=== PATIENT | female | born 1990 ===

== ENCOUNTER 2022-09-25 10:57 | Emergency (ER) | payer OTHER, SELFPAY ==
--- NOTE | ~2022-09-25 | XR_ITS ---
EXAMINATION: Lumbar spine, right knee and right ankle. CLINICAL INDICATIONS: Pain. COMPARISON: None. TECHNIQUE: Right ankle 3 views. Right knee 4 views. Lumbar spine 3 views. FINDINGS: RIGHT ANKLE: The ankle mortise and the subtalar joints are normal. No visible acute fracture or dislocation seen. Small bone fragment inferior to the cuboid bone is likely old injury. There is a small calcaneal and retrocalcaneal enthesophytes. The soft tissues are normal. SI JOINTS: There is normal lumbar lordosis. The vertebral heights and alignment is normal. There is loss of L5-S1 disc height. Rest of the disc heights are preserved. The SI joints are symmetrical. No visible acute fracture, dislocation or lytic process seen. RIGHT KNEE: There is loss of medial and lateral compartment joint space with periarticular spurring. No bony erosive changes seen. There is mild suprapatellar joint effusion. XR/XR lumbar spine 2-3V IMPRESSION: Unremarkable right ankle exam. Degenerative disc changes with spondylosis L5-S1 disc level. Degenerative changes medial and lateral compartment right knee with periarticular spurring. No acute fracture or dislocation.
--- NOTE | ~2022-09-25 | XR_ITS ---
EXAMINATION: Lumbar spine, right knee and right ankle. CLINICAL INDICATIONS: Pain. COMPARISON: None. TECHNIQUE: Right ankle 3 views. Right knee 4 views. Lumbar spine 3 views. FINDINGS: RIGHT ANKLE: The ankle mortise and the subtalar joints are normal. No visible acute fracture or dislocation seen. Small bone fragment inferior to the cuboid bone is likely old injury. There is a small calcaneal and retrocalcaneal enthesophytes. The soft tissues are normal. SI JOINTS: There is normal lumbar lordosis. The vertebral heights and alignment is normal. There is loss of L5-S1 disc height. Rest of the disc heights are preserved. The SI joints are symmetrical. No visible acute fracture, dislocation or lytic process seen. RIGHT KNEE: There is loss of medial and lateral compartment joint space with periarticular spurring. No bony erosive changes seen. There is mild suprapatellar joint effusion. XR/XR ankle RT min 3V IMPRESSION: Unremarkable right ankle exam. Degenerative disc changes with spondylosis L5-S1 disc level. Degenerative changes medial and lateral compartment right knee with periarticular spurring. No acute fracture or dislocation.
--- NOTE | ~2022-09-25 | XR_ITS ---
EXAMINATION: Lumbar spine, right knee and right ankle. CLINICAL INDICATIONS: Pain. COMPARISON: None. TECHNIQUE: Right ankle 3 views. Right knee 4 views. Lumbar spine 3 views. FINDINGS: RIGHT ANKLE: The ankle mortise and the subtalar joints are normal. No visible acute fracture or dislocation seen. Small bone fragment inferior to the cuboid bone is likely old injury. There is a small calcaneal and retrocalcaneal enthesophytes. The soft tissues are normal. SI JOINTS: There is normal lumbar lordosis. The vertebral heights and alignment is normal. There is loss of L5-S1 disc height. Rest of the disc heights are preserved. The SI joints are symmetrical. No visible acute fracture, dislocation or lytic process seen. RIGHT KNEE: There is loss of medial and lateral compartment joint space with periarticular spurring. No bony erosive changes seen. There is mild suprapatellar joint effusion. XR/XR knee RT 3V IMPRESSION: Unremarkable right ankle exam. Degenerative disc changes with spondylosis L5-S1 disc level. Degenerative changes medial and lateral compartment right knee with periarticular spurring. No acute fracture or dislocation.
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
[2022-09-25 11:22] VITALS: BP 154/83; PULSE 68; RESP 16; TEMP 36.4; O2SAT 99; BMI 42.0
[2022-09-25] MEDS: Acetaminophen 325 MG TABLET 975 MG PO (13:29)
[2022-09-25] MEDS: Ibuprofen 600 MG TABLET PO (13:29)
== END 2022-09-25 13:33 | disposition home or self-care (01) ==
PROVIDERS: Emergency Provider Emergency Medicine
DX: M54.2 Cervicalgia (principal); M79.604 Pain in right leg; M54.50 Low back pain, unspecified; M25.561 Pain in right knee
CPT/HCPCS: 72100; 73562; 73610; 99283

== ENCOUNTER 2024-03-08 13:03 | Emergency (ER) | payer OTHER, SELFPAY ==
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
[2024-03-08 13:44] VITALS: BP 162/86; PULSE 75; RESP 18; TEMP 36.7; O2SAT 98; BMI 46.3
[2024-03-08 17:35] VITALS: BP 162/86; PULSE 75; RESP 18; TEMP 36.7; O2SAT 98
== END 2024-03-08 17:36 | disposition home or self-care (01) ==
PROVIDERS: Emergency Provider Emergency Medicine
DX: S39.92XA Unspecified injury of lower back, initial encounter (principal); S09.90XA Unspecified injury of head, initial encounter; M54.2 Cervicalgia; M25.512 Pain in left shoulder; R51.9 Headache, unspecified; V43.52XA Car driver injured in collision with other type car in traffic accident, initial encounter; Y93.89 Activity, other specified; Y92.488 Other paved roadways as the place of occurrence of the external cause; Y99.8 Other external cause status; Z79.899 Other long term (current) drug therapy
CPT/HCPCS: 70450; 72100; 72125; 73030; 99282; 99284

== ENCOUNTER 2024-07-13 16:06 | Emergency (ER) | payer OTHER, SELFPAY ==
--- NOTE | ~2024-07-13 | CT_ITS ---
CLINICAL HISTORY: abd pain CT abdomen and pelvis with contrast Comparison: None Findings: Minimal bilateral lower lobe interstitial opacities, slightly more prominent on the left. The gallbladder is surgically absent. The solid organs are within normal limits. No hydronephrosis or hydroureter. Horseshoe kidney present. No bowel obstruction, pneumoperitoneum, or pneumatosis. There are postsurgical changes of the stomach. Scattered subcentimeter short axis lymph nodes are identified within the central mesentery. Pelvic contents unremarkable. No bladder wall thickening. Surgically absent appendix. No acute fracture visualized. IMPRESSION: 1. Scattered subcentimeter short axis lymph nodes identified within the central mesentery. This finding is nonspecific, but may be seen with reactive change in the setting of a mild enteritis. Clinical correlation is advised. No other CT evidence for an acute inflammatory process identified within the abdomen or pelvis. This document has been electronically signed by: Edgardo Ca MD on 07/13/2024 23:12:54
[2024-07-13 16:19] VITALS: BP 151/81; PULSE 93; RESP 16; TEMP 36.4; O2SAT 98; BMI 46.3
[2024-07-13 16:38] LABS: MANUAL DIFF FLAG NO
[2024-07-13 16:41] LABS: Basophils Percent Auto 0.1 % (0-2); Eosinophils Percent Auto 0.1 % (0-4); Hematocrit 38.5 % (37.0-47.0); Hemoglobin 12.8 g/dl (12.0-16.0); Imm Gran Abs Auto 0.03 X10*3/uL (0.00-0.03); Imm Gran Pct Auto 0.4 % (0.0-0.4); Lymphocytes Absolute Auto 1.1 X10*3/uL (1.2-4.9); Lymphocytes Percent Auto 15.7 % (20-40); Mean Corpuscular HGB Conc 33.2 g/dl (31.0-35.0); Mean Corpuscular Hemoglobin 30.4 pg (27.0-33.0); Mean Corpuscular Volume 91.4 fL (80.0-98.0); Mean Platelet Volume 9.3 fL (9.4-12.3); Monocytes Absolute Auto 0.3 X10*3/uL (0.1-1.2); Monocytes Percent Auto 4.4 % (2-11); Neutrophils Absolute Auto 5.6 x10*3/uL (2.0-8.3); Neutrophils Percent Auto 79.3 % (45-73); Platelet Count 255 X10*3/uL (160-400); Red Blood Count 4.21 X10*6/uL (4.20-5.50); Red Cell Distribution Width 13.2 % (11.0-16.0); White Blood Count 7.1 X10*3/uL (4.8-10.8)
[2024-07-13 16:56] LABS: Alanine Aminotransferase 18 U/L (0-31); Alkaline Phosphatase 58 U/L (39-117); Anion Gap 8 (12-20); Aspartate Amino Transferase 19 U/L (5-31); Bilirubin Total 0.6 mg/dL (0.0-1.0); Blood Urea Nitrogen 9 mg/dL (9-16); Calcium 9.4 mg/dL (8.4-10.2); Carbon Dioxide 28 mmol/L (22-29); Chloride 109 mmol/L (96-108); Creatinine Clr Calc Pharmacy 155.6; Estimated Glomerular Filt Rate > 60; Glucose Random 102 mg/dL (60-115); Potassium 3.6 mmol/L (3.3-5.1); Sodium 141 mmol/L (135-145); Total Protein 7.3 g/dL (6.5-8.0)
[2024-07-13 17:18] LABS: Influenza A PCR NEGATIVE (Negative); Influenza B PCR NEGATIVE (Negative); Resp Syncy Virus RNA Qual PCR NEGATIVE (Negative); SARS COV2 PCR INHOUSE NEGATIVE (Negative)
[2024-07-13 21:10] VITALS: BP 127/77; PULSE 89; RESP 16; TEMP 37.2; O2SAT 98
--- NOTE | 2024-07-13 21:23 | ED_ITS ---
HPI - Abdominal Pain General Chief Complaint: Abdominal Pain Stated Complaint: abd pain,vomiting, H/A Time Seen by Provider: 07/13/24 20:36 History of Present Illness HPI narrative: Patient is 33 years old presents today with nausea vomiting by status post appendectomy status post cholecystectomy about 6 months ago patient does not think she is . Menstrual cycle has been normal in timing and duration positive Related Data Previous Rx's ?Medication ?Instructions ?Recorded cyclobenzaprine 10 mg tablet 10 mg PO TID PRN muscle spasm #10 09/25/22 tabs meloxicam 15 mg tablet 15 mg PO DAILY PRN pain #14 tabs 09/25/22 acetaminophen 500 mg tablet 500 mg PO Q6H PRN fever or pain 03/08/24 (Tylenol Extra Strength) #14 tabs cyclobenzaprine 5 mg tablet 5 mg PO Q8H PRN pain (scale score 03/08/24 7-10) 5 days #14 tabs lidocaine 5 % topical patch 1 patch topical DAILY PRN pain #30 03/08/24 (Lidoderm) ea naproxen 500 mg tablet 500 mg PO BID PRN pain 10 days #20 03/08/24 tabs ondansetron 4 mg disintegrating 4 mg PO TID PRN nausea and 07/14/24 tablet vomiting 5 days #10 tabs Allergies Allergy/AdvReac Type Severity Reaction Status Date / Time acetaminophen [From Percocet] Allergy unkn Verified 07/13/24 16:21 oxycodone [From Percocet] Allergy unkn Verified 07/13/24 16:21 Penicillins Allergy Gastrointestinal Verified 07/13/24 16:21 Upset Review of Systems Review of Systems Positive nausea vomiting Yes all other systems are reviewed and are negative [facility] Past Medical History Attestation statement: The following information was validated with the patient. Social History Social History Smoked in Last 30 Days: No Use of substances other than those prescribed or required for medical reasons: No Advance Directives: No Advance Directives Information Provided: Yes Do you have a plan to hurt others: No Plan Physical Exam ED Vital Signs: Vital Signs - 24 hr 07/13/24 16:19 07/13/24 21:10 07/13/24 23:25 Temperature 97.6 F 98.9 F 98.3 F Pulse Rate 93 89 86 Respiratory Rate 16 16 17 Blood Pressure 151/81 H 127/77 133/61 Pulse Oximetry 98 98 98 Oxygen Delivery Method Room Air Room Air Room Air 07/14/24 00:10 Temperature 97.9 F Pulse Rate 104 H Respiratory Rate 20 Blood Pressure 107/68 Pulse Oximetry 93 Oxygen Delivery Method Room Air BMI result Body Mass Index 46.3 Appearance: Alert. Oriented X3. No acute distress. Eyes: Pupils equal, round and reactive to light. ENT: Pharynx normal. Neck: Normal inspection. Neck supple. No lymph nodes noted. No crepitus CVS: Normal heart rate and rhythm. Pulses normal. Normal S1 and S2 Respiratory: No respiratory distress. Breath sounds normal. No Wheezing. No rales Abdomen: Soft and nontender. No rigidity. No distention. good BS x4 Skin: Skin warm and dry. Normal skin color. Normal skin turgor. Extremities: No lower extremity edema. Neurovascular intact to all extremities. No Lacerations. No Rash Neuro: Oriented X 3. No motor deficit. No sensory deficit. Moving all extermities. No slurred speech Medical Decision Making Medical Decision Making [facility] Narrative: Patient presents today with having nausea vomiting yesterday. Generalized malaise abdominal pain. CT scan of the abdomen pelvis was negative for acute evidence of obstruction abscess perforation. Patient's white count is normal. Electrolytes unremarkable LFTs are normal. Urine showed no signs of infection. More likely contamination. Patient's COVID flu RSV were negative. Will discharge patient home close follow-up on an outpatient basis Zofran for nausea. Differential Diagnosis Differential Diagnoses: The differential diagnosis associated with the presentation includes Gastroenteritis, influenza, dehydration Admission/Observation Consideration of admission/observation: Escalation of care including admission/observation considered Lab Data [facility] Lab Attestation statement: I reviewed the patient's lab results. 07/13/24 16:32 07/13/24 16:32 Labs: Lab Results 07/13/24 07/13/24 Range/Units 16:32 22:00 WBC 7.1 (4.8-10.8) X10*3/uL RBC 4.21 (4.20-5.50) X10*6/uL Hgb 12.8 (12.0-16.0) g/dl Hct 38.5 (37.0-47.0) % MCV 91.4 (80.0-98.0) fL MCH 30.4 (27.0-33.0) pg MCHC 33.2 (31.0-35.0) g/dl RDW 13.2 (11.0-16.0) % Plt Count 255 (160-400) X10*3/uL MPV 9.3 L (9.4-12.3) fL Immature Gran % (Auto) 0.4 (0.0-0.4) % Neut % (Auto) 79.3 H (45-73) % Lymph % (Auto) 15.7 L (20-40) % Stark % (Auto) 4.4 (2-11) % Eos % (Auto) 0.1 (0-4) % Baso % (Auto) 0.1 (0-2) % Lymph # (Auto) 1.1 L (1.2-4.9) X10*3/uL Stark # (Auto) 0.3 (0.1-1.2) X10*3/uL Eos # (Auto) 0.0 (0.0-0.4) X10*3/uL Baso # (Auto) 0.0 (0.0-0.2) X10*3/uL Abs Immat Gran (auto) 0.03 (0.00-0.03) X10*3/uL Absolute Neuts (auto) 5.6 (2.0-8.3) x10*3/uL Absolute Nucleated RBC 0.000 (0.0-0.012) X10*3/uL Nucleated RBC % (auto) 0.0 (0.0-0.2) /100WBC Sodium 141 (135-145) mmol/L Potassium 3.6 (3.3-5.1) mmol/L Chloride 109 H (96-108) mmol/L Carbon Dioxide 28 (22-29) mmol/L Anion Gap 8 L (12-20) BUN 9 (9-16) mg/dL Creatinine 0.67 (0.5-1.4) mg/dL Estim Creat Clear Calc 155.6 Estimated GFR > 60 Random Glucose 102 (60-115) mg/dL Calcium 9.4 (8.4-10.2) mg/dL Total Bilirubin 0.6 (0.0-1.0) mg/dL AST 19 (5-31) U/L ALT 18 (0-31) U/L Alkaline Phosphatase 58 (39-117) U/L Total Protein 7.3 (6.5-8.0) g/dL Albumin 4.0 (3.5-5.0) g/dL Urine Color Yellow Urine Appearance Cloudy Urine pH 6.0 (5.0-9.0) Ur Specific [place] 1.020 (1.005-1.025) Urine Protein Negative (Neg-Trace) mg/dL Urine Glucose (UA) Negative (Negative) mg/dL Urine Ketones Negative (Negative) mg/dL Urine Blood Negative (Negative) Urine Nitrite Negative (Negative) Ur Leukocyte Esterase Small (1+) H (Negative) Urine RBC 0-2 (0-2) /HPF Urine WBC 6-10 (0-5) /HPF Ur Squamous Epith Cells >20 (0-2) /HPF Urine Bacteria 3+ (None Seen) Hyaline Casts 0-2 (0-2) /LPF Urine Test NEGATIVE (NEGATIVE) Influenza Type A (PCR) NEGATIVE (Negative) Influenza Type B (PCR) NEGATIVE (Negative) RSV RNA Qual (PCR) NEGATIVE (Negative) SARS-CoV-2 RNA (RT-PCR) NEGATIVE (Negative) Independent Interpretation I performed an independent interpretation of an: CT Scan (CT scan negative for obstruction) Radiology Impression Discussion of test interpretation with radiology: I have reviewed the radiologist's reading. Independent Historian Clinical information obtained from an independent historian. History obtained from or confirmed by: Spouse Medications Administered Discontinued Medications Generic Name Dose Route Start Last Admin Trade Name Freq PRN Reason Stop Dose Admin Sodium Chloride 1,000 mls @ 999 mls/hr 07/13/24 21:30 07/13/24 22:05 Ns IV 07/13/24 22:30 999 mls/hr .Q1H1M PAMELA Administration Sodium Chloride 1,000 mls @ 999 mls/hr 07/13/24 21:30 07/13/24 22:06 Ns IV 07/13/24 22:30 999 mls/hr .Q1H1M PAMELA Administration Iohexol 85 ml 07/13/24 22:43 07/13/24 22:43 Iohexol 350 Mg/Ml 100 Ml Infus..Btl IV 07/13/24 22:44 85 ml ONCE ONE Administration Ketorolac Tromethamine 15 mg 01/23/25 21:22 07/13/24 22:08 Ketorolac Tromethamine 15 Mg/Ml Vial IVPUSH 07/13/24 21:23 15 mg ONCE ONE Administration Ondansetron HCl 4 mg 07/13/24 21:20 07/13/24 22:08 Ondansetron Hcl 4 Mg/2 Ml Vial IVPUSH 07/13/24 21:21 4 mg ONCE ONE Administration Discharge Plan Discharge Clinical Impression: Gastroenteritis Patient Disposition: Home, Self-Care Instructions: Gastroenteritis (DC) Prescriptions: New ondansetron 4 mg tablet,disintegrating 4 mg PO TID PRN (Reason: nausea and vomiting) 5 Days Qty: 10 0RF No Action meloxicam 15 mg tablet 15 mg PO DAILY PRN (Reason: pain) Qty: 14 0RF cyclobenzaprine 10 mg tablet 10 mg PO TID PRN (Reason: muscle spasm) Qty: 10 0RF acetaminophen [Tylenol Extra Strength] 500 mg tablet 500 mg PO Q6H PRN (Reason: fever or pain) Qty: 14 0RF lidocaine [Lidoderm] 5 % adhesive patch,medicated 1 patch topical DAILY MDD remove after 12 hours PRN (Reason: pain) Qty: 30 0RF Rx Instructions: leave on most painful area for up to 12 hrs naproxen 500 mg tablet 500 mg PO BID PRN (Reason: pain) 10 Days Qty: 20 0RF cyclobenzaprine 5 mg tablet 5 mg PO Q8H PRN (Reason: pain (scale score 7-10)) 5 Days Qty: 14 0RF Referrals: Physician,None [Primary Care Provider] - 07/17/24 Print Language: Italian
[2024-07-13] MEDS: 0.9 % Sodium Chloride 1,000 ML 999 ML IV ×2 (22:05→22:06)
[2024-07-13] MEDS: ondansetron HCL 4 MG/2 ML VIAL IVPUSH (22:08)
[2024-07-13] MEDS: Ketorolac Tromethamine 15 MG/ML VIAL IVPUSH (22:08)
[2024-07-13 22:16] LABS: Appearance Urine Cloudy; Color Urine Yellow; Glucose Urine UA Negative (Negative); Leukocyte Esterase Urine Small (1+) (Negative); Nitrite Urine Negative (Negative); UMIC TRIGGER UACC YES; Urine Blood Negative (Negative); Urine Ketones Negative (Negative); Urine Protein Negative (Neg-Trace)
[2024-07-13 22:17] LABS: UPreg QC Valid YES; Urine Pregnancy NEGATIVE (NEGATIVE)
[2024-07-13 22:29] LABS: Bacteria Urine 3+ (None Seen); Hyaline Casts Urine 0-2 /LPF (0-2); RBC Urine 0-2 /HPF (0-2); Squamous Epithelial Cell Urine >20 /HPF (0-2); UACC Culture Trigger YES
[2024-07-13] MEDS: iohexoL 350 MG/ML 100 ML INFUS..BTL 85 ML IV (22:43)
[2024-07-13 23:25] VITALS: BP 133/61; PULSE 86; RESP 17; TEMP 36.8; O2SAT 98
[2024-07-14 00:10] VITALS: BP 107/68; PULSE 104; RESP 20; TEMP 36.6; O2SAT 93
[2024-07-14] MEDS: ondansetron HCL 4 MG/2 ML VIAL IVPUSH (00:42)
[2024-07-14 00:45] VITALS: BP 107/68; PULSE 104; RESP 20; TEMP 36.6; O2SAT 93
== END 2024-07-14 00:46 | disposition home or self-care (01) ==
PROVIDERS: Emergency Provider Emergency Medicine Emergency Medical Services
DX: K52.9 Noninfective gastroenteritis and colitis, unspecified (principal); R11.2 Nausea with vomiting, unspecified; Z03.818 Encounter for observation for suspected exposure to other biological agents ruled out
CPT/HCPCS: 0241U; 74177; 80053; 81001; 81025; 85025; 87086; 96361; 96374; 96375; 96376; 99284; J1885; J2405; Q9967

== ENCOUNTER 2024-07-24 15:41 | Emergency (ER) | payer OTHER, SELFPAY ==
--- NOTE | ~2024-07-24 | XR_ITS ---
CLINICAL HISTORY: pain s p fall 3 view left elbow Comparison: None Findings: No acute fractures. Normal alignment. No significant loss of joint space, osteophytes, or erosions. Anterior and posterior fat pad sign. No radiopaque foreign body. IMPRESSION: 1. No evidence of acute displaced fracture. 2. Anterior and posterior fat pad sign concerning for joint effusion. If clinical symptoms persist, follow-up evaluation in 7-10 days is recommended. This document has been electronically signed by: Raj De Jesus MD on 07/24/2024 19:12:25
--- NOTE | 2024-07-24 16:25 | ED_ITS ---
HPI - Fall General Chief Complaint: Extremity Injury, Upper Stated Complaint: fell today/hurt left elbow Time Seen by Provider: 07/24/24 19:56 Source: patient Mode of arrival: ambulatory Limitations: no limitations History of Present Illness ED Provider: Mckenna Berman PA-C HPI Narrative: Patient is a 33 year old assigned female at with no reported medical history presenting to the emergency department today with left elbow pain. Patient states that she slipped and fell - landing directly on her left elbow. Patient denies any head strike or loss of consciousness with the incident. Patient denies any dizziness, lightheadedness, abdominal pain, nausea, vomiting, fever, chills, blurry vision, double vision, loss of vision, chest pain, difficulty breathing, shortness of breath, back pain, night sweats, pain with urination, increased urinary frequency, increased urinary urgency, blood in her urine or stool, syncope or a near syncopal episode, bowel incontinence, bladder incontinence, or any other complaints at this time. Related Data Previous Rx's ?Medication ?Instructions ?Recorded cyclobenzaprine 10 mg tablet 10 mg PO TID PRN muscle spasm #10 09/25/22 tabs meloxicam 15 mg tablet 15 mg PO DAILY PRN pain #14 tabs 09/25/22 acetaminophen 500 mg tablet 500 mg PO Q6H PRN fever or pain 03/08/24 (Tylenol Extra Strength) #14 tabs cyclobenzaprine 5 mg tablet 5 mg PO Q8H PRN pain (scale score 03/08/24 7-10) 5 days #14 tabs lidocaine 5 % topical patch 1 patch topical DAILY PRN pain #30 03/08/24 (Lidoderm) ea naproxen 500 mg tablet 500 mg PO BID PRN pain 10 days #20 03/08/24 tabs ondansetron 4 mg disintegrating 4 mg PO TID PRN nausea and 07/14/24 tablet vomiting 5 days #10 tabs Allergies Allergy/AdvReac Type Severity Reaction Status Date / Time oxycodone [From Percocet] Allergy unkn Verified 07/24/24 16:28 Penicillins Allergy Gastrointestinal Verified 07/24/24 16:28 Upset Review of Systems Constitutional: Constitutional: Reports no additional constitutional complaints, Denies chills, Denies fever(s) and Denies night sweats Eyes: Eyes: Reports no additional eye complaints, Denies blurry vision, Denies change in vision, Denies diplopia, Denies eye discharge, Denies loss of vision and Denies eye pain ENT: Denies dizziness Cardiovascular: Cardiovascular: Reports no additional cardiovascular complaints, Denies chest pain, Denies lightheadedness, Denies Loss of Consciousness and Denies dyspnea Respiratory: Respiratory: Reports no additional respiratory complaints and Denies dyspnea Gastrointestinal: Gastrointestinal: Reports no additional gastrointestinal complaints, Denies abdominal pain, Denies melena, Denies hematochezia, Denies change in bowel habits and Denies change in stool character Genitourinary: Genitourinary: Denies hematuria, Denies urinary frequency, Denies dysuria, Denies urinary incontinence, Denies urinary hesitancy and Denies urinary urgency Musculoskeletal: Musculoskeletal: Reports no additional musculoskeletal complaints, Denies numbness and Denies tingling Comments: left elbow pain Neurologic: Denies dizziness, Denies loss of vision, Denies numbness and Oscar es tingling Psychiatric: Psychiatric: Reports no additional psychiatric complaints Endocrine: Endocrine: Reports no additional endocrine complaints Hematologic/Lymphatic: Hematologic/Lymphatic: Reports no additional hematologic/lymphatic complaints Allergic/Immunologic: Allergic/Immunologic: Reports no additional allergic/immunologic complaints PMFSH Past Medical History Attestation statement: The following information was validated with the patient. Source: old records reviewed and nursing notes reviewed Social History Social History Advance Directives: No Advance Directives Information Provided: No Do you have a plan to hurt others: No Plan Physical Exam Vital Signs: Vital Signs: Last Vital Signs Temp 976 F H 07/24/24 16:26 Pulse 66 07/24/24 16:26 Resp 18 07/24/24 16:26 BP 143/93 H 07/24/24 16:26 Pulse Ox 100 07/24/24 16:26 O2 Del Method Room Air 07/24/24 16:26 BMI result Body Mass Index 46.6 Const: General: cooperative, no acute distress, alert and awake Nutritional Appearance: well nourished Orientation/consciousness: patient oriented x3 Limitations: no limitations HEENT: Head: Yes normal to inspection and Yes atraumatic Ears: hearing grossly normal bilaterally and external ears normal General nose exam: Normal external nose present, no nasal discharge noted and no epistaxis Face and sinus: Yes normal facial exam, No abrasion and No laceration Mouth: Normal oral and palatal mucosa present, no drooling and no muffled voice Eyes: General: appearance normal, both eyes and all related structures Periorbital: periorbital findings normal Eyelids: Yes eyelids normal Conjunctivae: conjunctivae normal Pupils: Equal, round and reactive pupils present EOM: EOMs intact bilaterally Neck: Neck: Yes normal visual inspection, Yes full ROM and Yes no lymphadenopathy Chest: Chest palpation & inspection: normal inspection of the chest Resp: Effort & Inspection: normal respiratory effort and able to speak in complete sentences GI: Inspection: Yes normal to inspection Neuro: General: patient oriented x3 and moves all extremities Cranial nerves: Yes Equal, round and reactive pupils present Cognition (Neuro): normal cognition Extrem: Other: patinet unable to extend left elbow secondary to pain General: Yes normal to inspection and Yes capillary refill normal Psych: Appearance: grossly normal Mental Status: mental status grossly normal Affect: normal affect Attitude: cooperative Thought process: Normal thought process present Thought content: Normal thought content present Insight: Good insight present (Psych) Course Course Course Narrative: This is a Rapid Medical Exam performed in triage by Catherine Hills PA-C. Full HPI, ROS and PE to be performed by primary ED provider. 33-year-old female presenting to the ED c/o left elbow pain s/p mechanical trip and fall on way to work today on ice. denies head trauma or LOC PE: L elbow w/o deformity, +ttp. NV inatct distally. Decreased ROM Plan: XR Procedures Orthopedic Splinting/Casting Injury #1: Side: left Upper Extremity Injury Location: elbow Upper Extremity Immobilizer: sling/shoulder immobilizer and posterior splint Medical Decision Making Medical Decision Making MDM Narrative: Patient is a 33 year old assigned female at with no reported medical history presenting to the emergency department today with left elbow pain. Patient's physical exam was as noted in the physical exam portion of this note. Patient's left elbow x-ray showed anterior and posterior fat pad signs con cerning for an occult fracture. I spoke with the orthopedic team who recommended either a sling or posterior long arm splint with out patient follow up. I explained my physical exam findings as well as all test results to the patient. I answered all questions asked by the patient. I discussed with the patient the option of a sling or splint and sling and the patient opted for a splint and sling. Patient was placed in a modified posterior long arm splint given her anatomical variances, without incident. Patient's PMS in her left fingers and shoulder were intact and present prior to and after splint. Patient's left upper extremity had good + present pulses. Patient's left upper extremity was placed in a sling after the splint, without incident. I stressed the importance of the patient taking her medication as directed (either prescribed or as the over the counter packaging recommends). I stressed the importance of the patient following up with her primary care provider and an orthopedic provider. I stressed the importance of the patient returning to the emergency department immediately if her symptoms were to worsen or if she were to develop any dizziness, shortness of breath, difficulty breathing, chest pain, blurry vision, loss of vision, nausea, vomiting, abdominal pain, fever, chills, back pain, or any other complaints. Patient verbalized agreement and understanding with this treatment plan and discharge. Differential Diagnosis Differential Diagnoses: The differential diagnosis associated with the presentation includes Elbow fracture Supracondylar fracture Radial head fracture Admission/Observation Consideration of admission/observation: Escalation of care including admission/observation considered Patient would have been admitted to the hospital had her work up had any findings where hospital admission was appropriate and her clinical presentation warranted hospital admission. Consult Healthcare Provider Management of the patient was discussed with: Client Services Director (spoke to ortho team as noted in the MDM Rationale portion of this note.) Independent Interpretation I performed an independent interpretation of an: Plain X-Ray Interpretation: My interpretation is in agreement with the radiologist's impression of this imaging study. CLINICAL HISTORY: pain s p fall 3 view left elbow Comparison: None Findings: No acute fractures. Normal alignment. No significant loss of joint space, osteophytes, or erosions. Anterior and posterior fat pad sign. No radiopaque foreign body. IMPRESSION: 1. No evidence of acute displaced fracture. 2. Anterior and posterior fat pad sign concerning for joint effusion. If clinical symptoms persist, follow-up evaluation in 7-10 days is recommended. This document has been electronically signed by: Raj De Jseus MD on 07/24/2024 19:12:25 Dictated By: Raj De Jesus MD Signed By: Electronically signed by Raj De Jesus MD 07/24/241911 Radiology Impression Discussion of test interpretation with radiology: I have reviewed the radiologist's reading. Discharge Plan Discharge Clinical Impression: Elbow fracture Patient Disposition: Home, Self-Care Instructions: How to Use a Sling (ED), Elbow Fracture (ED) Additional Instructions: Do NOT get the splint wet. Do NOT remove the splint. IF you find that your left fingers feel differently, have any change in ability or color, you may loosen the exterior VIOLETTA wraps. If you find yourself loosening the exterior VIOLETTA wraps to the point where you see the white layer underneath - STOP and return to the ER immediately. Follow up with your primary care provider and an orthopedic provider. Return to the emergency department immediately if your symptoms worsen or if you develop any dizziness, shortness of breath, difficulty breathing, chest pain, blurry vision, loss of vision, nausea, vomiting, abdominal pain, fever, chills, back pain, or any other complaints. Prescriptions: No Action meloxicam 15 mg tablet 15 mg PO DAILY PRN (Reason: pain) Qty: 14 0RF cyclobenzaprine 10 mg tablet 10 mg PO TID PRN (Reason: muscle spasm) Qty: 10 0RF ondansetron 4 mg tablet,disintegrating 4 mg PO TID PRN (Reason: nausea and vomiting) 5 Days Qty: 10 0RF acetaminophen [Tylenol Extra Strength] 500 mg tablet 500 mg PO Q6H PRN (Reason: fever or pain) Qty: 14 0RF lidocaine [Lidoderm] 5 % adhesive patch,medicated 1 patch topical DAILY MDD remove after 12 hours PRN (Reason: pain) Qty: 30 0RF Rx Instructions: leave on most painful area for up to 12 hrs naproxen 500 mg tablet 500 mg PO BID PRN (Reason: pain) 10 Days Qty: 20 0RF cyclobenzaprine 5 mg tablet 5 mg PO Q8H PRN (Reason: pain (scale score 7-10)) 5 Days Qty: 14 0RF Referrals: [facility] Family Medicine [Provider Group] (Call to establish and follow up with a primary care provider. If you already have a primary care provider, please follow up with them.) [facility] Primary Care, [facility] [Provider Group] (Call to establish and follow up with a primary care provider. If you already have a primary care provider, ramos se follow up with them.) [facility] [Provider Group] (Call to establish and follow up with a primary care provider. If you already have a primary care provider, please follow up with them.) [facility] Orthopedic Surgeons [Provider Group] (Call to establish and follow up with an orthopedic provider.) Stand Alone Forms: Work/School Release Print Language: Sammarinese
[2024-07-24 16:26] VITALS: BP 143/93; PULSE 66; RESP 18; TEMP 524.4; TEMP 976; O2SAT 100; BMI 46.6
[2024-07-24 20:57] VITALS: BP 129/81; PULSE 68; RESP 18; TEMP 36.9; O2SAT 99
[2024-07-24 20:58] VITALS: BP 129/81; PULSE 68; RESP 18; TEMP 36.9; O2SAT 99
== END 2024-07-24 21:00 | disposition home or self-care (01) ==
PROVIDERS: Emergency Provider Emergency Medicine Emergency Medical Services
DX: S42.402A Unspecified fracture of lower end of left humerus, initial encounter for closed fracture (principal); M25.522 Pain in left elbow; W01.10XA Fall on same level from slipping, tripping and stumbling with subsequent striking against unspecified object, initial encounter; Y93.89 Activity, other specified; Y92.89 Other specified places as the place of occurrence of the external cause; Y99.8 Other external cause status
CPT/HCPCS: 29105; 73080; 99283; 99284

== ENCOUNTER → 2024-07-24 16:26 | Outpatient (BNV) | payer OTHER, SELFPAY | PROVIDERS: Emergency Provider Emergency Medicine Emergency Medical Services; Visit Provider Student in an Organized Health Care Education/Training Program | DX: M25.522 Pain in left elbow (principal) | CPT/HCPCS: 73080 ==

== ENCOUNTER → 2024-07-27 13:23 | Outpatient (AMB) | payer OTHER, SELFPAY ==
--- OUTSIDE RECORDS SUMMARY | 2024-07-27 13:24 | XMS_ITS | Encounter Summary ---
Author Organization Formerly [facility] Address [address] [place] [address] Care Team Providers Care Alumni Secretary Name Role Phone Ivan Altamirano MD Primary Care Provider Unavail able Ivan Altamirano MD Primary Care Provider Unavail able Prachi Nair DO Primary Care Pro vider Unavailable Ganesh Everett MD Primary Care Provider [phone] Radha Picknes PA-C Primary Care Provider U Ganesh Ramsey MD Primary Care Provider [phone] Alexis Kingsley Primary Care Provider [phone] Encounter Details Date Type Department Care Team Description 03/04/2015 Pt. 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 Sex Assigned at Date Recorded Not on file Job Start Date Occupation Industry Not on file Not on file Not on file documented as of this encounter Progress Notes * Noemy Rg R.N. - 03/04/2015 8:13 AM EDTFrom: Dakota Spear To: Anika Kennedy MD Sent: 03/04/2015 8:06 AM EDT Subject: My appointment I have an appointment tomorrow but im just wondering if i should reschedule because im just now getting my period documented in this encounter Plan of Treatment Not on file documented as of this encounter Visit Diagnoses Not on filedocumented in this encounter Care Teams Alumni Secretary Relationship Specialty Start Date End Date Ivan Altamirano MD PCP - General Internal Medicine 04/17/13 03/04/15 Ivan Altamirano MD PCP - General Internal Medicine 03/05/15 04/03/15 Prachi Nair DO PCP - General Internal Medicine 04/04/15 11/12/20 Ganesh Everett MD [address] [place] [address] PCP - General Internal Medicine 11/13/20 06/22/21 Radha Pickens PA-C [address] [place] [address] PCP - General Internal Medicine 06/23/21 03/22/22 Ganesh Everett MD [address] [place] [address] PCP - General Internal Medicine 03/23/22 06/29/23 Alexis Kingsley [address] [place] [address] PCP - General Internal Medicine 06/30/23 documented as of this encounter
--- OUTSIDE RECORDS SUMMARY | 2024-07-27 13:24 | XMS_ITS | Encounter Summary ---
Author Organization [facility] Address [address] [place] [address] Care Team Providers Care Compliance Administrator Name Role Phone Alexis Kingsley Primary Care Provider [phone] Reason for Visit * Reason Onset Date Comments Post Op Visit 08/23/2023 Encounter Details Date Type Department Care Team Description 08/23/2023 Telephone Adult Medicine [address] [address] Alexis Kingsley [address] [place] [address] Post Op Visit Social History Tobacco Use Types Packs/Day Years Used Date Smoking Tobacco: Never Smokeless Tobacco: Never Alcohol Use Standard Drinks/Week Comments Yes 0 (1 standard drink = 0.6 oz pur e alcohol) Special occasions Sex Assigned at Date Recorded Not on file Job Start Date Occupation Industry Not on file Not on file Not on file documented as of this encounter Miscellaneous Notes * Telephone Encounter - Kimberly Mehta - 08/23/2023 10:55 AM EST Please transfer to nurses, this pool doesn't handle post operative appointments * Telephone Encounter - Andrei Mac - 08/23/2023 10:45 AM EST What type of surgery did the patient have? Gall Bladder and Appendix What date was the surgery on? 08/21/23 What surgeon performed the surgery? Sammy Ospina What problem/concern is the patient calling about? none Is the patient in pain? YES If yes, how is the pain? intermitant and constant Can the patient wait for a call back? Yes If no, transfer to nurse PCP: Alexis Kingsley Insurance: Payor: [facility] FFS / Plan: [facility] [employer] / Product Type: MEDICAID RISK documented in this encounter Plan of Treatment Not on file documented as of this encounter Visit Diagnoses Not on filedocumented in this encounter Care Teams Compliance Administrator Relationship Specialty Start Date End Date Alexis Kingsley [address] [place] [address] PCP - General Internal Medicine 06/30/23 documented as of this encounter
--- OUTSIDE RECORDS SUMMARY | 2024-07-27 13:24 | XMS_ITS | Clinical Summary ---
Author Organization [facility] [address] [place] [address] [place] [phone] Phone Care Team Providers Care Agriculture Engineer Name Role Phone Alexis Kingsley MD Primary Care Provider Allergies Active Allergy Reactions Criticality Noted Date Comments Oxycodone-Acetaminophen 03/17/2021 Itching Penicillins 03/17/2021 GI upset Medications Medication Sig Dispensed Refills Start Date End Date Status cholestyramine (QUESTRAN) 4 gram packet Take 1 Packet by mouth 3 times daily (with meals). 09/01/2023 09/25/2024 Active metroNIDAZOLE (METROGEL) 0.75 % (37.5mg/5 gram) vaginal gel 1 application for 5 nights at bedtime 07/01/2023 Active terconazole (TERAZOL 3) 0.8 % vaginal cream One applicatorful PV QHS x 3 nights 12/21/2022 Active Active Problems Problem Noted Date Diagnosed Date Morbid obesity with BMI of 45.0-49.9, adult 03/21 DDD (degenerative disc disease), lumbar 06/21/19 Seasonal allergic conjunctivitis 10/06/2017 Recurrent sinusitis 08/26/2017 Mixed hyperlipidemia 10/23/2015 Cyst of left kidney 08/30/2015 Overview (04/02/2024): MRI scan 2015. 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 Fatty liver 08/12/2015 Overview (04/02/2024): Incidental finding on CT scan at [facility] dated 08/11/2015. LFTs normal. IBS (irritable bowel syndrome) 07/08/2015 PCOS (polycystic ovarian syndrome) 09/24/2014 Immunizations Name Administration Dates Next Due Influenza Quadravalent, MDCK , 0.5ml, preservative free (Flucelvax) 6mo and older 03/18/2018 Influenza, Unspecified 04/21/2019 PPD Test 02/18/2018, 6,06/05/2015,2014 Tdap Tetanus diptheria acell ular pertussis (Boostrix; Adacel) 7yo and older 11/27/2016,07/24/2013 Surgical History Surgery Date Site/Laterality Comments LIPOMA RESECTION 06/21/2006 Right PROCEDURE: SKIN TISSUE EXCISION(LIPOMA); COMMENT: low back FLEXIBLE SIGMOIDOSCOPY 05/21/2014 PROCEDURE: OH SIGMOIDOSCOPY FLX DX W/COLLJ SPEC BR/WA IF PFRMD; COMMENT: hemorrhoids; normal colonic biopsies APPENDECTOMY PROCEDURE: HISTORICAL APPENDECTOMY CHOLECYSTECTOMY PROCEDURE: LAPAROSCOPY, CHOLECYSTECTOMY Medical History Medical History Date Comments Breast mass 01/24/14 DX:Breast mass; COMMENT: eval by surgeon, mammo, & u/s Family history of breast can cer in female 01/24/2014 DX:Family history of breast cancer in female BRCA negative 08/2014 DX:BRCA negative ; COMMENT: also Castro Syndrome, 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 Horseshoe kidney 08/30/2015 DX:Horseshoe ki dney; COMMENT: MRI scan 2015. 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 01/21/2017 DX:Benign essential hyperten darío in obstetric context Morbid obesity with BMI of 5 0.0-59.9, adult (CMS/HCC) 02/18/2018 DX:Morbid obesity with BMI o f 50.0-59.9, adult (HCC) Migraine DX:Migraine Family History Medical History Relation Name Comments Breast cancer Aunt paternal Colon cancer Aunt Hyperlipidemia Father Heart failure Maternal Grandmother and co pd ( 02/13/14) at age 59 Other: Ulcerative Colitis Maternal Grandmother Ovarian cancer Mother's side mother's aun t Breast cancer Paternal Grandmother Cancer of Small Bowel Neg Hx Kidney cancer Neg Hx Pancreatic cancer Neg Hx Uterine cancer Neg Hx Relation Name Status Comments Aunt Brother Alive 1,healthy Father Alive Maternal Grandmother (Age 59) co pd, chf Mother Alive Mother's side Paternal Grandmother Sister Alive 1,healthy Social History Tobacco Use Types Packs/Day Years Used Date Smoking Tobacco: Never Smokeless Tobacco: Never Alcohol Use Standard Drinks/Week Comments Yes 0 (1 standard drink = 0.6 oz pur e alcohol) Sex and Gender Information Value Date Recorded Sex Assigned at Not on file Gender Identity Not on file Sexual Orientation Not on file Job Start Date Occupation Industry Not on file Not on file Not on file Obstetrics History Last Filed Vital Signs Vital Sign Reading Time Taken Comments Blood Pressure 106/78 09/02/2023 9:41 AM EDT Pulse 76 09/02/2023 9:41 AM EDT Temperature - - Respiratory Rate - - Oxygen Saturation - - Inhaled Oxygen Concentration - - Weight 122 kg (268 lb) 09/02/2023 9:41 AM EDT Height 162.6 cm (5' 4 ) 09/02/2023 9:41 AM EDT Body Mass Index 46 09/02/2023 9:41 AM EDT Plan of Treatment Health Maintenance Due Date Last Done Comments Pneumococcal Vaccine: Pediatrics (0 to 5 Years) and At-Risk Patients (6 to 64 Years) (1 of 2 - PCV) 09/15/1997 Hepatitis A Vaccines (1 of 2 - Risk 2-dose series) 09/15/2010 Hepatitis B Vaccines (1 of 3 - 19+ 3-dose series) 09/15/2010 Depression Screening 05/23/2022 HIV Screening 05/23/2022 Social Influencers of Health Screening 05/23/2022 COVID-19 Vaccine (1 - 2023-2 5 season) 2024 Influenza Vaccine (#1) 2024 9, 03/18/2018 Cholesterol Screening (Lipid Panel) 02/11/2026 02/11/2021 Cervical Cancer Screening: P ap Smear 04/20/2026 04/20/2023, 03/03/2019 DTaP,Tdap,and Td Vaccines (3 - Td or Tdap) 11/27/2026 11/27/2016, 07/24/2013 Hepatitis C Screening Completed 06/30/2023 HIB Vaccines Aged Out No longer eligi ble based on patient's age to complete this topic HPV Vaccines Aged Out No longer eligi ble based on patient's age to complete this topic IPV Vaccines Aged Out No longer eligi ble based on patient's age to complete this topic MMR Vaccines Aged Out No longer eligi ble based on patient's age to complete this topic Meningococcal ACWY Vaccine Aged Out N o longer eligible based on patient's age to complete this topic RSV Immunization Patients Under 20 months Aged Out No longer eligible b ased on patient's age to complete this topic Varicella Vaccines Aged Out No longer eligible based on patient's age to complete this topic Procedures Procedure Name Priority Date/Time Associated Diagnosis Comments HEPATITIS C SCREENING Routine 06/30/2023 PAP SMEAR Routine 04/20/2023 LIPID PANEL Routine 02/11/2021 from Last 3 Months or Most Recently Relevant to Health Maintenance Results * Hepatitis C Screening (06/30/2023) Pathologist [facility] Hepatitis C Screening ABSTRACTED Historical Provider MD CHAO HAMMONDS E * Pap Smear (04/20/2023) Pathologist [facility] Pap smear NEGATIVE, ABSTRACTED Historical Provider MD CHAO HAMMONDS E * (ABNORMAL) Lipid panel (02/11/2021) [facility] LDL/HDL Ratio 5(A) 0 - 4 Triglycerides 125 0 - 150 mg/dL Cholesterol 192 0 - 200 mg/dL HDL 38(A) 40 mg/dL LDL Cholesterol 129(A) 0 - 100 mg/dL Blood Venous blood specimen / Unknown Historical Provider LAB BLOOD ORDERAB LES from Last 3 Months or Most Recently Relevant to Health Maintenance Advance Directives Documents on File Type Date Recorded Patient Merchant Mill Utility Worker Expl anation Health Care Decision (hx) 06/23/2021 AD WHEELER DIRECTIVE Health Care Decision (hx) 06/23/2021 AD WHEELER DIRECTIVE Health Care Decision (hx) 06/23/2021 AD WHEELER DIRECTIVE Health Care Decision (hx) 06/23/2021 AD WHEELER DIRECTIVE Health Care Decision (hx) 06/23/2021 AD WHEELER DIRECTIVE Health Care Decision (hx) 06/23/2021 AD WHEELER DIRECTIVE Health Care Decision (hx) 06/23/2021 AD WHEELER DIRECTIVE Health Care Decision (hx) 06/23/2021 AD WHEELER DIRECTIVE Health Care Decision (hx) 06/23/2021 AD WHEELER DIRECTIVE Health Care Decision (hx) 06/18/2021 AD WHEELER DIRECTIVE Health Care Decision (hx) 06/18/2021 AD WHEELER DIRECTIVE Health Care Decision (hx) 06/18/2021 AD WHEELER DIRECTIVE Health Care Decision (hx) 06/18/2021 AD WHEELER DIRECTIVE Health Care Decision (hx) 06/18/2021 AD WEHELER DIRECTIVE Health Care Decision (hx) 06/18/2021 AD WHEELER DIRECTIVE Health Care Decision (hx) 06/18/2021 AD WHEELER DIRECTIVE Health Care Decision (hx) 06/18/2021 AD WHEELER DIRECTIVE Health Care Decision (hx) 06/18/2021 AD WHEELER DIRECTIVE Care Teams Agriculture Engineer Relationship Specialty Start Date End Date Alexis Kingsley MD [address] [place] [id number] PCP - General 06/30/23
--- OUTSIDE RECORDS SUMMARY | 2024-07-27 13:24 | XMS_ITS | Encounter Summary ---
Author Organization [facility] Address [address] [place] [address] Care Team Providers Care Health Occupations Instructor Name Role Phone Prachi Nair DO Primary Care Pro vider Ganesh Zhong MD Primary Care Provider [phone] Radha Pickens PA-C Primary Care Provider U Ganesh Ramsey MD Primary Care Provider [phone] Alexis Kingsley Primary Care Provider [phone] Encounter Details Date Type Department Care Team Description 07/29/2016 Zika Virus Medical Records [address] [place] [id number] Abstract, Provider Social History Tobacco Use Types Packs/Day Years Used Date Smoking Tobacco: Never Smokeless Tobacco: Never Alcohol Use Standard Drinks/Week Comments No 0 (1 standard drink = 0.6 oz pur e alcohol) Sex Assigned at Date Recorded Not on file Job Start Date Occupation Industry Not on file Not on file Not on file documented as of this encounter Plan of Treatment Not on file documented as of this encounter Visit Diagnoses Not on filedocumented in this encounter Care Teams Health Occupations Instructor Relationship Specialty Start Date End Date Prachi Nair DO PCP - General Internal Medicine 04/04/15 11/12/20 Ganesh Everett MD [address] [place], [place] [phone] PCP - General Internal Medicine 11/13/20 06/22/21 Radha Pickens PA-C [address] [place] [address] PCP - General Internal Medicine 06/23/21 03/22/22 Ganesh Everett MD [address] [place] [address] PCP - General Internal Medicine 03/23/22 06/29/23 Alexis Kingsley [address] [place] [address] PCP - General Internal Medicine 06/30/23 documented as of this encounter
--- OUTSIDE RECORDS SUMMARY | 2024-07-27 13:24 | XMS_ITS | Encounter Summary ---
Author Organization [facility] Address [address] [place] [address] Care Team Providers Care Professional Volleyball Player Name Role Phone Prachi Nair DO Primary Care Pro vider Ganesh Zhong MD Primary Care Provider [phone] Radha Pickens PA-C Primary Care Provider U Ganesh Ramsey MD Primary Care Provider [phone] Alexis Kingsley Primary Care Provider [phone] Encounter Details Date Type Department Care Team Description 07/29/2016 Release of Information Medical Records [address] [place] [id number] Abstract, Provider Social History Tobacco Use Types [...] on filedocumented in this encounter Care Teams Professional Volleyball Player Relationship Specialty Start Date End Date Prachi Nair DO PCP - General Internal Medicine 04/04/15 11/12/20 Ganesh Everett MD [address] [place], [place] [phone] PCP - General Internal Medicine 11/13/20 06/22/21 Radha Pickens PA-C [address] [place] [address] PCP - General Internal Medicine 06/23/21 03/22/22 Ganesh Everett MD [address] [place] [address] PCP - General Internal Medicine 03/23/22 06/29/23 Alexis Kingsley [address] [place] [address] PCP - General Internal Medicine 06/30/23 documented as of this encounter
--- OUTSIDE RECORDS SUMMARY | 2024-07-27 13:24 | XMS_ITS | Encounter Summary ---
Author Organization [facility] Address [address] [place] [address] Care Team Providers Care Audit Officer Name Role Phone Ivan Altamirano MD Primary Care Provider Unavail able Ivan Altamirano MD Primary Care Provider Unavail able Prachi Nair DO Primary Care Pro vider Unavailable Ganesh Everett MD Primary Care Provider [phone] Radha Pickens PA-C Primary Care Provider U Ganesh Ramsey MD Primary Care Provider [phone] Alexis Kingsley Primary Care Provider [phone] Encounter Details Date Type Department Care Team Description 02/20/2015 Pt. Non Urgent Medical Question PHOTOENGRAVING SKETCH MAKER - [address] [address] Anika Kennedy MD Social History Tobacco Use [...] Progress Notes * Noemy Rg R.N. - 02/21/2015 8:26 AM EDTFrom: Dakota Spear To: Anika Kennedy MD Sent: 02/20/2015 6:23 PM EDT Subject: period We saw each other a few months ago and spoke about concieving and getting on A diet to try to regulate my period and help with ovulation ,and trying to loose weight well I havetried that and I've been going up and down on my weight and I will like to know if their is any other options... because I really will like to try to conceive and have my first child.. and I've heardof a pill name clomid that will help ovulate and the provera pill to get a period and woman with Pcos has taken it to try to conceive and it has been successful.. documented in this encounter Plan of Treatment Not on file documented as of this encounter Visit Diagnoses Not on filedocumented in this encounter Care Teams Audit Officer Relationship Specialty Start Date End Date Ivan Altamirano MD PCP - General Internal Medicine 04/17/13 03/04/15 Ivan Altamirano MD PCP - General Internal Medicine 03/05/15 04/03/15 Prachi Nair DO PCP - General Internal Medicine 04/04/15 11/12/20 Ganesh Everett MD [address] [place] [address] PCP - General Internal Medicine 11/13/20 06/22/21 Radha Pickens PA-C [address] [place] [address] PCP - General Internal Medicine 06/23/21 03/22/22 Ganesh Everett MD [address] [place] [address] PCP - General Internal Medicine 03/23/22 06/29/23 Alexis Kingsley [address] [place] [address] PCP - General Internal Medicine 06/30/23 documented as of this encounter
--- OUTSIDE RECORDS SUMMARY | 2024-07-27 13:25 | XMS_ITS | Encounter Summary ---
Author Organization [facility] Address [address] [place] [address] Care Team Providers Care Aircraft Engine Specialist Name Role Phone Prachi Nair DO Primary Care Pro vider Ganesh Zhong MD Primary Care Provider [phone] Radha Pickens PA-C Primary Care Provider U Ganesh Ramsey MD Primary Care Provider [phone] Alexis Kingsley Primary Care Provider [phone] Encounter Details Date Type Department Care Team Description 07/07/2016 Pt. Non Urgent Medic al Question OBGYN - [place] [address] [place] [address] Tushar Mcgrath CNM Social History Tobacco Use Types Packs/Day Years Used Date Smoking Tobacco: Never Smokeless Tobacco: Never Alcohol Use Standard Drinks/Week Comments No 0 (1 standard drink = 0.6 oz pur e alcohol) Sex Assigned at Date Recorded Not on file Job Start Date Occupation Industry Not on file Not on file Not on file documented as of this encounter Progress Notes * Kenna Zamorano - 07/07/2016 12:54 PM ESTFrom: Dakota Spear To: Tushar Mcgrath CNM Sent: 07/07/2016 8:11 AM EST Subject: Question regarding ULTRASOUND I have a question about ULTRASOUND resulted on 07/02/16 at 11:29 AM. So everything in my ultrasound looks good? documented in this encounter Plan of Treatment Not on file documented as of this encounter Visit Diagnoses Not on filedocumented in this encounter Care Teams Aircraft Engine Specialist Relationship Specialty Start Date End Date Prachi Nair DO PCP - General Internal Medicine 04/04/15 11/12/20 Ganesh Everett MD [address] [place] [address] PCP - General Internal Medicine 11/13/20 06/22/21 Radha Pickens PA-C [address] [place], [place] [phone] PCP - General Internal Medicine 06/23/21 03/22/22 Ganesh Everett MD [address] [place] [address] PCP - General Internal Medicine 03/23/22 06/29/23 Alexis Kingsley [address] [place] [address] PCP - General Internal Medicine 06/30/23 documented as of this encounter
--- OUTSIDE RECORDS SUMMARY | 2024-07-27 13:25 | XMS_ITS | Encounter Summary ---
Author Organization [facility] Address [address] [place] [address] Care Team Providers Care Swat Team Member Name Role Phone Radha Pickens PA-C Primary Care Provider U Ganesh Ramsey MD Primary Care Provider [phone] Alexis Kingsley Primary Care Provider [phone] Encounter Details Date Type Department Care Team Description 06/23/2021 Orders Only Medical Records [address] [place] [address] Mayo Azul MD [address] [place] [address] [address] [place] [address] Social History Tobacco Use Types Packs/Day Years Used Date Smoking Tobacco: Never Smokeless Tobacco: Never Alcohol Use Standard Drinks/Week Comments Yes 0 (1 standard drink = 0.6 oz pur e alcohol) Special occasions Sex Assigned at Date Recorded Not on file Job Start Date Occupation Industry Not on file Not on file Not on file COVID-19 Exposure Response Date Recorded In the last month, have you been in contact with someone who was confirmed or suspected to have Coronavirus / COVID-19? No / Unsure 06/24/2021 12:00 PM EST documented as of this encounter Plan of Treatment Not on file documented as of this encounter Procedures Procedure Name Priority Date/Time Associated Diagnosis Comments OUTSIDE PATHOLOGY Routine 06/18/2021 documented in this encounter Results * OUTSIDE PATHOLOGY (06/18/2021) Mayo Azul MD OUTSIDE LAB documented in this encounter Visit Diagnoses Not on filedocumented in this encounter Care Teams Swat Team Member Relationship Specialty Start Date End Date Radha Pickens PA-C PCP - General Internal Medicine 06/23/2103/22 Ganesh Everett MD [address] [place] [address] PCP - General Internal Medicine 03/23/22 06/29/23 Alexis Kingsley [address] [place] [address] PCP - General Internal Medicine 06/30/23 documented as of this encounter
--- OUTSIDE RECORDS SUMMARY | 2024-07-27 13:25 | XMS_ITS | Encounter Summary ---
Author Organization [facility] Address [address] [place] [address] Care Team Providers Care Coffee Weigher Name Role Phone Prachi Nair DO Primary Care Pro vider Ganesh Zhong MD Primary Care Provider [phone] Radha Pickens PA-C Primary Care Provider U Ganesh Ramsey MD Primary Care Provider [phone] Alexis Kingsley Primary Care Provider [phone] Encounter Details Date Type Department Care Team Description 2015 Pt. Non Urgent Medic al Question Adult Medicine [address] [address] Prachi Nair DO Social History Tobacco Use Types Packs/Day Years Used Date Smoking Tobacco: Never Smokeless Tobacco: Never Alcohol Use Standard Drinks/Week Comments No 0 (1 standard drink = 0.6 oz pur e alcohol) Sex Assigned at Date Recorded Not on file Job Start Date Occupation Industry Not on file Not on file Not on file documented as of this encounter Progress Notes * Sallie Oates M.A. - 09/17/2015 8:31 AM EDTFrom: Dakota Spear To: Prachi Faulkner DO Sent: 2015 10:59 PM EDT Subject: I have a question Is it normal for a woman to get pimples with yellow puss on her boob documented in this encounter Plan of Treatment Not on file documented as of this encounter Visit Diagnoses Not on filedocumented in this encounter Care Teams Coffee Weigher Relationship Specialty Start Date End Date Prachi Nair DO PCP - General Internal Medicine 04/04/15 11/12/20 Ganesh Everett MD [address] [place] [address] PCP - General Internal Medicine 11/13/20 06/22/21 Radha Pickens PA-C [address] [place] [address] PCP - General Internal Medicine 06/23/21 03/22/22 Ganesh Everett MD [address] [place] [address] PCP - General Internal Medicine 03/23/22 06/29/23 Alexis Kingsley [address] [place] [address] PCP - General Internal Medicine 06/30/23 documented as of this encounter
--- OUTSIDE RECORDS SUMMARY | 2024-07-27 13:25 | XMS_ITS | Encounter Summary ---
Author Organization [facility] Address [address] [place] [address] Care Team Providers Care Transit Mixer Driver Name Role Phone Alexis Kingsley Primary Care Provider [phone] Encounter Details Date Type Department Care Team Description 08/23/2023 Orders Only Medical Records [address] [place] [address] Naima Blancas PA-C [address] [address] Social History Tobacco Use Types Packs/Day Years [...] Name Priority Date/Time Associated Diagnosis Comments OUTSIDE LAB Routine 08/21/2023 documented in this encounter Results * OUTSIDE LAB (08/21/2023) Naima Blancas PA-C LAB documented in this encounter Visit Diagnoses Not on filedocumented in this encounter Care Teams Transit Mixer Driver Relationship Specialty Start Date End Date Alexis Kingsley [address] [place] [address] PCP - General Internal Medicine 06/30/23 documented as of this encounter
--- OUTSIDE RECORDS SUMMARY | 2024-07-27 13:25 | XMS_ITS | Encounter Summary ---
Author Organization [facility] Address [address] [place] [address] Care Team Providers Care Anesthesiologist/Physician Name Role Phone Ganesh Everett MD Primary Care Provider [phone] Radha Pickens PA-C Primary Care Provider U Ganesh Ramsey MD Primary Care Provider [phone] Alexis Kingsley Primary Care Provider [phone] Reason for Visit * Reason Onset Date Comments Pre-op Needed 11/13/2020 Encounter Details Date Type Department Care Team Description 11/13/2020 Telephone Adult Medicine [address] [id number] Ganesh Everett MD [address] [place] [address] [phone] Pre-op Needed Social History Tobacco Use Types Packs/Day Years [...] or suspected to have Coronavirus / COVID-19? Unable to assess 10/25/2020 8:43 AM EDT documented as of this encounter Miscellaneous Notes * Telephone Encounter - Sallie Oates M.A. - 11/14/2020 9:28 AM EDT Message left advising pt to call back to confirm her appt 12/02/20 * Telephone Encounter - Chantel Monterroso M.A. - 11/13/2020 10:56 AM EDT Pt needs physical not preop. Booked a physical with Estrella Espinoza on Wednesday12/02/20 ay 11:15am Left message for pt to call back * Telephone Encounter - Pricila Josue - 11/13/2020 10:30 AM EDT Patient needs a physical or pre op for a gastric bypass surgery. documented in this encounter Plan of Treatment Not on file documented as of this encounter Visit Diagnoses Not on filedocumented in this encounter Care Teams Anesthesiologist/Physician Relationship Specialty Start Date End Date Ganesh Everett MD [address] [place] [address] PCP - General Internal Medicine 11/13/20 06/22/21 Radha Pickens PA-C [address] [place] [address] PCP - General Internal Medicine 06/23/21 03/22/22 Ganesh Everett MD [address] [place] [address] PCP - General Internal Medicine 03/23/22 06/29/23 Alexis Kingsley [address] [place] [address] PCP - General Internal Medicine 06/30/23 documented as of this encounter
--- OUTSIDE RECORDS SUMMARY | 2024-07-27 13:25 | XMS_ITS | Encounter Summary ---
Author Organization [facility] Address [address] [place] [address] Care Team Providers Care Clinical Nursing Manager Name Role Phone Ivan Altamirano MD Primary Care Provider Unavail able Ivan Altamirano MD Primary Care Provider Unavail able Prachi Nair DO Primary Care Pro vider Unavailable Ganesh Everett MD Primary Care Provider [phone] Radha Pickens PA-C Primary Care Provider U Ganesh Ramsey MD Primary Care Provider [phone] Alexis Kingsley Primary Care Provider [phone] Encounter Details Date Type Department Care Team Description 01/25/2015 Pt. Non Urgent Medical Question HAND COLLATOR - [address] [address] Anika Kennedy MD Social History Tobacco Use [...] Progress Notes * Noemy Rg R.N. - 01/25/2015 8:26 AM EDTFrom: Dakota Spear To: Anika Kennedy MD Sent: 01/25/2015 8:14 AM EDT Subject: Cramps Lately I've been having a lot of bad lower abdomen cramps and i have had no sign of period in threemonths and the pain it's getting worst documented in this encounter Plan of Treatment Not on file documented as of this encounter Visit Diagnoses Not on filedocumented in this encounter Care Teams Clinical Nursing Manager Relationship Specialty Start Date End Date Ivan Altamirano MD PCP - General Internal Medicine 04/17/13 03/04/15 Ivan Altamirano MD PCP - General Internal Medicine 03/05/15 04/03/15 Prachi Nair DO PCP - General Internal Medicine 04/04/15 11/12/20 Ganesh Everett MD [address] [place] [address] PCP - General Internal Medicine 11/13/20 06/22/21 Radha Pickens PA-C [address] [place] [address] PCP - General Internal Medicine 06/23/21 03/22/22 Ganesh Everett MD [address] [place] [address] PCP - General Internal Medicine 03/23/22 06/29/23 Alexis Kingsley [address] [place] [address] PCP - General Internal Medicine 06/30/23 documented as of this encounter
--- OUTSIDE RECORDS SUMMARY | 2024-07-27 13:25 | XMS_ITS | Encounter Summary ---
Author Organization [facility] Address [address] [place] [address] Care Team Providers Care Segmental Paver Installer Name Role Phone Prachi Nair DO Primary Care Pro mariumr Ganesh Zhong MD Primary Care Provider [phone] Radha Pickens PA-C Primary Care Provider U Ganesh Ramsey MD Primary Care Provider [phone] Alexis Kingsley Primary Care Provider [phone] Reason for Visit * Reason Onset Date Comments Appointment Cancelled 12/17/2015 Encounter Details Date Type Department Care Team Description 12/17/2015 Telephone Gastroenterology - [address] [address] Rai Fiore MD Appointment Cancelled Social History Tobacco Use Types Packs/Day Years [...] encounter Miscellaneous Notes * Telephone Encounter - Stephany Antoine - 01/07/2016 12:25 PM EDT Pt has been r/s at [facility] 02/04/2016 at 3:00 * Telephone Encounter - Stephany Antoine - 12/17/2015 12:32 PM EDT [facility] * Telephone Encounter - Rai Fiore MD - 12/17/2015 9:43 AM EDT Would cancel and re-schedule with [facility]. Kindly sent me the prescription. * Telephone Encounter - Sylvie Joya - 12/17/2015 9:33 AM EDT Patient states that she vomits everytime she drinks a glass of the Golytely. Her bowels are still dark in color, should [facility] procedure for today a 2:00pm and re-schedule with a different prep? documented in this encounter Plan of Treatment Not on file documented as of this encounter Visit Diagnoses Not on filedocumented in this encounter Care Teams Segmental Paver Installer Relationship Specialty Start Date End Date Prachi Nair DO PCP - General Internal Medicine 04/04/15 11/12/20 Ganesh Everett MD [address] [place] [address] PCP - General Internal Medicine 11/13/20 06/22/21 Radha Pickens PA-C [address] [place] [address] PCP - General Internal Medicine 06/23/21 03/22/22 Ganesh Everett MD [address] [place] [address] PCP - General Internal Medicine 03/23/22 06/29/23 Alexis Kingsley [address] [place] [address] PCP - General Internal Medicine 06/30/23 documented as of this encounter
--- OUTSIDE RECORDS SUMMARY | 2024-07-27 13:25 | XMS_ITS | Encounter Summary ---
Author Organization [facility] Address [address] [place] [address] Care Team Providers Care Electric Arc Welder Name Role Phone Alexis Kingsley Primary Care Provider [phone] Encounter Details Date Type Department Care Team Description 08/26/2023 Orders Only Medical Records [address] [place] [address] Arpan Tena PA-C Social History Tobacco Use Types Packs/Day Years [...] Name Priority Date/Time Associated Diagnosis Comments OUTSIDE ULTRASOUND Routine 08/21/2023 documented in this encounter Results * OUTSIDE ULTRASOUND (08/21/2023) Arpan Tena PA-C RADIOLOGY documented in this encounter Visit Diagnoses Not on filedocumented in this encounter Care Teams Electric Arc Welder Relationship Specialty Start Date End Date Alexis Kingsley [address] [place], [place] [phone] PCP - General Internal Medicine 06/30/23 documented as of this encounter
--- OUTSIDE RECORDS SUMMARY | 2024-07-27 13:25 | XMS_ITS | Encounter Summary ---
Author Organization [facility] Address [address] [place] [address] Care Team Providers Care Employee Placement Specialist Name Role Phone Ivan Altamirano MD Primary Care Provider Unavail able Ivan Altamirano MD Primary Care Provider Unavail able Prachi Nair DO Primary Care Pro vider Unavailable Ganesh Everett MD Primary Care Provider [phone] Radha Pickens PA-C Primary Care Provider U Ganesh Ramsey MD Primary Care Provider [phone] Alexis Kingsley Primary Care Provider [phone] Encounter Details Date Type Department Care Team Description 01/15/2015 Pt. Non Urgent Medical Question Adult Medicine [facility] [address] [place] [address] Ivan Altamirano MD Social History Tobacco Use Types Packs/Day [...] as of this encounter Progress Notes * Ronna Larose L.P.N. - 01/16/2015 8:18 AM EDTFrom: Dakota Spear To: Ivan Altamirano MD Sent: 01/15/2015 11:54 PM EDT Subject: About my breast Im writting to you because a while ago i had went in for a lump on my right boob and i was worried and i was referred to dr banda and in the beggining it didnt hurt or bother and its been a month that it been bothering me so i tried to see if i can contact him through my chart but i couldnt findhis name on here documented in this encounter Plan of Treatment Not on file documented as of this encounter Visit Diagnoses Not on filedocumented in this encounter Care Teams Employee Placement Specialist Relationship Specialty Start Date End Date Ivan Altamirano MD PCP - General Internal Medicine 04/17/13 03/04/15 Ivan Altamirano MD PCP - General Internal Medicine 03/05/15 04/03/15 Prachi Nair DO PCP - General Internal Medicine 04/04/15 11/12/20 Ganesh Everett MD [address] [place] [address] PCP - General Internal Medicine 11/13/20 06/22/21 Radha Pickens PA-C [address] [place] [address] PCP - General Internal Medicine 06/23/21 03/22/22 Ganesh Everett MD [address] [place] [address] PCP - General Internal Medicine 03/23/22 06/29/23 Alexis Kingsley [address] [place] [address] PCP - General Internal Medicine 06/30/23 documented as of this encounter
--- OUTSIDE RECORDS SUMMARY | 2024-07-27 13:25 | XMS_ITS | Encounter Summary ---
Author Organization [facility] Address [address] [place] [address] Care Team Providers Care Applied Psychology Chair Name Role Phone Prachi Nair DO Primary Care Pro mariumr Ganesh Zhong MD Primary Care Provider [phone] Radha Pickens PA-C Primary Care Provider U Ganesh Ramsey MD Primary Care Provider [phone] Alexis Kingsley Primary Care Provider [phone] Encounter Details Date Type Department Care Team Description 09/29/2020 Pt. Non Urgent Medical Question General Surgery - [address] [place] [address] Mayo Azul MD [address] [place] [address] [address] [place], [place] [id number] Social History Tobacco Use Types Packs/Day Years [...] encounter Miscellaneous Notes * Telephone Encounter - Astrid Rodríguez M.A. - 10/11/2020 9:36 AM EDT Could you please schedule and appointment for this patient with either Magali or Lizeth? She had an audio consultation on 04/16/2020. She has not had any other appts with our office. Next step would be with a crop or livestock tenant farmer. documented in this encounter Plan of Treatment Not on file documented as of this encounter Visit Diagnoses Not on filedocumented in this encounter Care Teams Applied Psychology Chair Relationship Specialty Start Date End Date Prachi Nair DO PCP - General Internal Medicine 04/04/15 11/12/20 Ganesh Everett MD [address] [place] [address] PCP - General Internal Medicine 11/13/20 06/22/21 Radha Pickens PA-C [address] [place] [address] PCP - General Internal Medicine 06/23/21 03/22/22 Ganesh Everett MD [address] [place] [address] PCP - General Internal Medicine 03/23/22 06/29/23 Alexis Kingsley [address] [place] [address] PCP - General Internal Medicine 06/30/23 documented as of this encounter
--- OUTSIDE RECORDS SUMMARY | 2024-07-27 13:25 | XMS_ITS | Encounter Summary ---
Author Organization [facility] Address [address] [place] [address] Care Team Providers Care Workers Compensation Claims Analyst Name Role Phone Alexis Kingsley Primary Care Provider [phone] Encounter Details Date Type Department Care Team Description 08/25/2023 Orders Only Medical Records [address] [place] [address] Sammy Bunn MD [address] [place] [address] Social History Tobacco Use Types Packs/Day Years [...] Date/Time Associated Diagnosis Comments OUTSIDE PATHOLOGY Routine 08/21/2023 documented in this encounter Results * OUTSIDE PATHOLOGY (08/21/2023) Sammy Bunn MD OUTSIDE LAB documented in this encounter Visit Diagnoses Not on filedocumented in this encounter Care Teams Workers Compensation Claims Analyst Relationship Specialty Start Date End Date Alexis Kingsley [address] [place] [address] PCP - General Internal Medicine 06/30/23 documented as of this encounter
--- OUTSIDE RECORDS SUMMARY | 2024-07-27 13:25 | XMS_ITS | Encounter Summary ---
Author Organization [facility] Address [address] [place] [address] Care Team Providers Care Claim Professional Name Role Phone Ivan Altamirano MD Primary Care Provider Unavail able Ivan Altamirano MD Primary Care Provider Unavail able Prachi Nair DO Primary Care Pro vider Unavailable Ganesh Everett MD Primary Care Provider Radha Pickens PA-C Primary Care Provider U Ganesh Ramsey MD Primary Care Provider [phone] Alexis Kingsley Primary Care Provider [phone] Encounter Details Date Type Department Care Team Description 07/27/2013 Release of Information Medical Records [address] [place] [address] Abstract, Provider Social History Tobacco Use Types [...] on filedocumented in this encounter Care Teams Claim Professional Relationship Specialty Start Date End Date Ivan Altamirano MD PCP - General Internal Medicine 04/17/13 03/04/15 Ivan Altamirano MD PCP - General Internal Medicine 03/05/15 04/03/15 Prachi Nair DO PCP - General Internal Medicine 04/04/15 11/12/20 Ganesh Everett MD [address] [place] [address] PCP - General Internal Medicine 11/13/20 06/22/21 Radha Pickens PA-C [address] [place] [address] PCP - General Internal Medicine 06/23/21 03/22/22 Ganesh Everett MD [address] [place] [address] PCP - General Internal Medicine 03/23/22 06/29/23 Alexis Kingsley [address] [place] [address] PCP - General Internal Medicine 06/30/23 documented as of this encounter
--- OUTSIDE RECORDS SUMMARY | 2024-07-27 13:25 | XMS_ITS | Encounter Summary ---
Author Organization [facility] Address [address] [place] [address] Care Team Providers Care Flake Cutter Operator Name Role Phone Ivan Altamirano MD Primary Care Provider Unavail able Ivan Altamirano MD Primary Care Provider Unavail able Prachi Nair DO Primary Care Pro vider Unavailable Ganesh Everett MD Primary Care Provider [phone] Radha Pickens PA-C Primary Care Provider U Ganesh Ramesy MD Primary Care Provider [phone] Alexis Kingsley Primary Care Provider [phone] Reason for Visit * Reason Onset Date Comments Breast Lump 01/01/2014 Encounter Details Date Type Department Care Team Description 01/01/2014 Pt. Non Urgent Medical Question Adult Medicine [address] [address] Ivan Altamirano MD Social History Tobacco Use [...] as of this encounter Progress Notes * Ning Sandhu L.P.N. - 01/02/2014 7:51 AM EDTFrom: Dakota Spear To: Ivan Altamirano MD Sent: 01/01/2014 8:27 PM EDT Subject: left breast lump Hello doctor chaula jairo I'm just writing to u concerning the lump on my left breast that I went for an ultrasound on 07/27/13 now I know in the letter I have it said it was negative but I'm still worried and concern about it if its just normal tissue? Can it be removed or should I not worry about it? documented in this encounter Plan of Treatment Not on file documented as of this encounter Visit Diagnoses Not on filedocumented in this encounter Care Teams Flake Cutter Operator Relationship Specialty Start Date End Date Ivan Altamirano MD PCP - General Internal Medicine 04/17/13 03/04/15 Ivan Altamirano MD PCP - General Internal Medicine 03/05/15 04/03/15 Prachi Nair DO PCP - General Internal Medicine 04/04/15 11/12/20 Ganesh Everett MD [address] [place] [address] PCP - General Internal Medicine 11/13/20 06/22/21 Radha Pickens PA-C [address] [place] [address] PCP - General Internal Medicine 06/23/21 03/22/22 Ganesh Everett MD [address] [place] [address] PCP - General Internal Medicine 03/23/22 06/29/23 Alexis Kingsley [address] [place] [address] PCP - General Internal Medicine 06/30/23 documented as of this encounter
--- OUTSIDE RECORDS SUMMARY | 2024-07-27 13:25 | XMS_ITS | Encounter Summary ---
Author Organization [facility] Address [address] [place] [address] Care Team Providers Care Machine Tank Operator Name Role Phone Alexis Kingsley Primary Care Provider [phone] Encounter Details Date Type Department Care Team Description 08/20/2023 Hospital Medical Records [address] [place] [address] Sammy Bunn MD [address] [place] [address] Social History Tobacco Use Types Packs/Day Years [...] on filedocumented in this encounter Care Teams Machine Tank Operator Relationship Specialty Start Date End Date Alexis Kingsley [address] [place] [address] PCP - General Internal Medicine 06/30/23 documented as of this encounter
--- OUTSIDE RECORDS SUMMARY | 2024-07-27 13:25 | XMS_ITS | Encounter Summary ---
Author Organization [facility] Address [address] [place] [address] Care Team Providers Care Fireman Helper Name Role Phone Prachi Nair DO Primary Care Pro vider Ganesh Zhong MD Primary Care Provider [phone] Radha Pickens PA-C Primary Care Provider U Ganesh Ramsey MD Primary Care Provider [phone] Alexis Kingsley Primary Care Provider [phone] Encounter Details Date Type Department Care Team Description 09/11/2015 Release of Information Medical Records [address] [place] [address] Abstract, Provider Social History Tobacco Use Types [...] on filedocumented in this encounter Care Teams Fireman Helper Relationship Specialty Start Date End Date Prachi Nair DO PCP - General Internal Medicine 04/04/15 11/12/20 Ganesh Everett MD [address] [place], [place] [phone] PCP - General Internal Medicine 11/13/20 06/22/21 Radha Pickens PA-C [address] [place] [address] PCP - General Internal Medicine 06/23/21 03/22/22 Ganesh Everett MD [address] [place] [address] PCP - General Internal Medicine 03/23/22 06/29/23 Alexis Kingsley [address] [place] [address] PCP - General Internal Medicine 06/30/23 documented as of this encounter
--- OUTSIDE RECORDS SUMMARY | 2024-07-27 13:25 | XMS_ITS | Encounter Summary ---
Author Organization [facility] Address [address] [place] [address] Care Team Providers Care Patient Registration Clerk Name Role Phone Prachi Nair DO Primary Care Pro mariumr Ganesh Zhong MD Primary Care Provider [phone] Radha Pickens PA-C Primary Care Provider U Ganesh Ramsey MD Primary Care Provider [phone] Alexis Kingsley Primary Care Provider [phone] Encounter Details Date Type Department Care Team Description 02/25/2016 Pt. Non Urgent Medic al Question Adult Medicine [address] [address] Prachi Nair DO Social History Tobacco Use [...] as of this encounter Progress Notes * Chloe Abad M.A. - 02/26/2016 8:21 AM EDTFrom: Dakota Spear To: Prachi Faulkner DO Sent: 02/25/2016 7:32 PM EDT Subject: Throat pain/ discomfort and lower abdominal pain I've been having throat pain for about two weeks going on three I went to the urgent care but they couldn't tell me anything helpful other than to take ibuprofen so I'm wondering if I can get an appointment schedule to get seen and also lashell been having lower abdominal pain documented in this encounter Plan of Treatment Not on file documented as of this encounter Visit Diagnoses Not on filedocumented in this encounter Care Teams Patient Registration Clerk Relationship Specialty Start Date End Date Prachi Nair DO PCP - General Internal Medicine 04/04/15 11/12/20 Ganesh Everett MD [address] [place] [address] PCP - General Internal Medicine 11/13/20 06/22/21 Radha Pickens PA-C [address] [place] [address] PCP - General Internal Medicine 06/23/21 03/22/22 Ganesh Everett MD [address] [place] [address] PCP - General Internal Medicine 03/23/22 06/29/23 Alexis Kingsley [address] [place] [address] PCP - General Internal Medicine 06/30/23 documented as of this encounter
--- OUTSIDE RECORDS SUMMARY | 2024-07-27 13:25 | XMS_ITS | Encounter Summary ---
Author Organization [facility] Address [address] [place] [address] Care Team Providers Care Armature Balancer Name Role Phone Prachi Nair DO Primary Care Pro vider Ganesh Zhong MD Primary Care Provider [phone] Radha Pickens PA-C Primary Care Provider U Ganesh Ramsey MD Primary Care Provider [phone] Alexis Kingsley Primary Care Provider [phone] Encounter Details Date Type Department Care Team Description 11/06/2016 Pt. Non Urgent Medic al Question OBGYN - [facility] [address] [place] [address] Tushar Mcgrath CNM Social History Tobacco Use [...] encounter Progress Notes * Kenna Zamorano - 11/06/2016 1:07 PM EDTFrom: Dakota Spear To: Tushar Mcgrath CNM Sent: 11/06/2016 9:36 AM EDT Subject: I have a cold I have a cold and I'm wondering if tussin dm is good to take for it documented in this encounter Plan of Treatment Not on file documented as of this encounter Visit Diagnoses Not on filedocumented in this encounter Care Teams Armature Balancer Relationship Specialty Start Date End Date Prachi Nair DO PCP - General Internal Medicine 04/04/15 11/12/20 Ganesh Everett MD [address] [place] [address] PCP - General Internal Medicine 11/13/20 06/22/21 Radha Pickens PA-C [address] [place] [address] PCP - General Internal Medicine 06/23/21 03/22/22 Ganesh Everett MD [address] [place] [address] PCP - General Internal Medicine 03/23/22 06/29/23 Alexis Kingsley [address] [place] [address] PCP - General Internal Medicine 06/30/23 documented as of this encounter
--- OUTSIDE RECORDS SUMMARY | 2024-07-27 13:25 | XMS_ITS | Encounter Summary ---
Author Organization [facility] Address [address] [place] [address] Care Team Providers Care Director Of Quality Improvement Name Role Phone Prachi Nair DO Primary Care Pro vider Ganesh Zhong MD Primary Care Provider [phone] Radha Pickens PA-C Primary Care Provider U Ganesh Ramsey MD Primary Care Provider [phone] Alexis Kingsley Primary Care Provider [phone] Encounter Details Date Type Department Care Team Description 10/16/2015 Pt. Non Urgent Medic al Question Adult Medicine [address] [address] Prachi Nair DO Social History Tobacco Use [...] as of this encounter Progress Notes * Prachi Faulkner DO - 10/17/2015 4:13 PM EDT I've never actually seen this patient. I do know there is a family history of breast cancer. I think if she has any concerns regarding breast pain she should probably be seen by whomever is availableat her convenience for evaluation and plan. * Sallie Oates M.A. - 10/17/2015 7:07 AM EDTFrom: Dakota Spear To: Prachi Faulkner DO Sent: 10/16/2015 10:50 PM EDT Subject: Concern with my left breast My left breast has been hurting it's been feeling like a discomfort documented in this encounter Plan of Treatment Not on file documented as of this encounter Visit Diagnoses Not on filedocumented in this encounter Care Teams Director Of Quality Improvement Relationship Specialty Start Date End Date Prachi Nair DO PCP - General Internal Medicine 04/04/15 11/12/20 Ganesh Everett MD [address] [place] [address] PCP - General Internal Medicine 11/13/20 06/22/21 Radha Pickens PA-C [address] [place] [address] PCP - General Internal Medicine 06/23/21 03/22/22 Ganesh Everett MD [address] [place] [address] PCP - General Internal Medicine 03/23/22 06/29/23 Alexis Kingsley [address] [place] [address] PCP - General Internal Medicine 06/30/23 documented as of this encounter
--- NOTE | 2024-07-27 13:39 | A.OFFVIS_ITS ---
Vital Signs 07/27/24 13:46 Height 5 ft 4 in Weight 271 lb BMI 46.5 Handedness Right Intake Visit Reasons: FC- LT elbow fx Intake Note: Dakota is a 33 year old right hand dominant female who presents today for a fracture care visit. On 07/24/24 she slipped and fell on ice landing directly on the left elbow. No fracture was found on XR but was suggestive of occult fracture, She was placed in a posterior long arm splint. She mentions she is still having pain in her forearm and elbow. Patient is staking Tylenol and Ibuprofen with mild relief. Allergies oxycodone [From Percocet] Allergy (Verified 07/27/24 13:42) unkn Penicillins Allergy (Verified 07/27/24 13:42) Gastrointestinal Upset HPI HPI FC- LT elbow fx: Details: Ms. Spear is a 33-year-old right hand dominant female who presents to the office today for evaluation of a left elbow injury. She reports that on 07/24/24 she slipped and fell on ice. She fell backwards an tried to brace herself on an outstretched hand. Initially she did not feel pain but over the next hour her pain gradually increased while she was at work. 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 She presented to the ED where x-rays were obtained and initially read as negative but sail sign was noted questioning occult fracture. She was placed in a long arm posterior splint and sling with the instruction of following up with orthopedics out patient for further evaluation and treatment. 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 Able to flex and extend with assistance but limited due to pain. Able to pronate and supinate but again limited due to pain. Sensation intact. Office Procedures AMB Fracture Care Fracture Billing Code: Fracture Billing Code Assessment & Plan Assessment & Plan (1) Fracture of proximal end of left ulna: Code(s): S52.002A - Unspecified fracture of upper end of left ulna, initial encounter for closed fracture Category: Medical Plan Ms. Spear is a 33-year-old right hand dominant female who presents to the office today for evaluation of a left elbow injury. She reports that on 07/24/24 she slipped and fell on ice. She fell backwards an tried to brace herself on an outstretched hand. Initially she did not feel pain but over the next hour her pain gradually increased while she was at work. 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 She presented to the ED where x-rays were obtained and initially read as negative but sail sign was noted questioning occult fracture. She was placed in a long arm posterior splint and sling with the instruction of following up with orthopedics out patient for further evaluation and treatment. While in the office today, Dr. De Los Santos was available but did not meet the patient. However, a collaborative treatment plan was created. The patient will remain in the sling and over the next three weeks she should work on gentle ROM. I demonstrated elbow flexion, extension, pronation and supination to the p atient. She demonstrates good understanding. She should not perform these exercises to the extremes and use pain as her guide. I will see her back in four weeks with repeat x-rays, if she develops stiffness, we did discuss that physical therapy would be recommended at that time. X-rays of the left elbow, forearm, and wrist were obtained in the office today and demonstrate a type 1 coranoid fracture of the left proximal ulna. Wrist x- rays are negative for any acute fracture or dislocation. Orders: Orders XR wrist LT min 3V Today M25.539 - Pain in unspecified wrist XR elbow LT min 3V Today M25.529 - Pain in unspecified elbow XR forearm LT 2V Today M79.639 - Pain in unspecified forearm Coding Level of Care Code New Pt Level 4 (05478) Diagnoses Fracture of proximal end of left ulna S52.002A CPT Codes Fracture Care - Fracture Billing Code: Fracture Billing Code ([id number])
== END | disposition home or self-care (01) ==
PROVIDERS: Visit Provider Physician Assistant
CPT/HCPCS: 99204

== ENCOUNTER → 2024-07-27 13:25 | Outpatient (BNV) | payer OTHER, SELFPAY | PROVIDERS: Visit Provider Radiology Diagnostic Radiology | DX: M25.532 Pain in left wrist (principal); M25.522 Pain in left elbow; M79.632 Pain in left forearm | CPT/HCPCS: 73080; 73090; 73110 ==

== ENCOUNTER 2024-07-27 13:51 | Outpatient (REF) | payer OTHER, SELFPAY ==
--- NOTE | ~2024-07-27 | XR_ITS ---
EXAMINATION: XR ELBOW, LEFT CLINICAL INFORMATION: M25.529 - Pain in unspecified elbow COMPARISON: July 24 2024 TECHNIQUE: AP, lateral, and oblique views of the left elbow. FINDINGS: No acute cortical disruption or gross malalignment. No lytic or blastic lesions. Questionable anterior and posterior fat pad. XR/XR elbow LT min 3V IMPRESSION: No acute fracture or dislocation. Occult fracture cannot be excluded. Electronically signed by: Jhonathan Porter MD 07/27/2024 01:52 PM EST RP
--- NOTE | ~2024-07-27 | XR_ITS ---
EXAMINATION: XR FOREARM, LEFT CLINICAL INFORMATION: M79.639 - Pain in unspecified forearm COMPARISON: None available. TECHNIQUE: AP and lateral views of the left forearm were obtained. FINDINGS: There is a nondisplaced fracture ulnar coronoid process best visualized on lateral view. No additional fractures seen. The anterior fat pad sign appears normal. The soft tissues are normal. XR/XR forearm LT 2V IMPRESSION: Undisplaced ulnar coronoid process fracture. Electronically signed by: Ricardo Beltran MD 07/27/2024 02:36 PM EST
--- NOTE | ~2024-07-27 | XR_ITS ---
EXAMINATION: XR WRIST, LEFT CLINICAL INFORMATION: M25.539 - Pain in unspecified wrist COMPARISON: None available. TECHNIQUE: PA, lateral, and oblique views of the left wrist. FINDINGS: The bones and soft tissues are normal. No fracture. Alignment is anatomic with normal joint spaces. No erosions or abnormal soft tissue calcifications. XR/XR wrist LT min 3V IMPRESSION: Normal left wrist. Electronically signed by: Ricardo Beltran MD 07/27/2024 02:23 PM WILL
--- OUTSIDE RECORDS SUMMARY | 2024-07-27 13:54 | XMS_ITS | Encounter Summary ---
Author Organization [facility] Address [address] [place] [address] Care Team Providers Care Renewable Energy Consultant Name Role Phone Prachi Nair DO Primary Care Pro mariumr Ganesh Zhong MD Primary Care Provider [phone] Radha Pickens PA-C Primary Care Provider U Ganesh Ramsey MD Primary Care Provider [phone] Alexis Kingsley Primary Care Provider [phone] Encounter Details Date Type Department Care Team Description 09/29/2020 Pt. Non Urgent Medical Question General Surgery - [address] [place] [address] Mayo Azul MD [address] [place] [address] [address] [place], [place] [id number] Social History Tobacco Use Types Packs/Day Years [...] office. Next step would be with a wall insulation sprayer. documented in this encounter Plan of Treatment Not on file documented as of this encounter Visit Diagnoses Not on filedocumented in this encounter Care Teams Renewable Energy Consultant Relationship Specialty Start Date End Date Prachi Nair DO PCP - General Internal Medicine 04/04/15 11/12/20 Ganesh Everett MD [address] [place] [address] PCP - General Internal Medicine 11/13/20 06/22/21 Radha Pickens PA-C [address] [place] [address] PCP - General Internal Medicine 06/23/21 03/22/22 Ganesh Everett MD [address] [place] [address] PCP - General Internal Medicine 03/23/22 06/29/23 Alexis Kingsley [address] [place] [address] PCP - General Internal Medicine 06/30/23 documented as of this encounter
--- OUTSIDE RECORDS SUMMARY | 2024-07-27 13:54 | XMS_ITS | Encounter Summary ---
Author Organization [facility] Address [address] [place] [address] Care Team Providers Care Ice Guard Inspector Name Role Phone Prachi Nair DO Primary Care Pro mariumr Ganesh Zhong MD Primary Care Provider [phone] Radha Pickens PA-C Primary Care Provider U Ganesh Ramsey MD Primary Care Provider [phone] Alexis Kingsley Primary Care Provider [phone] Encounter Details Date Type Department Care Team Description 05/19/2016 Pt. Non Urgent Medic al Question Adult Medicine [address] [address] Prachi Nair DO Social History Tobacco Use [...] Progress Notes * Chloe Abad M.A. - 05/19/2016 7:44 AM ESTFrom: Dakota Spear To: Prachi Faulkner DO Sent: 05/19/2016 5:35 AM EST Subject: Bumps on my jennifer I've been having a discomfort on my jennifer for two days now and it's bumpy and at time can hurt but when I use listerine it's helps a little with the discomfort im just super worried documented in this encounter Plan of Treatment Not on file documented as of this encounter Visit Diagnoses Not on filedocumented in this encounter Care Teams Ice Guard Inspector Relationship Specialty Start Date End Date Prachi Nair DO PCP - General Internal Medicine 04/04/15 11/12/20 Ganesh Everett MD [address] [place] [address] PCP - General Internal Medicine 11/13/20 06/22/21 Radha Pickens PA-C [address] [place] [address] PCP - General Internal Medicine 06/23/21 03/22/22 Ganesh Everett MD [address] [place] [address] PCP - General Internal Medicine 03/23/22 06/29/23 Alexis Kingsley [address] [place] [address] PCP - General Internal Medicine 06/30/23 documented as of this encounter
--- OUTSIDE RECORDS SUMMARY | 2024-07-27 13:54 | XMS_ITS | Encounter Summary ---
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 - 01/16/2015 9:35 AM EDTFrom: Dakota Spear To: Anika Kennedy MD Sent: 01/15/2015 11:57 PM EDT Subject: Pain Im writting to you because lashell been having like a pressure when i urinate and a discomfort and im not sure if its the cause of using panty liner that it could have gave me a uti documented in this encounter Plan of Treatment Not on file documented as of this encounter Visit Diagnoses Not on filedocumented in this encounter Care Teams Deli Worker Relationship Specialty Start Date End Date Ivan Altamirano MD PCP - General Internal Medicine 04/17/13 03/04/15 Ivan Altamirano MD PCP - General Internal Medicine 03/05/15 04/03/15 Prachi Nair DO PCP - General Internal Medicine 04/04/15 11/12/20 Ganesh Everett MD [address] [place] [address] PCP - General Internal Medicine 11/13/20 06/22/21 Radha Pickens PA-C [address] [place] [address] PCP - General Internal Medicine 06/23/21 03/22/22 Ganesh Everett MD [address] [place] [address] PCP - General Internal Medicine 03/23/22 06/29/23 Alexis Kingsley [address] [place] [address] PCP - General Internal Medicine 06/30/23 documented as of this encounter
--- OUTSIDE RECORDS SUMMARY | 2024-07-27 13:54 | XMS_ITS | Encounter Summary ---
Author Organization [facility] Address [address] [place] [address] Care Team Providers Care Franchise Sales Manager Name Role Phone Ivan Altamirano MD Primary Care Provider Unavail able Ivan Altamirano MD Primary Care Provider Unavail able Prachi Nair DO Primary Care Pro vider Unavailable Ganesh Everett MD Primary Care Provider [phone] Radha Pickens PA-C Primary Care Provider U Ganesh Ramsey MD Primary Care Provider [phone] Alexis Kingsley Primary Care Provider [phone] Reason for Visit * Reason Onset Date Comments stool 12/10/2013 Encounter Details Date Type Department Care Team Description 12/10/2013 Telephone Adult Urgent Care - [address] [address] Ivan Altamirano MD stool Social History Tobacco Use Types Packs/Day Years [...] encounter Miscellaneous Notes * Telephone Encounter - uEgenio Rubio L.P.N. - 12/10/2013 10:05 AM EDT Patient C/O of loose black stools last night and this AM No abd pain or bloating No new med's No Vit or iron tabs Did eat a large amt of black beans yesterday No other foods that could cause the stools to be black Denies temp (didn't take it) No chest pain No SOB No nausea VQS Appetite and hydration good VQS Appt today in urgent care at 11:[address] Alarcon Reinforced phone consultation and advice Reviewed with the patient S/S to watch for that would require immediate attention If symptoms worsen patient can call the triage nurseor go to the ER if needed can call 911 Patient states he/she is satisfied with information and homecare instructions he is able to verbalize the instructions given * Telephone Encounter - Shellie Fermin - 12/10/2013 10:03 AM EDT Symptoms patient is presenting: black stools How long has patient had these symptoms?: 2 days PCP: Ivan Altamirano Payor: [employer] FFS / Plan: [employer] PL[employer] / Product Type: MEDICAID RISK documented in this encounter Plan of Treatment Not on file documented as of this encounter Visit Diagnoses Not on filedocumented in this encounter Care Teams Franchise Sales Manager Relationship Specialty Start Date End Date Ivan Altamirano MD PCP - General Internal Medicine 04/17/13 03/04/15 Ivan Altamirano MD PCP - General Internal Medicine 03/05/15 04/03/15 Prachi Nair DO PCP - General Internal Medicine 04/04/15 11/12/20 Ganesh Everett MD [address] [place] [address] PCP - General Internal Medicine 11/13/20 06/22/21 Radha Pickens PA-C [address] [place] [address] PCP - General Internal Medicine 06/23/21 03/22/22 Ganesh Everett MD [address] [place] [address] PCP - General Internal Medicine 03/23/22 06/29/23 Alexis Kingsley [address] [place] [address] PCP - General Internal Medicine 06/30/23 documented as of this encounter
--- OUTSIDE RECORDS SUMMARY | 2024-07-27 13:54 | XMS_ITS | Clinical Summary ---
Author Organization [facility] [address] [place] [address] [place] [phone] Phone Care Team Providers Care Rolling Machine Operator Name Role Phone Alexis Kingsley MD Primary [...] (04/02/2024): Incidental finding on CT scan at [facility] dated 08/11/2015. LFTs normal. IBS [...] COMMENT: low back FLEXIBLE SIGMOIDOSCOPY 05/21/2014 PROCEDURE: LA SIGMOIDOSCOPY FLX DX W/COLLJ SPEC BR/WA IF [...] Results * Hepatitis C Screening (06/30/2023) Pathologist [facility] Hepatitis C Screening ABSTRACTED Historical Provider MD CHAO HAMMONDS E * Pap Smear (04/20/2023) Pathologist [facility] Pap smear NEGATIVE, ABSTRACTED Historical Provider MD CHAO HAMMONDS E * (ABNORMAL) Lipid panel (02/11/2021) [facility] [address] LDL/HDL Ratio 5(A) 0 - 4 Triglycerides 125 0 - 150 mg/dL Cholesterol 192 0 - 200 mg/dL HDL 38(A) 40 mg/dL LDL Cholesterol 129(A) 0 - 100 mg/dL Blood Venous blood specimen / Unknown Historical Provider LAB BLOOD ORDERAB LES from Last 3 Months or Most Recently Relevant to Health Maintenance Advance Directives Documents on File Type Date Recorded Patient Board Of Directors Expl anation Health Care Decision (hx) 06/23/2021 [...] (hx) 06/18/2021 AD WHEELER DIRECTIVE Care Teams Rolling Machine Operator Relationship Specialty Start Date End Date Alexis Kingsley MD [address] [place] [address] PCP - General 06/30/23
--- OUTSIDE RECORDS SUMMARY | 2024-07-27 13:54 | XMS_ITS | Encounter Summary ---
Author Organization [facility] Address [address] [place] [address] Care Team Providers Care Curator Zoological Museum Name Role Phone Alexis Kingsley Primary Care Provider [phone] Reason for Visit * Reason Onset Date Comments Post Op Visit 08/23/2023 Encounter Details Date Type Department Care Team Description 08/23/2023 Telephone Adult Medicine [address] [address] Alexis Kingsley [address] [place] [id number] Post Op Visit Social History Tobacco Use [...] to nurse PCP: Alexis Kingsley Insurance: Payor: [facility] FFS / Plan: [facility] [employer] / Product Type: MEDICAID RISK documented in this encounter Plan of Treatment Not on file documented as of this encounter Visit Diagnoses Not on filedocumented in this encounter Care Teams Curator Zoological Museum Relationship Specialty Start Date End Date Alexis Kingsley [address] [place] [address] PCP - General Internal Medicine 06/30/23 documented as of this encounter
--- OUTSIDE RECORDS SUMMARY | 2024-07-27 13:54 | XMS_ITS | Encounter Summary ---
Author Organization [facility] Address [address] [place] [address] Care Team Providers Care Verification Clerk Name Role Phone Ivan Altamirano MD Primary Care Provider Unavail able Ivan Altamirano MD Primary Care Provider Unavail able Prachi Nair DO Primary Care Pro vider Unavailable Ganesh Everett MD Primary Care Provider [phone] Radha Pickens PA-C Primary Care Provider U Ganesh Ramsey MD Primary Care Provider [phone] Alexis Kingsley Primary Care Provider [phone] Encounter Details Date Type Department Care Team Description 01/15/2015 Pt. Non Urgent Medical Question Adult Medicine [facility] [address] [place] [address] Ivan Altamirano MD Social History Tobacco Use [...] on filedocumented in this encounter Care Teams Verification Clerk Relationship Specialty Start Date End Date Ivan Altamirano MD PCP - General Internal Medicine 04/17/13 03/04/15 Ivan Altamirano MD PCP - General Internal Medicine 03/05/15 04/03/15 Prachi Nair DO PCP - General Internal Medicine 04/04/15 11/12/20 Ganesh Everett MD [address] [place] [address] PCP - General Internal Medicine 11/13/20 06/22/21 Radha Pickens PA-C [address] [place] [address] PCP - General Internal Medicine 06/23/21 03/22/22 Ganesh Everett MD [address] [place] [address] PCP - General Internal Medicine 03/23/22 06/29/23 Alexis Kingsley [address] [place] [address] PCP - General Internal Medicine 06/30/23 documented as of this encounter
--- OUTSIDE RECORDS SUMMARY | 2024-07-27 13:54 | XMS_ITS | Encounter Summary ---
Author Organization [facility] Address [address] [place] [address] Care Team Providers Care Remote Sensing Advisor Name Role Phone Alexis Kingsley Primary Care Provider [phone] Encounter Details Date Type Department Care Team Description 08/21/2023 Hospital Medical Records [address] [place] [address] Sammy Bunn MD [address] [place] [address] Social History Tobacco Use Types Packs/Day Years [...] on filedocumented in this encounter Care Teams Remote Sensing Advisor Relationship Specialty Start Date End Date Alexis Kingsley [address] [place] [address] PCP - General Internal Medicine 06/30/23 documented as of this encounter
--- OUTSIDE RECORDS SUMMARY | 2024-07-27 13:54 | XMS_ITS | Encounter Summary ---
Author Organization [facility] Address [address] [place] [address] Care Team Providers Care Storehouse Clerk Name Role Phone Ivan Altamirano MD Primary Care Provider Unavail able Ivan Altamirano MD Primary Care Provider Unavail able Prachi Nair DO Primary Care Pro vider Unavailable Ganesh Everett MD Primary Care Provider Radha Pickens PA-C Primary Care Provider U Ganesh Ramsey MD Primary Care Provider [phone] Alexis Kingsley Primary Care Provider [phone] Encounter Details Date Type Department Care Team Description 12/31/2014 Pt. 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 - 12/31/2014 10:45 AM EDTFrom: Dakota Spear To: Anika Kennedy MD Sent: 12/31/2014 2:18 AM EDT Subject: About provera Im wondering if i still have refills on provera? documented in this encounter Plan of Treatment Not on file documented as of this encounter Visit Diagnoses Not on filedocumented in this encounter Care Teams Storehouse Clerk Relationship Specialty Start Date End Date Ivan Altamirano MD PCP - General Internal Medicine 04/17/13 03/04/15 Ivan Altamirano MD PCP - General Internal Medicine 03/05/15 04/03/15 Prachi Nair DO PCP - General Internal Medicine 04/04/15 11/12/20 Ganesh Everett MD [address] [place] [address] PCP - General Internal Medicine 11/13/20 06/22/21 Radha Pickens PA-C [address] [place] [address] PCP - General Internal Medicine 06/23/21 03/22/22 Ganesh Everett MD [address] [place] [address] PCP - General Internal Medicine 03/23/22 06/29/23 Alexis Kingsley [address] [place] [address] PCP - General Internal Medicine 06/30/23 documented as of this encounter
--- OUTSIDE RECORDS SUMMARY | 2024-07-27 13:54 | XMS_ITS | Encounter Summary ---
Author Organization [facility] Address [address] [place] [address] Care Team Providers Care Tools Developer Name Role Phone Ganesh Everett MD Primary Care Provider [phone] Radha Pickens PA-C Primary Care Provider U Ganesh Ramsey MD Primary Care Provider Alexis Kingsley Primary Care Provider [phone] Encounter Details Date Type Department Care Team Description 06/18/2021 [facility] Medical Records [address] [place] [address] Mayo Azul MD [address] [place] [address] [place] [id number] Social History Tobacco Use Types Packs/Day Years [...] have Coronavirus / COVID-19? No / Unsure 06/09/2021 1:04 PM EST documented as of this encounter Plan of Treatment Not on file documented as of this encounter Visit Diagnoses Not on filedocumented in this encounter Care Teams Tools Developer Relationship Specialty Start Date End Date Ganesh Everett MD [address] [place] [id number] PCP - General Internal Medicine 11/13/20 06/22/21 Radha Pickens PA-C [address] [place] [address] PCP - General Internal Medicine 06/23/21 03/22/22 Ganesh Everett MD [address] [place] [address] PCP - General Internal Medicine 03/23/22 06/29/23 Alexis Kingsley [address] [place] [address] PCP - General Internal Medicine 06/30/23 documented as of this encounter
--- OUTSIDE RECORDS SUMMARY | 2024-07-27 13:54 | XMS_ITS | Encounter Summary ---
Author Organization [facility] Address [address] [place] [address] Care Team Providers Care Manager Apple Name Role Phone Ivan Altamirano MD Primary Care Provider Unavail able Ivan Altamirano MD Primary Care Provider Unavail able Prachi Nair DO Primary Care Pro vider Unavailable Ganesh Everett MD Primary Care Provider [phone] Radha Pickens PA-C Primary Care Provider U Ganesh Ramsey MD Primary Care Provider Alexis Kingsley Primary Care Provider Encounter Details Date Type Department Care Team Description 07/27/2013 Release of Information Medical Records [address] [place] [address] Abstract, Provider Social History Tobacco Use Types [...] on filedocumented in this encounter Care Teams Manager Apple Relationship Specialty Start Date End Date Ivan Altamirano MD PCP - General Internal Medicine 04/17/13 03/04/15 Ivan Altamirano MD PCP - General Internal Medicine 03/05/15 04/03/15 Prachi Nair DO PCP - General Internal Medicine 04/04/15 11/12/20 Ganesh Everett MD [address] [place] [address] PCP - General Internal Medicine 11/13/20 06/22/21 Radha Pickens PA-C [address] [place] [address] PCP - General Internal Medicine 06/23/21 03/22/22 Ganesh Everett MD [address] [place] [address] 17848 PCP - General Internal Medicine 03/23/22 06/29/23 Alexis Kingsley [address] [place] [address] PCP - General Internal Medicine 06/30/23 documented as of this encounter
--- OUTSIDE RECORDS SUMMARY | 2024-07-27 13:54 | XMS_ITS | Encounter Summary ---
Author Organization [facility] Address [address] [place] [address] Care Team Providers Care Cartridge Assembler Name Role Phone Ivan Altamirano MD Primary Care Provider Unavail able Ivan Altamirano MD Primary Care Provider Unavail able Prachi Nair DO Primary Care Pro vider Unavailable Ganesh Everett MD Primary Care Provider [phone] Radha Pickens PA-C Primary Care Provider U Ganesh Ramsey MD Primary Care Provider [phone] Alexis Kingsley Primary Care Provider [phone] Encounter Details Date Type Department Care Team Description 01/25/2015 Pt. 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 - [address] [address] Anika Kennedy MD Social History Tobacco Use [...] on filedocumented in this encounter Care Teams Cartridge Assembler Relationship Specialty Start Date End Date Ivan Altamirano MD PCP - General Internal Medicine 04/17/13 03/04/15 Ivan Altamirano MD PCP - General Internal Medicine 03/05/15 04/03/15 Prachi Nair DO PCP - General Internal Medicine 04/04/15 11/12/20 Ganesh Everett MD [address] [place] [address] PCP - General Internal Medicine 11/13/20 06/22/21 Radha Pickens PA-C [address] [place] [address] PCP - General Internal Medicine 06/23/21 03/22/22 Ganesh Everett MD [address] [place] [address] PCP - General Internal Medicine 03/23/22 06/29/23 Alexis Kingsley [address] [place] [address] PCP - General Internal Medicine 06/30/23 documented as of this encounter
--- OUTSIDE RECORDS SUMMARY | 2024-07-27 13:54 | XMS_ITS | Encounter Summary ---
Author Organization [facility] Address [address] [place] [address] Care Team Providers Care Supervisor Remelt Name Role Phone Alexis Kingsley Primary Care Provider [phone] Encounter Details Date Type Department Care Team Description 08/25/2023 Orders Only Medical Records [address] [place] [address] Sammy Bunn MD [address] [place] [address] Social History Tobacco Use Types Packs/Day Years [...] on filedocumented in this encounter Care Teams Supervisor Remelt Relationship Specialty Start Date End Date Alexis Kingsley [address] [place] [address] PCP - General Internal Medicine 06/30/23 documented as of this encounter
--- OUTSIDE RECORDS SUMMARY | 2024-07-27 13:54 | XMS_ITS | Encounter Summary ---
Author Organization [facility] Address [address] [place] [address] Care Team Providers Care Program Manager Rn Name Role Phone Prachi Nair DO Primary Care Pro vider Ganesh Zhong MD Primary Care Provider [phone] Radha Pickens PA-C Primary Care Provider U Ganesh Ramsey MD Primary Care Provider [phone] Alexis Kingsley Primary Care Provider [phone] Encounter Details Date Type Department Care Team Description 08/13/2015 Telephone Adult [address] [id number] Prachi Nair DO Social History Tobacco Use [...] on filedocumented in this encounter Care Teams Program Manager Rn Relationship Specialty Start Date End Date Prachi Nair DO PCP - General Internal Medicine 04/04/15 11/12/20 Ganesh Everett MD [address] [place] [address] [phone] PCP - General Internal Medicine 11/13/20 06/22/21 Radha Pickens PA-C [address] [place] [address] PCP - General Internal Medicine 06/23/21 03/22/22 Ganesh Everett MD [address] [place] [address] PCP - General Internal Medicine 03/23/22 06/29/23 Alexis Kingsley [address] [place] [address] PCP - General Internal Medicine 06/30/23 documented as of this encounter
--- OUTSIDE RECORDS SUMMARY | 2024-07-27 13:54 | XMS_ITS | Clinical Summary ---
Author Organization [facility] Address [address] [place] [address] Care Team Providers Care Billboard Poster Name Role Phone Alexis Kingsley Primary Care Provider [phone] Allergies Active Allergy Reactions Severity Noted Date Comments Penicillins 03/17/2021 GI upset Oxycodone-Acetaminophen 03/17/2021 Itching Medications Medication Sig Dispensed Refills Start Date End Date Status terconazole (TERAZOL 3) 0.8 % vaginal cream One applicatorful PV QHS x 3 nights 20 g 0 12/21/2022 Active metronidazole (METROGEL) 0.75 % vaginal gel 1 application for 5 nights at bedtime 70 g 0 07/01/2023 Active cholestyramine (QUESTRAN) 4 g packetIndications: Postcholecystectom y diarrhea Take 1 Packet by mouth 3 times daily (with meals). 60 Each 2 09/01/2023 09/25/2024 Active Active Problems Problem Noted Date S/P appendectomy 09/02/2023 Screening examination for STD (sexually transmitted disease) 11/24/2022 Bariatric surgery status 07/01/2021 DDD (degenerative disc disease), lumbar 06/21/2019 Morbid obesity with BMI of 45.0-49.9, ad ult 02/18/2018 Seasonal allergic conjunctivitis 018 Recurrent sinusitis 08/26/2017 Mixed hyperlipidemia 10/23/2015 Cyst of left kidney 08/30/2015 Overview: MRI scan 2015. 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 Fatty liver 08/12/2015 Overview: Incidental finding on CT scan at [facility] dated 08/11/2015. LFTs normal. IBS (irritable bowel syndrome) 6 PCOS (polycystic ovarian syndrome) 09/24 Family history of breast cancer in femal e 01/24/2014 Overview: Pt BRCA negative Resolved Problems Problem Noted Date Resolved Date Benign essential hypertension in obstetric zaid xt 01/21/2017 02/18/2018 Supervision of normal first 07/27/2016 04/14/2017 Overview: 1. [facility] site: [place] 2. Delivery site: [facility] 3. Dating criteria: 1st trimester ultrasound only, pt has irregular periods - lmp unknown 3. Blood type: 4. Genetic screening: Date: Result: 5. GBS: Date: 6. FOB name: Bean 7. Plans A. Epidural or other pain management - B. Labor support identified - C. Tdap - Date: D. Breast or Bottle feed: E. Baby's name - F. Circumcision - Breast mass 01/24/2014 02/18/2018 Obesity 07/24/2013 02/18/2018 Immunizations Name Administration Dates Next Due Influenza Flu (PT Reported) 04/21/2019 Influenza Vaccine-preservati ve Free-quadrivalent 4 Years 03/18/2018 PPD-RBMG 02/18/2018, 6,06/05/2015, 015 Tdap 11/27/2016,07/24/2013 Family History Medical History Relation Name Comments CA Breast Aunt paternal Cancer of the Colon Aunt Cholesterol Level Father CHF Maternal Grandmother and steelscope operator d ( 02/13/14) at age 59 Ulcerative Colitis Maternal Grandmother CA Ovarian Mother's side mother's aunt CA Breast Paternal Grandmother Cancer of Small Bowel Negative Hx Cancer of the Pancreas Negative Hx Cancer of the Renal Cell Negative Hx Uterine Cancer Negative Hx Relation Name Status Comments Aunt Brother Alive 1,healthy Father Alive Maternal Grandmother (Age 59) co pd, chf Mother Alive Mother's side Paternal Grandmother Sister Alive 1,healthy Social History Tobacco Use Types Packs/Day Years Used Date Smoking Tobacco: Never Smokeless Tobacco: Never Tobacco Cessation:Counseling Given: Not Answered Alcohol Use Standard Drinks/Week Comments Yes 0 (1 standard drink = 0.6 oz pur e alcohol) Special occasions Sex Assigned at Date Recorded Not on file Job Start Date Occupation Industry Not on file Not on file Not on file Last Filed Vital Signs Vital Sign Reading Time Taken Comments Blood Pressure 141/83 09/01/2023 9:29 AM EDT Pulse 64 09/01/2023 9:29 AM EDT Temperature 37 ??C (98.6 ??F) 09/01/2023 9:29 AM EDT Respiratory Rate 16 06/30/2023 1:07 PM EST Oxygen Saturation 99% 10/06/2017 1:12 PM EDT Inhaled Oxygen Concentration - - Weight 121.8 kg (268 lb 9.6 oz) 06/30/2023 1:07 PM EST Height 162.6 cm (5' 4 ) 09/02/2023 9:41 AM EDT Body Mass Index 46.11 04/20/2023 9:57 AM EDT Plan of Treatment Health Maintenance Due Date Last Done Comments Covid-19 Vaccine (#1) 03/18/1992 INFLUENZA (#1) 2024 04/21/2019 (Exte rnal Completion of Vaccination per patient), 04/21/2019, 03/18/2018 BMI CHECK/ADVISE 06/21/2024 09/02/2023, , 11/11/2021, Additional history exists DEPRESSION SCREENING/FOLLOWUP 06/21/2024 09/25/2020 SOCIAL NEEDS SCREENING 06/21/2024 07/01/2021, 2020 BASELINE HEALTH EXAM 18-39 08/18/202408/18, 08/18/2019, 02/18/2018, Additional history exists CHOLESTEROL SCREENING 02/11/2026 02/11/2021 , 08/18/2019, 11/04/2017, Additional history exists CERVICAL CANCER SCREENING 04/20/20262022, 03/03/2019, 08/23/2015, Additional history exists DTAP/TDAP/TD (9 - Td or Tdap) 11/27/2026, 07/24/2013, 06/19/2010, Additional history exists PNEUMOCOCCAL VACCINE FOR HIG H RISK PATIENTS (#1) 09/15/2056 Care Teams Billboard Poster Relationship Specialty Start Date End Date Alexis Kingsley [address] [place] [address] PCP - General Internal Medicine 06/30/23
--- OUTSIDE RECORDS SUMMARY | 2024-07-27 13:54 | XMS_ITS | Encounter Summary ---
Author Organization [facility] Address [address] [place] [address] Care Team Providers Care Casting And Locker Room Servicer Name Role Phone Ganesh Everett MD Primary Care Provider [phone] Radha Pickens PA-C Primary Care Provider U Ganesh Ramsey MD Primary Care Provider [phone] Alexis Kingsley Primary Care Provider [phone] Encounter Details Date Type Department Care Team Description 05/02/2021 Transfer Records Medical Records [address] [place] [address] Abstract, Provider Social History Tobacco Use Types [...] on filedocumented in this encounter Care Teams Casting And Locker Room Servicer Relationship Specialty Start Date End Date Ganesh Everett MD [address] [place] [address] [phone] PCP - General Internal Medicine 11/13/20 06/22/21 Radha Pickens PA-C [address] [place] [address] PCP - General Internal Medicine 06/23/21 03/22/22 Ganesh Everett MD [address] [place] [address] PCP - General Internal Medicine 03/23/22 06/29/23 Alexis Kingsley [address] [place] [address] PCP - General Internal Medicine 06/30/23 documented as of this encounter
--- OUTSIDE RECORDS SUMMARY | 2024-07-27 13:54 | XMS_ITS | Encounter Summary ---
Author Organization [facility] Address [address] [place] [address] Care Team Providers Care Tearoom Host Name Role Phone Ganesh Everett MD Primary Care Provider [phone] Radha Pickens PA-C Primary Care Provider U Ganesh Ramsey MD Primary Care Provider [phone] Alexis Kingsley Primary Care Provider [phone] Encounter Details Date Type Department Care Team Description 05/27/2021 Telephone OBGYN - [facility] [address] [place] [address] Juli Chung CNM Social History Tobacco Use Types Packs/Day [...] have Coronavirus / COVID-19? No / Unsure 05/26/2021 9:08 AM EST documented as of this encounter Miscellaneous Notes * Telephone Encounter - Isa Colindres - 05/27/2021 1:37 PM EST Lm for pt to call office. * Telephone Encounter - Isa Colindres - 05/27/2021 1:35 PM EST ----- Message from Juli Chung CNM sent at 05/27/2021 11:39 AM EST ----- Please let pt know I sent her antibiotic documented in this encounter Plan of Treatment Not on file documented as of this encounter Visit Diagnoses Not on filedocumented in this encounter Care Teams Tearoom Host Relationship Specialty Start Date End Date Ganesh Everett MD [address] [place] [address] PCP - General Internal Medicine 11/13/20 06/22/21 Radha Pickens PA-C [address] [place] [address] PCP - General Internal Medicine 06/23/21 03/22/22 Ganesh Everett MD [address] [place] [address] PCP - General Internal Medicine 03/23/22 06/29/23 Alexis Kingsley [address] [place] [address] PCP - General Internal Medicine 06/30/23 documented as of this encounter
--- OUTSIDE RECORDS SUMMARY | 2024-07-27 13:54 | XMS_ITS | Encounter Summary ---
Author Organization [facility] Address [address] [place] [address] Care Team Providers Care Director Oracle Name Role Phone Ivan Altamirano MD Primary Care Provider Unavail able Ivan Altamirano MD Primary Care Provider Unavail able Prachi Nair DO Primary Care Pro vider Unavailable Ganesh Everett MD Primary Care Provider [phone] Radha Pickens PA-C Primary Care Provider U Ganesh Ramsey MD Primary Care Provider Alexis Kingsley Primary Care Provider [phone] Encounter Details Date Type Department Care Team Description 03/20/2014 Pt. 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 - 03/20/2014 2:16 PM EDTFrom: Dakota Spear To: Anika Kennedy MD Sent: 03/20/2014 2:15 PM EDT Subject: about my period I'm just writing to because I was concerned when I had my period I had it from step 7 til the 14 then I ended up having around the 21 and the 22 of this joni I had lower abdomen tenderness and I spotted on the 22 and hada really light bleeding for 4 days and it stopped on the its that normal ? documented in this encounter Plan of Treatment Not on file documented as of this encounter Visit Diagnoses Not on filedocumented in this encounter Care Teams Director Oracle Relationship Specialty Start Date End Date Ivan Altamirano MD PCP - General Internal Medicine 04/17/13 03/04/15 Ivan Altamirano MD PCP - General Internal Medicine 03/05/15 04/03/15 Prachi Nair DO PCP - General Internal Medicine 04/04/15 11/12/20 Ganesh Everett MD [address] [place] [address] PCP - General Internal Medicine 11/13/20 06/22/21 Radha Pickens PA-C [address] [place] [address] PCP - General Internal Medicine 06/23/21 03/22/22 Ganesh Everett MD [address] [place] [address] PCP - General Internal Medicine 03/23/22 06/29/23 Alexis Kingsley [address] [place] [address] PCP - General Internal Medicine 06/30/23 documented as of this encounter
--- OUTSIDE RECORDS SUMMARY | 2024-07-27 13:54 | XMS_ITS | Encounter Summary ---
Author Organization [facility] Address [address] [place] [address] Care Team Providers Care Industrial Psychology Professor Name Role Phone Prachi Nair DO Primary Care Pro vider Ganesh Zhong MD Primary Care Provider [phone] Radha Pickens PA-C Primary Care Provider U Ganesh Ramsey MD Primary Care Provider [phone] Alexis Kingsley Primary Care Provider [phone] Encounter Details Date Type Department Care Team Description 07/29/2016 Zika Virus Medical Records [address] [place] [address] Abstract, Provider Social History Tobacco Use Types [...] on filedocumented in this encounter Care Teams Industrial Psychology Professor Relationship Specialty Start Date End Date Prachi Nair DO PCP - General Internal Medicine 04/04/15 11/12/20 Ganesh Everett MD [address] [place], [place] [phone] PCP - General Internal Medicine 11/13/20 06/22/21 Radha Pickens PA-C [address] [place] [address] PCP - General Internal Medicine 06/23/21 03/22/22 Ganesh Everett MD [address] [place] [address] PCP - General Internal Medicine 03/23/22 06/29/23 Alexis Kingsley [address] [place] [address] PCP - General Internal Medicine 06/30/23 documented as of this encounter
--- OUTSIDE RECORDS SUMMARY | 2024-07-27 13:54 | XMS_ITS | Encounter Summary ---
Author Organization [facility] Address [address] [place] [address] Care Team Providers Care Food Inspector Name Role Phone Radha Pickens PA-C Primary Care Provider U Ganesh Ramsey MD Primary Care Provider [phone] Alexis Kingsley Primary Care Provider Encounter Details Date Type Department Care Team Description 06/23/2021 Orders Only Medical Records [address] [place] [address] Mayo Azul MD [address] [place] [address] [address] [place] [address] Social History Tobacco Use Types Packs/Day Years [...] on filedocumented in this encounter Care Teams Food Inspector Relationship Specialty Start Date End Date Radha Pickens PA-C PCP - General Internal Medicine 06/23/2103/22 Ganesh Everett MD [address] [place] [address] PCP - General Internal Medicine 03/23/22 06/29/23 Alexis Kingsley [address] [place] [address] PCP - General Internal Medicine 06/30/23 documented as of this encounter
--- OUTSIDE RECORDS SUMMARY | 2024-07-27 13:54 | XMS_ITS | Encounter Summary ---
Author Organization [facility] Address [address] [place] [address] Care Team Providers Care Pest Control Service Technician Name Role Phone Prachi Nair DO Primary Care Pro vider Ganesh Zhong MD Primary Care Provider [phone] Radha Pickens PA-C Primary Care Provider U Ganesh Ramsey MD Primary Care Provider [phone] Alexis Kingsley Primary Care Provider [phone] Encounter Details Date Type Department Care Team Description 10/16/2015 Pt. Non Urgent Medic al Question Adult Medicine [address] [address] Prachi Nair DO Social History Tobacco Use [...] on filedocumented in this encounter Care Teams Pest Control Service Technician Relationship Specialty Start Date End Date Prachi Nair DO PCP - General Internal Medicine 04/04/15 11/12/20 Ganesh Everett MD [address] [place] [address] PCP - General Internal Medicine 11/13/20 06/22/21 Radha Pickens PA-C [address] [place] [address] PCP - General Internal Medicine 06/23/21 03/22/22 Ganesh Everett MD [address] [place] [address] PCP - General Internal Medicine 03/23/22 06/29/23 Alexis Kingsley [address] [place] [address] PCP - General Internal Medicine 06/30/23 documented as of this encounter
--- OUTSIDE RECORDS SUMMARY | 2024-07-27 13:54 | XMS_ITS | Encounter Summary ---
Author Organization [facility] Address [address] [place] [address] Care Team Providers Care Typecasting Machine Operator Name Role Phone Prachi Nair DO Primary Care Pro mariumr Ganesh Zhong MD Primary Care Provider [phone] Radha Pickens PA-C Primary Care Provider U Ganesh Ramsey MD Primary Care Provider [phone] Alexis Kingsley Primary Care Provider [phone] Encounter Details Date Type Department Care Team Description 08/30/2015 Pt. Non Urgent Medic al Question Adult Medicine [address] [address] Prachi Nair DO Social History Tobacco Use [...] Progress Notes * Prachi Faulkner DO - 08/30/2015 3:44 PM EST Horseshoe kidney, anatomical abnl. Will monitor kidney function on future labs. Any other questionsplease send to ordering provider * Chloe Abad M.A. - 08/30/2015 2:34 PM ESTFrom: Dakota Spear To: Prachi Faulkner DO Sent: 08/30/2015 2:21 PM EST Subject: About mri I got the results from the MRI this morning I'm wondering if everything came out good I didn't understand it documented in this encounter Plan of Treatment Not on file documented as of this encounter Visit Diagnoses Not on filedocumented in this encounter Care Teams Typecasting Machine Operator Relationship Specialty Start Date End Date Prachi Nair DO PCP - General Internal Medicine 04/04/15 11/12/20 Ganesh Everett MD [address] [place] [address] PCP - General Internal Medicine 11/13/20 06/22/21 Radha Pickens PA-C [address] [place] [address] PCP - General Internal Medicine 06/23/21 03/22/22 Ganesh Everett MD [address] [place] [address] PCP - General Internal Medicine 03/23/22 06/29/23 Alexis Kingsley [address] [place] [address] PCP - General Internal Medicine 06/30/23 documented as of this encounter
--- OUTSIDE RECORDS SUMMARY | 2024-07-27 13:54 | XMS_ITS | Encounter Summary ---
Author Organization [facility] Address [address] [place] [address] Care Team Providers Care Geological Science Teacher Name Role Phone Prachi Nair DO Primary Care Pro mariumr Ganesh Zhong MD Primary Care Provider [phone] Radha Pickens PA-C Primary Care Provider U Ganesh Ramsey MD Primary Care Provider [phone] Alexis Kingsley Primary Care Provider Reason for Visit * Reason Onset Date Comments Appointment Cancelled 12/17/2015 Encounter Details Date Type Department Care Team Description 12/17/2015 Telephone Gastroenterology - [address] [address] Rai Fiore MD Appointment Cancelled Social History [...] PM EDT Pt has been r/s at [facility] 02/04/2016 at 3:00 * Telephone Encounter - Stephany Antoine - 12/17/2015 12:32 PM EDT [facility] * Telephone Encounter - Rai [...] on filedocumented in this encounter Care Teams Geological Science Teacher Relationship Specialty Start Date End Date Prachi Nair DO PCP - General Internal Medicine 04/04/15 11/12/20 Ganesh Everett MD [address] [place] [address] PCP - General Internal Medicine 11/13/20 06/22/21 Radha Pickens PA-C [address] [place] [address] PCP - General Internal Medicine 06/23/21 03/22/22 Ganesh Everett MD [address] [place] [address] PCP - General Internal Medicine 03/23/22 06/29/23 Alexis Kingsley [address] [place] [address] PCP - General Internal Medicine 06/30/23 documented as of this encounter
--- OUTSIDE RECORDS SUMMARY | 2024-07-27 13:54 | XMS_ITS | Encounter Summary ---
Author Organization [facility] Address [address] [place] [address] Care Team Providers Care Body Shop Technician Name Role Phone Ivan Altamirano MD Primary Care Provider Unavail able Ivan Altamirano MD Primary Care Provider Unavail able Prachi Nair DO Primary Care Pro vider Unavailable Ganesh Everett MD Primary Care Provider [phone] Radha Pickens PA-C Primary Care Provider U Ganesh Ramsey MD Primary Care Provider [phone] Alexis Kingsley Primary Care Provider [phone] Encounter Details Date Type Department Care Team Description 03/04/2015 Pt. 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 HEAT TECHNICIAN - [address] [address] Anika Kennedy MD Social History Tobacco Use [...] on filedocumented in this encounter Care Teams Body Shop Technician Relationship Specialty Start Date End Date Ivan Altamirano MD PCP - General Internal Medicine 04/17/13 03/04/15 Ivan Altamirano MD PCP - General Internal Medicine 03/05/15 04/03/15 Prachi Nair DO PCP - General Internal Medicine 04/04/15 11/12/20 Ganesh Everett MD [address] [place] [address] PCP - General Internal Medicine 11/13/20 06/22/21 Radha Pickens PA-C [address] [place] [address] PCP - General Internal Medicine 06/23/21 03/22/22 Ganesh Everett MD [address] [place] [address] PCP - General Internal Medicine 03/23/22 06/29/23 Alexis Kingsley [address] [place] [address] PCP - General Internal Medicine 06/30/23 documented as of this encounter
--- OUTSIDE RECORDS SUMMARY | 2024-07-27 13:54 | XMS_ITS | Encounter Summary ---
Author Organization [facility] Address [address] [place] [address] Care Team Providers Care Hedis Specialist Name Role Phone Prachi Nair DO Primary Care Pro mariumr Ganesh Zhong MD Primary Care Provider [phone] Radha Pickens PA-C Primary Care Provider U Ganesh Ramsey MD Primary Care Provider [phone] Alexis Kingsley Primary Care Provider [phone] Reason for Visit * Reason Onset Date Comments 01/30/2017 Encounter Details Date Type Department Care Team Description 01/30/2017 Telephone Adult Urgent Care - [address] [address] Prachi Nair DO Social History Tobacco Use [...] encounter Miscellaneous Notes * Telephone Encounter - Shellie Duboistowicz - 01/30/2017 1:37 PM EDT Chief Complaint/problem: Headache / stomach pain / back pain How long has the patient had this problem? 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: Tushar Mcgrath CNM Last menstrual period (LMP) or EDC (due date): 9/1/17 37 weeks Ist baby Called Chung documented in this encounter Plan of Treatment Not on file documented as of this encounter Visit Diagnoses Not on filedocumented in this encounter Care Teams Hedis Specialist Relationship Specialty Start Date End Date Prachi Nair DO PCP - General Internal Medicine 04/04/15 11/12/20 Ganesh Everett MD [address] [place] [address] PCP - General Internal Medicine 11/13/20 06/22/21 Radha Pickens PA-C [address] [place] [address] PCP - General Internal Medicine 06/23/21 03/22/22 Ganesh Everett MD [address] [place] [address] PCP - General Internal Medicine 03/23/22 06/29/23 Alexis Kingsley [address] [place] [address] PCP - General Internal Medicine 06/30/23 documented as of this encounter
--- OUTSIDE RECORDS SUMMARY | 2024-07-27 13:54 | XMS_ITS | Encounter Summary ---
Author Organization [facility] Address [address] [place] [address] Care Team Providers Care Technical Engineer Name Role Phone Prachi Nair DO Primary Care Pro mariumr Ganesh Zhong MD Primary Care Provider [phone] Radha Pickens PA-C Primary Care Provider U Ganesh Ramsey MD Primary Care Provider [phone] Alexis Kingsley Primary Care Provider [phone] Reason for Referral * Non DOROTEO (Routine) - Authorized/Booked Specialty Diagnoses / Procedures Referred By Rahel barba Referred To Contact Gastroenterology Procedures REFERRAL TO GASTROENTEROLOGY Prachi Nair DO [address] [place], [place] [id number] [place] [address]/[address] [address] Referral ID Status Reason Start Date Expiration Date V isits Requested Visits Authorized CONS [id number] Authorized/ Booked 06/01/2017 06/01/2018 12 12 Encounter Details Date Type Department Care Team Description 06/01/2017 Orders Only Adult Medicine [address] [address] Prachi Nair DO Social History Tobacco Use [...] on filedocumented in this encounter Care Teams Technical Engineer Relationship Specialty Start Date End Date Prachi Nair DO PCP - General Internal Medicine 04/04/15 11/12/20 Ganesh Everett MD [address] [place] [address] PCP - General Internal Medicine 11/13/20 06/22/21 Radha Pickens PA-C [address] [place] [address] PCP - General Internal Medicine 06/23/21 03/22/22 Ganesh Everett MD [address] [place] [address] PCP - General Internal Medicine 03/23/22 06/29/23 Alexis Kingsley [address] [place] [address] PCP - General Internal Medicine 06/30/23 documented as of this encounter
--- OUTSIDE RECORDS SUMMARY | 2024-07-27 13:54 | XMS_ITS | Encounter Summary ---
Author Organization [facility] Address [address] [place] [address] Care Team Providers Care Director External Communications Name Role Phone Alexis Kingsley Primary Care Provider Encounter Details Date Type Department Care Team Description 08/26/2023 Orders Only Medical Records [address] [place] [address] Arpan Tena PA-C Social History Tobacco Use [...] filedocumented in this encounter Care Teams Director External Communications Relationship Specialty Start Date End Date Alexis Kingsley [address] [place], [place] [phone] PCP - General Internal Medicine 06/30/23 documented as of this encounter
--- OUTSIDE RECORDS SUMMARY | 2024-07-27 13:55 | XMS_ITS | Encounter Summary ---
Author Organization [facility] Address [address] [place] [address] Care Team Providers Care Diesel Crane Operator Name Role Phone Ganesh Everett MD Primary Care Provider [phone] Radha Pickens PA-C Primary Care Provider U Ganesh Ramsey MD Primary Care Provider [phone] Alexis Kingsley Primary Care Provider [phone] Reason for Visit * Reason Onset Date Comments Pre-op Needed 11/13/2020 Encounter Details Date Type Department Care Team Description 11/13/2020 Telephone Adult Medicine [address] [phone] Ganesh Everett MD [address] [place] [address] [phone] Pre-op Needed Social History Tobacco Use Types [...] on filedocumented in this encounter Care Teams Diesel Crane Operator Relationship Specialty Start Date End Date Ganesh Everett MD [address] [place] [address] PCP - General Internal Medicine 11/13/20 06/22/21 Radha Pickens PA-C [address] [place] [address] PCP - General Internal Medicine 06/23/21 03/22/22 Ganesh Everett MD [address] [place] [address] PCP - General Internal Medicine 03/23/22 06/29/23 Alexis Kingsley [address] [place] [address] PCP - General Internal Medicine 06/30/23 documented as of this encounter
== END 2024-07-27 13:52 | disposition home or self-care (01) ==
LOC: HO.HOSX 13:51
PROVIDERS: Visit Provider Physician Assistant
DX: S52.612A Displaced fracture of left ulna styloid process, initial encounter for closed fracture (principal)
CPT/HCPCS: 73080; 73090; 73110

== ENCOUNTER 2024-08-24 10:20 | Outpatient (AMB) | payer OTHER, SELFPAY ==
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
--- OUTSIDE RECORDS SUMMARY | 2024-08-24 12:15 | XMS_ITS | Clinical Summary ---
Author Organization [facility] Address [address] [place] [address] Care Team Providers Care Registration Officer Name Role Phone Alexis Kingsley Primary Care Provider [phone] Allergies Active Allergy Reactions Severity Noted Date [...] Overview: Incidental finding on CT scan at [facility] dated 08/11/2015. LFTs normal. IBS (irritable bowel syndrome) 6 PCOS (polycystic ovarian syndrome) 09/24 Family history of breast cancer in femal e 01/24/2014 Overview: Pt BRCA negative Resolved Problems Problem Noted Date Resolved Date Benign essential hypertension in obstetric zaid xt 01/21/2017 02/18/2018 Supervision of normal first 07/27/2016 04/14/2017 Overview: 1. [facility] site: [place] 2. Delivery site: [facility] 3. Dating criteria: 1st trimester ultrasound [...] Cholesterol Level Father CHF Maternal Grandmother and classified copy control clerk d ( 02/13/14) at age 59 Ulcerative [...] H RISK PATIENTS (#1) 09/15/2056 Care Teams Registration Officer Relationship Specialty Start Date End Date Alexis Kingsley [address] [place] [address] PCP - General Internal Medicine 06/30/23
--- OUTSIDE RECORDS SUMMARY | 2024-08-24 12:15 | XMS_ITS | Encounter Summary ---
Author Organization [facility] Address [address] [place] [address] Care Team Providers Care Knitter Helper Name Role Phone Prachi Nair DO Primary Care Pro Ganesh Weathers MD Primary Care Provider [phone] Radha Pickens PA-C Primary Care Provider U Ganesh Ramsey MD Primary Care Provider [phone] Alexis Kingsley Primary Care Provider [phone] Reason for Visit * Reason Onset Date Comments TEST RESULTS 08/30/2015 Encounter Details Date Type Department Care Team Description 08/30/2015 Telephone Gastroenterology - [address] [address] Blaise Marino PA-C TEST RESULTS Social History Tobacco Use Types Packs/Day Years [...] encounter Miscellaneous Notes * Telephone Encounter - Damaso Sena MD - 08/30/2015 6:47 PM EST I spoke with her about this just now. I reviewed her chart. 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 The MRI scan showed this. I explained this to her. She has been feeling better. It appears that she had an acute gastroenteritis onset about 3 weeks ago and is now getting better. This is not related to her chronic IBS. This was an illness that was totally different. Iexplained this to her. * Telephone Encounter - Sylvie Joya - 08/30/2015 2:44 PM EST Blaise Marino order MRI, patient would like to speak with someone today explain the results, sheis having diffuculty understanding them. Patient aware Blaise Marino is out of the office. documented in this encounter Plan of Treatment Not on file documented as of this encounter Visit Diagnoses Diagnosis Cyst of left kidney- Primary Unspecified congenital cystic kidney disease Horseshoe kidney Other specified congenital anomaly of kidney documented in this encounter Care Teams Knitter Helper Relationship Specialty Start Date End Date Prachi Nair DO PCP - General Internal Medicine 04/04/15 11/12/20 Ganesh Everett MD [address] [place] [address] PCP - General Internal Medicine 11/13/20 06/22/21 Radha Pickens PA-C [address] [place] [address] PCP - General Internal Medicine 06/23/21 03/22/22 Ganesh Everett MD [address] [place] [address] PCP - General Internal Medicine 03/23/22 06/29/23 Alexis Kingsley [address] [place] [address] PCP - General Internal Medicine 06/30/23 documented as of this encounter
--- OUTSIDE RECORDS SUMMARY | 2024-08-24 12:15 | XMS_ITS | Encounter Summary ---
Author Organization [facility] Address [address] [place] [address] Care Team Providers Care Therapy Assistant Name Role Phone Prachi Nair DO Primary Care Pro mariumr Ganesh Zhong MD Primary Care Provider [phone] Radha Pickens PA-C Primary Care Provider U Ganesh Ramsey MD Primary Care Provider [phone] Alexis Kingsley Primary Care Provider [phone] Reason for Referral * Non DOROTEO (Routine) - Authorized/Booked Specialty Diagnoses / Procedures Referred By Rahel barba Referred To Contact Gastroenterology Procedures REFERRAL TO GASTROENTEROLOGY Prachi Nair DO [address] [place], [place] [address] [place] [address] [address] Referral ID Status Reason Start Date Expiration Date V isits Requested Visits Authorized CONS [id number] Authorized/ Booked 06/01/2017 06/01/2018 12 12 Encounter Details Date Type Department Care Team Description 06/01/2017 Orders Only Adult Medicine [address] [address] Prachi Nair DO Social History Tobacco Use [...] on filedocumented in this encounter Care Teams Therapy Assistant Relationship Specialty Start Date End Date Prachi Nair DO PCP - General Internal Medicine 04/04/15 11/12/20 Ganesh Everett MD [address] [place] [address] PCP - General Internal Medicine 11/13/20 06/22/21 Radha Pickens PA-C [address] [place] [address] PCP - General Internal Medicine 06/23/21 03/22/22 Ganesh Everett MD [address] [place] [address] PCP - General Internal Medicine 03/23/22 06/29/23 Alexis Kingsley [address] [place] [address] PCP - General Internal Medicine 06/30/23 documented as of this encounter
--- OUTSIDE RECORDS SUMMARY | 2024-08-24 12:15 | XMS_ITS | Encounter Summary ---
Author Organization [facility] Address [address] [place] [address] Care Team Providers Care Set Decorator Name Role Phone Ivan Altamirano MD Primary Care Provider Unavail able Ivan Altamirano MD Primary Care Provider Unavail able Prachi Nair DO Primary Care Pro vider Unavailable Ganesh Everett MD Primary Care Provider [phone] Radha Pickens PA-C Primary Care Provider U Ganesh Ramsey MD Primary Care Provider [phone] Alexis Kingsley Primary Care Provider [phone] Reason for Visit * Reason Onset Date Comments Advice 05/24/2014 Encounter Details Date Type Department Care Team Description 05/24/2014 Pt. Non Urgent Medical Question Adult Medicine [address] [address] Ivan Altamirano MD Social History Tobacco Use [...] Progress Notes * Ning Sandhu L.P.N. - 05/24/2014 10:40 AM ESTFrom: Dakota Spear To: Ivna Altamirano MD Sent: 05/24/2014 10:39 AM EST Subject: daniel elaine I'm just writing you this msg because I'm wondering if it will be safe for me to take hydroxycut to help me loose weight?? Because I know a couple of ppl who took the pill and gave them a great outcome documented in this encounter Plan of Treatment Not on file documented as of this encounter Visit Diagnoses Not on filedocumented in this encounter Care Teams Set Decorator Relationship Specialty Start Date End Date Ivan Altamirano MD PCP - General Internal Medicine 04/17/13 03/04/15 Ivan Altamirano MD PCP - General Internal Medicine 03/05/15 04/03/15 Prachi Nair DO PCP - General Internal Medicine 04/04/15 11/12/20 Ganesh Everett MD [address] [place] [address] PCP - General Internal Medicine 11/13/20 06/22/21 Radha Pickens PA-C [address] [place] [address] PCP - General Internal Medicine 06/23/21 03/22/22 Ganesh Everett MD [address] [place] [address] PCP - General Internal Medicine 03/23/22 06/29/23 Alexis Kingsley [address] [place] [address] PCP - General Internal Medicine 06/30/23 documented as of this encounter
--- OUTSIDE RECORDS SUMMARY | 2024-08-24 12:15 | XMS_ITS | Encounter Summary ---
Author Organization [facility] Address [address] [place] [address] Care Team Providers Care Poll Watcher Name Role Phone Prachi Nair DO Primary Care Pro vider Ganesh Zhong MD Primary Care Provider Radha Pickens PA-C Primary Care Provider U Ganesh Ramsey MD Primary Care Provider [phone] Alexis Kingsley Primary Care Provider [phone] Encounter Details Date Type Department Care Team Description 08/13/2015 Telephone Adult [address] [phone] Prachi Nair DO Social History Tobacco Use [...] on filedocumented in this encounter Care Teams Poll Watcher Relationship Specialty Start Date End Date Prachi Nair DO PCP - General Internal Medicine 04/04/15 11/12/20 Ganesh Everett MD [address] [place] [address] [phone] PCP - General Internal Medicine 11/13/20 06/22/21 Radha Pickens PA-C [address] [place] [address] PCP - General Internal Medicine 06/23/21 03/22/22 Ganesh Everett MD [address] [place] [address] PCP - General Internal Medicine 03/23/22 06/29/23 Alexis Kingsley [address] [place] [address] PCP - General Internal Medicine 06/30/23 documented as of this encounter
--- OUTSIDE RECORDS SUMMARY | 2024-08-24 12:15 | XMS_ITS | Encounter Summary ---
Author Organization [facility] Address [address] [place] [address] Care Team Providers Care Nozzle And Sleeve Worker Name Role Phone Ganesh Everett MD Primary Care Provider [phone] Radha Pickens PA-C Primary Care Provider U Ganesh Ramsey MD Primary Care Provider [phone] Alexis Kingsley Primary Care Provider [phone] Reason for Visit * Reason Onset Date Comments Pre-op Needed 11/13/2020 Encounter Details Date Type Department Care Team Description 11/13/2020 Telephone Adult Medicine [address] [phone] Ganesh Everett MD [address] [place] [address] [phone] Pre-op Needed Social History Tobacco Use Types [...] on filedocumented in this encounter Care Teams Nozzle And Sleeve Worker Relationship Specialty Start Date End Date Ganesh Everett MD [address] [place] [address] PCP - General Internal Medicine 11/13/20 06/22/21 Radha Pickens PA-C [address] [place] [address] PCP - General Internal Medicine 06/23/21 03/22/22 Ganesh Everett MD [address] [place] [address] PCP - General Internal Medicine 03/23/22 06/29/23 Alexis Kingsley [address] [place] [address] PCP - General Internal Medicine 06/30/23 documented as of this encounter
--- OUTSIDE RECORDS SUMMARY | 2024-08-24 12:15 | XMS_ITS | Encounter Summary ---
Author Organization [facility] Address [address] [place] [address] Care Team Providers Care Sales Representative Church Furniture Name Role Phone Prachi Nair DO Primary Care Pro vider Ganesh Zhong MD Primary Care Provider Radha Pickens PA-C Primary Care Provider U Ganesh Ramsey MD Primary Care Provider [phone] Alexis Kingsley Primary Care Provider [phone] Encounter Details Date Type Department Care Team Description 07/29/2016 Zika Virus Medical Records [address] [place] [address] Abstract, Provider Social History Tobacco Use Types [...] on filedocumented in this encounter Care Teams Sales Representative Church Furniture Relationship Specialty Start Date End Date Prachi Nair DO PCP - General Internal Medicine 04/04/15 11/12/20 Ganesh Everett MD [address] [place], [place] [phone] PCP - General Internal Medicine 11/13/20 06/22/21 Radha Pickens PA-C [address] [place] [address] PCP - General Internal Medicine 06/23/21 03/22/22 Ganesh Everett MD [address] [place] [address] PCP - General Internal Medicine 03/23/22 06/29/23 Alexis Kingsley [address] [place] [address] PCP - General Internal Medicine 06/30/23 documented as of this encounter
--- OUTSIDE RECORDS SUMMARY | 2024-08-24 12:15 | XMS_ITS | Encounter Summary ---
Author Organization [facility] Address [address] [place] [address] Care Team Providers Care Kennel Attendant Name Role Phone Prachi Nair DO Primary Care Pro mariumr Ganesh Zhong MD Primary Care Provider [phone] Radha Pickens PA-C Primary Care Provider U Ganesh Ramsey MD Primary Care Provider [phone] Alxeis Kingsley Primary Care Provider [phone] Reason for Visit * Reason Onset Date Comments Appointment Cancelled 12/17/2015 Encounter Details Date Type Department Care Team Description 12/17/2015 Telephone Gastroenterology - [address] [address] Rai Fiore MD Appointment Cancelled Social History [...] PM EDT Pt has been r/s at [facility] 02/04/2016 at 3:00 * Telephone Encounter - Stephany Antoine - 12/17/2015 12:32 PM EDT [facility] Telephone Encounter - [...] on filedocumented in this encounter Care Teams Kennel Attendant Relationship Specialty Start Date End Date Prcahi Nair DO PCP - General Internal Medicine 04/04/15 11/12/20 Ganesh Everett MD [address] [place] [address] PCP - General Internal Medicine 11/13/20 06/22/21 Radha Pickens PA-C [address] [place] [address] PCP - General Internal Medicine 06/23/21 03/22/22 Ganesh Everett MD [address] [place] [address] PCP - General Internal Medicine 03/23/22 06/29/23 Alexis Kingsley [address] [place] [address] PCP - General Internal Medicine 06/30/23 documented as of this encounter
--- OUTSIDE RECORDS SUMMARY | 2024-08-24 12:15 | XMS_ITS | Clinical Summary ---
Author Organization [facility] Address [address] [place] [phone] Phone Care Team Providers Care Diesel Engine Erector Name Role Phone Alexis Kingsley MD Primary Care Provider [phone] Allergies Active Allergy Reactions Criticality Noted Date Comments Oxycodone-Acetaminophen 03/17/2021 Itching Penicillins 03/17/2021 GI upset Medications cholestyramine (QUESTRAN) 4 gram packet Take 1 Packet by mouth 3 times daily (with meals). 4 025 Active metroNIDAZOLE (METROGEL) 0.75 % (37.5mg/5 gram) vaginal gel 1 application for 5 nights at bedtime 4 Active terconazole (TERAZOL 3) 0.8 % vaginal cream One applicatorful PV QHS x 3 nights 3 Active ibuprofen (ADVIL,MOTRIN) 600 mg tablet Take 1 tablet (600 mg total) by mouth every 6 (six) hours if needed for mild pain (for pain) for up to 10 days. 30 tablet 5 025 Active Problems Problem Noted Date Diagnosed Date Morbid obesity with BMI of 45.0-49.9, adult 03/21 DDD (degenerative disc disease), lumbar 06/21/19 Seasonal allergic conjunctivitis 10/06/2017 Recurrent sinusitis 08/26/2017 Mixed hyperlipidemia 10/23/2015 Cyst of left kidney 08/30/2015 Overview (04/02/2024): MRI scan 2015. 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 Fatty liver 08/12/2015 Overview (04/02/2024): Incidental finding on CT scan at [facility] dated 08/11/2015. LFTs normal. IBS (irritable bowel syndrome) 07/08/2015 PCOS (polycystic ovarian syndrome) 09/24/2014 Encounters Date Type Department Care Team Description 08/11/2024 9:30 AM EST - 08/11/2024 12:28 PM EST Emergency [facility] Emergency [address] [place] [address] Clive Rodriguez MD Cervical strain, acute, initial encounter (Primary Dx) Discharge Disposition: Home or Self Care from Last 3 Months Immunizations Name Administration Dates Next Due Influenza Quadravalent, MDCK , 0.5ml, preservative free (Flucelvax) 6mo and older 03/18/2018 Influenza, Unspecified 04/21/2019 PPD Test 02/18/2018, 6,06/05/2015,2014 Tdap Tetanus diptheria acell ular pertussis (Boostrix; Adacel) 7yo and older 11/27/2016,07/24/2013 Surgical History Surgery Date Site/Laterality Comments LIPOMA RESECTION 06/21/2006 Right PROCEDURE: SKIN TISSUE EXCISION(LIPOMA); COMMENT: low back FLEXIBLE SIGMOIDOSCOPY 05/21/2014 PROCEDURE: NM SIGMOIDOSCOPY FLX DX W/COLLJ SPEC BR/WA IF [...] drink = 0.6 oz pur e alcohol) Comments Unknown Sex and Gender Information Value Date Recorded Sex Assigned at Not on file Legal Sex Female 5:42 PM EST Gender Identity Not on file Sexual Orientation Not on file Obstetrics History Last Filed Vital Signs Vital Sign Reading Time Taken Comments Blood Pressure 136/92 08/11/2024 12:21 PM EST Pulse 64 08/11/2024 12:21 PM EST Temperature 37.3 ??C (99.2 ??F) 08/11/2024 12:[address] Respiratory Rate 16 08/11/2024 12:21 PM EST Oxygen Saturation 100% 08/11/2024 12:21 PM EST Inhaled Oxygen Concentration - - Weight 122 kg (268 lb) 08/11/2024 7:57 AM EST Height 162.6 cm (5' 4 ) 08/11/2024 7:57 AM EST Body Mass Index 46 08/11/2024 7:57 AM EST Plan of Treatment Upcoming Encounters Date Type Department Care Team (Late st Contact Info) Description 08/24/2024 2:20 PM EST Office Visit Obstetrics and Gynecology - [address] [phone] Eli Ford PA [address] [place] [phone] 01/11/2025 2:30 PM EDT Office Visit Obstetrics and Gynecology - [address] [phone] Sandra Gomez, CN [address] [place], [place] Health Maintenance Due Date Last Done Comments Hepatitis A Vaccines (1 of 2 - Risk 2-dose series) 09/15/2010 Pneumococcal Vaccine: Pediatrics (0 to 5 Years) and At-Risk Patients (6 to 64 Years) (1 of 2 - PCV) 09/15/2010 Hepatitis B Vaccines (2 of 3 - 19+ 3-dose series) 04/19/2018 03/22/2018 Depression Screening 05/23/2022 HIV Screening 05/23/2022 Social Influencers of Health Screening 05/23/2022 COVID-19 Vaccine ( season) 2024 05/22/2022, 07/25/2020, 06/27/2020 Influenza Vaccine (#1) 2024 , 04/21/2019, 03/18/2018 Cholesterol Screening (Lipid Panel) 02/11/2026 02/11/2021 Cervical Cancer Screening: Pap Smear 04/20/2026 04/20/2023, 03/03/2019 DTaP,Tdap,and Td Vaccines (10 - Td or Tdap) 11/27/2026 11/27/2016, 07/24/2013, 06/19/2010, Additional history exists HIB Vaccines Completed 01/29/1993, 01/1992, 01/16/1992, Additional history exists IPV Vaccines Completed 08/30/1996, 07/22, 01/17/1992, Additional history exists MMR Vaccines Completed 08/30/1996, 01/29/1993 HPV Vaccines Completed 08/08/2007, 01/2007, 01/25/2007 Varicella Vaccines Completed 04/22/2009, 10/11/1997 Hepatitis C Screening Completed 06/30/2023 Meningococcal ACWY Vaccine Aged Out N o longer eligible based on patient's age to complete this topic Meningococcal B Vacine Aged Out No lo nger eligible based on patient's age to complete this topic RSV Immunization Patients Under 20 months Aged Out No longer eligible based on patient's age to complete this topic Procedures Procedure Name Priority Date/Time Associated Diagnosis Comments XR ELBOW 3+ VIEWS LEFT STAT 08/11/2024 11:21 AM EST HEPATITIS C SCREENING Routine 06/30/2023 PAP SMEAR Routine 04/20/2023 LIPID PANEL Routine 02/11/2021 from Last 3 Months or Most Recently Relevant to Health Maintenance Results * XR Elbow 3+ Views Left (08/11/2024 11:21 AM EST) Anatomical Region Laterality Modality Upper Extremities, Elbow Left Radiogr aphic Imaging 08/11/2024 11:2 4 AM EST Impressions 08/11/2024 11:29 AM EST No fracture or dislocation is visualized. An elbow joint effusion is, however, present and therefore an occult fracture must be assumed to be present until proven otherwise. Therefore, obtaining follow-up elbow radiographs in 4-5 days are recommended at which time a fracture, if present, should become evident. Code 88223 -------- FINAL REPORT -------- Dictated By: Duran Tomlinson Dictated Date: 08/11/2024 11:24 ET Assigned Physician: Duran Tomlinson Reviewed and Electronically Signed By: Duran Tomlinson Signed Date: 08/11/2024 11:29 ET Workstation ID: [id number] Transcribed By: Self Edit Transcribed Date: 08/11/2024 11:24 ET Narrative 08/11/2024 11:29 AM EST HISTORY: The patient is a 33-year-old female with left elbow pain following trauma. FINDINGS: AP, lateral, and oblique views of the left elbow are obtained. No fracture or dislocation is demonstrated. However, there is displacement of the anterior fat pad indicating the presence of a joint effusion and raising the possibility of an occult fracture. No arthritic change is demonstrated. Procedure Note Duran Tomlinson MD - 08/11/2024 HISTORY: The patient is a 33-year-old female with left elbow painfollowing trauma. FINDINGS: AP, lateral, and oblique views of the left elbow are obtained.No fracture or dislocation is demonstrated. However, there is displacementof the anterior fat pad indicating the presence of a joint effusion andraising the possibility of an occult fracture. No arthritic change isdemonstrated. IMPRESSION: No fracture or dislocation is visualized. An elbow joint effusion is,however, present and therefore an occult fracture must be assumed to bepresent until proven otherwise. Therefore, obtaining follow-up elbowradiographs in 4-5 days are recommended at which time a fracture, ifpresent, should become evident. Code 96205 -------- FINAL REPORT -------- Dictated By: Duran Tomlinson Dictated Date: 08/11/2024 11:24 ET Assigned Physician: Duran Tomlinson Reviewed and Electronically Signed By: Duran Tomlinson Signed Date: 08/11/2024 11:29 ET Workstation ID: [id number] Transcribed By: Self Edit Transcribed Date: 08/11/2024 11:24 ET Clive Rodriguez MD IMG XR PROCEDURES Final Result * Hepatitis C Screening (06/30/2023) Pathologist [facility] Hepatitis C Screening ABSTRACTED Historical Provider HEALTH MAINTENANCE Final Result * Pap Smear (04/20/2023) Pathologist [facility] Pap smear NEGATIVE, ABSTRACTED Historical Provider HEALTH MAINTENANCE Final Result * (ABNORMAL) Lipid panel (02/11/2021) LDL/HDL Ratio 5(A) 0 - 4 Triglycerides 125 0 - 150 mg/dL Cholesterol 192 0 - 200 mg/dL HDL 38(A) >=40 mg/dL LDL Cholesterol 129(A) 0 - 100 mg/dL Blood Venous blood specimen / Unknown Historical Provider LAB BLOOD ORDERABLES Mayda l Result from Last 3 Months or Most Recently Relevant to Health Maintenance Insurance [facility] PLAN [facility] [employer] [facility] Advance Directives Documents on File Type Date Recorded 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
--- OUTSIDE RECORDS SUMMARY | 2024-08-24 12:15 | XMS_ITS | Encounter Summary ---
Author Organization [facility] Address [address] [place] [address] Care Team Providers Care Food And Beverage Checker Name Role Phone Ivan Altamirano MD Primary Care Provider Unavail able Ivan Altamirano MD Primary Care Provider Unavail able Prachi Nair DO Primary Care Pro vider Unavailable Ganesh Everett MD Primary Care Provider [phone] Radha Pickens PA-C Primary Care Provider U Ganesh Ramsey MD Primary Care Provider [phone] Alexis Kingsley Primary Care Provider [phone] Reason for Visit * Reason Onset Date Comments stool 12/10/2013 Encounter Details Date Type Department Care Team Description 12/10/2013 Telephone Adult Urgent Care - [address] [phone] Ivan Altamirano MD stool Social History Tobacco [...] encounter Miscellaneous Notes * Telephone Encounter - Eugenio Rubio L.P.N. - 12/10/2013 10:05 AM EDT [...] symptoms?: 2 days PCP: Ivan Altamirano Payor: [employer] FFS / Plan: [employer] PLAN / Product Type: MEDICAID RISK documented in this encounter Plan of Treatment Not on file documented as of this encounter Visit Diagnoses Not on filedocumented in this encounter Care Teams Food And Beverage Checker Relationship Specialty Start Date End Date Ivan Altamirano MD PCP - General Internal Medicine 04/17/13 03/04/15 Ivan Altamirano MD PCP - General Internal Medicine 03/05/15 04/03/15 Prachi Nair DO PCP - General Internal Medicine 04/04/15 11/12/20 Ganesh Everett MD [address] [place] [id number] PCP - General Internal Medicine 11/13/20 06/22/21 Radha Pickens PA-C [address] [place] [id number] PCP - General Internal Medicine 06/23/21 03/22/22 Ganesh Everett MD [address] [place] [id number] PCP - General Internal Medicine 03/23/22 06/29/23 Alexis Kingsley [address] [place] [address] PCP - General Internal Medicine 06/30/23 documented as of this encounter
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
--- OUTSIDE RECORDS SUMMARY | 2024-08-24 12:15 | XMS_ITS | Encounter Summary ---
Author Organization [employer] [facility] Address [address] [place] [address] Care Team Providers Care [employer] Science Teacher Name Role Phone Alexis Kingsley Primary Care Provider [phone] Encounter Details Date Type Department Care Team Description 08/23/2023 Orders Only Medical Records [address] [place] [address] Naima Blancas PA-C [address] [address] Social History Tobacco Use Types [...] on filedocumented in this encounter Care Teams [employer] Science Teacher Relationship Specialty Start Date End Date Alexis Kingsley [address] [place] [address] PCP - General Internal Medicine 06/30/23 documented as of this encounter
--- OUTSIDE RECORDS SUMMARY | 2024-08-24 12:15 | XMS_ITS | Encounter Summary ---
Author Organization [facility] Address [address] [place] [address] Care Team Providers Care Telephone Clerks Supervisor Name Role Phone Prachi Nair DO Primary Care Pro mariumr Ganesh Zhong MD Primary Care Provider [phone] Radha Pickens PA-C Primary Care Provider U Ganesh Ramsey MD Primary Care Provider [phone] Alexis Kingsley Primary Care Provider [phone] Reason for Visit * Reason Onset Date Comments LAB WORK 10/25/2020 Encounter Details Date Type Department Care Team Description 10/25/2020 Telephone Internal Medicine - [address], [address] [place] [address] Lizeth Medeiros MS,RODRÍGUEZ,CHARLESN LAB WORK Social History Tobacco Use Types Packs/Day Years [...] encounter Miscellaneous Notes * Telephone Encounter - Lizeth Medeiros MS,RODRÍGUEZ,TRACIE - 10/25/2020 10:51 AM EDT Please order bariatric labs documented in this encounter Plan of Treatment Not on file documented as of this encounter Visit Diagnoses Not on filedocumented in this encounter Care Teams Telephone Clerks Supervisor Relationship Specialty Start Date End Date Prachi Nair DO PCP - General Internal Medicine 04/04/15 11/12/20 Ganesh Everett MD [address] [place] [address] [phone] PCP - General Internal Medicine 11/13/20 06/22/21 Radha Pickens PA-C [address] [place] [address] PCP - General Internal Medicine 06/23/21 03/22/22 Ganesh Everett MD [address] [place] [address] PCP - General Internal Medicine 03/23/22 06/29/23 Alexis Kingsley [address] [place] [address] PCP - General Internal Medicine 06/30/23 documented as of this encounter
--- OUTSIDE RECORDS SUMMARY | 2024-08-24 12:15 | XMS_ITS | Encounter Summary ---
Author Organization [facility] Address [address] [place] [address] Care Team Providers Care Transistor Tester Name Role Phone Ivan Altamirano MD Primary Care Provider Unavail able Ivan Altamirano MD Primary Care Provider Unavail able Prachi Nair DO Primary Care Pro vider Unavailable Ganesh Everett MD Primary Care Provider [phone] Radha Pickens PA-C Primary Care Provider U Ganesh Ramsey MD Primary Care Provider [phone] Alexis Kingsley Primary Care Provider [phone] Encounter Details Date Type Department Care Team Description 03/20/2014 Pt. Non Urgent Medical Question MANAGER LAN - [address] [address] Ankia Kennedy MD Social History Tobacco Use Types [...] on filedocumented in this encounter Care Teams Transistor Tester Relationship Specialty Start Date End Date Ivan Altamirano MD PCP - General Internal Medicine 04/17/13 03/04/15 Ivan Altamirano MD PCP - General Internal Medicine 03/05/15 04/03/15 Prachi Nair DO PCP - General Internal Medicine 04/04/15 11/12/20 Ganesh Everett MD [address] [place] [address] PCP - General Internal Medicine 11/13/20 06/22/21 Radha Pickens PA-C [address] [place] [address] PCP - General Internal Medicine 06/23/21 03/22/22 Ganesh Everett MD [address] [place] [address] PCP - General Internal Medicine 03/23/22 06/29/23 Alexis Kingsley [address] [place] [address] PCP - General Internal Medicine 06/30/23 documented as of this encounter
--- OUTSIDE RECORDS SUMMARY | 2024-08-24 12:15 | XMS_ITS | Encounter Summary ---
Author Organization [facility] Address [address] [place] [address] Care Team Providers Care Student Records Coordinator Name Role Phone Prachi Nair DO Primary Care Pro mariumr Ganesh Zhong MD Primary Care Provider [phone] Radha Pickens PA-C Primary Care Provider U Ganesh Ramsey MD Primary Care Provider [phone] Alexis Kingsley Primary Care Provider [phone] Encounter Details Date Type Department Care Team Description 02/25/2016 Pt. Non Urgent Medic al Question Adult Medicine [address] [address] Prachi Nair DO Social History Tobacco Use [...] on filedocumented in this encounter Care Teams Student Records Coordinator Relationship Specialty Start Date End Date Prachi Nair DO PCP - General Internal Medicine 04/04/15 11/12/20 Ganesh Everett MD [address] [place] [address] PCP - General Internal Medicine 11/13/20 06/22/21 Radha Pickens PA-C [address] [place] [address] PCP - General Internal Medicine 06/23/21 03/22/22 Ganesh Everett MD [address] [place] [address] PCP - General Internal Medicine 03/23/22 06/29/23 Alexis Kingsley [address] [place] [address] PCP - General Internal Medicine 06/30/23 documented as of this encounter
--- OUTSIDE RECORDS SUMMARY | 2024-08-24 12:15 | XMS_ITS | Encounter Summary ---
Author Organization [facility] Address [address] [place] [address] Care Team Providers Care Microsoft Exchange Architect Name Role Phone Ivan Altamirano MD Primary Care Provider Unavail able Ivan Altamirano MD Primary Care Provider Unavail able Prachi Nair DO Primary Care Pro vider Unavailable Ganesh Everett MD Primary Care Provider [phone] Radha Pickens PA-C Primary Care Provider U Ganesh Ramsey MD Primary Care Provider [phone] Alexis Kingsley Primary Care Provider [phone] Reason for Visit * Reason Onset Date Comments Breast Lump 01/01/2014 Encounter Details Date Type Department Care Team Description 01/01/2014 Pt. Non Urgent Medical Question Adult Medicine [address] [address] Ivan Altamirano MD Social History Tobacco Use [...] on filedocumented in this encounter Care Teams Microsoft Exchange Architect Relationship Specialty Start Date End Date Ivan Altamirano MD PCP - General Internal Medicine 04/17/13 03/04/15 Ivan Altamirano MD PCP - General Internal Medicine 03/05/15 04/03/15 Prachi Nair DO PCP - General Internal Medicine 04/04/15 11/12/20 Ganesh Everett MD [address] [place] [address] PCP - General Internal Medicine 11/13/20 06/22/21 Radha Pickens PA-C [address] [place] [address] PCP - General Internal Medicine 06/23/21 03/22/22 Ganesh Everett MD [address] [place] [address] PCP - General Internal Medicine 03/23/22 06/29/23 Alexis Kingsley [address] [place] [address] PCP - General Internal Medicine 06/30/23 documented as of this encounter
--- OUTSIDE RECORDS SUMMARY | 2024-08-24 12:15 | XMS_ITS | Encounter Summary ---
Author Organization [facility] Address [address] [place] [address] Care Team Providers Care Political Science Research Assistant Name Role Phone Ivan Altamirano MD Primary Care Provider Unavail able Ivan Altamirano MD Primary Care Provider Unavail able Prachi Nair DO Primary Care Pro vider Unavailable Ganesh Everett MD Primary Care Provider [phone] Radha Pickens PA-C Primary Care Provider U Ganesh Ramsey MD Primary Care Provider [phone] Alexis Kingsley Primary Care Provider [phone] Encounter Details Date Type Department Care Team Description 08/27/2014 Pt. Non Urgent Medical Question OBGYN - [facility] [address] [place] [address] Ragini Baird MD Social History Tobacco Use Types Packs/Day [...] as of this encounter Progress Notes * Jillian Clarke R.N. - 08/28/2014 8:54 AM EDT Patient is MyCharting requesting to re-schedule her follow up appt with genetics. msg forwarded to Quinn. From: Dakota Spear To: Ragini Baird MD Sent: 08/27/2014 10:48 PM EDT Subject: follow up I was just wondering of u can schedule me a follow up because I missed the last one documented in this encounter Plan of Treatment Not on file documented as of this encounter Visit Diagnoses Not on filedocumented in this encounter Care Teams Political Science Research Assistant Relationship Specialty Start Date End Date Ivan Altamirano MD PCP - General Internal Medicine 04/17/13 03/04/15 Ivan Altamirano MD PCP - General Internal Medicine 03/05/15 04/03/15 Prachi Nair DO PCP - General Internal Medicine 04/04/15 11/12/20 Ganesh Everett MD [address] [place] [address] PCP - General Internal Medicine 11/13/20 06/22/21 Radha Pickens PA-C [address] [place] [address] PCP - General Internal Medicine 06/23/21 03/22/22 Ganesh Everett MD [address] [place] [address] PCP - General Internal Medicine 03/23/22 06/29/23 Alexis Kingsley [address] [place] [address] PCP - General Internal Medicine 06/30/23 documented as of this encounter
--- OUTSIDE RECORDS SUMMARY | 2024-08-24 12:15 | XMS_ITS | Encounter Summary ---
Author Organization [facility] Address [address] [place] [address] Care Team Providers Care Mounter Hand Name Role Phone Prachi Nair DO Primary Care Pro mariumr Ganesh Zhong MD Primary Care Provider [phone] Radha Pickens PA-C Primary Care Provider U Ganesh Ramsey MD Primary Care Provider [phone] Alexis Kingsley Primary Care Provider [phone] Encounter Details Date Type Department Care Team Description 08/30/2015 Pt. Non Urgent Medic al Question Adult Medicine [address] [address] Prachi Nair DO Social History Tobacco Use [...] on filedocumented in this encounter Care Teams Mounter Hand Relationship Specialty Start Date End Date Prachi Nair DO PCP - General Internal Medicine 04/04/15 11/12/20 Ganesh Everett MD [address] [place] [address] PCP - General Internal Medicine 11/13/20 06/22/21 Radha Pickens PA-C [address] [place] [address] PCP - General Internal Medicine 06/23/21 03/22/22 Ganesh Everett MD [address] [place] [address] PCP - General Internal Medicine 03/23/22 06/29/23 Alexis Kingsley [address] [place] [address] PCP - General Internal Medicine 06/30/23 documented as of this encounter
--- OUTSIDE RECORDS SUMMARY | 2024-08-24 12:15 | XMS_ITS | Encounter Summary ---
Author Organization [facility] Address [address] [place] [address] Care Team Providers Care Copper Plater Name Role Phone Radha Pickens PA-C Primary Care Provider U Ganesh Ramsey MD Primary Care Provider [phone] Alexis Kingsley Primary Care Provider [phone] Encounter Details Date Type Department Care Team Description 06/23/2021 Orders Only Medical Records [address] [place] [address] Mayo Azul MD [address] [place] [address] [address] [place] [address] Social History Tobacco Use Types Packs/Day Years [...] on filedocumented in this encounter Care Teams Copper Plater Relationship Specialty Start Date End Date Radha Pickens PA-C PCP - General Internal Medicine 06/23/2103/22 Ganesh Everett MD [address] [place] [address] PCP - General Internal Medicine 03/23/22 06/29/23 Alexis [place]ley [address] [place] [address] PCP - General Internal Medicine 06/30/23 documented as of this encounter
--- OUTSIDE RECORDS SUMMARY | 2024-08-24 12:15 | XMS_ITS | Encounter Summary ---
Author Organization [facility] Address [address] [place] [address] Care Team Providers Care Programmer Analyst Consultant Name Role Phone Prachi Nair DO Primary Care Pro vider Ganesh Zhong MD Primary Care Provider [phone] Radha Pickens PA-C Primary Care Provider U Ganesh Ramsey MD Primary Care Provider [phone] Alexis [place]ley Primary Care Provider [phone] Encounter Details Date Type Department Care Team Description 08/25/2016 Pt. Non Urgent Medic al Question OBGYN - [place] [address] [place] [address] Tushar Mcgrath CNM Social History Tobacco Use [...] encounter Progress Notes * Kenna Zamorano - 08/25/2016 10:03 AM ESTFrom: Dakota Spear To: Tushar Mcgrath CNM Sent: 08/25/2016 9:49 AM EST Subject: due to my ultrasound Good morning I'm just wondering if you got the results due to the ultrasound and blood work that was done on Wednesday and if everything came out okay? documented in this encounter Plan of Treatment Not on file documented as of this encounter Visit Diagnoses Not on filedocumented in this encounter Care Teams Programmer Analyst Consultant Relationship Specialty Start Date End Date Prachi Nair DO PCP - General Internal Medicine 04/04/15 11/12/20 Ganesh Everett MD [address] [place] [address] PCP - General Internal Medicine 11/13/20 06/22/21 Radha Pickens PA-C [address] [place] [address] PCP - General Internal Medicine 06/23/21 03/22/22 Ganesh Everett MD [address] [place] [address] PCP - General Internal Medicine 03/23/22 06/29/23 Alexis [place]ley [address] [place] [address] PCP - General Internal Medicine 06/30/23 documented as of this encounter
--- OUTSIDE RECORDS SUMMARY | 2024-08-24 12:15 | XMS_ITS | Encounter Summary ---
Author Organization [facility] Address [address] [place] [address] Care Team Providers Care Edi Specialist Name Role Phone Prachi Nari DO Primary Care Pro mariumr Ganesh Zhong MD Primary Care Provider [phone] Radha Pickens PA-C Primary Care Provider U Ganesh Ramsey MD Primary Care Provider [phone] Alexis [place]ley Primary Care Provider [phone] Encounter Details Date Type Department Care Team Description 09/29/2020 Pt. Non Urgent Medical Question General Surgery - [address] [place] [address] Mayo Azul MD [address] [place] [address] [address] [place], [place] [id number] Social History Tobacco Use Types Packs/Day Years [...] office. Next step would be with a exhauster. documented in this encounter Plan of Treatment Not on file documented as of this encounter Visit Diagnoses Not on filedocumented in this encounter Care Teams Edi Specialist Relationship Specialty Start Date End Date Prachi Nair DO PCP - General Internal Medicine 04/04/15 11/12/20 Ganesh Everett MD [address] [place] [address] PCP - General Internal Medicine 11/13/20 06/22/21 Radha Pickens PA-C [address] [place] [address] PCP - General Internal Medicine 06/23/21 03/22/22 Ganesh Everett MD [address] [place] [address] PCP - General Internal Medicine 03/23/22 06/29/23 Alexis [place]ley [address] [place] [address] PCP - General Internal Medicine 06/30/23 documented as of this encounter
--- OUTSIDE RECORDS SUMMARY | 2024-08-24 12:15 | XMS_ITS | Encounter Summary ---
Author Organization [facility] Address [address] [place] [address] Care Team Providers Care College Or University Registrar Name Role Phone Alexis [place] Primary Care Provider [phone] Reason for Visit * Reason Onset Date Comments Post Op Visit 08/23/2023 Encounter Details Date Type Department Care Team Description 08/23/2023 Telephone Adult Medicine [address] [address] Alexis [place]ley [address] [place] [address] Post Op Visit Social History Tobacco Use [...] to nurse PCP: Alexis Kingsley Insurance: Payor: [facility] FFS / Plan: [facility] [employer] / Product Type: MEDICAID RISK documented in this encounter Plan of Treatment Not on file documented as of this encounter Visit Diagnoses Not on filedocumented in this encounter Care Teams College Or University Registrar Relationship Specialty Start Date End Date Alexis [place]ley [address] [place] [address] PCP - General Internal Medicine 06/30/23 documented as of this encounter
--- OUTSIDE RECORDS SUMMARY | 2024-08-24 12:15 | XMS_ITS | Encounter Summary ---
Author Organization [facility] Address [address] [place] [address] Care Team Providers Care Fiberglass Boat Parts Finisher Name Role Phone Ivan Altamirano MD Primary Care Provider Unavail able Ivan Altamirano MD Primary Care Provider Unavail able Prachi Nair DO Primary Care Pro vider Unavailable Ganesh Everett MD Primary Care Provider Radha Pickens PA-C Primary Care Provider U Ganesh Ramsey MD Primary Care Provider [phone] Alexis [place]ley Primary Care Provider [phone] Encounter Details Date Type Department Care Team Description 01/15/2015 Pt. Non Urgent Medical Question OFFICE ASSISTANCE - [address] [address] Anika Kennedy MD Social History Tobacco Use [...] on filedocumented in this encounter Care Teams Fiberglass Boat Parts Finisher Relationship Specialty Start Date End Date Ivan Altamirano MD PCP - General Internal Medicine 04/17/13 03/04/15 Ivan Altamirano MD PCP - General Internal Medicine 03/05/15 04/03/15 Prachi Nair DO PCP - General Internal Medicine 04/04/15 11/12/20 Ganesh Everett MD [address] [place] [address] PCP - General Internal Medicine 11/13/20 06/22/21 Radha Pickens PA-C [address] [place] [address] PCP - General Internal Medicine 06/23/21 03/22/22 Ganesh Everett MD [address] [place] [address] PCP - General Internal Medicine 03/23/22 06/29/23 Alexis [place]ley [address] [place] [address] PCP - General Internal Medicine 06/30/23 documented as of this encounter
--- OUTSIDE RECORDS SUMMARY | 2024-08-24 12:15 | XMS_ITS | Encounter Summary ---
Author Organization [facility] Address [address] [place] [address] Care Team Providers Care Tieing Machine Operator Name Role Phone Ivan Altamirano MD Primary Care Provider Unavail able Ivan Altamirano MD Primary Care Provider Unavail able Prachi Nair DO Primary Care Pro vider Unavailable Ganesh Everett MD Primary Care Provider [phone] Radha Pickens PA-C Primary Care Provider U Ganesh Ramsey MD Primary Care Provider [phone] Alexis [place]ley Primary Care Provider [phone] Encounter Details Date Type Department Care Team Description 02/20/2015 Pt. Non Urgent Medical Question BALL TRUING MACHINE OPERATOR - [address] [address] Anika Kennedy MD Social History Tobacco Use [...] on filedocumented in this encounter Care Teams Tieing Machine Operator Relationship Specialty Start Date End Date Ivan Altamirano MD PCP - General Internal Medicine 04/17/13 03/04/15 Ivan Altamirano MD PCP - General Internal Medicine 03/05/15 04/03/15 Prachi Nair DO PCP - General Internal Medicine 04/04/15 11/12/20 Ganesh Everett MD [address] [place] [address] PCP - General Internal Medicine 11/13/20 06/22/21 Radha Pickens PA-C [address] [place] [address] PCP - General Internal Medicine 06/23/21 03/22/22 Ganesh Everett MD [address] [place] [address] PCP - General Internal Medicine 03/23/22 06/29/23 Alexis [place]ley [address] [place] [address] PCP - General Internal Medicine 06/30/23 documented as of this encounter
--- OUTSIDE RECORDS SUMMARY | 2024-08-24 12:15 | XMS_ITS | Encounter Summary ---
Author Organization [facility] Address [address] [place] [address] Care Team Providers Care Sugar Trucker Name Role Phone Alexis [place] Primary Care Provider [phone] Encounter Details Date Type Department Care Team Description 08/21/2023 Hospital Medical Records [address] [place] [address] Sammy Bunn MD [address] [place] [address] Social History Tobacco Use Types Packs/Day Years [...] on filedocumented in this encounter Care Teams Sugar Trucker Relationship Specialty Start Date End Date Alexis [place]ley [address] [place] [address] PCP - General Internal Medicine 06/30/23 documented as of this encounter
--- OUTSIDE RECORDS SUMMARY | 2024-08-24 12:15 | XMS_ITS | Encounter Summary ---
Author Organization [facility] Address [address] [place] [address] Care Team Providers Care Spout Worker Name Role Phone Prachi Nair DO Primary Care Pro vider Ganesh Zhong MD Primary Care Provider [phone] Radha Pickens PA-C Primary Care Provider U Ganesh Ramsey MD Primary Care Provider [phone] Alexis [place]ley Primary Care Provider [phone] Encounter Details Date Type Department Care Team Description 2015 Pt. Non Urgent Medic al Question Adult Medicine [address] [address] Prachi Nair DO Social History Tobacco Use [...] on filedocumented in this encounter Care Teams Spout Worker Relationship Specialty Start Date End Date Prachi Nair DO PCP - General Internal Medicine 04/04/15 11/12/20 Ganesh Everett MD [address] [place] [address] PCP - General Internal Medicine 11/13/20 06/22/21 Radha Pickens PA-C [address] [place] [address] PCP - General Internal Medicine 06/23/21 03/22/22 Ganesh Everett MD [address] [place] [address] PCP - General Internal Medicine 03/23/22 06/29/23 Alexis [place]ley [address] [place] [address] PCP - General Internal Medicine 06/30/23 documented as of this encounter
== END 2024-08-24 10:50 | disposition home or self-care (01) ==
PROVIDERS: Visit Provider Physician Assistant
DX: S52.002A Unspecified fracture of upper end of left ulna, initial encounter for closed fracture (principal); Z04.3 Encounter for examination and observation following other accident; W00.0XXA Fall on same level due to ice and snow, initial encounter
CPT/HCPCS: 99213

== ENCOUNTER → 2024-08-24 10:26 | Outpatient (BNV) | payer OTHER, SELFPAY | PROVIDERS: Visit Provider Radiology Diagnostic Radiology | DX: S52.041D Displaced fracture of coronoid process of right ulna, subsequent encounter for closed fracture with routine healing (principal) | CPT/HCPCS: 73080 ==

== ENCOUNTER 2024-08-24 10:42 | Outpatient (REF) | payer OTHER, SELFPAY ==
--- NOTE | ~2024-08-24 | XR_ITS ---
EXAMINATION: XR ELBOW 3 VIEWS LEFT HISTORY: M25.529 - Pain in unspecified elbow COMPARISON: Comparison is made with the prior examination dated 07/27/2024. FINDINGS: Three views of the left elbow are submitted. Osseous mineralization is normal. The previously described fracture of the coronoid process of the ulna is less well visualized, consistent with healing. The joint spaces are preserved. There is a persistent joint effusion. XR/XR elbow LT min 3V IMPRESSION: Healing fracture of the coronoid process of the ulna. Persistent joint effusion. Electronically signed by: Arpan Paredes MD 08/28/2024 07:33 AM EDT
--- OUTSIDE RECORDS SUMMARY | 2024-08-25 12:13 | XMS_ITS | Encounter Summary ---
Author Organization [facility] Address [address] [place] [address] Care Team Providers Care Grocery Carrier Name Role Phone Prachi Nair DO Primary Care Pro mariumr Ganesh Zhong MD Primary Care Provider [phone] Radha Pickens PA-C Primary Care Provider U Ganesh Ramsey MD Primary Care Provider Alexis [place]ley Primary Care Provider [phone] Reason for Visit * Reason Onset Date Comments 01/30/2017 Encounter Details Date Type Department Care Team Description 01/30/2017 Telephone Adult Urgent Care - [address] [address] Prachi Nair DO Social History Tobacco Use [...] 2 nights, back all the time Pt???s HARDWOOD FINISHER provider: Tushar Mcgrath CNM Last menstrual period (LMP) or EDC (due date): 9/1/17 37 weeks Ist baby Called Chung documented in this encounter Plan of Treatment Not on file documented as of this encounter Visit Diagnoses Not on filedocumented in this encounter Care Teams Grocery Carrier Relationship Specialty Start Date End Date Prachi Nair DO PCP - General Internal Medicine 04/04/15 11/12/20 Ganesh Everett MD [address] [place] [address] PCP - General Internal Medicine 11/13/20 06/22/21 Radha Pickens PA-C [address] [place] [address] PCP - General Internal Medicine 06/23/21 03/22/22 Ganesh Everett MD [address] [place] [address] PCP - General Internal Medicine 03/23/22 06/29/23 Alexis [place]ley [address] [place] [address] PCP - General Internal Medicine 06/30/23 documented as of this encounter
--- OUTSIDE RECORDS SUMMARY | 2024-08-25 12:13 | XMS_ITS | Encounter Summary ---
Author Organization [facility] Address [address] [place] [address] Care Team Providers Care Safety Specialist Name Role Phone Prachi Nair DO Primary Care Pro mariumr Ganesh Zhong MD Primary Care Provider [phone] Radha Pickens PA-C Primary Care Provider U Ganesh Ramsey MD Primary Care Provider [phone] Alexis Kingsley Primary Care Provider [phone] Reason for Visit * Reason Onset Date Comments Appointment Cancelled 12/17/2015 Encounter Details Date Type Department Care Team Description 12/17/2015 Telephone Gastroenterology - [address] [address] Rai Fiore MD Appointment Cancelled Social History [...] PM EDT Pt has been r/s at [facility] 02/04/2016 at 3:00 * Telephone Encounter - Stephany Antoine - 12/17/2015 12:32 PM EDT [facility] Telephone Encounter [...] on filedocumented in this encounter Care Teams Safety Specialist Relationship Specialty Start Date End Date Prachi Nair DO PCP - General Internal Medicine 04/04/15 11/12/20 Ganesh Everett MD [address] [place] [address] PCP - General Internal Medicine 11/13/20 06/22/21 Radha Pickens PA-C [address] [place] [address] PCP - General Internal Medicine 06/23/21 03/22/22 Ganesh Everett MD [address] [place] [address] PCP - General Internal Medicine 03/23/22 06/29/23 Alexis Kingsley [address] [place] [address] PCP - General Internal Medicine 06/30/23 documented as of this encounter
--- OUTSIDE RECORDS SUMMARY | 2024-08-25 12:13 | XMS_ITS | Encounter Summary ---
Author Organization [facility] Address [address] [place] [address] Care Team Providers Care Security Test Engineer Name Role Phone Ivan Altamirano MD Primary Care Provider Unavail able Ivan Altamirano MD Primary Care Provider Unavail able Prachi Nair DO Primary Care Pro vider Unavailable Ganesh Everett MD Primary Care Provider [phone] Radha Pickens PA-C Primary Care Provider U Gnaesh Ramsey MD Primary Care Provider [phone] Alexis Kingsley Primary Care Provider [phone] Encounter Details Date Type Department Care Team Description 03/20/2014 Pt. Non Urgent Medical Question CLOTH EXAMINER - [address] [address] Anika Kennedy MD Social History Tobacco Use [...] on filedocumented in this encounter Care Teams Security Test Engineer Relationship Specialty Start Date End Date Ivan Altamirano MD PCP - General Internal Medicine 04/17/13 03/04/15 Ivan Altamirano MD PCP - General Internal Medicine 03/05/15 04/03/15 Prachi Nair DO PCP - General Internal Medicine 04/04/15 11/12/20 Ganesh Everett MD [address] [place] [address] PCP - General Internal Medicine 11/13/20 06/22/21 Radha Pickens PA-C [address] [place] [address] PCP - General Internal Medicine 06/23/21 03/22/22 Ganesh Everett MD [address] [place] [address] PCP - General Internal Medicine 03/23/22 06/29/23 Alexis Kingsley [address] [place] [address] PCP - General Internal Medicine 06/30/23 documented as of this encounter
--- OUTSIDE RECORDS SUMMARY | 2024-08-25 12:13 | XMS_ITS | Encounter Summary ---
Author Organization [facility] Address [address] [place] [address] Care Team Providers Care Densitometer Reader Name Role Phone Alexis [place]ley Primary Care Provider [phone] Encounter Details Date Type Department Care Team Description 08/26/2023 Orders Only Medical Records [address] [place] [address] Arpan Tena PA-C Social History Tobacco Use [...] on filedocumented in this encounter Care Teams Densitometer Reader Relationship Specialty Start Date End Date Alexis [place] [address] [place], [place] [phone] PCP - General Internal Medicine 06/30/23 documented as of this encounter
--- OUTSIDE RECORDS SUMMARY | 2024-08-25 12:13 | XMS_ITS | Encounter Summary ---
Author Organization [facility] Address [address] [place] [address] Care Team Providers Care Counter Person Name Role Phone Alexis [place]ley Primary Care Provider [phone] Encounter Details Date Type Department Care Team Description 08/21/2023 Hospital Medical Records [address] [place] [address] Dar Castro PA [address] [place] [address] Social History Tobacco Use Types Packs/Day Years [...] on filedocumented in this encounter Care Teams Counter Person Relationship Specialty Start Date End Date Alexis [place] [address] [place] [address] PCP - General Internal Medicine 06/30/23 documented as of this encounter
--- OUTSIDE RECORDS SUMMARY | 2024-08-25 12:13 | XMS_ITS | Encounter Summary ---
Author Organization [facility] Address [address] [place] [address] Care Team Providers Care Electronic Technologist Name Role Phone Prachi Nair DO Primary Care Pro vider Ganesh Zhong MD Primary Care Provider [phone] Radha Pickens PA-C Primary Care Provider U Ganesh Ramsey MD Primary Care Provider Alexis [place] Primary Care Provider [phone] Encounter Details Date Type Department Care Team Description 11/06/2016 Pt. Non Urgent Medic al Question OBGYN - [place] [address] [place] [address] Tushar Mcgrath CNM Social History Tobacco Use [...] on filedocumented in this encounter Care Teams Electronic Technologist Relationship Specialty Start Date End Date Prachi Nair DO PCP - General Internal Medicine 04/04/15 11/12/20 Ganesh Everett MD [address] [place] [address] PCP - General Internal Medicine 11/13/20 06/22/21 Radha Pickens PA-C [address] [place] [address] PCP - General Internal Medicine 06/23/21 03/22/22 Ganesh Everett MD [address] [place] [address] PCP - General Internal Medicine 03/23/22 06/29/23 Alexis [place]ley [address] [place] [address] PCP - General Internal Medicine 06/30/23 documented as of this encounter
--- OUTSIDE RECORDS SUMMARY | 2024-08-25 12:13 | XMS_ITS | Encounter Summary ---
Author Organization [facility] Address [address] [place] [address] Care Team Providers Care Restaurant Hospitality Manager Name Role Phone Alexis [place]ley Primary Care Provider [phone] Encounter Details Date Type Department Care Team Description 08/23/2023 Orders Only Medical Records [address] [place] [address] Naima Blancas PA-C [address] [address] Social History Tobacco Use Types [...] on filedocumented in this encounter Care Teams Restaurant Hospitality Manager Relationship Specialty Start Date End Date Alexis [place]ley [address] [place] [address] PCP - General Internal Medicine 06/30/23 documented as of this encounter
--- OUTSIDE RECORDS SUMMARY | 2024-08-25 12:13 | XMS_ITS | Encounter Summary ---
Author Organization [facility] Address [address] [place] [address] Care Team Providers Care Athletic Monitor Name Role Phone Prachi Nair DO Primary Care Pro vider Ganesh Zhong MD Primary Care Provider [phone] Radha Pickens PA-C Primary Care Provider U Ganesh Ramsey MD Primary Care Provider Alexis [place] Primary Care Provider [phone] Encounter Details Date Type Department Care Team Description 08/13/2015 Telephone Adult [address] [id number] Prachi Nair DO Social History Tobacco Use [...] on filedocumented in this encounter Care Teams Athletic Monitor Relationship Specialty Start Date End Date Prachi Nair DO PCP - General Internal Medicine 04/04/15 11/12/20 Ganesh Everett MD [address] [place] [id number] PCP - General Internal Medicine 11/13/20 06/22/21 Radha Pickens PA-C [address] [place] [address] PCP - General Internal Medicine 06/23/21 03/22/22 Ganesh Everett MD [address] [place] [address] PCP - General Internal Medicine 03/23/22 06/29/23 Alexis Kingsley [address] [place] [address] PCP - General Internal Medicine 06/30/23 documented as of this encounter
--- OUTSIDE RECORDS SUMMARY | 2024-08-25 12:13 | XMS_ITS | Encounter Summary ---
Author Organization [facility] Address [address] [place] [address] Care Team Providers Care Parking Meter Collector Name Role Phone Ivan Altamirano MD Primary Care Provider Unavail able Ivan Altamirano MD Primary Care Provider Unavail able Prachi Nair DO Primary Care Pro vider Unavailable Ganesh Everett MD Primary Care Provider [phone] Radha Pickens PA-C Primary Care Provider U Ganesh Ramsey MD Primary Care Provider [phone] Alexis Kingsley Primary Care Provider [phone] Encounter Details Date Type Department Care Team Description 07/27/2013 Release of Information Medical Records [address] [place] [id number] Abstract, Provider Social History Tobacco Use Types [...] on filedocumented in this encounter Care Teams Parking Meter Collector Relationship Specialty Start Date End Date Ivan Altamirano MD PCP - General Internal Medicine 04/17/13 03/04/15 Ivan Altamirano MD PCP - General Internal Medicine 03/05/15 04/03/15 Prachi Nair DO PCP - General Internal Medicine 04/04/15 11/12/20 Ganesh Everett MD [address] [place] [address] PCP - General Internal Medicine 11/13/20 06/22/21 Radha Pickens PA-C [address] [place] [address] PCP - General Internal Medicine 06/23/21 03/22/22 Ganesh Everett MD [address] [place] [address] PCP - General Internal Medicine 03/23/22 06/29/23 Alexis [place] [address] [place] [address] PCP - General Internal Medicine 06/30/23 documented as of this encounter
--- OUTSIDE RECORDS SUMMARY | 2024-08-25 12:13 | XMS_ITS | Encounter Summary ---
Author Organization [email or web address] [place] [address] Care Team Providers Care Radial Drill Operator Name Role Phone Alexis Kingsley MD Primary Care Provider [phone] Reason for Visit * Reason Comments std testing Encounter Details Date Type Department Care Team (Late st Contact Info) Description 08/24/2024 2:20 PM EST Office Visit Obstetrics and Gynecology - [address] [address] Eli Ford, PA [address] [place] [address] Screen for STD (sexually transmitted disease) (Primary Dx) Social History Tobacco Use Types Packs/Day Years Used Date Smoking Tobacco: Never Smokeless Tobacco: Never Alcohol Use Standard Drinks/Week Comments Yes 0 (1 standard drink = 0.6 oz pur e alcohol) Comments No Sex and Gender Information Value Date Recorded Sex Assigned at Not on file Legal Sex Female 5:42 PM EST Gender Identity Not on file Sexual Orientation Not on file documented as of this encounter Last Filed Vital Signs Vital Sign Reading Time Taken Comments Blood Pressure 131/74 08/24/2024 2:22 PM EST Pulse 77 08/24/2024 2:22 PM EST Temperature - - Respiratory Rate 15 08/24/2024 2:22 PM EST Oxygen Saturation - - Inhaled Oxygen Concentration - - Weight 126 kg (277 lb 3.2 oz) 08/24/2024 2:22 PM EST Height - - Body Mass Index 47.58 08/11/2024 7:57 AM EST documented in this [...] AM Balderas RN documented in this encounter Progress Notes * GIUSEPPE Reid - 08/24/2024 2:20 PM EST CHIEF COMPLAINT: std testing IDENTIFIER:Dakota Spear is a 33 y.o. female. HPI: Dakota presents today requesting STD testing. Exposure: Denies Symptoms: Denies ROS: Negative except as mentioned in HPI PAST MEDICAL HISTORY: Patient Active Problem List Diagnosis Cyst of left kidney DDD (degenerative disc disease), lumbar Fatty liver Horseshoe kidney IBS (irritable bowel syndrome) Mixed hyperlipidemia PCOS (polycystic ovarian syndrome) Recurrent sinusitis Seasonal allergic conjunctivitis Morbid obesity with BMI of 45.0-49.9, adult ([facility]) MEDICATIONS: Outpatient Encounter Medications as of 08/24/2024 Medication Sig Dispense Refill cholestyramine (QUESTRAN) 4 gram packet Take 1 Packet by mouth 3 times daily (with meals). (Patientnot taking: Reported on 08/24/2024) [] ibuprofen (ADVIL,MOTRIN) 600 mg tablet Take 1 tablet (600 mg total) by mouth every 6 (six) hours if needed for mild pain (for pain) for up to 10 days. 30 tablet 0 metroNIDAZOLE (METROGEL) 0.75 % (37.5mg/5 gram) vaginal gel 1 application for 5 nights at bedtime (Patient not taking: Reported on 08/24/2024) terconazole (TERAZOL 3) 0.8 % vaginal cream One applicatorful PV QHS x 3 nights (Patient not taking: Reported on 08/24/2024) No facility-administered encounter medications on file as of 08/24/2024. PHYSICAL EXAM: Visit Vitals BP 131/74 Pulse 77 Resp 15 Wt 126 kg (277 lb 3.2 oz) LMP 07/27/2024 (Exact Date) BMI 47.58 kg/m?? OB Status Having periods Smoking Status Never BSA 2.25 m?? GENERAL: Well-appearing, well-nourished patient SKIN: Warm, normal for ethnicity and dry. EYE: Visual fuller intact grossly, No conjunctiva injection. No scleral icterus. EENT: Normocephalic/atraumatic. No conjunctival injection noted. Good dentition, NECK: Trachea midline. No visible evidence of thyroid enlargement. PULM: Non-labored breathing. No audible wheezing EXTREMITIES: ROM grossly intact. Normal Tone. No cyanosis, clubbing, or edema NEURO: Alert & oriented x3, no aphasia or dysarthria PSYCH: Normal affect, fluid speech, good eye contact, appropriate demeanor Pelvic: Exam chaperoned by medical administrative assistant. Speculum used for exam. External Genitalia: Normal architecture, without lesions. No inguinal lymphadenopathy. Vagina: Mucosa is pink with normal rugae. No abnormal discharge Cervix/Uterus: No lesions or cervical motion tenderness Adnexa: No adnexal masses or tenderness bilaterally Perianal area: without lesions ASSESSMENT & PLAN: 1. Screen for STD (sexually transmitted disease) (Primary) - Chlamydia trachomatis and Neisseria gonorrhoeae molecular study - Trichomonas vaginalis antigen - HIV 1,2 antibody, p24 antigen with reflex to differentiation; Future - Hepatitis C antibody; Future - Treponema pallidum antibody with reflex to RPR and particle agglutination; Future documented in this encounter Plan of Treatment Upcoming Encounters Date Type Department Care Team (Late st Contact Info) Description 01/11/2025 2:30 PM EDT Office Visit Obstetrics and Gynecology - [place] [address] [place] [address] Sandra Gomez, CN [address] [place] [address] documented as of this encounter Procedures Procedure Name Priority Date/Time Associated Diagnosis Comments TRICHOMONAS VAGINALIS ANTIGEN Routine 08/24/2024 2:51 PM EST Screen for STD (sexually transmitted disease) CHLAMYDIA TRACHOMATIS AND NEISSERIA GONORRHOEAE PCR Routine 08/24/2024 2:51 PM EST Screen for STD (sexually transmitted disease) documented in this encounter Results * Treponema pallidum antibody with reflex to RPR and particle agglutination (08/24/2024 3:00 PM EST) [facility] T. Pallidum Antibodies Negative Negative LAB CHEMISTRY METHOD 08/24/2024 6:47 PM EST [facility] Blood Venous blood specimen / Unknown Venipuncture / Unknown 08/24/2024 3:00 PM EST 08/24/2024 3:00 PM EST us Eli CHIN LAB BLOOD ORDERABLES Final R esult [facility] [address] [place] [address], * Hepatitis C antibody (08/24/2024 3:00 PM EST) [facility] Hepatitis C Antibody Negative Negative LAB CHEMISTRY METHOD 08/24/2024 7:15 PM EST [facility] Blood Venous blood specimen / Unknown Venipuncture / Unknown 08/24/2024 3:00 PM EST 08/24/2024 3:00 PM EST us Eli CHIN LAB BLOOD ORDERABLES Final R esult Performing Organization Address [facility] Co de Phone Number [facility] [address] [place] [address], [place] [phone] * HIV 1,2 antibody, p24 antigen with reflex to differentiation (08/24/2024 3:00 PM EST) HIV Combo AB/AG Negative Negative LAB CHEMISTRY METHOD 08/24/2024 7:16 PM EST [facility] Blood Venous blood specimen / Unknown Venipuncture / Unknown 08/24/2024 3:00 PM EST 08/24/2024 3:00 PM EST Narrative [facility] - 08/24/2024 7:16 PM EST This assay is a 4th generation assay allowing for earlier detection of HIV infection by detecting the presence of the HIV-1 p24 antigen as well as the traditional antibodies to HIV type 1 (including group O) and type 2. ??Use of a 4th generation assay is the current CDC recommendation for HIV screening. us Eli CHIN LAB BLOOD ORDERABLES Final R esult Performing Organization Address [facility] de Phone Number [facility] [address] [place] [address], [place] [phone] * Trichomonas vaginalis antigen (08/24/2024 2:51 PM EST) Trichomonas vaginalis Negative Negative 08/24/2024 7:31 PM EST [facility] Swab Vaginal structure / Unknown Non-blood Collection / Unknown 08/24/2024 2:51 PM EST 08/24/2024 2:51 PM EST us Eli CHIN LAB MICROBIOLOGY - GENERAL O RDERABLES Final Result Performing Organization Address City/[facility]/ZIP Co de Phone Number [facility] [address] [place] [address], [place] [phone] * Chlamydia trachomatis and Neisseria gonorrhoeae molecular study (08/24/2024 2:51 PM EST) Neisseria gonorrhoeae PCR Negative Negative LAB MOLECULAR DIAGNOSTICS METHOD 08/24/2024 9:18 PM EST [facility] Chlamydia trachomatis PCR Negative Negative LAB MOLECULAR DIAGNOSTICS METHOD 08/24/2024 9:18 PM EST [facility] Swab Vaginal structure / Unknown Non-blood Collection / Unknown 08/24/2024 2:51 PM EST 08/24/2024 2:51 PM EST us Eli CHIN LAB MICROBIOLOGY - GENERAL O RDERABLES Final Result [facility] [address] [place] [address], documented in this encounter Visit Diagnoses Diagnosis Screen for STD (sexually transmitted disease)- Primary Screening examination for venereal disease documented in this encounter Care Teams Radial Drill Operator Relationship Specialty Start Date End Date Alexis Kingsley MD [address] [place] [address] PCP - General 06/30/23 documented as of this encounter
--- OUTSIDE RECORDS SUMMARY | 2024-08-25 12:13 | XMS_ITS | Encounter Summary ---
Author Organization [facility] Address [address] [place] [address] Care Team Providers Care Industrial Chemist Name Role Phone Ganesh Everett MD Primary Care Provider [phone] Radha Pickens PA-C Primary Care Provider U Ganesh Ramsey MD Primary Care Provider [phone] Alexis Kingsley Primary Care Provider [phone] Encounter Details Date Type Department Care Team Description 06/18/2021 [facility] Medical Records [address] [place] [address] Mayo Azul MD [address] [place] [address] [place] [address] [id number] Social History Tobacco Use Types Packs/Day Years [...] filedocumented in this encounter Care Teams Industrial Chemist Relationship Specialty Start Date End Date Ganesh Everett MD [address] [place] [address] [phone] PCP - General Internal Medicine 11/13/20 06/22/21 Radha Pickens PA-C [address] [place] [address] PCP - General Internal Medicine 06/23/21 03/22/22 Ganesh Everett MD [address] [place] [address] PCP - General Internal Medicine 03/23/22 06/29/23 Alexis Kingsley [address] [place] [address] PCP - General Internal Medicine 06/30/23 documented as of this encounter
--- OUTSIDE RECORDS SUMMARY | 2024-08-25 12:13 | XMS_ITS | Encounter Summary ---
Author Organization [facility] Address [address] [place] [address] Care Team Providers Care Retention Manager Name Role Phone Prachi Nair DO Primary Care Pro vider Ganesh Zhong MD Primary Care Provider [phone] Radha Pickens PA-C Primary Care Provider U Ganesh Ramsey MD Primary Care Provider [phone] Alexis Kingsley Primary Care Provider [phone] Encounter Details Date Type Department Care Team Description 10/16/2015 Pt. Non Urgent Medic al Question Adult Medicine [address] [address] Prachi Nair DO Social History Tobacco Use [...] on filedocumented in this encounter Care Teams Retention Manager Relationship Specialty Start Date End Date Prachi Nair DO PCP - General Internal Medicine 04/04/15 11/12/20 Ganesh Everett MD [address] [place] [address] PCP - General Internal Medicine 11/13/20 06/22/21 Radha Pickens PA-C [address] [place] [address] PCP - General Internal Medicine 06/23/21 03/22/22 Ganesh Everett MD [address] [place] [address] PCP - General Internal Medicine 03/23/22 06/29/23 Alxeis Kingsley [address] [place] [address] PCP - General Internal Medicine 06/30/23 documented as of this encounter
--- OUTSIDE RECORDS SUMMARY | 2024-08-25 12:13 | XMS_ITS | Encounter Summary ---
Author Organization [facility] Address [address] [place] [address] Care Team Providers Care Power Reactor Supervisor Name Role Phone Radha Pickens PA-C Primary Care Provider U Ganesh Ramsey MD Primary Care Provider [phone] Alexis Kingsley Primary Care Provider [phone] Encounter Details Date Type Department Care Team Description 06/23/2021 Orders Only Medical Records [address] [place] [address] Mayo Azul MD [address] [place] [address] [address] [place] [address] Social History Tobacco Use Types Packs/Day Years [...] on filedocumented in this encounter Care Teams Power Reactor Supervisor Relationship Specialty Start Date End Date Radha Pickens PA-C PCP - General Internal Medicine 06/23/2103/22 Ganesh Everett MD [address] [place] [address] PCP - General Internal Medicine 03/23/22 06/29/23 Alexis Kingsley [address] [place] [address] PCP - General Internal Medicine 06/30/23 documented as of this encounter
--- OUTSIDE RECORDS SUMMARY | 2024-08-25 12:13 | XMS_ITS | Encounter Summary ---
Author Organization [facility] Address [address] [place] [address] Care Team Providers Care Marker Hand Name Role Phone Ivan Altamirano MD Primary Care Provider Unavail able Ivan Altamirano MD Primary Care Provider Unavail able Prachi Nair DO Primary Care Pro vider Unavailable Ganesh Everett MD Primary Care Provider [phone] Radha Pickens PA-C Primary Care Provider U Ganesh Ramsey MD Primary Care Provider [phone] Alexis Kingsley Primary Care Provider [phone] Encounter Details Date Type Department Care Team Description 01/15/2015 Pt. Non Urgent Medical Question Adult Medicine [facility] [address] [place] [address] Ivan Altamirano MD Social History Tobacco Use [...] on filedocumented in this encounter Care Teams Marker Hand Relationship Specialty Start Date End Date Ivan Altamirano MD PCP - General Internal Medicine 04/17/13 03/04/15 Ivan Altamirano MD PCP - General Internal Medicine 03/05/15 04/03/15 Prachi Nair DO PCP - General Internal Medicine 04/04/15 11/12/20 Ganesh Everett MD [address] [place] [address] PCP - General Internal Medicine 11/13/20 06/22/21 Radha Pickens PA-C [address] [place] [address] PCP - General Internal Medicine 06/23/21 03/22/22 Ganesh Everett MD [address] [place] [address] PCP - General Internal Medicine 03/23/22 06/29/23 Alexis Kingsley [address] [place] [address] PCP - General Internal Medicine 06/30/23 documented as of this encounter
--- OUTSIDE RECORDS SUMMARY | 2024-08-25 12:13 | XMS_ITS | Encounter Summary ---
Author Organization [facility] Address [address] [place] [address] Care Team Providers Care Child Psychologist Name Role Phone Prachi Nair DO Primary Care Pro mariumr Ganesh Zhong MD Primary Care Provider [phone] Radha Pickens PA-C Primary Care Provider U Ganesh Ramsey MD Primary Care Provider [phone] Alexis Kingsley Primary Care Provider [phone] Encounter Details Date Type Department Care Team Description 02/25/2016 Pt. Non Urgent Medic al Question Adult Medicine [address] [address] Prachi Nair DO Social History Tobacco Use [...] on filedocumented in this encounter Care Teams Child Psychologist Relationship Specialty Start Date End Date Prachi Nair DO PCP - General Internal Medicine 04/04/15 11/12/20 Ganesh Everett MD [address] [place] [address] PCP - General Internal Medicine 11/13/20 06/22/21 Rahda Pickens PA-C [address] [place] [address] PCP - General Internal Medicine 06/23/21 03/22/22 Ganesh Everett MD [address] [place] [address] PCP - General Internal Medicine 03/23/22 06/29/23 Alexis Kingsley [address] [place] [address] PCP - General Internal Medicine 06/30/23 documented as of this encounter
--- OUTSIDE RECORDS SUMMARY | 2024-08-25 12:13 | XMS_ITS | Encounter Summary ---
Author Organization [facility] Address [address] [place] [address] Care Team Providers Care Director Of Sustainability Programs Name Role Phone Ganesh Everett MD Primary Care Provider [phone] Radha Pickens PA-C Primary Care Provider U Ganesh Ramsey MD Primary Care Provider [phone] Alexis Kingsley Primary Care Provider [phone] Encounter Details Date Type Department Care Team Description 05/27/2021 Telephone OBGYN - [facility] [address] [place] [address] Juli Chung CNM Social History Tobacco Use [...] in this encounter Care Teams Director Of Sustainability Programs Relationship Specialty Start Date End Date Ganesh Everett MD [address] [place] [address] PCP - General Internal Medicine 11/13/20 06/22/21 Radha Pickens PA-C [address] [place] [address] PCP - General Internal Medicine 06/23/21 03/22/22 Ganesh Everett MD [address] [place] [address] PCP - General Internal Medicine 03/23/22 06/29/23 Alexis Kingsley [address] [place] [address] PCP - General Internal Medicine 06/30/23 documented as of this encounter
--- OUTSIDE RECORDS SUMMARY | 2024-08-25 12:13 | XMS_ITS | Encounter Summary ---
Author Organization [facility] Address [address] [place] [address] Care Team Providers Care Digital Associate Media Director Name Role Phone Ivan Altamirano MD Primary Care Provider Unavail able Ivan Altamirano MD Primary Care Provider Unavail able Prachi Nair DO Primary Care Pro vider Unavailable Ganesh Everett MD Primary Care Provider [phone] Radha Pickens PA-C Primary Care Provider U Ganesh Ramsey MD Primary Care Provider [phone] Alexis Kingsley Primary Care Provider Reason for Visit * Reason Onset Date Comments Advice 05/24/2014 Encounter Details Date Type Department Care Team Description 05/24/2014 Pt. Non Urgent Medical Question Adult Medicine [address] [address] Ivan Altamiarno MD Social History Tobacco Use Types Packs/Day [...] 05/24/2014 10:40 AM ESTFrom: Dakota Spear To: Ivan Altamirano MD Sent: 05/24/2014 10:39 AM EST [...] on filedocumented in this encounter Care Teams Digital Associate Media Director Relationship Specialty Start Date End Date Ivan Altamirano MD PCP - General Internal Medicine 04/17/13 03/04/15 Ivan Altamirano MD PCP - General Internal Medicine 03/05/15 04/03/15 Prachi Nair DO PCP - General Internal Medicine 04/04/15 11/12/20 Ganseh Everett MD [address] [place] [address] PCP - General Internal Medicine 11/13/20 06/22/21 Radha Pickens PA-C [address] [place] [address] PCP - General Internal Medicine 06/23/21 03/22/22 Ganesh Everett MD [address] [place] [address] PCP - General Internal Medicine 03/23/22 06/29/23 Alexis Kingsley [address] [place] [address] PCP - General Internal Medicine 06/30/23 documented as of this encounter
--- OUTSIDE RECORDS SUMMARY | 2024-08-25 12:13 | XMS_ITS | Encounter Summary ---
Author Organization [facility] Address [address] [place] [address] Care Team Providers Care Liquefied Natural Gas Operator Name Role Phone Prachi Nair DO Primary Care Pro vider Ganesh Zhong MD Primary Care Provider Radha Pickens PA-C Primary Care Provider U Ganesh Ramsey MD Primary Care Provider [phone] Alexis Kingsley Primary Care Provider [phone] Encounter Details Date Type Department Care Team Description 09/11/2015 Release of Information Medical Records [address] [place] [id number] Abstract, Provider Social History Tobacco Use Types [...] on filedocumented in this encounter Care Teams Liquefied Natural Gas Operator Relationship Specialty Start Date End Date Prachi Nair DO PCP - General Internal Medicine 04/04/15 11/12/20 Ganesh Everett MD [address] [place], [place] [phone] PCP - General Internal Medicine 11/13/20 06/22/21 Radha Pickens PA-C [address] [place] [address] PCP - General Internal Medicine 06/23/21 03/22/22 Ganesh Everett MD [address] [place] [address] PCP - General Internal Medicine 03/23/22 06/29/23 Alexis Kingsley [address] [place] [address] PCP - General Internal Medicine 06/30/23 documented as of this encounter
--- OUTSIDE RECORDS SUMMARY | 2024-08-25 12:13 | XMS_ITS | Encounter Summary ---
Author Organization [facility] Address [address] [place] [address] Care Team Providers Care Funeral Workers Name Role Phone Prachi Nair DO Primary Care Pro Ganesh Weathers MD Primary Care Provider [phone] Radha Pickens PA-C Primary Care Provider U Ganesh Ramsey MD Primary Care Provider [phone] Alexis Kingsley Primary Care Provider [phone] Reason for Visit * Reason Onset Date Comments TEST RESULTS 08/30/2015 Encounter Details Date Type Department Care Team Description 08/30/2015 Telephone Gastroenterology - [address] [address] Blaise Marino PA-C TEST RESULTS Social History [...] kidney documented in this encounter Care Teams Funeral Workers Relationship Specialty Start Date End Date Prachi Nair DO PCP - General Internal Medicine 04/04/15 11/12/20 Ganesh Everett MD [address] [place] [address] PCP - General Internal Medicine 11/13/20 06/22/21 Radha Pickens PA-C [address] [place] [address] PCP - General Internal Medicine 06/23/21 03/22/22 Ganesh Everett MD [address] [place] [address] PCP - General Internal Medicine 03/23/22 06/29/23 Alexis Kingsley [address] [place] [address] PCP - General Internal Medicine 06/30/23 documented as of this encounter
--- OUTSIDE RECORDS SUMMARY | 2024-08-25 12:13 | XMS_ITS | Encounter Summary ---
Author Organization [facility] Address [address] [place] [address] Care Team Providers Care Laboratory Director Name Role Phone Ganesh Everett MD Primary Care Provider [phone] Radha Pickens PA-C Primary Care Provider U Ganesh Ramsey MD Primary Care Provider [phone] Alexis Kingsley Primary Care Provider [phone] Reason for Visit * Reason Onset Date Comments Pre-op Needed 11/13/2020 Encounter Details Date Type Department Care Team Description 11/13/2020 Telephone Adult Medicine [address] [phone] Ganesh Everett MD [address] [place] [address] [phone] Pre-op Needed Social History Tobacco Use Types [...] on filedocumented in this encounter Care Teams Laboratory Director Relationship Specialty Start Date End Date Ganesh Everett MD [address] [place] [address] PCP - General Internal Medicine 11/13/20 06/22/21 Radha Pickens PA-C [address] [place] [address] PCP - General Internal Medicine 06/23/21 03/22/22 Ganesh Everett MD [address] [place] [address] PCP - General Internal Medicine 03/23/22 06/29/23 Alexis Kingsley [address] [place] [address] PCP - General Internal Medicine 06/30/23 documented as of this encounter
--- OUTSIDE RECORDS SUMMARY | 2024-08-25 12:13 | XMS_ITS | Encounter Summary ---
Author Organization [facility] Address [address] [place] [address] Care Team Providers Care Heel Seam Rubber Name Role Phone Ivan Altamirano MD Primary Care Provider Unavail able Ivan Altamirano MD Primary Care Provider Unavail able Prachi Nair DO Primary Care Pro vider Unavailable Ganesh Everett MD Primary Care Provider [phone] Radha Pickens PA-C Primary Care Provider U Ganesh Ramsey MD Primary Care Provider Alexis Kingsley Primary Care Provider Encounter Details Date Type Department Care Team Description 02/20/2015 Pt. Non Urgent Medical Question CONTINUOUS MINING MACHINE OPERATOR - [address] [address] Anika Kennedy MD Social History Tobacco Use [...] on filedocumented in this encounter Care Teams Heel Seam Rubber Relationship Specialty Start Date End Date Ivan Altamirano MD PCP - General Internal Medicine 04/17/13 03/04/15 Ivan Altamirano MD PCP - General Internal Medicine 03/05/15 04/03/15 Prachi Nair DO PCP - General Internal Medicine 04/04/15 11/12/20 Ganesh Everett MD [address] [place] [address] PCP - General Internal Medicine 11/13/20 06/22/21 Radha Pickens PA-C [address] [place] [address] PCP - General Internal Medicine 06/23/21 03/22/22 Ganesh Everett MD [address] [place] [address] PCP - General Internal Medicine 03/23/22 06/29/23 Alexis Kingsley [address] [place] [address] PCP - General Internal Medicine 06/30/23 documented as of this encounter
--- OUTSIDE RECORDS SUMMARY | 2024-08-25 12:13 | XMS_ITS | Encounter Summary ---
Author Organization [facility] Address [address] [place] [address] Care Team Providers Care Heavy Machinery Operator Name Role Phone Ganesh Everett MD Primary Care Provider [phone] Radha Pickens PA-C Primary Care Provider U Ganesh Ramsey MD Primary Care Provider [phone] Alexis Kingsley Primary Care Provider [phone] Encounter Details Date Type Department Care Team Description 05/02/2021 Transfer Records Medical Records [address] [place] [address] Abstract, Provider Social History Tobacco Use Types [...] on filedocumented in this encounter Care Teams Heavy Machinery Operator Relationship Specialty Start Date End Date Ganesh Everett MD [address] [place] [address] [id number] PCP - General Internal Medicine 11/13/20 06/22/21 Radha Pickens PA-C [address] [place] [address] PCP - General Internal Medicine 06/23/21 03/22/22 Ganesh Everett MD [address] [place] [address] PCP - General Internal Medicine 03/23/22 06/29/23 Alexis Kingsley [address] [place] [address] PCP - General Internal Medicine 06/30/23 documented as of this encounter
--- OUTSIDE RECORDS SUMMARY | 2024-08-25 12:13 | XMS_ITS | Encounter Summary ---
Author Organization [facility] Address [address] [place] [address] Care Team Providers Care Firefighter Marine Name Role Phone Alexis Kingsley Primary Care Provider [phone] Reason for Visit * Reason Onset Date Comments Post Op Visit 08/23/2023 Encounter Details Date Type Department Care Team Description 08/23/2023 Telephone Adult Medicine [address] [address] Alexis Kingsley [address] [place] [id number] Post Op Visit Social History Tobacco Use [...] to nurse PCP: Alexis Kingsley Insurance: Payor: [facility] FFS / Plan: [facility] [employer] / Product Type: MEDICAID RISK documented in this encounter Plan of Treatment Not on file documented as of this encounter Visit Diagnoses Not on filedocumented in this encounter Care Teams Firefighter Marine Relationship Specialty Start Date End Date Alexis Kingsley [address] [place] [address] PCP - General Internal Medicine 06/30/23 documented as of this encounter
--- OUTSIDE RECORDS SUMMARY | 2024-08-25 12:13 | XMS_ITS | Encounter Summary ---
Author Organization [facility] Address [address] [place] [address] Care Team Providers Care Sales Route Driver Helper Name Role Phone Ivan Altamirano MD Primary Care Provider Unavail able Ivan Altamirano MD Primary Care Provider Unavail able Prachi Nair DO Primary Care Pro vider Unavailable Ganesh Everett MD Primary Care Provider [phone] Radha Pickens PA-C Primary Care Provider U Ganesh Ramsey MD Primary Care Provider [phone] Alexis Kingsley Primary Care Provider [phone] Encounter Details Date Type Department Care Team Description 01/15/2015 Pt. Non Urgent Medical Question VAULT KEEPER - [address] [address] Anika Kennedy MD Social History Tobacco Use [...] filedocumented in this encounter Care Teams Sales Route Driver Helper Relationship Specialty Start Date End Date Ivan Altamirano MD PCP - General Internal Medicine 04/17/13 03/04/15 Ivan Altamirano MD PCP - General Internal Medicine 03/05/15 04/03/15 Prachi Nair DO PCP - General Internal Medicine 04/04/15 11/12/20 Ganesh Everett MD [address] [place] [address] PCP - General Internal Medicine 11/13/20 06/22/21 Radha Pickens PA-C [address] [place] [address] PCP - General Internal Medicine 06/23/21 03/22/22 Ganesh Everett MD [address] [place] [address] PCP - General Internal Medicine 03/23/22 06/29/23 Alexis Kingsley [address] [place] [address] PCP - General Internal Medicine 06/30/23 documented as of this encounter
--- OUTSIDE RECORDS SUMMARY | 2024-08-25 12:13 | XMS_ITS | Clinical Summary ---
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 Fatty liver 08/12/2015 Overview (04/02/2024): Incidental finding on CT scan at [facility] dated 08/11/2015. LFTs normal. IBS (irritable bowel syndrome) 07/08/2015 PCOS (polycystic ovarian syndrome) 09/24/2014 Encounters Date Type Department Care Team Description 08/24/2024 2:20 PM EST Office Visit Obstetrics and Gynecology - [address] [address] Eli Ford PA Screen for STD (sexually transmitted disease) (Primary Dx) 08/11/2024 9:30 AM EST - 08/11/2024 12:28 PM EST Emergency [facility] Emergency [address] [place] [address] Clive Rodriguez MD Cervical strain, acute, initial [...] COMMENT: low back FLEXIBLE SIGMOIDOSCOPY 05/21/2014 PROCEDURE: [place] SIGMOIDOSCOPY FLX DX W/COLLJ SPEC BR/WA IF [...] Sexual Orientation Not on file Obstetrics History Para Term AB IAB SAB Ectopic Multiple Livin g Live Births 1 1 1 1 1 Date Outcome GA Total Labor Labor/2nd/3rd Weight Sex Type Anes PTL Trinity A1 A5 Name Clin 08/19/ 2017 Term 38w 1d 3118 g (110 oz) M Vag-S pont Living Last Filed Vital Signs Vital Sign Reading Time Taken Comments Blood Pressure 131/74 08/24/2024 2:22 PM EST Pulse 77 08/24/2024 2:22 PM EST Temperature 37.3 ??C (99.2 ??F) 08/11/2024 12:[address] Respiratory Rate 15 08/24/2024 2:22 PM EST Oxygen Saturation 100% 08/11/2024 12:21 PM EST Inhaled Oxygen Concentration - - Weight 126 kg (277 lb 3.2 oz) 08/24/2024 2:22 PM EST Height 162.6 cm (5' 4 ) 08/11/2024 7:57 AM EST Body Mass Index 47.58 08/11/2024 7:57 AM EST Plan of Treatment Upcoming Encounters Date Type Department Care Team (Late st Contact Info) Description 01/11/2025 2:30 PM EDT Office Visit Obstetrics and Gynecology - [id number] [place] [address] Sandra Gomez, [facility] [address] [place] [address] Health Maintenance Due Date Last Done Comments Hepatitis A Vaccines (1 of 2 - Risk 2-dose series) 09/15/2010 Pneumococcal Vaccine: Pediatrics (0 to 5 Years) and At-Risk Patients (6 to 64 Years) (1 of 2 - PCV) 09/15/2010 Hepatitis B Vaccines (2 of 3 - 19+ 3-dose series) 04/19/2018 03/22/2018 Depression Screening 05/23/2022 Social Influencers of Health Screening [...] 01/2007, 01/25/2007 Varicella Vaccines Completed 04/22/2009, 10/11/1997 HIV Screening Completed 08/24/2024 Hepatitis C Screening Completed 08/24/2024, 024 Meningococcal ACWY Vaccine Aged Out N o longer eligible based on patient's age to complete this topic Meningococcal B Vacine Aged Out No lo nger eligible based on patient's age to complete this topic RSV Immunization Patients Under 20 months Aged Out No longer eligible based on patient's age to complete this topic Procedures Procedure Name Priority Date/Time Associated Diagnosis Comments HIV 1, 2 ANTIBODY, P24 ANTIGEN WITH REFLEX TO DIFFERENTIATION Routine 08/24/2024 3:00 PM EST Screen for STD (sexually transmitted disease) HEPATITIS C ANTIBODY Routine 08/24/2024 3:00 PM EST Screen for STD (sexually transmitted disease) TREPONEMA PALLIDUM ANTIBODY WITH REFLEX TO RPR AND PARTICLE AGGLUTINATION Routine 08/24/2024 3:00 PM EST Screen for STD (sexually transmitted disease) TRICHOMONAS VAGINALIS ANTIGEN Routine 08/24/2024 2:51 PM EST Screen for STD (sexually transmitted disease) CHLAMYDIA TRACHOMATIS AND NEISSERIA GONORRHOEAE PCR Routine 08/24/2024 2:51 PM EST Screen for STD (sexually transmitted disease) XR ELBOW 3+ VIEWS LEFT STAT 5 11:21 AM EST HM PAP SMEAR Routine 04/20/2023 LIPID PANEL Routine 02/11/2021 from Last 3 Months or Most Recently Relevant to Health Maintenance Results * Hepatitis C antibody (08/24/2024 3:00 PM EST) [facility] Hepatitis C Antibody Negative Negative LAB CHEMISTRY METHOD 08/24/2024 7:15 PM EST [facility] Blood Venous blood specimen / Unknown Venipuncture / Unknown 08/24/2024 3:00 PM EST 08/24/2024 3:00 PM EST us Eli CHIN LAB BLOOD ORDERABLES Final R esult Performing Organization Address [facility] de Phone Number [facility] [address] [place] [address], [place] [phone] * HIV 1,2 antibody, p24 antigen with reflex to differentiation (08/24/2024 3:00 PM EST) [facility] HIV Combo AB/AG Negative Negative LAB CHEMISTRY METHOD 08/24/2024 7:16 PM EST [facility] Blood Venous blood specimen / Unknown Venipuncture / Unknown 08/24/2024 3:00 PM EST 08/24/2024 3:00 PM EST Narrative [facility] - 08/24/2024 7:16 PM EST [...] ORDERABLES Final R esult Performing Organization Address [facility] Co de Phone Number [facility] [address] [place] [address], [place] [phone] * Treponema pallidum antibody with reflex to RPR and particle agglutination (08/24/2024 3:00 PM EST) T. Pallidum Antibodies Negative Negative LAB CHEMISTRY METHOD 08/24/2024 6:47 PM EST [facility] Blood Venous blood specimen / Unknown Venipuncture / Unknown 08/24/2024 3:00 PM EST 08/24/2024 3:00 PM EST us Eli CHIN LAB BLOOD ORDERABLES Final R esult Performing Organization Address City/[facility]/ZIP Co de Phone Number [facility] [address] [place] [address], [place] [phone] * Trichomonas vaginalis antigen (08/24/2024 2:51 PM EST) Pathologist [facility] Trichomonas vaginalis Negative Negative 08/24/2024 7:31 PM EST [facility] Swab Vaginal structure / Unknown Non-blood Collection / Unknown 08/24/2024 2:51 PM EST 08/24/2024 2:51 PM EST us Eli CHIN LAB MICROBIOLOGY - GENERAL O RDERABLES Final Result Performing Organization Address City/[facility]/ZIP Co de Phone Number [facility] [address] [place] [address], [place] [phone] * Chlamydia trachomatis and Neisseria gonorrhoeae molecular study (08/24/2024 2:51 PM EST) Pathologist [facility] Neisseria gonorrhoeae PCR Negative Negative LAB MOLECULAR DIAGNOSTICS METHOD 08/24/2024 9:18 PM EST [facility] Chlamydia trachomatis PCR Negative Negative LAB MOLECULAR DIAGNOSTICS METHOD 08/24/2024 9:18 PM EST [facility] Swab Vaginal structure / Unknown Non-blood Collection / Unknown 08/24/2024 2:51 PM EST 08/24/2024 2:51 PM EST us Eli CHIN LAB MICROBIOLOGY - GENERAL O RDERABLES Final Result [facility] [address] [place] [address], * XR Elbow 3+ Views Left (08/11/2024 [...] fracture, if present, should become evident. Code 60970 -------- FINAL REPORT -------- Dictated By: Duran Tomlinson Dictated Date: 08/11/2024 11:24 ET Assigned Physician: Duran Tomlinson Reviewed and Electronically Signed By: Duran Tomlinson Signed Date: 08/11/2024 11:29 ET Workstation ID: [id number] Transcribed By: Self Edit Transcribed Date: 08/11/2024 [...] a fracture, ifpresent, should become evident. Code 84038 -------- FINAL REPORT -------- Dictated By: Duran Tomlinson Dictated Date: 08/11/2024 11:24 ET Assigned Physician: Duran Tomlinson Reviewed and Electronically Signed By: Duran Tomlinson Signed Date: 08/11/2024 11:29 ET Workstation ID: [id number] Transcribed By: Self Edit Transcribed Date: 08/11/2024 11:24 ET Clive Rodriguez MD IMG XR PROCEDURES Final Result * Pap Smear (04/20/2023) Pap smear NEGATIVE, ABSTRACTED Historical Provider HEALTH [...] Most Recently Relevant to Health Maintenance Insurance [facility] PLAN [facility] [employer] [facility] Advance Directives Documents on File Type Date Recorded Patient Forms Analyst Expl anation Health Care Decision (hx) 06/23/2021 [...] (hx) 06/18/2021 AD WHEELER DIRECTIVE Care Teams Door Liner Relationship Specialty Start Date End Date Alexis Kingsley MD [address] [place] [address] PCP - General 06/30/23
--- OUTSIDE RECORDS SUMMARY | 2024-08-25 12:13 | XMS_ITS | Encounter Summary ---
Author Organization [facility] Address [address] [place] [address] Care Team Providers Care Wall Crane Operator Name Role Phone Alexis Kingsley Primary Care Provider [phone] Encounter Details Date Type Department Care Team Description 08/25/2023 Orders Only Medical Records [address] [place] [address] Sammy Bunn MD [address] [place] [address] Social History Tobacco Use Types Packs/Day Years [...] on filedocumented in this encounter Care Teams Wall Crane Operator Relationship Specialty Start Date End Date Alexis Kingsley [address] [place] [address] PCP - General Internal Medicine 06/30/23 documented as of this encounter
--- OUTSIDE RECORDS SUMMARY | 2024-08-25 12:13 | XMS_ITS | Encounter Summary ---
Author Organization [facility] Address [address] [place] [address] Care Team Providers Care Control And Recovery Combat Rescue Name Role Phone Prachi Nair DO Primary Care Pro vider Ganesh Zhong MD Primary Care Provider [phone] Radha Pickens PA-C Primary Care Provider U Ganesh Ramsey MD Primary Care Provider [phone] Alexis Kingsley Primary Care Provider [phone] Encounter Details Date Type Department Care Team Description 07/29/2016 Zika Virus Medical Records [address] [place] [address] Abstract, Provider Social History Tobacco Use Types [...] on filedocumented in this encounter Care Teams Control And Recovery Combat Rescue Relationship Specialty Start Date End Date Prachi Nair DO PCP - General Internal Medicine 04/04/15 11/12/20 Ganesh Everett MD [address] [place], [place] [phone] PCP - General Internal Medicine 11/13/20 06/22/21 Radha Pickens PA-C [address] [place] [address] PCP - General Internal Medicine 06/23/21 03/22/22 Ganesh Everett MD [address] [place] [address] PCP - General Internal Medicine 03/23/22 06/29/23 Alexis Kingsley [address] [place] [address] PCP - General Internal Medicine 06/30/23 documented as of this encounter
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
--- OUTSIDE RECORDS SUMMARY | 2024-08-25 12:13 | XMS_ITS | Encounter Summary ---
Author Organization [facility] Address [address] [place] [address] Care Team Providers Care Analysis Reporting Developer Name Role Phone Ivan Altamirano MD Primary Care Provider Unavail able Ivan Altamirano MD Primary Care Provider Unavail able Prachi Nair DO Primary Care Pro vider Unavailable Ganesh Everett MD Primary Care Provider [phone] Radha Pickens PA-C Primary Care Provider U Ganesh Ramsey MD Primary Care Provider [phone] Alexis Kingsley Primary Care Provider Encounter Details Date Type Department Care Team Description 04/26/2014 Pt. Non Urgent Medic al Question Gastroenterology - [address] [address] Blaise Marino PA-C Social History Tobacco Use Types Packs/Day Years Used Date Smoking Tobacco: Never Smokeless Tobacco: Never Alcohol Use Standard Drinks/Week Comments No 0 (1 standard drink = 0.6 oz pur e alcohol) Sex Assigned at Date Recorded Not on file Job Start Date Occupation Industry Not on file Not on file Not on file documented as of this encounter Progress Notes * Jesu Anaya R.N. - 04/26/2014 8:22 AM ESTFrom: Dakota Spear To: Blaise Marino PA-C Sent: 04/26/2014 3:55 AM EST Subject: a question about the mini colon exam and the bowel movement Do you think my condition of the diatreah its really dangerous should I be worried ? Do you think its can be something bad?? documented in this encounter Plan of Treatment Not on file documented as of this encounter Visit Diagnoses Not on filedocumented in this encounter Care Teams Analysis Reporting Developer Relationship Specialty Start Date End Date Ivan Altamirano MD PCP - General Internal Medicine 04/17/13 03/04/15 Ivan Altamirano MD PCP - General Internal Medicine 03/05/15 04/03/15 Prachi Nair DO PCP - General Internal Medicine 04/04/15 11/12/20 Ganesh Everett MD [address] [place] [address] PCP - General Internal Medicine 11/13/20 06/22/21 Radha Pickens PA-C [address] [place] [address] PCP - General Internal Medicine 06/23/21 03/22/22 Ganesh Everett MD [address] [place] [address] PCP - General Internal Medicine 03/23/22 06/29/23 Alexis Kingsley [address] [place] [address] PCP - General Internal Medicine 06/30/23 documented as of this encounter
== END 2024-08-24 10:43 | disposition home or self-care (01) ==
LOC: HO.HOSX 10:42
PROVIDERS: Visit Provider Physician Assistant
DX: S52.502A Unspecified fracture of the lower end of left radius, initial encounter for closed fracture (principal)
CPT/HCPCS: 73080

== ENCOUNTER 2024-09-28 17:45 | Emergency (ER) | payer OTHER, SELFPAY ==
[2024-09-28 17:50] VITALS: BP 153/73; PULSE 72; RESP 16; TEMP 36.4; O2SAT 100; BMI 47.3
--- NOTE | 2024-09-28 17:58 | ED.ABDPAIN ---
HPI - Abdominal Pain General Chief Complaint: Nausea/Vomiting/Diarrhea Stated Complaint: vomiting, abd pain, dizziness, headache Related Data Previous Rx's ?Medication ?Instructions ?Recorded cyclobenzaprine 10 mg tablet 10 mg PO TID PRN muscle spasm #10 09/25/22 tabs meloxicam 15 mg tablet 15 mg PO DAILY PRN pain #14 tabs 09/25/22 acetaminophen 500 mg tablet 500 mg PO Q6H PRN fever or pain 03/08/24 (Tylenol Extra Strength) #14 tabs cyclobenzaprine 5 mg tablet 5 mg PO Q8H PRN pain (scale score 03/08/24 7-10) 5 days #14 tabs lidocaine 5 % topical patch 1 patch topical DAILY PRN pain #30 03/08/24 (Lidoderm) ea naproxen 500 mg tablet 500 mg PO BID PRN pain 10 days #20 03/08/24 tabs ondansetron 4 mg disintegrating 4 mg PO TID PRN nausea and 07/14/24 tablet vomiting 5 days #10 tabs Allergies Allergy/AdvReac Type Severity Reaction Status Date / Time oxycodone [From Percocet] Allergy unkn Verified 10/06/24 09:28 Penicillins Allergy Gastrointestinal Verified 10/06/24 09:28 Upset PMFSH Social History Social History Alcohol intake: never Patient Tobacco Use Status: Never used Tobacco 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 Full HPI, ROS and PE to be performed by primary ED provider. 34 yo F @ 9 wks gestation presenting to the ED c/o lower abdominal pain, N/V, constipation, ANGEL & dizziness x few days. Denies vaginal bleeding or discharge PE: Nontoxic appearing, ambulating with steady gait. Plan: Labs, UA, SARs Medical Decision Making Lab Data 09/28/24 19:10 09/28/24 19:10 Labs: Lab Results 09/28/24 Range/Units 19:10 WBC 9.2 (4.8-10.8) X10*3/uL RBC 3.85 L (4.20-5.50) X10*6/uL Hgb 11.8 L (12.0-16.0) g/dl Hct 35.2 L (37.0-47.0) % MCV 91.4 (80.0-98.0) fL MCH 30.6 (27.0-33.0) pg MCHC 33.5 (31.0-35.0) g/dl RDW 14.0 (11.0-16.0) % Plt Count 282 (160-400) X10*3/uL MPV 9.9 (9.4-12.3) fL Immature Gran % (Auto) 0.9 H (0.0-0.4) % Neut % (Auto) 59.4 (45-73) % Lymph % (Auto) 33.1 (20-40) % [place]born % (Auto) 5.2 (2-11) % Eos % (Auto) 0.9 (0-4) % Baso % (Auto) 0.5 (0-2) % Lymph # (Auto) 3.1 (1.2-4.9) X10*3/uL Sanborn # (Auto) 0.5 (0.1-1.2) X10*3/uL Eos # (Auto) 0.1 (0.0-0.4) X10*3/uL Baso # (Auto) 0.1 (0.0-0.2) X10*3/uL Abs Immat Gran (auto) 0.08 H (0.00-0.03) X10*3/uL Absolute Neuts (auto) 5.5 (2.0-8.3) x10*3/uL Absolute Nucleated RBC 0.000 (0.0-0.012) X10*3/uL Nucleated RBC % (auto) 0.0 (0.0-0.2) /100WBC Sodium 140 (135-145) mmol/L Potassium 3.5 (3.3-5.1) mmol/L Chloride 109 H (96-108) mmol/L Carbon Dioxide 24 (22-29) mmol/L Anion Gap 11 L (12-20) BUN 12 (9-16) mg/dL Creatinine 0.72 (0.5-1.4) mg/dL Estim Creat Clear Calc 145.4 Estimated GFR > 60 Random Glucose 81 (60-115) mg/dL Calcium 8.8 D (8.4-10.2) mg/dL Magnesium 1.8 (1.6-2.6) mg/dL Total Bilirubin 0.2 (0.0-1.0) mg/dL Direct Bilirubin < 0.2 (0.0-0.5) mg/dL AST 16 (5-31) U/L ALT 31 (0-31) U/L Alkaline Phosphatase 41 (39-117) U/L Total Protein 6.9 (6.5-8.0) g/dL Albumin 3.7 (3.5-5.0) g/dL Lipase 44 (8-78) U/L Beta HCG, Quant 30447 mIU/mL Urine Color Yellow Urine Appearance Cloudy Urine pH 7.0 (5.0-9.0) Ur Specific [place] 1.025 (1.005-1.025) Urine Protein Negative (Neg-Trace) mg/dL Urine Glucose (UA) Negative (Negative) mg/dL Urine Ketones Trace (Negative) mg/dL Urine Blood Negative (Negative) Urine Nitrite Negative (Negative) Ur Leukocyte Esterase Negative (Negative) Discharge Plan Discharge Clinical Impression: Gastroenteritis Patient Disposition: Left W/O Completing Treatment Prescriptions: No Action meloxicam 15 mg tablet 15 mg PO DAILY PRN (Reason: pain) Qty: 14 0RF cyclobenzaprine 10 mg tablet 10 mg PO TID PRN (Reason: muscle spasm) Qty: 10 0RF ondansetron 4 mg tablet,disintegrating 4 mg PO TID PRN (Reason: nausea and vomiting) 5 Days Qty: 10 0RF acetaminophen [Tylenol Extra Strength] 500 mg tablet 500 mg PO Q6H PRN (Reason: fever or pain) Qty: 14 0RF lidocaine [Lidoderm] 5 % adhesive patch,medicated 1 patch topical DAILY MDD remove after 12 hours PRN (Reason: pain) Qty: 30 0RF Rx Instructions: leave on most painful area for up to 12 hrs naproxen 500 mg tablet 500 mg PO BID PRN (Reason: pain) 10 Days Qty: 20 0RF cyclobenzaprine 5 mg tablet 5 mg PO Q8H PRN (Reason: pain (scale score 7-10)) 5 Days Qty: 14 0RF Interventions: LWBS Worksheet Last Done: 09/28/24 22:56 Discharge Date/Time: 09/28/24 22:57
[2024-09-28 19:18] LABS: MANUAL DIFF FLAG NO
[2024-09-28 19:19] LABS: Appearance Urine Cloudy; Color Urine Yellow; Glucose Urine UA Negative (Negative); Leukocyte Esterase Urine Negative (Negative); Nitrite Urine Negative (Negative); Specific Gravity - Urine 1.025 (1.005-1.025); Urine Blood Negative (Negative); Urine Ketones Trace mg/dL (Negative); Urine Protein Negative (Neg-Trace)
[2024-09-28 19:40] LABS: Alanine Aminotransferase 31 U/L (0-31); Albumin Level 3.7 g/dL (3.5-5.0); Alkaline Phosphatase 41 U/L (39-117); Anion Gap 11 (12-20); Aspartate Amino Transferase 16 U/L (5-31); Basophils Absolute Auto 0.1 X10*3/uL (0.0-0.2); Basophils Percent Auto 0.5 % (0-2); Bilirubin Direct < 0.2 mg/dL (0.0-0.5); Bilirubin Total 0.2 mg/dL (0.0-1.0); Blood Urea Nitrogen 12 mg/dL (9-16); Calcium 8.8 mg/dL (8.4-10.2); Carbon Dioxide 24 mmol/L (22-29); Chloride 109 mmol/L (96-108); Creatinine Clr Calc Pharmacy 145.4; Eosinophils Absolute Auto 0.1 X10*3/uL (0.0-0.4); Eosinophils Percent Auto 0.9 % (0-4); Estimated Glomerular Filt Rate > 60; Glucose Random 81 mg/dL (60-115); Hematocrit 35.2 % (37.0-47.0); Hemoglobin 11.8 g/dl (12.0-16.0); Imm Gran Abs Auto 0.08 X10*3/uL (0.00-0.03); Imm Gran Pct Auto 0.9 % (0.0-0.4); Lipase 44 U/L (8-78); Lymphocytes Absolute Auto 3.1 X10*3/uL (1.2-4.9); Lymphocytes Percent Auto 33.1 % (20-40); Magnesium 1.8 mg/dL (1.6-2.6); Mean Corpuscular HGB Conc 33.5 g/dl (31.0-35.0); Mean Corpuscular Hemoglobin 30.6 pg (27.0-33.0); Mean Corpuscular Volume 91.4 fL (80.0-98.0); Mean Platelet Volume 9.9 fL (9.4-12.3); Monocytes Absolute Auto 0.5 X10*3/uL (0.1-1.2); Monocytes Percent Auto 5.2 % (2-11); Neutrophils Absolute Auto 5.5 x10*3/uL (2.0-8.3); Neutrophils Percent Auto 59.4 % (45-73); Platelet Count 282 X10*3/uL (160-400); Potassium 3.5 mmol/L (3.3-5.1); Red Blood Count 3.85 X10*6/uL (4.20-5.50); Sodium 140 mmol/L (135-145); Total Protein 6.9 g/dL (6.5-8.0); White Blood Count 9.2 X10*3/uL (4.8-10.8)
[2024-09-28 19:55] LABS: HCG Quantitative 64028 mIU/mL
[2024-09-28 20:23] VITALS: BP 127/70; PULSE 67; RESP 16; TEMP 37.2; O2SAT 100
--- NOTE | 2024-09-28 22:55 | PC.NURSE ---
patient called RN into RN and stated that she will be leaving as she feels she has been waiting too long to be seen by a provider. patient seen heading to exit of ED
== END 2024-09-28 22:57 | disposition left against medical advice (07) ==
PROVIDERS: Physician Assistant; Emergency Provider Emergency Medicine
DX: K52.9 Noninfective gastroenteritis and colitis, unspecified (principal); R11.2 Nausea with vomiting, unspecified; R42 Dizziness and giddiness; R51.9 Headache, unspecified; R10.2 Pelvic and perineal pain; Z79.899 Other long term (current) drug therapy
CPT/HCPCS: 36415; 80048; 80076; 81003; 83690; 83735; 84702; 85025; 99283; 99284

== ENCOUNTER 2024-10-06 09:11 | Outpatient (AMB) | payer OTHER, SELFPAY ==
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
[2024-10-06 09:31] VITALS: BMI 47.2
--- OUTSIDE RECORDS SUMMARY | 2024-10-06 09:39 | XMS_ITS | Encounter Summary ---
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 - [address] [address] Anika Kennedy MD Social History Tobacco Use [...] on filedocumented in this encounter Care Teams Outpatient Program Coordinator Relationship Specialty Start Date End Date Ivan Altamirano MD PCP - General Internal Medicine 04/17/13 03/04/15 Ivan Altamirano MD PCP - General Internal Medicine 03/05/15 04/03/15 Prachi Nair DO PCP - General Internal Medicine 04/04/15 11/12/20 Ganesh Everett MD [address] [place] [id number] PCP - General Internal Medicine 11/13/20 06/22/21 Radha Pickens PA-C [address] [place] [id number] PCP - General Internal Medicine 06/23/21 03/22/22 Ganesh Everett MD [address] [place] [id number] PCP - General Internal Medicine 03/23/22 06/29/23 Alexis Kingsley [address] [place] [id number] PCP - General Internal Medicine 06/30/23 documented as of this encounter
--- OUTSIDE RECORDS SUMMARY | 2024-10-06 09:39 | XMS_ITS | Encounter Summary ---
Author Organization [facility] Address [address] [place] [address] Care Team Providers Care Home Aide Name Role Phone Ivan Altamirano MD Primary Care Provider Unavail able Ivan Altamirano MD Primary Care Provider Unavail able Prachi Nair DO Primary Care Pro vider Unavailable Ganesh Everett MD Primary Care Provider [phone] Radha Pickens PA-C Primary Care Provider U Ganesh Ramsey MD Primary Care Provider [phone] Alexis Kingsley Primary Care Provider [phone] Encounter Details Date Type Department Care Team Description 04/26/2014 Pt. Non Urgent Medic al Question Gastroenterology - [address] [address] Blaise Marino PA-C Social History Tobacco Use [...] on filedocumented in this encounter Care Teams Home Aide Relationship Specialty Start Date End Date Ivan Altamirano MD PCP - General Internal Medicine 04/17/13 03/04/15 Ivan Altamirano MD PCP - General Internal Medicine 03/05/15 04/03/15 Prachi Nair DO PCP - General Internal Medicine 04/04/15 11/12/20 Ganesh Everett MD [address] [place] [id number] PCP - General Internal Medicine 11/13/20 06/22/21 Radha Pickens PA-C [address] [place] [id number] PCP - General Internal Medicine 06/23/21 03/22/22 Ganesh Everett MD [address] [place] [id number] PCP - General Internal Medicine 03/23/22 06/29/23 Alexis Kingsley [address] [place] [id number] PCP - General Internal Medicine 06/30/23 documented as of this encounter
--- OUTSIDE RECORDS SUMMARY | 2024-10-06 09:39 | XMS_ITS | Clinical Summary ---
Author Organization [facility] [address] [facility] Address [address] [place] [phone] Phone Care Team Providers Care Intake Rn Name Role Phone Alexis Kingsley MD Primary Care Provider [phone] Allergies Active Allergy Reactions Criticality Noted Date Comments Oxycodone-Acetaminophen 03/17/2021 Itching Penicillins 03/17/2021 GI upset Medications pyridoxine (VITAMIN B-6) 25 mg tabletIndications :Nausea and vomiting in prior to 22 weeks gestation Take 1 tablet (25 mg total) by mouth every 8 (eight) hours. 90 tablet 1 09/19/19 25 025 Active doxylamine (UNISOM) 25 mg tabletIndications :Nausea and vomiting in prior to 22 weeks gestation Take 0.5 tablets (12.5 mg total) by mouth every 8 (eight) hours. 45 tablet 1 09/19/19 25 025 Active vitamin iron fum-folic acid 27-0.8 mg per tabletIndications :Nausea and vomiting in prior to 22 weeks gestation Take 1 tablet by mouth 1 (one) time each day. 30 each 09/19/19 25 026 Active ondansetron (ZOFRAN) 8 mg tabletIndications :Nausea and vomiting in prior to 22 weeks gestation Take 1 tablet (8 mg total) by mouth every 8 (eight) hours if needed for nausea. 20 tablet 5 09/19/19 25 025 Active docusate sodium (COLACE) 100 mg capsuleIndication s:Constipation during in first trimester Take 1 capsule (100 mg total) by mouth 2 (two) times a day if needed for constipation. 30 capsule 5 09/30/19 25 Active ondansetron ODT (ZOFRAN-ODT) 8 mg disintegrating tabletIndications :Nausea and vomiting in prior to 22 weeks gestation Dissolve 1 tablet (8 mg total) on top of the tongue every 8 (eight) hours if needed for nausea or vomiting. 42 tablet 3 09/30/19 25 Active cholestyramine (QUESTRAN) 4 gram packet Take 1 Packet by mouth 3 times daily (with meals). 09/01/19 24 025 Discontin ued(Thera py completed ) metroNIDAZOLE (METROGEL) 0.75 % (37.5mg/5 gram) vaginal gel 1 application for 5 nights at bedtime 07/01/19 24 025 Discontin ued(Thera py completed ) terconazole (TERAZOL 3) 0.8 % vaginal cream One applicatorful PV QHS x 3 nights 12/22/19 23 025 Discontin ued(Thera py completed ) Active Problems Problem Noted Date Diagnosed Date Morbid obesity with BMI of 4 5.0-49.9, adult (CMS/[facility] V24, CMS/[facility] V28) 04/02/2024 DDD (degenerative disc disease), lumbar 06/21/19 Seasonal allergic conjunctivitis 10/06/2017 Recurrent sinusitis 08/26/2017 Mixed hyperlipidemia 10/23/2015 Cyst of left kidney 08/30/2015 Overview (04/02/2024): MRI scan 2015. Horseshoe kidney 08/30/2015 Overview (04/02/2024): MRI scan 2015. Fatty liver 08/12/2015 Overview (04/02/2024): Incidental finding on CT scan at [facility] dated 08/11/2015. LFTs normal. IBS (irritable bowel syndrome) 07/08/2015 PCOS (polycystic ovarian syndrome) 09/24/2014 Estimated Date of Delivery Comme nts Yes 05/03/2025 Encounters Date Type Department Care Team Description 09/21/2024 7:56 PM EDT - 09/21/2024 10:37 PM EDT [facility] Emergency [address] [place] [phone] Discharge Disposition: Home or Self Care 09/19/2024 Telephone Obstetrics and Gynecology - [address] [phone] Sallie Patino RN 09/18/2024 11:15 AM EDT Office Visit Obstetrics and Gynecology - [address] [phone] Brunilda Pettit CNM test positive (Primary Dx); Nausea and vomiting in prior to 22 weeks gestation 09/18/2024 Telephone Obstetrics and Gynecology - [address] [phone] Sandra Gomez CNM Vomiting During 09/01/2024 8:27 PM EDT - 09/01/2024 11:11 PM EDT Emergency [facility] Emergency [address] [place] [phone] Abdominal pain during in first trimester (Primary Dx) Discharge Disposition: Left Against Medical Advice 08/24/2024 2:20 PM EST Office Visit Obstetrics and Gynecology - [address] [phone] Eli Ford, PA Screen for STD (sexually transmitted disease) (Primary Dx) 08/11/2024 9:30 AM EST - 08/11/2024 12:28 PM EST [facility] Emergency [address] [place] [phone] Clive Rodriguez MD Cervical strain, acute, initial [...] COMMENT: low back FLEXIBLE SIGMOIDOSCOPY 05/21/2014 PROCEDURE: [place] SIGMOIDOSCOPY FLX DX W/COLLJ SPEC BR/WA IF [...] obesity with BMI of 5 0.0-59.9, adult (CMS/HCC V24, CMS/HCC V28) 02/18/2018 DX:Morbid obesity wit h BMI of 50.0-59.9, adult ([facility]) Migraine DX:Migraine Family History Medical History Relation [...] drink = 0.6 oz pur e alcohol) Estimated Date of Delivery Comme nts Yes 05/03/2025 Sex and Gender Information Value Date Recorded Sex Assigned at Female 09/01/2024 9:29 PM EDT Legal Sex Female 5:42 PM EST Gender Identity Female 09/01/2024 9:29 PM EDT Sexual Orientation Straight 09/01/2024 9: 29 PM EDT Obstetrics History Para Term AB IAB SAB Ectopic Multiple Livin g Live Births 2 1 1 1 1 Date Outcome GA Total Labor Labor/2nd/3rd Weight Sex Type Anes PTL Trinity A1 A5 Name Clin 2016 Term 38w 1d 3118 g (110 oz) M Vag-S pont Living Current Last Filed Vital Signs Vital Sign Reading Time Taken Comments Blood Pressure 128/84 09/21/2024 8:26 PM EDT Pulse 82 09/21/2024 8:26 PM EDT Temperature 37 ??C (98.6 ??F) 09/21/2024 8:26 PM EDT Respiratory Rate 16 09/21/2024 8:26 PM EDT Oxygen Saturation 100% 09/21/2024 8:26 PM EDT Inhaled Oxygen Concentration - - Weight 125 kg (276 lb) 09/21/2024 8:26 PM EDT Height 162.6 cm (5' 4 ) 09/21/2024 8:26 PM EDT Body Mass Index 47.38 09/21/2024 8:26 PM EDT Plan of Treatment Upcoming Encounters Date Type Department Care Team (Late st Contact Info) Description 10/09/2024 10:00 AM EDT Clinical Support Obstetrics and Gynecology - [address] [phone] 10/19/2024 10:15 AM EDT Initial Obstetrics and Gynecology - [address] [phone] Lucy Rich MD [address] [place], [place] Health Maintenance Due Date Last Done Comments Pneumococcal Vaccine: Pediatrics (0 to 5 Years) and At-Risk Patients (6 to 64 Years) (1 of 2 - PCV) 09/15/2010 Hepatitis B Vaccines (2 of 3 - 19+ 3-dose series) 04/19/2018 03/22/2018 Depression Screening 05/23/2022 Social Influencers of Health Screening 05/23/2022 COVID-19 Vaccine ( season) 2024 05/22/2022, 07/25/2020, 06/27/2020 Influenza Vaccine (Season Ended) 2025 05/05/2021, 04/21/2019, 03/18/2018 Cholesterol Screening (Lipid Panel) 02/11/2026 02/11/2021 Cervical Cancer Screening: Pap Smear 04/20/2026 04/20/2023, 03/03/2019 DTaP,Tdap,and Td Vaccines (10 - Td or Tdap) 11/27/2026 11/27/2016, 07/24/2013, 06/19/2010, Additional history exists HIB Vaccines Completed 01/29/1993, 01/1992, 01/16/1992, Additional history exists IPV Vaccines Completed 08/30/1996, 07/22, 01/17/1992, Additional history exists HPV Vaccines Completed 08/08/2007, 01/2007, 01/25/2007 HIV Screening Completed 08/24/2024 Hepatitis C Screening Completed 08/24/2024, 024 Hepatitis A Vaccines Aged Out No long er eligible based on patient's age to complete this topic Meningococcal ACWY Vaccine Aged Out N o longer eligible based on patient's age to complete this topic Meningococcal B Vaccine Aged Out No l onger eligible based on patient's age to complete this topic RSV Immunization Patients Under 20 months Aged Out No longer eligible based on patient's age to complete this topic Procedures Procedure Name Priority Date/Time Associated Diagnosis Comments CBC WITH AUTO DIFFERENTIAL STAT 09/21/2024 9:52 PM EDT HCG, QUANTITATIVE STAT 09/21/2024 9:5 2 PM EDT ABO RH STAT 09/21/2024 9:52 PM EDT COMPREHENSIVE METABOLIC PANEL STAT 09/21/2024 9:52 PM EDT CBC AND DIFFERENTIAL STAT 09/21/2024 9:52 PM EDT US OB LESS 14 WKS SINGLE OR FIRST GESTATION STAT 09/21/2024 9:29 PM EDT HCG, QUANTITATIVE Routine 09/18/2024 11: 53 AM EDT test positive US OB LESS 14 WKS SINGLE OR FIRST GESTATION STAT 09/01/2024 10:34 PM EDT POC , URINE DIAGNOSTIC STAT 09/01/2024 7:32 PM EDT FORD URINE CULTURE TUBE STAT 09/02/19 7:28 PM EDT URINALYSIS WITH REFLEX MICROSCOPIC AND CULTURE STAT 09/01/2024 7:28 PM EDT URINALYSIS WITH REFLEX MICROSCOPIC AND CULTURE STAT 09/01/2024 7:28 PM EDT CULTURE URINE STAT 09/01/2024 7:28 PM EDT CBC WITH AUTO DIFFERENTIAL STAT 09/01/2024 7:25 PM EDT TYPE AND SCREEN STAT 09/01/2024 7:25 PM EDT HCG, QUANTITATIVE STAT 09/01/2024 7:2 5 PM EDT COMPREHENSIVE METABOLIC PANEL STAT 09/01/2024 7:25 PM EDT CBC AND DIFFERENTIAL STAT 09/01/2024 7:25 PM EDT HIV 1, 2 ANTIBODY, P24 ANTIGEN WITH [...] Recently Relevant to Health Maintenance Results * CBC auto differential (09/21/2024 9:52 PM EDT) Only the most recent of2 resultswithin the time period is included. WBC 9.7 4.8 - 10.8 K/mcL LAB HEMETOLOGY METHOD 09/21/2024 10:28 PM EDT [facility] RBC 3.90 3.80 - 4.80 M/mcL LAB HEMETOLOGY METHOD 09/21/2024 10:28 PM EDT [facility] Hemoglobin 12.0 11.5 - 16.0 g/dL LAB HEMETOLOGY METHOD 09/21/2024 10:28 PM EDT [facility] Hematocrit 36.6 35.0 - 47.0 % LAB HEMETOLOGY METHOD 09/21/2024 10:28 PM EDT [facility] MCV 92.9 79.0 - 98.0 FL LAB HEMETOLOGY METHOD 09/21/2024 10:28 PM EDT [facility] MCH 30.5 27.0 - 32.0 pcg LAB HEMETOLOGY METHOD 09/21/2024 10:[facility] MCHC 32.8 32.0 - 37.0 g/dL LAB HEMETOLOGY METHOD 09/21/2024 10:28 PM [facility] RDW 13.6 11.0 - 15.0 % LAB HEMETOLOGY METHOD 09/21/2024 10:28 PM [facility] Platelets 295 130 - 400 K/mcL LAB HEMETOLOGY METHOD 09/21/2024 10:28 PM [facility] MPV 10.3 7.0 - 11.0 FL LAB HEMETOLOGY METHOD 09/21/2024 10:28 PM [facility] NRBC 0.0 <1.0 % LAB HEMETOLOGY METHOD 09/21/2024 10:28 PM [facility] NRBC Absolute 0.00 <0.10 K/mcL LAB HEMETOLOGY METHOD 09/21/2024 10:28 PM [facility] Neutrophils Relative 59.4 % LAB HEMETOLOGY METHOD 09/21/2024 10:28 PM [facility] Lymphocytes Relative 33.6 % LAB HEMETOLOGY METHOD 09/21/2024 10:28 PM [facility] Monocytes Relative 6.1 % LAB HEMETOLOGY METHOD 09/21/2024 10:28 PM [facility] Eosinophils Relative 0.3 % LAB HEMETOLOGY METHOD 09/21/2024 10:28 PM [facility] Basophils Relative 0.4 % LAB HEMETOLOGY METHOD 09/21/2024 10:28 PM [facility] Immature Granulocytes Relative 0.2 % LAB HEMETOLOGY METHOD 09/21/2024 10:28 PM EDT [facility] Neutrophils Absolute 5.76 1.50 - 7.00 K/mcL LAB HEMETOLOGY METHOD 09/21/2024 10:28 PM EDT [facility] Lymphocytes Absolute 3.26 1.00 - 5.00 K/mcL LAB HEMETOLOGY METHOD 09/21/2024 10:28 PM EDT [facility] Monocytes Absolute 0.59 0.20 - 1.00 K/mcL LAB HEMETOLOGY METHOD 09/21/2024 10:28 PM EDT [facility] Eosinophils Absolute 0.03 0.00 - 0.50 K/[facility] LAB HEMETOLOGY METHOD 09/21/2024 10:28 PM EDT [facility] Basophils Absolute 0.04 0.00 - 0.20 K/mcL LAB HEMETOLOGY METHOD 09/21/2024 10:28 PM EDT [facility] Immature Granulocytes Absolute 0.02 0.00 - 0.03 K/[facility] LAB HEMETOLOGY METHOD 09/21/2024 10:28 PM EDT [facility] Blood Venous blood specimen / Unknown Venipuncture / Unknown 09/21/2024 9:52 PM EDT 09/21/2024 10:23 PM EDT Sarah Iverson DO LAB BLOOD ORDERABLES Mayda l Result [facility] [address] [place] [address], * ABO Rh (09/21/2024 9:52 PM EDT) ABO Group O 09/22/2024 7:05 AM EDT [facility] Rh Type Positive 09/22/2024 7:05 AM EDT [facility] Blood Venous blood specimen / Unknown Venipuncture / Unknown 09/21/2024 9:52 PM EDT 09/21/2024 10:23 PM EDT Sarah Steele Alex Kishor DO LAB BLOOD BANK TEST ORDER JOY Final Result [facility] [address] [place] [address], * HCG, quantitative (09/21/2024 9:52 PM EDT) Only the most recent of3 resultswithin the time period is included. hCG Quant 42,090 mIU/mL LAB CHEMISTRY METHOD 09/21/2024 11:06 PM EDT [facility] Blood Venous blood specimen / Unknown Venipuncture / Unknown 09/21/2024 9:52 PM EDT 09/21/2024 10:23 PM EDT Narrative [facility] - 09/21/2024 11:06 PM EDT Quantitative HCG Reference Ranges Time after Conception ? MIU/ML 0.2-1 Week ? 5-50 1-2 ?? Weeks ? 50-500 2-3 ?? Weeks ?100-5,000 3-4 ?? Weeks ?500-10,000 4-5 ?? Weeks ?1,000-50,000 5-6 ?? Weeks ? 10,000-100,000 6-8 ?? Weeks ? 15,000-200,000 2-3 ?? Months ?10,000-100,000 2nd Trimester ?1,000-94,000 3rd Trimester ?2,500-90,000 Non- Females ?1-3 us Sarah Iverson DO LAB BLOOD ORDERABLES Mayda l Result [facility] [address] [place] [address], * Comprehensive metabolic panel (09/21/2024 9:52 PM EDT) Only the most recent of2 resultswithin the time period is included. Sodium 140 133 - 145 mmol/L LAB CHEMISTRY METHOD 09/21/2024 10:51 PM [facility] Potassium 3.9 3.5 - 5.5 mmol/L LAB CHEMISTRY METHOD 09/21/2024 10:51 PM [facility] Chloride 106 96 - 110 mmol/L LAB CHEMISTRY METHOD 09/21/2024 10:51 PM [facility] CO2 26 21 - 32 mmol/L LAB CHEMISTRY METHOD 09/21/2024 10:51 PM [facility] Anion Gap 8 3 - 11 LAB CHEMISTRY METHOD 09/21/2024 10:51 PM [facility] Glucose 79 70 - 100 mg/dL LAB CHEMISTRY METHOD 09/21/2024 10:51 PM [facility] BUN 9 5 - 25 mg/dL LAB CHEMISTRY METHOD 09/21/2024 10:51 PM [facility] Creatinine 0.71 0.50 - 1.10 mg/dL LAB CHEMISTRY METHOD 09/21/2024 10:51 PM [facility] eGFR 115 >=60 mL/min/1. 73m2 LAB CHEMISTRY METHOD 09/21/2024 10:51 PM EDT [facility] Comment:Calculation based on the??Chronic Kidney Disease Epidemiology Collaboration (CKD-EPI) equation refit??without adjustment for race. BUN/Creatinine Ratio 12.7 LAB CHEMISTRY METHOD 09/21/2024 10:51 PM EDT [facility] Calcium 9.7 8.5 - 10.5 mg/dL LAB CHEMISTRY METHOD 09/21/2024 10:51 PM EDT [facility] AST (SGOT) 21 10 - 42 unit/L LAB CHEMISTRY METHOD 09/21/2024 10:51 PM [facility] ALT (SGPT) 47 10 - 60 unit/L LAB CHEMISTRY METHOD 09/21/2024 10:51 PM [facility] Alkaline Phosphatase 46 42 - 121 unit/L LAB CHEMISTRY METHOD 09/21/2024 10:51 PM [facility] Total Protein 7.2 6.0 - 8.0 g/dL LAB CHEMISTRY METHOD 09/21/2024 10:51 PM [facility] Albumin 3.5 3.2 - 5.0 g/dL LAB CHEMISTRY METHOD 09/21/2024 10:51 PM [facility] Total Bilirubin 0.4 0.0 - 1.4 mg/dL LAB CHEMISTRY METHOD 09/21/2024 10:51 PM [facility] Blood Venous blood specimen / Unknown Venipuncture / Unknown 09/21/2024 9:52 PM EDT 09/21/2024 10:23 PM EDT us Sarah Iverson DO LAB BLOOD ORDERABLES Mayda royer Result [facility] [address] [place] [address], * US OB Less 14 Wks Single or First Gestation (09/21/2024 9:29 PM EDT) Only the most recent of2 resultswithin the time period is included. Anatomical Region Laterality Modality Body Ultrasound 09/21/2024 10:1 0 PM EDT Impressions 09/21/2024 10:10 PM EDT 1. Single intrauterine estimated 7 weeks 6 days gestational age by today's ultrasound criteria. 2. No evidence of ovarian torsion. This document has been electronically signed by: Dominga Pelayo MD on 09/21/2024 22:10:53 Narrative 09/21/2024 10:10 PM EDT INDICATION: abd pain US OB 1st Trimester transabdominal and transvaginal with Doppler Comparison: US - US OB LESS 14 WKS SINGLE OR FIRST GESTATION - 09/01/24 21:48 EDT Findings: Single intrauterine . CRL: 1.6 cm. EGA: 7 weeks 6 days. NISHANT: 05/04/2025. Previously established gestational age: 8 weeks 0 days . Normal yolk sac . Cardiac activity: 166 bpm. No subchorionic bleed. Right ovary 2.8 x 2.1 x 1.8 cm. Left ovary 3.3 x 2.2 x 2.6 cm. Normal color Doppler with arterial/venous spectral tracing of left ovary. Venous waveforms of the right ovary are demonstrated with no arterial waveforms demonstrated (likely limited sampling). Procedure Note Dominga Pelayo MD - 09/21/2024 INDICATION: abd pain US OB 1st Trimester transabdominal and transvaginal with Doppler Comparison: US - US OB LESS 14 WKS SINGLE OR FIRST GESTATION - 09/01/24 21:48 EDT Findings: Single intrauterine . CRL: 1.6 cm. EGA: 7 weeks 6 days. NISHANT: 05/04/2025. Previously established gestational age: 8 weeks 0 days . Normal yolk sac . Cardiac activity: 166 bpm. No subchorionic bleed. Right ovary 2.8 x 2.1 x 1.8 cm. Left ovary 3.3 x 2.2 x 2.6 cm. Normal color Doppler with arterial/venous spectral tracing of leftovary. Venous waveforms of the right ovary are demonstrated with no arterial waveforms demonstrated (likely limited sampling). IMPRESSION: 1. Single intrauterine estimated 7 weeks 6 days gestationalage by today's ultrasound criteria. 2. No evidence of ovarian torsion. This document has been electronically signed by: Dominga Kerr MD on 09/21/2024 22:10:53 us Sarah Iverson DO IMG OB US PROCEDURES Mayda l Result * (ABNORMAL) POC , urine manually resulted (09/01/2024 7:32 PM EDT) [facility] HCG, Ur POC Positive(A ) Negative POC hCG Int QC Pass? Yes Yes EXPIRATION DATE POC 11/16/2025 LOT NUMBER POC [id number] Urine Urine specimen obtained by clean catch procedure / Unknown 09/01/2024 7:32 PM EDT us Sarah Iverson DO POINT OF CARE TEST ENTER/ EDIT ORDERABLES Final Result * (ABNORMAL) Urinalysis with reflex microscopic and culture (09/01/2024 7:28 PM EDT) [facility] Specific [place] Urine 1.015 1.003 - 1.030 LAB URINALYSIS - AUTOMATED METHOD 09/01/2024 8:04 PM [facility] pH, Urine 7.5 5.0 - 8.0 pH LAB URINALYSIS - AUTOMATED METHOD 09/01/2024 8:04 PM [facility] Leukocytes, Urine Trace(A) Negative LAB URINALYSIS - AUTOMATED METHOD 09/01/2024 8:04 PM [facility] Nitrite, Urine Negative Negative LAB URINALYSIS - AUTOMATED METHOD 09/01/2024 8:04 PM [facility] Protein, Urine Negative <=Trace mg/dL LAB URINALYSIS - AUTOMATED METHOD 09/01/2024 8:04 PM [facility] Glucose, Urine Negative Negative mg/dL LAB URINALYSIS - AUTOMATED METHOD 09/01/2024 8:04 PM [facility] Ketones, Urine Negative Negative mg/dL LAB URINALYSIS - AUTOMATED METHOD 09/01/2024 8:04 PM EDT [facility] Urobilinogen , Urine 0.2 0.2 - 1.0 mg/dL LAB URINALYSIS - AUTOMATED METHOD 09/01/2024 8:04 PM T [facility] Bilirubin, Urine Negative Negative LAB URINALYSIS - AUTOMATED METHOD 09/01/2024 8:04 PM EDT [facility] Blood, Urine Negative Negative LAB URINALYSIS - AUTOMATED METHOD 09/01/2024 8:04 PM [facility] RBC, Urine 3.1 0 - 4 /HPF LAB URINALYSIS - AUTOMATED METHOD 09/01/2024 8:[facility] WBC, Urine 3.3 0 - 4 /HPF LAB URINALYSIS - AUTOMATED METHOD 09/01/2024 8:04 PM [facility] Squamous Epithelial, Urine >100(H) 0 - 60 /LPF LAB URINALYSIS - AUTOMATED METHOD 09/01/2024 8:04 PM T [facility] Bacteria, Urine Moderate(A) Negative /HPF LAB URINALYSIS - AUTOMATED METHOD 09/01/2024 8:04 PM [facility] Hyaline Casts, Urine 0.0 0 - 3 /LPF LAB URINALYSIS - AUTOMATED METHOD 09/01/2024 8:04 PM [facility] Urine Urine specimen obtained by clean catch procedure / Unknown Non-blood Collection / Unknown 09/01/2024 7:28 PM EDT 09/01/2024 7:50 PM EDT us Sarah Iverson DO LAB URINE ORDERABLES Mayda l Result [facility] [address] [place] [address], [place] [phone] * Ford urine culture tube (09/01/2024 7:28 PM EDT) Extra Tube Hold for add-ons. 09/01/2024 9:01 PM EDT [facility] Comment:Auto resulted. Urine Urine specimen obtained by clean catch procedure / Unknown Non-blood Collection / Unknown 09/01/2024 7:28 PM EDT 09/01/2024 7:50 PM EDT [facility] Alexeula Iverson LAB URINE ORDERABLES Mayda l Result [facility] [address] [place] [address], [place] [phone] * Culture urine (09/01/2024 7:28 PM EDT) Pathologist [facility] Culture, Urine 10,000-49,000 CFU/mL Mixed bacterial morphotypes present suggestive of possible contamination during collection. Suggest appropriate recollection if clinically indicated. 09/02/2024 2:43 PM EDT [facility] Urine Urine specimen obtained by clean catch procedure / Unknown Non-blood Collection / Unknown 09/01/2024 7:28 PM EDT 09/01/2024 8:04 PM EDT Sarah Steele Alex Kishor LAB MICROBIOLOGY - GENERA L ORDERABLES Final Result Performing Organization Address City/[facility]/ZIP Co de Phone Number [facility] [address] [place] [address], [place] [phone] * Type and screen (09/01/2024 7:25 PM EDT) ABO Group O 09/01/2024 8:32 PM EDT [facility] Rh Type Positive 09/01/2024 8:32 PM EDT [facility] Antibody Screen Negative 09/01/2024 8:32 PM EDT [facility] Blood Venous blood specimen / Unknown Venipuncture / Unknown 09/01/2024 7:25 PM EDT 09/01/2024 7:50 PM EDT Sarah Iverson DO LAB BLOOD BANK TEST ORDER JOY Final Result Performing Organization Address [facility]/ZIP Co de Phone Number [facility] [address] [place] [address], [place] [phone] * Hepatitis C antibody (08/24/2024 3:00 PM EST) [facility] Hepatitis C Antibody Negative Negative LAB CHEMISTRY METHOD 08/24/2024 7:15 PM EST [facility] Blood Venous blood specimen / Unknown Venipuncture / Unknown 08/24/2024 3:00 PM EST 08/24/2024 3:00 PM EST us Eli CHIN LAB BLOOD ORDERABLES Final R esult Performing Organization Address [facility] Co de Phone Number [facility] [address] [place] [address], [place] [phone] * HIV 1,2 antibody, p24 antigen with reflex to differentiation (08/24/2024 3:00 PM EST) [facility] HIV Combo AB/AG Negative Negative LAB CHEMISTRY METHOD 08/24/2024 7:16 PM EST [facility] Blood Venous blood specimen / Unknown Venipuncture / Unknown 08/24/2024 3:00 PM EST 08/24/2024 3:00 PM EST Narrative [facility] - 08/24/2024 7:16 PM EST [...] ORDERABLES Final R esult Performing Organization Address [facility] Co de Phone Number [facility] [address] [place] [address], * Treponema pallidum antibody with reflex to RPR and particle agglutination (08/24/2024 3:00 PM EST) T. Pallidum Antibodies Negative Negative LAB CHEMISTRY METHOD 08/24/2024 6:47 PM EST [facility] Blood Venous blood specimen / Unknown Venipuncture / Unknown 08/24/2024 3:00 PM EST 08/24/2024 3:00 PM EST us Eli CHIN LAB BLOOD ORDERABLES Final R esult Performing Organization Address [facility] Co de Phone Number [facility] [address] [place] [address], * Trichomonas vaginalis antigen (08/24/2024 2:51 PM EST) Trichomonas vaginalis Negative Negative 08/24/2024 7:31 PM EST [facility] Swab Vaginal structure / Unknown Non-blood Collection / Unknown 08/24/2024 2:51 PM EST 08/24/2024 2:51 PM EST us Eli CHIN LAB MICROBIOLOGY - GENERAL O RDERABLES Final Result Performing Organization Address City/[facility]/ZIP Co de Phone Number [facility] [address] [place] [address], [place] [phone] * Chlamydia trachomatis and Neisseria gonorrhoeae molecular study (08/24/2024 2:51 PM EST) Neisseria gonorrhoeae PCR Negative Negative LAB MOLECULAR DIAGNOSTICS METHOD 08/24/2024 9:18 PM EST [facility] Chlamydia trachomatis PCR Negative Negative LAB MOLECULAR DIAGNOSTICS METHOD 08/24/2024 9:18 PM EST [facility] Swab Vaginal structure / Unknown Non-blood Collection / Unknown 08/24/2024 2:51 PM EST 08/24/2024 2:51 PM EST us Eli [facility] MICROBIOLOGY - GENERAL O RDERABLES Final Result [facility] [address] [place] [address], * XR Elbow 3+ Views Left (08/11/2024 [...] fracture, if present, should become evident. Code 09193 -------- FINAL REPORT -------- Dictated By: Duran Tomlinson Dictated Date: 08/11/2024 11:24 ET Assigned Physician: Duran Tomlinson Reviewed and Electronically Signed By: Duran Tomlinson Signed Date: 08/11/2024 11:29 ET Workstation ID: [id number] Transcribed By: Self Edit Transcribed Date: 08/11/2024 [...] a fracture, ifpresent, should become evident. Code 11783 -------- FINAL REPORT -------- Dictated By: Duran Tomlinson Dictated Date: 08/11/2024 11:24 ET Assigned Physician: Duran Tomlinson Reviewed and Electronically Signed By: Duran Tomlinson Signed Date: 08/11/2024 11:29 ET Workstation ID: [id number] Transcribed By: Self Edit Transcribed Date: 08/11/2024 [...] Most Recently Relevant to Health Maintenance Insurance [employer] [place] [employer] [facility] [address] [place] [address] [place] [address] HEALTH PLAN Advance Directives Documents on File Type Date Recorded Patient Town Justice Expl anation Health Care Decision (hx) 06/23/2021 [...] (hx) 06/18/2021 AD WHEELER DIRECTIVE Care Teams Intake Rn Relationship Specialty Start Date End Date Alexis Kingsley MD [address] [place] [address] PCP - General Internal Medicine 08/28/24
--- OUTSIDE RECORDS SUMMARY | 2024-10-06 09:39 | XMS_ITS | Encounter Summary ---
Author Organization [facility] Address [address] [place] [address] Care Team Providers Care Wrist Hemmer Name Role Phone Prachi Nair DO Primary Care Pro vider Ganesh Zhong MD Primary Care Provider [phone] Radha Pickens PA-C Primary Care Provider U Ganesh Ramsey MD Primary Care Provider [phone] Alexis Kingsley Primary Care Provider [phone] Encounter Details Date Type Department Care Team Description 08/25/2016 Pt. Non Urgent Medic al Question OBGYN - [place] [address] [place] [address] Tushar Mcgrath CNM Social History Tobacco Use [...] on filedocumented in this encounter Care Teams Wrist Hemmer Relationship Specialty Start Date End Date Prachi Nair DO PCP - General Internal Medicine 04/04/15 11/12/20 Ganesh Everett MD [address] [place] [address] PCP - General Internal Medicine 11/13/20 06/22/21 Radha Pickens PA-C [address] [place] [address] PCP - General Internal Medicine 06/23/21 03/22/22 Ganesh Everett MD [address] [place] [address] PCP - General Internal Medicine 03/23/22 06/29/23 Alexis Kingsley [address] [place] [address] PCP - General Internal Medicine 06/30/23 documented as of this encounter
--- OUTSIDE RECORDS SUMMARY | 2024-10-06 09:40 | XMS_ITS | Encounter Summary ---
Author Organization [facility] Address [address] [place] [address] Care Team Providers Care Brand Communications Manager Name Role Phone Ivan Altamirano MD Primary Care Provider Unavail able Ivan Altamirano MD Primary Care Provider Unavail able Prachi Nair DO Primary Care Pro vider Unavailable Ganesh Everett MD Primary Care Provider [phone] Radha Pickens PA-C Primary Care Provider U Ganesh Ramsey MD Primary Care Provider Alexis Kingsley Primary Care Provider [phone] Reason for Visit * Reason Onset Date Comments stool 12/10/2013 Encounter Details Date Type Department Care Team Description 12/10/2013 Telephone Adult Urgent Care - [address] [address] Ivan Altamirano MD stool Social History Tobacco [...] symptoms?: 2 days PCP: Ivan Altamirano Payor: [employer] FFS / Plan: [employer] PLAN / Product Type: MEDICAID RISK documented in this encounter Plan of Treatment Not on file documented as of this encounter Visit Diagnoses Not on filedocumented in this encounter Care Teams Brand Communications Manager Relationship Specialty Start Date End Date Ivan Altamirano MD PCP - General Internal Medicine 04/17/13 03/04/15 Ivan Altamirano MD PCP - General Internal Medicine 03/05/15 04/03/15 Prachi Nair DO PCP - General Internal Medicine 04/04/15 11/12/20 Ganesh Everett MD [address] [place] [address] PCP - General Internal Medicine 11/13/20 06/22/21 Radha Pickens PA-C [address] [place] [address] PCP - General Internal Medicine 06/23/21 03/22/22 Ganesh Everett MD [address] [place] [address] PCP - General Internal Medicine 03/23/22 06/29/23 Alexis Kingsley [address] [place] [address] PCP - General Internal Medicine 06/30/23 documented as of this encounter
--- OUTSIDE RECORDS SUMMARY | 2024-10-06 09:40 | XMS_ITS | Encounter Summary ---
Author Organization [facility] Address [address] [place] [address] Care Team Providers Care Freight Brakeman Name Role Phone Radha Pickens PA-C Primary Care Provider U Ganesh Ramsey MD Primary Care Provider [phone] Alexis Kingsley Primary Care Provider [phone] Encounter Details Date Type Department Care Team Description 06/23/2021 Orders Only Medical Records [address] [place] [address] Mayo Azul MD [address] [place] [address] [address] [place] [address] Social History Tobacco Use Types Packs/Day Years [...] on filedocumented in this encounter Care Teams Freight Brakeman Relationship Specialty Start Date End Date Radha Pickens PA-C PCP - General Internal Medicine 06/23/2103/22 Ganesh Everett MD [address] [place] [address] PCP - General Internal Medicine 03/23/22 06/29/23 Alexis Kingsley [address] [place] [address] PCP - General Internal Medicine 06/30/23 documented as of this encounter
--- OUTSIDE RECORDS SUMMARY | 2024-10-06 09:40 | XMS_ITS | Encounter Summary ---
Author Organization [facility] Address [address] [place] [address] Care Team Providers Care Mechanical Spreader Operator Name Role Phone Ivan Altamirano MD Primary Care Provider Unavail able Ivan Altamirano MD Primary Care Provider Unavail able Prachi Nair DO Primary Care Pro vider Unavailable Ganesh Everett MD Primary Care Provider Radha Pickens PA-C Primary Care Provider U Ganesh Ramsey MD Primary Care Provider [phone] Alexis Kingsley Primary Care Provider [phone] Encounter Details Date Type Department Care Team Description 08/27/2014 Pt. Non Urgent Medical Question OBGYN - [facility] [address] [place] [address] Ragini Baird MD Social History Tobacco Use [...] on filedocumented in this encounter Care Teams Mechanical Spreader Operator Relationship Specialty Start Date End Date Ivan Altamirano MD PCP - General Internal Medicine 04/17/13 03/04/15 Ivan Altamirano MD PCP - General Internal Medicine 03/05/15 04/03/15 Prachi Nair DO PCP - General Internal Medicine 04/04/15 11/12/20 Ganesh Everett MD [address] [place] [address] PCP - General Internal Medicine 11/13/20 06/22/21 Radha Pickens PA-C [address] [place] [address] PCP - General Internal Medicine 06/23/21 03/22/22 Ganesh Everett MD [address] [place] [address] PCP - General Internal Medicine 03/23/22 06/29/23 Alexis Kingsley [address] [place] [address] PCP - General Internal Medicine 06/30/23 documented as of this encounter
--- OUTSIDE RECORDS SUMMARY | 2024-10-06 09:40 | XMS_ITS | Encounter Summary ---
Author Organization [facility] Address [address] [place] [address] Care Team Providers Care Stacker Straightener Name Role Phone Ganesh Everett MD Primary Care Provider [phone] Radha Pickens PA-C Primary Care Provider U Ganesh Ramsey MD Primary Care Provider [phone] Alexis Kingsley Primary Care Provider [phone] Reason for Visit * Reason Onset Date Comments Pre-op Needed 11/13/2020 Encounter Details Date Type Department Care Team Description 11/13/2020 Telephone Adult Medicine [address] [phone] Ganesh Everett MD [address] [place] [address] [phone] Pre-op Needed Social History Tobacco Use Types [...] on filedocumented in this encounter Care Teams Stacker Straightener Relationship Specialty Start Date End Date Ganesh Everett MD [address] [place] [address] PCP - General Internal Medicine 11/13/20 06/22/21 Radha Pickens PA-C [address] [place] [address] PCP - General Internal Medicine 06/23/21 03/22/22 Ganesh Everett MD [address] [place] [address] PCP - General Internal Medicine 03/23/22 06/29/23 Alexis Kingsley [address] [place] [address] PCP - General Internal Medicine 06/30/23 documented as of this encounter
--- OUTSIDE RECORDS SUMMARY | 2024-10-06 09:40 | XMS_ITS | Encounter Summary ---
Author Organization [facility] Address [address] [place] [address] Care Team Providers Care Neck Cutter Name Role Phone Alexis Kingsley Primary Care Provider [phone] Reason for Visit * Reason Onset Date Comments Post Op Visit 08/23/2023 Encounter Details Date Type Department Care Team Description 08/23/2023 Telephone Adult Medicine [address] [address] Alexis Kingsley [address] [place] [address] Post Op Visit Social History Tobacco Use [...] to nurse PCP: Alexis Kingsley Insurance: Payor: [facility] FFS / Plan: [facility] [employer] / Product Type: MEDICAID RISK documented in this encounter Plan of Treatment Not on file documented as of this encounter Visit Diagnoses Not on filedocumented in this encounter Care Teams Neck Cutter Relationship Specialty Start Date End Date Alexis Kingsley [address] [place] [address] PCP - General Internal Medicine 06/30/23 documented as of this encounter
--- OUTSIDE RECORDS SUMMARY | 2024-10-06 09:40 | XMS_ITS | Encounter Summary ---
Author Organization [facility] Address [address] [place] [address] Care Team Providers Care Loader Semiconductor Dies Name Role Phone Ganesh Everett MD Primary Care Provider [phone] Radha Pickesn PA-C Primary Care Provider U Ganesh Ramsey MD Primary Care Provider [phone] Alexis Kingsley Primary Care Provider [phone] Encounter Details Date Type Department Care Team Description 05/27/2021 Telephone OBGYN - [facility] [address] [place] [address] Juli Chung CNM Social History Tobacco Use [...] on filedocumented in this encounter Care Teams Loader Semiconductor Dies Relationship Specialty Start Date End Date Ganesh Everett MD [address] [place] [address] PCP - General Internal Medicine 11/13/20 06/22/21 Radha Pickens PA-C [address] [place] [address] PCP - General Internal Medicine 06/23/21 03/22/22 Ganesh Everett MD [address] [place] [address] PCP - General Internal Medicine 03/23/22 06/29/23 Alexis Kingsley [address] [place] [address] PCP - General Internal Medicine 06/30/23 documented as of this encounter
--- OUTSIDE RECORDS SUMMARY | 2024-10-06 09:40 | XMS_ITS | Encounter Summary ---
Author Organization [facility] Address [address] [place] [address] Care Team Providers Care Tube Worker Name Role Phone Prachi Nair DO Primary Care Pro mariumr Ganesh Zhong MD Primary Care Provider [phone] Radha Pickens PA-C Primary Care Provider U Ganesh Ramsey MD Primary Care Provider Alexis Kingsley Primary Care Provider [phone] Reason for Visit * Reason Onset Date Comments Pelvic Pain 12/15/2017 Encounter Details Date Type Department Care Team Description 12/15/2017 Telephone OBGYN - [address] [phone] Tushar Mcgrath CNM Pelvic Pain Social History Tobacco Use Types Packs/Day Years [...] encounter Miscellaneous Notes * Telephone Encounter - Jacy Bakari - 12/15/2017 10:08 AM EDT Chief Complaint/problem: Pt scheduled an appt for herself through [employer] for: Problem Follow-Up Visit Pain. FYI. Pt has an appt on 01/04/18 for pelvic pressure (booked on 12/09/17) How long has the patient had this problem? Pt???s NIGHT SHIFT provider: Tushar Mcgrath CNM Last menstrual period (LMP) or EDC (due date): N/A documented in this encounter Plan of Treatment Not on file documented as of this encounter Visit Diagnoses Not on filedocumented in this encounter Care Teams Tube Worker Relationship Specialty Start Date End Date Prachi Nair DO PCP - General Internal Medicine 04/04/15 11/12/20 Ganesh Everett MD [address] [place] [address] PCP - General Internal Medicine 11/13/20 06/22/21 Radha Pickens PA-C [address] [place] [address] PCP - General Internal Medicine 06/23/21 03/22/22 Ganesh Everett MD [address] [place] [address] PCP - General Internal Medicine 03/23/22 06/29/23 Alexis Kingsley [address] [place] [address] PCP - General Internal Medicine 06/30/23 documented as of this encounter
--- OUTSIDE RECORDS SUMMARY | 2024-10-06 09:40 | XMS_ITS | Encounter Summary ---
Author Organization [facility] Address [address] [place] [address] Care Team Providers Care Resaw Tailer Name Role Phone Alexis Kingsley Primary Care Provider [phone] Encounter Details Date Type Department Care Team Description 08/25/2023 Orders Only Medical Records [address] [place] [address] Sammy Bunn MD [address] [place] [address] Social History Tobacco Use Types Packs/Day Years [...] on filedocumented in this encounter Care Teams Resaw Tailer Relationship Specialty Start Date End Date Alexis Kingsley [address] [place] [address] PCP - General Internal Medicine 06/30/23 documented as of this encounter
--- OUTSIDE RECORDS SUMMARY | 2024-10-06 09:40 | XMS_ITS | Encounter Summary ---
Author Organization [facility] Address [address] [place] [address] Care Team Providers Care Classifying Machine Operator Name Role Phone Prachi Nair DO Primary Care Pro vider Ganesh Zhong MD Primary Care Provider [phone] Rdaha Pickens PA-C Primary Care Provider U Ganesh Ramsey MD Primary Care Provider [phone] Alexis Kingsley Primary Care Provider [phone] Encounter Details Date Type Department Care Team Description 09/11/2015 Release of Information Medical Records [address] [place] [address] Abstract, Provider Social History Tobacco Use Types [...] on filedocumented in this encounter Care Teams Classifying Machine Operator Relationship Specialty Start Date End Date Prachi Nair DO PCP - General Internal Medicine 04/04/15 11/12/20 Ganesh Everett MD [address] [place], [place] [phone] PCP - General Internal Medicine 11/13/20 06/22/21 Radha Pickens PA-C [address] [place] [address] PCP - General Internal Medicine 06/23/21 03/22/22 Ganesh Everett MD [address] [place] [address] PCP - General Internal Medicine 03/23/22 06/29/23 Alexis Kingsley [address] [place] [address] PCP - General Internal Medicine 06/30/23 documented as of this encounter
--- OUTSIDE RECORDS SUMMARY | 2024-10-06 09:40 | XMS_ITS | Encounter Summary ---
Author Organization [facility] Address [address] [place] [address] Care Team Providers Care Shingler Name Role Phone Ivan Altamirano MD Primary Care Provider Unavail able Ivan Altamirano MD Primary Care Provider Unavail able Prachi Nair DO Primary Care Pro vider Unavailable Ganesh Everett MD Primary Care Provider [phone] Radha Pickens PA-C Primary Care Provider U Ganesh Ramsey MD Primary Care Provider [phone] Alexis Kingsley Primary Care Provider [phone] Encounter Details Date Type Department Care Team Description 12/31/2014 Pt. Non Urgent Medical Question CONTINUITY WRITER - [address] [address] Anika Kennedy MD Social History Tobacco Use [...] on filedocumented in this encounter Care Teams Shingler Relationship Specialty Start Date End Date Ivan Altamirano MD PCP - General Internal Medicine 04/17/13 03/04/15 Ivan Altamirano MD PCP - General Internal Medicine 03/05/15 04/03/15 Prachi Nair DO PCP - General Internal Medicine 04/04/15 11/12/20 Ganesh Everett MD [address] [place] [address] PCP - General Internal Medicine 11/13/20 06/22/21 Radha Pickens PA-C [address] [place] [address] PCP - General Internal Medicine 06/23/21 03/22/22 Ganesh Everett MD [address] [place] [address] PCP - General Internal Medicine 03/23/22 06/29/23 Alexis Kingsley [address] [place] [address] PCP - General Internal Medicine 06/30/23 documented as of this encounter
--- OUTSIDE RECORDS SUMMARY | 2024-10-06 09:40 | XMS_ITS | Encounter Summary ---
Author Organization [facility] Address [address] [place] [address] Care Team Providers Care Tire Trucker Name Role Phone Ivan Altamirano MD Primary Care Provider Unavail able Ivan Altamirano MD Primary Care Provider Unavail able Prachi Nair DO Primary Care Pro vider Unavailable Ganesh Everett MD Primary Care Provider [phone] Radha Pickens PA-C Primary Care Provider U Ganesh Ramsey MD Primary Care Provider [phone] Alexis Kingsley Primary Care Provider [phone] Reason for Visit * Reason Onset Date Comments Breast Lump 01/01/2014 Encounter Details Date Type Department Care Team Description 01/01/2014 Pt. Non Urgent Medical Question Adult Medicine [address] [address] Ivan Altamirano MD Social History Tobacco Use [...] on filedocumented in this encounter Care Teams Tire Trucker Relationship Specialty Start Date End Date Ivan Altamirano MD PCP - General Internal Medicine 04/17/13 03/04/15 Ivan Altamirano MD PCP - General Internal Medicine 03/05/15 04/03/15 Prachi Nair DO PCP - General Internal Medicine 04/04/15 11/12/20 Ganesh Everett MD [address] [place] [address] PCP - General Internal Medicine 11/13/20 06/22/21 Radha Pickens PA-C [address] [place] [address] PCP - General Internal Medicine 06/23/21 03/22/22 Ganesh Everett MD [address] [place] [address] PCP - General Internal Medicine 03/23/22 06/29/23 Alexis Kingsley [address] [place] [address] PCP - General Internal Medicine 06/30/23 documented as of this encounter
--- OUTSIDE RECORDS SUMMARY | 2024-10-06 09:40 | XMS_ITS | Encounter Summary ---
Author Organization [facility] Address [address] [place] [address] Care Team Providers Care Wallboard Worker Name Role Phone Ivan Altamirano MD Primary Care Provider Unavail able Ivan Altamirano MD Primary Care Provider Unavail able Prachi Nair DO Primary Care Pro vider Unavailable Ganesh Everett MD Primary Care Provider [phone] Radha Pickens PA-C Primary Care Provider U Ganesh Ramsey MD Primary Care Provider [phone] Alexis Kingsley Primary Care Provider [phone] Encounter Details Date Type Department Care Team Description 03/20/2014 Pt. Non Urgent Medical Question PARKING REGULATION ENFORCEMENT OFFICER - [address] [address] Anika Kennedy MD Social History Tobacco Use [...] on filedocumented in this encounter Care Teams Wallboard Worker Relationship Specialty Start Date End Date Ivan Altamirano MD PCP - General Internal Medicine 04/17/13 03/04/15 Ivan Altamirano MD PCP - General Internal Medicine 03/05/15 04/03/15 Prachi Nair DO PCP - General Internal Medicine 04/04/15 11/12/20 Ganesh Everett MD [address] [place] [address] PCP - General Internal Medicine 11/13/20 06/22/21 Radha Pickens PA-C [address] [place] [address] PCP - General Internal Medicine 06/23/21 03/22/22 Ganesh Everett MD [address] [place] [address] PCP - General Internal Medicine 03/23/22 06/29/23 Alexis Kingsley [address] [place] [address] PCP - General Internal Medicine 06/30/23 documented as of this encounter
--- OUTSIDE RECORDS SUMMARY | 2024-10-06 09:40 | XMS_ITS | Encounter Summary ---
Author Organization [facility] Address [address] [place] [address] Care Team Providers Care Vending Manager Name Role Phone Prachi Nair DO Primary Care Pro vider Ganesh Zhong MD Primary Care Provider [phone] Radha Pickens PA-C Primary Care Provider U Ganesh Ramsey MD Primary Care Provider [phone] Alexis Kingsley Primary Care Provider [phone] Encounter Details Date Type Department Care Team Description 07/29/2016 Release of Information Medical Records [address] [place] [address] Abstract, Provider Social History Tobacco Use Types [...] on filedocumented in this encounter Care Teams Vending Manager Relationship Specialty Start Date End Date Prachi Nair DO PCP - General Internal Medicine 04/04/15 11/12/20 Ganesh Everett MD [address] [place], [place] [address] PCP - General Internal Medicine 11/13/20 06/22/21 Radha Pickens PA-C [address] [place] [address] PCP - General Internal Medicine 06/23/21 03/22/22 Ganesh Everett MD [address] [place] [address] PCP - General Internal Medicine 03/23/22 06/29/23 Alexis Kingsley [address] [place] [address] PCP - General Internal Medicine 06/30/23 documented as of this encounter
--- OUTSIDE RECORDS SUMMARY | 2024-10-06 09:40 | XMS_ITS | Encounter Summary ---
Author Organization [facility] Address [address] [place] [address] Care Team Providers Care Manager Of Pharmacy Name Role Phone Alexis Kingsley Primary Care Provider [phone] Encounter Details Date Type Department Care Team Description 08/21/2023 Hospital Medical Records [address] [place] [address] Sammy Bunn MD [address] [place] [address] Social History Tobacco Use Types Packs/Day Years [...] filedocumented in this encounter Care Teams Manager Of Pharmacy Relationship Specialty Start Date End Date Alexis Kingsley [address] [place] [address] PCP - General Internal Medicine 06/30/23 documented as of this encounter
--- OUTSIDE RECORDS SUMMARY | 2024-10-06 09:40 | XMS_ITS | Encounter Summary ---
Author Organization [facility] Address [address] [place] [address] Care Team Providers Care Senior Sharepoint Architect Name Role Phone Ganesh Everett MD Primary Care Provider [phone] Radha Pickens PA-C Primary Care Provider U Ganesh Ramsey MD Primary Care Provider Alexis Kingsley Primary Care Provider [phone] Encounter Details Date Type Department Care Team Description 05/02/2021 Transfer Records Medical Records [address] [place] [address] Abstract, Provider Social History Tobacco Use Types [...] on filedocumented in this encounter Care Teams Senior Sharepoint Architect Relationship Specialty Start Date End Date Ganesh Everett MD [address] [place] [address] [phone] PCP - General Internal Medicine 11/13/20 06/22/21 Radha Pickens PA-C [address] [place] [address] PCP - General Internal Medicine 06/23/21 03/22/22 Ganesh Everett MD [address] [place] [address] PCP - General Internal Medicine 03/23/22 06/29/23 Alexis Kingsley [address] [place] [address] PCP - General Internal Medicine 06/30/23 documented as of this encounter
--- OUTSIDE RECORDS SUMMARY | 2024-10-06 09:40 | XMS_ITS | Encounter Summary ---
Author Organization [facility] Address [address] [place] [address] Care Team Providers Care Sr. Media Manager Name Role Phone Prachi Nair DO Primary Care Pro mariumr Ganesh Zhong MD Primary Care Provider [phone] Radha Pickens PA-C Primary Care Provider U Ganesh Ramsey MD Primary Care Provider [phone] Alexis Kingsley Primary Care Provider [phone] Reason for Referral * Non DOROTEO (Routine) - Authorized/Booked Specialty Diagnoses / Procedures Referred By Rahel barba Referred To Contact Gastroenterology Procedures REFERRAL TO GASTROENTEROLOGY Prachi Nair DO [address] [place], [place] [id number] [place] [address] [address] Referral ID Status Reason Start Date Expiration Date V isits Requested Visits Authorized CONS [id number] Authorized/ Booked 06/01/2017 06/01/2018 12 12 Encounter Details Date Type Department Care Team Description 06/01/2017 Orders Only Adult Medicine [address] [address] Prachi Nair DO Social History Tobacco Use [...] on filedocumented in this encounter Care Teams Sr. Media Manager Relationship Specialty Start Date End Date Prachi Nair DO PCP - General Internal Medicine 04/04/15 11/12/20 Ganesh Everett MD [address] [place] [phone] PCP - General Internal Medicine 11/13/20 06/22/21 Radha Pickens PA-C [address] [place] [address] PCP - General Internal Medicine 06/23/21 03/22/22 Ganesh Everett MD [address] [place] [id number] PCP - General Internal Medicine 03/23/22 06/29/23 Alexis Kingsley [address] [place] [phone] PCP - General Internal Medicine 06/30/23 documented as of this encounter
--- OUTSIDE RECORDS SUMMARY | 2024-10-06 09:40 | XMS_ITS | Clinical Summary ---
Author Organization [facility] Address [address] [place] [address] Care Team Providers Care Admissions Clerk Name Role Phone Alexis Kingsley Primary Care Provider [phone] Allergies Active Allergy Reactions Severity Noted Date [...] 0 07/01/2023 Active cholestyramine (QUESTRAN) 4 g packetIndications:P ostcholecystectomy diarrhea Take 1 Packet by mouth 3 times daily (with meals). 60 Each 2 09/01/2023 Active Active Problems Problem Noted Date S/P [...] Overview: Incidental finding on CT scan at [facility] dated 08/11/2015. LFTs normal. IBS (irritable bowel syndrome) 6 PCOS (polycystic ovarian syndrome) 09/24 Family history of breast cancer in femal e 01/24/2014 Overview: Pt BRCA negative Resolved Problems Problem Noted Date Resolved Date Benign essential hypertension in obstetric zaid xt 01/21/2017 02/18/2018 Supervision of normal first 07/27/2016 04/14/2017 Overview: 1. [facility] site: [place] 2. Delivery site: [facility] 3. Dating criteria: 1st trimester [...] Cholesterol Level Father CHF Maternal Grandmother and certified flex endoscope reprocessor d ( 02/13/14) at age 59 Ulcerative [...] Last Done Comments Covid-19 Vaccine (#1) 03/18/1992 BMI CHECK/ADVISE 06/21/2024 09/02/2023, , 11/11/2021, Additional history exists DEPRESSION SCREENING/FOLLOWUP 06/21/2024 09/25/2020 SOCIAL NEEDS SCREENING 06/21/2024 07/01/2021, 2020 BASELINE HEALTH EXAM 18-39 08/18/202408/18, 08/18/2019, 02/18/2018, Additional history exists INFLUENZA (Season Ended) 2025 019 (External Completion of Vaccination per patient), 04/21/2019, 03/18/2018 CHOLESTEROL SCREENING 02/11/2026 02/11/2021 , 08/18/2019, 11/04/2017, Additional history exists CERVICAL CANCER SCREENING 04/20/20262022, 03/03/2019, 08/23/2015, Additional history exists DTAP/TDAP/TD (9 - Td or Tdap) 11/27/2026, 07/24/2013, 06/19/2010, Additional history exists PNEUMOCOCCAL VACCINE FOR HIG H RISK PATIENTS (#1) 09/15/2056 Care Teams Admissions Clerk Relationship Specialty Start Date End Date Alexis Kingsley [address] [place] [address] PCP - General Internal Medicine 06/30/23
--- OUTSIDE RECORDS SUMMARY | 2024-10-06 09:40 | XMS_ITS | Encounter Summary ---
Author Organization [facility] Address [address] [place] [address] Care Team Providers Care Cisco Certified Network Associate Name Role Phone Prachi Nair DO Primary Care Pro mariumr Ganesh Zhong MD Primary Care Provider [phone] Radha Pickens PA-C Primary Care Provider U Ganesh Ramsey MD Primary Care Provider [phone] Alexis Kingsley Primary Care Provider [phone] Encounter Details Date Type Department Care Team Description 2015 Pt. Non Urgent Medic al Question Adult Medicine [address] [address] Prachi Nair DO Social History Tobacco Use [...] on filedocumented in this encounter Care Teams Cisco Certified Network Associate Relationship Specialty Start Date End Date Prachi Nair DO PCP - General Internal Medicine 04/04/15 11/12/20 Ganesh Everett MD [address] [place] [address] PCP - General Internal Medicine 11/13/20 06/22/21 Radha Pickens PA-C [address] [place] [address] PCP - General Internal Medicine 06/23/21 03/22/22 Ganesh Everett MD [address] [place] [address] PCP - General Internal Medicine 03/23/22 06/29/23 Alexis Kingsley [address] [place] [address] PCP - General Internal Medicine 06/30/23 documented as of this encounter
--- OUTSIDE RECORDS SUMMARY | 2024-10-06 09:40 | XMS_ITS | Encounter Summary ---
Author Organization [facility] Address [address] [place] [address] Care Team Providers Care Medical Research Associate Name Role Phone Prachi Nair DO Primary Care Pro mariumr Ganesh Zhong MD Primary Care Provider [phone] Radha Pickens PA-C Primary Care Provider U Ganesh Ramsey MD Primary Care Provider [phone] Alexis Kingsley Primary Care Provider [phone] Reason for Visit * Reason Onset Date Comments 01/30/2017 Encounter Details Date Type Department Care Team Description 01/30/2017 Telephone Adult Urgent Care - [address] [address] Prachi Nair DO Social History Tobacco Use [...] 2 nights, back all the time 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: Tushar Mcgrath CNM Last menstrual period (LMP) or EDC (due date): 9/1/17 37 weeks Ist baby Called Chung documented in this encounter Plan of Treatment Not on file documented as of this encounter Visit Diagnoses Not on filedocumented in this encounter Care Teams Medical Research Associate Relationship Specialty Start Date End Date Prachi Nair DO PCP - General Internal Medicine 04/04/15 11/12/20 Ganesh Everett MD [address] [place] [address] PCP - General Internal Medicine 11/13/20 06/22/21 Radha Pickens PA-C [address] [place] [address] PCP - General Internal Medicine 06/23/21 03/22/22 Ganesh Everett MD [address] [place] [address] PCP - General Internal Medicine 03/23/22 06/29/23 Alexis Kingsley [address] [place] [address] PCP - General Internal Medicine 06/30/23 documented as of this encounter
--- OUTSIDE RECORDS SUMMARY | 2024-10-06 09:40 | XMS_ITS | Encounter Summary ---
Author Organization [facility] Address [address] [place] [address] Care Team Providers Care Software Applications Developer Name Role Phone Prachi Nair DO Primary Care Pro mariumr Ganesh Zhong MD Primary Care Provider Radha Pickens PA-C Primary Care Provider U Ganesh Ramsey MD Primary Care Provider [phone] Alexis Kingsley Primary Care Provider [phone] Reason for Visit * Reason Onset Date Comments LAB WORK 10/25/2020 Encounter Details Date Type Department Care Team Description 10/25/2020 Telephone Internal Medicine - [address], [address] [place] [address] Lizeth Medeiros MS,RODRÍGUEZ,CHARLESN LAB WORK Social History [...] on filedocumented in this encounter Care Teams Software Applications Developer Relationship Specialty Start Date End Date Prachi Nair DO PCP - General Internal Medicine 04/04/15 11/12/20 Ganesh Everett MD [address] [place] [phone] PCP - General Internal Medicine 11/13/20 06/22/21 Radha Pickens PA-C [address] [place] [address] PCP - General Internal Medicine 06/23/21 03/22/22 Ganesh Everett MD [address] [place] [address] PCP - General Internal Medicine 03/23/22 06/29/23 Alexis Kingsley [address] [place] [address] PCP - General Internal Medicine 06/30/23 documented as of this encounter
--- OUTSIDE RECORDS SUMMARY | 2024-10-06 09:40 | XMS_ITS | Encounter Summary ---
Author Organization [facility] Address [address] [place] [address] Care Team Providers Care Equal Employment Opportunity Officer Name Role Phone Prachi Nair DO Primary Care Pro vider Ganesh Zhong MD Primary Care Provider [phone] Radha Pickens PA-C Primary Care Provider U Ganesh Ramsey MD Primary Care Provider [phone] Alexis Kingsley Primary Care Provider [phone] Encounter Details Date Type Department Care Team Description 10/16/2015 Pt. Non Urgent Medic al Question Adult Medicine [address] [address] Prachi Nair DO Social History Tobacco Use [...] on filedocumented in this encounter Care Teams Equal Employment Opportunity Officer Relationship Specialty Start Date End Date Prachi Nair DO PCP - General Internal Medicine 04/04/15 11/12/20 Ganesh Everett MD [address] [place] [address] PCP - General Internal Medicine 11/13/20 06/22/21 Radha Pickens PA-C [address] [place] [address] PCP - General Internal Medicine 06/23/21 03/22/22 Ganesh Everett MD [address] [place] [phone] PCP - General Internal Medicine 03/23/22 06/29/23 Alexis Kingsley [address] [place] [address] PCP - General Internal Medicine 06/30/23 documented as of this encounter
--- OUTSIDE RECORDS SUMMARY | 2024-10-06 09:40 | XMS_ITS | Encounter Summary ---
Author Organization [facility] Address [address] [place] [address] Care Team Providers Care Scuba Instructor Name Role Phone Ivan Altamirano MD Primary Care Provider Unavail able Ivan Altamirano MD Primary Care Provider Unavail able Prachi Nair DO Primary Care Pro vider Unavailable Ganesh Everett MD Primary Care Provider [phone] Radha Pickens PA-C Primary Care Provider U Ganesh Ramsey MD Primary Care Provider [phone] Alexis Kingsley Primary Care Provider [phone] Encounter Details Date Type Department Care Team Description 10/16/2014 Pt. 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 - 10/16/2014 1:37 PM EDTFrom: Dakota Spear To: Anika Kennedy MD Sent: 10/16/2014 1:20 PM EDT Subject: meds I'm just writing to you to see if their is any med that will help me ovulate and it's their any other med better than metformin documented in this encounter Plan of Treatment Not on file documented as of this encounter Visit Diagnoses Not on filedocumented in this encounter Care Teams Scuba Instructor Relationship Specialty Start Date End Date Ivan Altamirano MD PCP - General Internal Medicine 04/17/13 03/04/15 Ivan Altamirano MD PCP - General Internal Medicine 03/05/15 04/03/15 Prachi Nair DO PCP - General Internal Medicine 04/04/15 11/12/20 Ganesh Everett MD [address] [place] [address] PCP - General Internal Medicine 11/13/20 06/22/21 Radha Pickens PA-C [address] [place] [address] PCP - General Internal Medicine 06/23/21 03/22/22 Ganesh Everett MD [address] [place] [address] PCP - General Internal Medicine 03/23/22 06/29/23 Alexis Kingsley [address] [place] [address] PCP - General Internal Medicine 06/30/23 documented as of this encounter
--- OUTSIDE RECORDS SUMMARY | 2024-10-06 09:40 | XMS_ITS | Encounter Summary ---
Author Organization [facility] Address [address] [place] [address] Care Team Providers Care Wallpaper Hanger Helper Name Role Phone Prachi Nair DO Primary Care Pro mariumr Ganesh Zhong MD Primary Care Provider Radha Pickens PA-C Primary Care Provider U Ganesh Ramsey MD Primary Care Provider [phone] Alexis Kingsley Primary Care Provider Reason for Visit * Reason Onset Date Comments Appointment Cancelled 12/17/2015 Encounter Details Date Type Department Care Team Description 12/17/2015 Telephone Gastroenterology - [address] [address] Rai Fiore MD Appointment Cancelled Social History [...] PM EDT Pt has been r/s at [facility] 02/04/2016 at 3:00 * Telephone Encounter - Stephany Antoine - 12/17/2015 12:32 PM EDT [facility] Telephone Encounter - Rai [...] on filedocumented in this encounter Care Teams Wallpaper Hanger Helper Relationship Specialty Start Date End Date Prachi Nair DO PCP - General Internal Medicine 04/04/15 11/12/20 Ganesh Everett MD [address] [place] [id number] PCP - General Internal Medicine 11/13/20 06/22/21 Radha Pickens PA-C [address] [place] [address] PCP - General Internal Medicine 06/23/21 03/22/22 Ganesh Everett MD [address] [place] [address] PCP - General Internal Medicine 03/23/22 06/29/23 Alexis Kingsley [address] [place] [phone] PCP - General Internal Medicine 06/30/23 documented as of this encounter
--- OUTSIDE RECORDS SUMMARY | 2024-10-06 09:40 | XMS_ITS | Encounter Summary ---
Author Organization [facility] Address [address] [place] [address] Care Team Providers Care Cosmetic Surgeon Name Role Phone Ganesh Everett MD Primary Care Provider [phone] Radha Pickens PA-C Primary Care Provider U Ganesh Ramsey MD Primary Care Provider [phone] Alexis Kingsley Primary Care Provider [phone] Encounter Details Date Type Department Care Team Description 06/18/2021 [facility] Medical Records [address] [place] [address] Mayo Azul MD [address] [place] [address] [place] [id number] Social History Tobacco Use Types Packs/Day Years [...] on filedocumented in this encounter Care Teams Cosmetic Surgeon Relationship Specialty Start Date End Date Ganesh Everett MD [address] [place] [address] [phone] PCP - General Internal Medicine 11/13/20 06/22/21 Radha Pickens PA-C [address] [place] [phone] PCP - General Internal Medicine 06/23/21 03/22/22 Ganesh Everett MD [address] [place] [address] PCP - General Internal Medicine 03/23/22 06/29/23 Alexis Kingsley [address] [place] [address] PCP - General Internal Medicine 06/30/23 documented as of this encounter
== END 2024-10-06 09:58 | disposition home or self-care (01) ==
LOC: HO.HOS 09:12
PROVIDERS: Visit Provider Physician Assistant
DX: S52.002A Unspecified fracture of upper end of left ulna, initial encounter for closed fracture (principal)
CPT/HCPCS: 99213

== ENCOUNTER → 2024-10-06 09:13 | Outpatient (BNV) | payer OTHER, SELFPAY | PROVIDERS: Visit Provider Radiology Diagnostic Radiology | DX: M25.522 Pain in left elbow (principal) | CPT/HCPCS: 73080 ==

== ENCOUNTER 2024-10-06 15:23 | Outpatient (REF) | payer OTHER, SELFPAY ==
--- NOTE | ~2024-10-06 | XR_ITS ---
EXAMINATION: XR ELBOW, LEFT CLINICAL INFORMATION: M25.529 - Pain in unspecified elbow COMPARISON: 08/24/2024. Exams dating back to 07/24/2024. TECHNIQUE: AP, lateral, and oblique views of the left elbow. FINDINGS: No acute fracture, dislocation, or suspicious bone lesion. There is normal alignment. The coronoid process fracture previously seen is again demonstrated on this imaging study, with fracture line appearing much less distinct indicating healing. No change in alignment. 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 The radiocapitellar joint appears normal. There is no persistent joint effusion. The epicondyles appear normal. The soft tissues appear normal. XR/XR elbow LT min 3V IMPRESSION: 1. Healing ulnar coronoid process fracture. Stable anatomical alignment. No joint effusion. 2. 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 Electronically signed by: Darren Chamorro MD 10/06/2024 09:51 AM EDT
--- OUTSIDE RECORDS SUMMARY | 2024-10-09 15:26 | XMS_ITS | Encounter Summary ---
Author [place] [address] Care Team Providers Care Customer Care Professional Name Role Phone Alexis Kingsley MD Primary Care Provider [phone] Reason for Referral * Imaging (Routine) - Pending Review Specialty Diagnoses / Procedures Referred By Rahel barba Referred To Contact Radiology Diagnoses care, subsequent in first trimester Procedures US OB Less 14 Wks Nuchal Measurement Lucy Rich MD [address] [place] [address] Phone: tel: fax: [address] Phone: tel: Referral ID Status Reason Start Date Expiration Date V isits Requested Visits Authorized [id number] Pending Review 10/09/2024 10/09/2025 1 1 Reason for Visit * Reason Comments nurse Encounter Details Date Type Department Care Team (Latest Contact Info) Description 10/09/2024 10:00 AM EDT Clinical Support Obstetrics and Gynecology [address] [phone] care, subsequent in first trimester (Primary Dx); H/O gastric sleeve; History of appendectomy; History of cholecystectomy; Obesity complicating childbirth Social History Tobacco Use Types Packs/Day Years Used Date Smoking Tobacco: Never Smokeless Tobacco: Never Alcohol Use Standard Drinks/Week Comments Not Currently 0 (1 standard drink = 0.6 oz pur e alcohol) Estimated Date of Delivery Comme nts Yes 05/03/2025 Date entered miguelito or to episode creation Sex and Gender Information Value Date Recorded Sex Assigned at Female 09/01/2024 9:29 PM EDT Legal Sex Female 5:42 PM EST Gender Identity Female 09/01/2024 9:29 PM EDT Sexual Orientation Straight 09/01/2024 9: 29 PM EDT 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 Not on file Not on file Not on file documented as of this encounter Last Filed Vital Signs Vital Sign Reading Time Taken Comments Blood Pressure 113/77 10/09/2024 10:19 AM EDT Pulse 73 10/09/2024 10:19 AM EDT Temperature - - Respiratory Rate - - Oxygen Saturation - - Inhaled Oxygen Concentration - - Weight 125 kg (275 lb) 10/09/2024 10:19 AM EDT Height 162.6 cm (5' 4 ) 10/09/2024 10:19 AM EDT Body Mass Index 47.2 10/09/2024 10:19 AM EDT documented in this encounter Functional Status * [...] documented in this encounter Progress Notes * Sallie Patino RN - 10/09/2024 10:00 AM EDT MEDICATIONS SAFE TO TAKE IN Caution: do not exceed manufacturers recommendations Allergies: Benadryl (diphenhydramine) Claritin Zyrtec Cold and Flu: Acetaminophen (Tylenol) Tylenol Cold (not multi-symptom) Warm salt/water gargle Saline nasal drops/spray Chlor-Trimenton Robitussin DM Triaminic cough Vicks Cough Syrup Cough drops Cepacol Lozenges (for sore throat) Congestion: Saline nasal drops/spray Dristan nasal spray Constipation: Metamucil, Citrucel, Benefiber Colace, Dulcolax Milk of Magnesia Miralax Diarrhea: Imodium Kaopectate First aid ointment: Bacitracin Neosporin Polysporin Gas: Simethicone Gas X Mylicon Pha GERD/Heartburn/Indigestion: Maalox Mylanta Tums Ibanca [place] Tagamet Pepcid Zantac Headache: Acetaminophen (Tylenol) Excedrin Tension headache (tylenol 500mg and caffeine 65mg) Insomnia: Unisom Sleep tabs Benadryl Hemorrhoids: Preparation H Anusol HC Tucks Cortaid Witch Myah Nausea and vomiting: Sea Bands/Biobands Rg or candied or crystallized rg Vitamin B6 50mg tablets (or half of a 100 mg tablet) Vitamin B6 50mg 3 times a day with Unisom sleep tabs 1/2 tab 3 times a day (may cause drowsiness) Dramamine (may cause drowsiness) Rashes: Hydrocortisone 1% cream or ointment Caladryl lotion or cream Benadryl cream Oatmeal bath (Aveeno) Yeast Infection: Monistat or Terazol (do not insert applicator too far) Clotrimazole 1% * Sallie Patino RN - 10/09/2024 10:00 AM EDT Dakota Spear is a 34 y.o. old female at 10w4d. This is Unplanned. The patient feels happy about the . The FOB is not involved. Pt aware of transfer of care to [facility] if BMI>50 in .Pt will have 1Hr GTT Glucose on 10/19/24 Patient's last menstrual period was 07/27/2024. (exact date)., which would make her currently [id number] an Estimated Date of Delivery: 05/03/25. She is certain of her date. An ultrasound on 09/21/24 NISHANT 04/23/25 in ED Patient has significant history of: SAVD 2017 GHTN , Gastric sleeve 2020, PCOS, IBS , Kidney cyst OB Past Medical History: Have you had or do you currently have: Diabetes? No Hypertension? Yes GHTN Heart disease, Mitral valve Prolapse, or Rheumatic fever? No An Autoimmune disease such as Lupus or Rheumatoid Arthritis? No Epilepsy, Seizures, or Spells? No Migraine Headaches? Yes mild Stroke or loss of function or sensation? No Additional Questions: Have you ever been treated for anxiety and/or depression? No Are you having problems with crying spells or loss of self-esteem? No Have you ever required psychiatric care? No Have you ever had hepatitis, liver disease or jaundice? No Have you ever been treated for blood clots in your veins, deep venous thrombosis, inflammation in the veins, thrombosis, phlebitis, pulmonary embolism or varicosities? No Have you had excessive bleeding after surgery or dental work? No Do you bleed more than other women after a cut or scratch? No Do you have a history of anemia? No Have you ever had Thyroid problems or taken Thyroid medications? No Do you have any other Endocrine Problems (ie. PCOS)? Yes PCOS Have you ever been in a major accident or suffered serious trauma? No Within the last year, has anyone hit, slapped, kicked or otherwise hurt you? No In the last year, has anyone forced you to have sex when you didn't want to? No Do you feel safe at home? Yes Have you ever received a blood transfusion? No Would you refuse a blood transfusion if a doctor judged to be medically necessary? No Would you rather than receive a blood transfusion? No If you answered yes to the above questions, is this for hindu reasons? N/A Do you know what your blood type is or if you are Rh Negative? no Have you ever had abnormal antibodies in your blood? no Have you ever had asthma? No Have you every had Tuberculosis? No Have you ever had any breast problems? No Have you ever breast fed? Yes 6 mths Have you ever had any gynecological surgical procedures such as cervical conization, LEEP procedure, Laser treatment, cryosurgery of the cervix or dilation and curettage, etc? No Have you had any other surgical procedures? Gastric sleeve 2019, GB , APPY 08/2023 Have you ever been hospitalized overnight for a non-surgical reason excluding normal delivery? No Have you ever had anesthesia complications? No Have you ever had an abnormal pap smear? No Do you have a history of abnormalties of the uterus? No Did your mother take FIONA or any other hormones when she was with you? No Did it take more than one year to become ? No Have you ever been evaluated or treated for infertility? No Is there a history of medical problems in your family which you feel might adversely affect your health or ? No Do you have any other problems we have not asked you about which you feel may be important for us to know for this ? No Do you currently have any of the following symptoms since your last menstrual period: Abdominal pain, blood in the stool or urine, chest pain, shortness of breath, coughing or vomiting up blood, your heart racing or skipping beats, nausea and/or vomiting, pain on urination, or vaginaldischarge or vaginal bleeding? Yes N/V on Zofran Rx Genetic Screening/Teratology Counseling- Includes patient, baby's father, or anyone in either family with: Patient's age 35 years or older as of estimated date of delivery No Thalassemia (Egyptian, Khmer, Mediterranean, or background): MCV less than 80 No Neural tube defect (Meningomyelocele, Spina bifida, or Anencephaly) No Congenital heart defect No Down syndrome No Chon-Sachs (Ashkenazi Moravian, Cajun, Japanese [place]) No Yola disease (Ashkenazi Moravian) No Familial dysautonomia (Ashkenazi Moravian) No Sickle cell disease or trait () No Hemophilia or other blood disorders No Muscular dystrophy No Cystic fibrosis No Swisher's chorea No Intellectual disability and/or autism No If yes, was the person tested for Fragile X? No Other inherited genetic or chromosomal disorder No Maternal metabolic disorder (eg. Type 1 diabetes, PKU) No Patient or baby's father had child with defects not listed above No Recurrent loss, or a stillbirth No Medications (including supplements, vitamins, herbs, or OTC drugs)/illicit/recreational drugs/alcohol since last menstrual period No If yes, agent(s) and strength/dosage: Any other No OB Infection History: Do you object to being tested for Hepatitis B? No Do you object to being tested for HIV? No Do you feel that you are at high risk for coming contact with the AIDS virus? No Have you ever been treated for tuberculosis? No Have you ever received the BCG vaccine? No Have you ever had a positive skin test for Tuberculosis? No Do you live with someone who has Tuberculosis? No Have you ever been exposed to Tuberculosis? No Do you have Genital Herpes? No Does your partner have Genital Herpes? No Have you had a rash or viral illness since your last period? No Have you ever had Gonorrhea, Chlamydia, Syphilis, Venereal Warts, Trichomoniasis, Pelvic Inflammatory Disease (PID) or any other sexually transmitted disease? No Do you know if you are a Group B Streptococcus Carrier? no Did you have the Chicken Pox/Varicella? no Were you vaccinated against Chicken Pox/Varicella? yes Have you had any other infectious diseases? No Dakota Spear has been instructed on the following: random urine drug screening policy and an initial urine drug screen has been ordered., She has been counseled regarding avoiding hazards, litter boxes, smoking, drug and alcohol use during Dakota Spear has also been informed of the materials and corrosion engineer provider recommendation for first trimester nuchal lucency testing to be performed during her . Dakota Spear has also been made aware of the time sensitive nature for this testing to be completed. . The patient now has a gestationalage of 10w4d. The patient would be due for this testing prior to 14 weeks gestation which would be on 11/01/24 Ethnicity Based Genetic Testing has been reviewed and the [employer] information sheet has been provided to the patient in their After Visit Summary. The patient was also advised that genetic testing may not be covered by all insurances. The patients states that they understand this information. The patient states that she has not had the genetic screening for Horizon 14 done in the past duringa previous . . The patient has agreed that she does want genetic testing for Horizon 14 The following Labs have been ordered: Obstetric Panel, HgA1c, Early Glucose Screen, HIV with verbalConsent, Hepatitis C, Varicella titer, Urine Culture, Pre-Eclampsia Panel, UDS, Panorama with gender, and Horizon 14 panel She is aware that her insurance may or may not cover Panorama and/or Horizon 14 test and discussed corral only de luna for test(s) - info given today in her after visit summary . She would like to proceed with testing. For Horizon Carrier Screening, if patient has [employer], [employer] or Handseeing Information insurances:Not Applicable Electronically signed by: Sallie Patino RN 10/09/24 10:29 AM EDT documented in this encounter Plan of Treatment Upcoming Encounters Date Type Department Care Team (Late st Contact Info) Description 10/19/2024 9:00 AM EDT Ancillary Procedure Maternal Medicine - [address] [phone] 10/19/2024 10:15 AM EDT Initial Obstetrics and Gynecology - [address] [phone] Lucy Rich MD [address] [place], [place] Pending Results Name Type Priority Associated Diagnoses Date/Time Varicella zoster antibody IgG Lab Routine care, subsequent in first trimester 10/09/2024 12:34 PM EDT Hepatitis B surface antigen with reflex to confirmation Lab Routine care, subsequent in first trimester 10/09/2024 12:34 PM EDT Culture urine Microbiology Routine care, subsequent in first trimester 10/09/2024 12:34 PM EDT Drug abuse screen expanded with reflex confirmation, urine Lab Routine care, subsequent in first trimester 10/09/2024 12:34 PM EDT Hepatitis C antibody Lab Routine care, subsequent in first trimester 10/09/2024 12:34 PM EDT HIV 1,2 antibody, p24 antigen with reflex to differentiation Lab Routine care, subsequent in first trimester 10/09/2024 12:34 PM EDT Rubella antibody IgG Lab Routine care, subsequent in first trimester 10/09/2024 12:34 PM EDT Treponema pallidum antibody with reflex to RPR and particle agglutination Lab Routine care, subsequent in first trimester 10/09/2024 12:34 PM EDT Type and screen Lab Routine care, subsequent in first trimester 10/09/2024 12:34 PM EDT Alanine aminotransferase Lab Routine care, subsequent in first trimester 10/09/2024 12:34 PM EDT Aspartate aminotransferase Lab Routine care, subsequent in first trimester 10/09/2024 12:34 PM EDT Creatinine Lab Routine care, subsequent in first trimester 10/09/2024 12:34 PM EDT Protein and creatinine with ratio, urine Lab Routine care, subsequent in first trimester 10/09/2024 12:34 PM EDT Glucose tolerance test, 1h gestation Lab Routine care, subsequent in first trimester 10/09/2024 12:34 PM EDT Hemoglobin A1c Lab Routine care, subsequent in first trimester 10/09/2024 12:34 PM EDT Scheduled Orders Name Type Priority Associated Diagnoses Order Schedule Varicella zoster antibody IgG Lab Routine care, subsequent in first trimester 1 Occurrences starting 10/09/2024 until 10/09/2025 Hepatitis B surface antigen with reflex to confirmation Lab Routine care, subsequent in first trimester 1 Occurrences starting 10/09/2024 until 10/09/2025 Culture urine Microbiology Routine care, subsequent in first trimester 1 Occurrences starting 10/09/2024 until 10/09/2025 Drug abuse screen expanded with reflex confirmation, urine Lab Routine care, subsequent in first trimester 1 Occurrences starting 10/09/2024 until 10/09/2025 Hepatitis C antibody Lab Routine care, subsequent in first trimester 1 Occurrences starting 10/09/2024 until 10/09/2025 HIV 1,2 antibody, p24 antigen with reflex to differentiation Lab Routine care, subsequent in first trimester 1 Occurrences starting 10/09/2024 until 10/09/2025 Rubella antibody IgG Lab Routine care, subsequent in first trimester 1 Occurrences starting 10/09/2024 until 10/09/2025 Treponema pallidum antibody with reflex to RPR and particle agglutination Lab Routine care, subsequent in first trimester 1 Occurrences starting 10/09/2024 until 10/09/2025 Type and screen Lab Routine care, subsequent in first trimester 1 Occurrences starting 10/09/2024 until 10/09/2025 Alanine aminotransferase Lab Routine care, subsequent in first trimester 1 Occurrences starting 10/09/2024 until 10/09/2025 Aspartate aminotransferase Lab Routine care, subsequent in first trimester 1 Occurrences starting 10/09/2024 until 10/09/2025 Creatinine Lab Routine care, subsequent in first trimester 1 Occurrences starting 10/09/2024 until 10/09/2025 Protein and creatinine with ratio, urine Lab Routine care, subsequent in first trimester 1 Occurrences starting 10/09/2024 until 10/09/2025 Glucose tolerance test, 1h gestation Lab Routine care, subsequent in first trimester 1 Occurrences starting 10/09/2024 until 10/09/2025 Hemoglobin A1c Lab Routine care, subsequent in first trimester 1 Occurrences starting 10/09/2024 until 10/09/2025 US OB Less 14 Wks Nuchal Measurement Imaging Routine care, subsequent in first trimester Expected: 10/18/2024, Expires: 11/01/2024 documented as of this encounter Visit Diagnoses Diagnosis care, subsequent in first trimester- Primary H/O gastric sleeve History of appendectomy Other postprocedural status History of cholecystectomy Other acquired absence of organ Obesity complicating childbirth documented in this encounter Care Teams Customer Care Professional Relationship Specialty Start Date End Date Alexis Kingsley MD [address] [place] [id number] PCP - General Internal Medicine 08/28/24 documented as of this encounter
--- OUTSIDE RECORDS SUMMARY | 2024-10-09 15:26 | XMS_ITS | Clinical Summary ---
Author Organization [facility] [address] [facility] Address [address] [place] [address] Phone Care Team Providers Care Occupational Safety And Health Manager Name Role Phone Alexis Kingsley MD Primary Care Provider [phone] Allergies Active Allergy Reactions Criticality Noted Date [...] Active Problems Problem Noted Date Diagnosed Date H/O gastric sleeve 10/09/2024 Overview (10/09/2024): 2020 care, subsequent in first [facility] 10/09/2024 Overview (10/09/2024): 1. [facility] site: [facility]: [address] [place] [address] ([phone]) 2. Delivery site: [facility] 3. Mobile Mommas: No 4. Dating criteria: early ultrasound 5. Blood type: O-Positive 6. Genetic screening: Date: Result: Panorama: Ordered Horizon: Ordered Nuchal: Scheduled10/19/24 @9am Survey: MSAFP: 6. GBS: Date: 7. FOB name: not involved 8. Plans A. Epidural or other pain management - B. Labor support identified - C. Tdap - Date: Flu - Date: D. Breast or Bottle feed: Undecided E. Baby's name - F. Circumcision - 9. Hospital Course: History of appendectomy 10/09/2024 Overview (10/09/2024): 2023 History of cholecystectomy 10/09/2024 Overview (10/09/2024): 2023 Obesity complicating childbirth 10/09/2024 Overview (10/09/2024): HgbA1C and 1 hour GTT at initial labs ASA 162mg at 12 weeks until delivery Detailed anatomy ultrasound Repeat GTT 24-28 weeks if early is normal Pre-preg BMI 35-39.9: NST weekly at 37 weeks Pre-preg BMI >40: NST weekly at 34 weeks Pre-preg BMI >45: NST weekly at 32 weeks Growth US at 32 and 36 weeks for BMI >40 BMI of 50 by 28wks transfer to [facility] DVT prophylaxis- Lovenox if CS and BMI >35 Morbid obesity with BMI of 4 5.0-49.9, adult (CMS/[facility] V24, [facility] V28) 04/02/2024 DDD (degenerative disc disease), lumbar 06/21/19 20 Seasonal allergic conjunctivitis 10/06/2017 Recurrent sinusitis 08/26/2017 Mixed hyperlipidemia 10/23/2015 Cyst of left kidney 08/30/2015 Overview (04/02/2024): MRI scan 2015. 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 Fatty liver 08/12/2015 Overview (04/02/2024): Incidental finding on CT scan at [facility] dated 08/11/2015. LFTs normal. IBS (irritable bowel syndrome) 07/08/2015 PCOS (polycystic ovarian syndrome) 09/24/2014 Estimated Date of Delivery Comme nts Yes 05/03/2025 Date entered miguelito or to episode creation Encounters Date Type Department Care Team Description 10/09/2024 10:00 AM EDT Clinical Support Obstetrics and Gynecology [address] [phone] care, subsequent in first trimester (Primary Dx); H/O gastric sleeve; History of appendectomy; History of cholecystectomy; Obesity complicating childbirth 09/21/2024 7:56 PM EDT - 09/21/2024 10:37 PM EDT [facility] [address] [place] [phone] Discharge Disposition: Home or Self Care 09/19/2024 Telephone Obstetrics and Gynecology - [address] [phone] Sallie Patino RN 09/18/2024 11:15 AM EDT Office Visit Obstetrics and Gynecology - [address] [phone] Brunilda Pettit CNM test positive (Primary Dx); Nausea and vomiting in prior to 22 weeks gestation 09/18/2024 Telephone Obstetrics and Gynecology - [address] [phone] Sandra Gomez CNM Vomiting During 09/01/2024 8:27 PM EDT - 09/01/2024 11:11 PM EDT [facility] [address] [place] [address] [phone] Abdominal pain during in first trimester (Primary Dx) Discharge Disposition: Left Against Medical Advice 08/24/2024 2:20 PM EST Office Visit Obstetrics and Gynecology - [address] [phone] Eli Ford PA Screen for STD (sexually transmitted disease) (Primary Dx) 08/11/2024 9:30 AM EST - 08/11/2024 12:28 PM EST [facility] [address] [place] [address] [phone] Clive Rodriguez MD Cervical strain, acute, initial [...] COMMENT: low back FLEXIBLE SIGMOIDOSCOPY 05/21/2014 PROCEDURE: VA SIGMOIDOSCOPY FLX DX W/COLLJ SPEC BR/WA IF PFRMD; COMMENT: hemorrhoids; normal colonic biopsies APPENDECTOMY PROCEDURE: HISTORICAL APPENDECTOMY CHOLECYSTECTOMY PROCEDURE: LAPAROSCOPY, CHOLECYSTECTOMY SLEEVE GASTROPLASTY 06/21/2019 - 06/20/2020 Medical History Medical History Date Comments Breast [...] obesity wit h BMI of 50.0-59.9, adult (HCC) Migraine DX:Migraine Family History Medical History Relation Name Comments Breast cancer Aunt paternal Colon cancer Aunt No Known Problems Brother Hyperlipidemia Father Lupus Father Heart failure Maternal Grandmother and co pd ( 02/13/14) at age 59 Other: Ulcerative Colitis Maternal Grandmother No Known Problems Mother Ovarian cancer Mother's side mother's aun t Breast cancer Paternal Grandmother No Known Problems Sister Cancer of Small Bowel Neg Hx Kidney cancer Neg Hx Pancreatic cancer Neg Hx Uterine cancer Neg Hx Relation Name Status Comments Aunt Brother Alive 1,healthy Father Alive Maternal Grandfather Maternal Grandmother (Age 59) co pd, chf Mother Alive Mother's side Paternal Grandfather Paternal Grandmother Sister Alive 1,healthy Social History [...] on file Not on file Obstetrics History Para Term AB IAB SAB Ectopic Multiple Livin g Live Births 2 1 1 1 1 Date Outcome GA Total Labor Labor/2nd/3rd Weight Sex Type Anes PTL Trinity A1 A5 Name Clin 2016 Term 38w 1d 3118 g (110 oz) M Vag-S pont Living Current Summary Episode Dates Number of Fetuses Estimated Date of Delivery 10/09/2024 - Present (10/09/2024) 05/03/2025 (based on Alternate NISHANT Entry) Dating Summary Based On NISHANT GA Diff Last Menstrual Period on 07/27/2024 05/03/2025 Same Ultrasound on 09/21/2024 05/04/2025 -1d GA:7w6d Alternate NISHANT Entry 05/03/2025 Working Comment:Date entered prior t o episode creation Vitals Pregravid Weight Height TWG (As of 10/09/2024) Pregrav id BMI 119 kg (262 lb) 1.626 m (64 ) 5.897 kg (13 lb) 44.95 Notes Progress Notes - Clinical Caro pport - 10/09/2024 - GA:10w4d 10/09/2024 - 10w4d - Sallie Patino RN Dakota Spear is a 34 y.o. old female at 10w4d. This is Unplanned. The patient feels happy about the . The FOB is not involved. Pt aware of transfer of care to [facility] if BMI>50 in .Pt will have 1Hr GTT Glucose on 10/19/24 Patient's last menstrual period was 07/27/2024. (exact date)., which would make her currently 10w4d with an Estimated Date of Delivery: 05/03/25. She [...] to the above questions, is this for episcopalian reasons? N/A Do you know what your [...] nausea and/or vomiting, pain on urination, or vaginal discharge or vaginal bleeding? Yes N/V on Zofran Rx Genetic Screening/Teratology Counseling- Includes patient, baby's father, or anyone in either family with: Patient's age 35 years or older as of estimated date of delivery No Thalassemia (Khmer, Central African, Mediterranean, or background): MCV less than 80 No Neural tube defect (Meningomyelocele, Spina bifida, or Anencephaly) No Congenital heart defect No Down syndrome No Chon-Sachs (Ashkenazi Restorationist, Cajun, Sami Albanian) No Yola disease (Ashkenazi Restorationist) No Familial dysautonomia (Ashkenazi Restorationist) No Sickle cell disease or trait () No Hemophilia or other blood disorders No Muscular dystrophy No Cystic fibrosis No Yadkin's chorea No Intellectual disability and/or autism No [...] Spear has also been informed of the marketing trainee provider recommendation for first trimester nuchal lucency testing to be performed during her . Dakota Spear has also been made aware of the time sensitive nature for this testing to be completed. . The patient now has a gestational age of 10w4d. The patient would be due for this testing prior to 14 weeks gestation which would be on 11/01/24 Ethnicity Based Genetic Testing has been reviewed and the [employer] information sheet has been provided to the patient in their After Visit Summary. The patient was also advised that genetic testing may not be covered by all insurances. The patients states that they understand this information. The patient states that she has not had the genetic screening for Horizon 14 done in the past during a previous . . The patient has agreed that she does want genetic testing for Horizon 14 The following Labs have been ordered: Obstetric Panel, HgA1c, Early Glucose Screen, HIV with verbal Consent, Hepatitis C, Varicella titer, Urine Culture, Pre- Eclampsia Panel, UDS, Panorama with gender, and Horizon 14 panel She is aware that her insurance may or may not cover Panorama and/or Horizon 14 test and discussed corral only de luna for test(s) - info given today in her after visit summary . She would like to proceed with testing. For Horizon Carrier Screening, if patient has [employer], [facility] or [employer] insurances: Not Applicable Electronically signed by: Sallie Patino RN 10/09/24 10:29 AM EDT Last Filed Vital Signs Vital Sign Reading Time Taken Comments Blood Pressure 113/77 10/09/2024 10:19 AM EDT Pulse 73 10/09/2024 10:19 AM EDT Temperature 37 ??C (98.6 ??F) 09/21/2024 8:26 PM EDT Respiratory Rate 16 09/21/2024 8:26 PM EDT Oxygen Saturation 100% 09/21/2024 8:26 PM EDT Inhaled Oxygen Concentration - - Weight 125 kg (275 lb) 10/09/2024 10:19 AM EDT Height 162.6 cm (5' 4 ) 10/09/2024 10:19 AM EDT Body Mass Index 47.2 10/09/2024 10:19 AM EDT Plan of Treatment Upcoming Encounters Date Type Department Care Team (Late st Contact Info) Description 10/19/2024 9:00 AM EDT Ancillary Procedure Maternal Medicine - [address] [phone] 10/19/2024 10:15 AM EDT Initial Obstetrics and Gynecology - [address] [phone] Lucy Rich MD [address] [place], [place] Health Maintenance Due Date Last Done [...] Associated Diagnosis Comments CBC WITH AUTO DIFFERENTIAL Routine 10/09/2024 12:34 PM EDT care, subsequent in first trimester CBC AND DIFFERENTIAL Routine 10/09/2024 12:34 PM EDT care, subsequent in first trimester VENIPUNCTURE CHARGE Routine 10/09/2024 1 2:34 PM EDT care, subsequent in first trimester CBC WITH AUTO DIFFERENTIAL STAT 09/21/2024 9:52 [...] disease) XR ELBOW 3+ VIEWS LEFT STAT 11:21 AM EST HM PAP SMEAR Routine 04/20/2023 LIPID PANEL Routine 02/11/2021 from Last 3 Months or Most Recently Relevant to Health Maintenance Results * Venipuncture charge (10/09/2024 12:34 PM EDT) Extra Tube Hold for add-ons. 10/09/2024 2:02 PM EDT [facility] ([facility]) Comment:Auto resulted. Blood Venous blood specimen / Unknown Venipuncture / Unknown 10/09/2024 12:34 PM EDT 10/09/2024 12:34 PM EDT us Lucy Rich MD LAB BLOOD ORDERABLES Final Result [facility]ATION[facility], * (ABNORMAL) CBC auto differential (10/09/2024 12:34 PM EDT) Only the most recent of3 resultswithin the time period is included. WBC 5.8 4.8 - 10.8 K/mcL LAB HEMETOLOGY METHOD 10/09/2024 3:08 PM EDT [facility] RBC 4.00 3.80 - 4.80 M/mcL LAB HEMETOLOGY METHOD 10/09/2024 3:08 PM EDT [facility] Hemoglobin 12.2 11.5 - 16.0 g/dL LAB HEMETOLOGY METHOD 10/09/2024 3:08 PM EDT [facility] Hematocrit 38.2 35.0 - 47.0 % LAB HEMETOLOGY METHOD 10/09/2024 3:08 PM EDT [facility] MCV 94.8 79.0 - 98.0 FL LAB HEMETOLOGY METHOD 10/09/2024 3:08 PM EDT [facility] MCH 30.3 27.0 - 32.0 pcg LAB HEMETOLOGY METHOD 10/09/2024 3:08 PM EDT [facility] MCHC 31.9(L) 32.0 - 37.0 g/dL LAB HEMETOLOGY METHOD 10/09/2024 3:08 PM EDT [facility] RDW 14.2 11.0 - 15.0 % LAB HEMETOLOGY METHOD 10/09/2024 3:08 PM EDT [facility] Platelets 228 130 - 400 K/mcL LAB HEMETOLOGY METHOD 10/09/2024 3:08 PM EDT [facility] MPV 10.8 7.0 - 11.0 FL LAB HEMETOLOGY METHOD 10/09/2024 3:08 PM [facility] NRBC 0.0 <1.0 % LAB HEMETOLOGY METHOD 10/09/2024 3:08 PM [facility] NRBC Absolute 0.00 <0.10 K/mcL LAB HEMETOLOGY METHOD 10/09/2024 3:08 PM [facility] Neutrophils Relative 62.8 % LAB HEMETOLOGY METHOD 10/09/2024 3:08 PM [facility] Lymphocytes Relative 27.8 % LAB HEMETOLOGY METHOD 10/09/2024 3:08 PM [facility] Monocytes Relative 6.9 % LAB HEMETOLOGY METHOD 10/09/2024 3:08 PM [facility] Eosinophils Relative 1.5 % LAB HEMETOLOGY METHOD 10/09/2024 3:08 PM [facility] Basophils Relative 0.5 % LAB HEMETOLOGY METHOD 10/09/2024 3:08 PM [facility] Immature Granulocytes Relative 0.5 % LAB HEMETOLOGY METHOD 10/09/2024 3:08 PM [facility] Neutrophils Absolute 3.65 1.50 - 7.00 K/mcL LAB HEMETOLOGY METHOD 10/09/2024 3:08 PM [facility] Lymphocytes Absolute 1.62 1.00 - 5.00 K/mcL LAB HEMETOLOGY METHOD 10/09/2024 3:08 PM [facility] Monocytes Absolute 0.40 0.20 - 1.00 K/mcL LAB HEMETOLOGY METHOD 10/09/2024 3:08 PM [facility] Eosinophils Absolute 0.09 0.00 - 0.50 K/mcL LAB HEMETOLOGY METHOD 10/09/2024 3:08 PM [facility] Basophils Absolute 0.03 0.00 - 0.20 K/[facility] LAB HEMETOLOGY METHOD 10/09/2024 3:08 PM EDT [facility] Immature Granulocytes Absolute 0.03 0.00 - 0.03 /[facility] LAB HEMETOLOGY METHOD 10/09/2024 3:08 PM EDT [facility] Blood Venous blood specimen / Unknown Venipuncture / Unknown 10/09/2024 12:34 PM EDT 10/09/2024 12:34 PM EDT Lucy Rich MD LAB BLOOD ORDERABLES Final Result Performing Organization Address [facility]/ZIP Co de Phone Number [facility] [address] [place] [address], [place] [phone] * ABO Rh (09/21/2024 9:52 PM EDT) ABO Group O 09/22/2024 7:05 AM EDT [facility] Rh Type Positive 09/22/2024 7:05 AM EDT [facility] Blood Venous blood specimen / Unknown Venipuncture / Unknown 09/21/2024 9:52 PM EDT 09/21/2024 10:23 PM EDT Sarah Iverson DO LAB BLOOD BANK TEST ORDER JOY Final Result Performing Organization Address [facility]/ZIP Co de Phone Number [facility] [address] [place] [address], [place] [phone] * HCG, quantitative (09/21/2024 9:52 PM EDT) Only the most recent of3 resultswithin the time period is included. hCG Quant 42,090 mIU/mL LAB CHEMISTRY METHOD 09/21/2024 11:06 PM EDT [facility] Blood Venous blood specimen / Unknown Venipuncture / Unknown 09/21/2024 9:52 PM EDT 09/21/2024 10:23 PM EDT N[facility]ative [facility] - 09/21/2024 11:06 PM EDT Quantitative [...] Sarah Iverson DO LAB BLOOD ORDERABLES Mayda linton Result [facility] ([facility]) [facility] [address] [place] [address], * Comprehensive metabolic panel (09/21/2024 9:52 PM EDT) Only the most recent of2 resultswithin the time period is included. Sodium 140 133 - 145 mmol/L LAB CHEMISTRY METHOD 09/21/2024 10:51 PM [facility] Potassium 3.9 3.5 - 5.5 mmol/L LAB CHEMISTRY METHOD 09/21/2024 10:51 PM [facility] Chloride 106 96 - 110 mmol/L LAB CHEMISTRY METHOD 09/21/2024 10:51 PM [facility] CO2 26 21 - 32 mmol/L LAB CHEMISTRY METHOD 09/21/2024 10:51 PM [facility] Anion Gap 8 3 - 11 LAB CHEMISTRY METHOD 09/21/2024 10:51 PM [facility] Glucose 79 70 - 100 mg/dL LAB CHEMISTRY METHOD 09/21/2024 10:51 PM [facility] BUN 9 5 - 25 mg/dL LAB CHEMISTRY METHOD 09/21/2024 10:51 PM [facility] Creatinine 0.71 0.50 - 1.10 mg/dL LAB CHEMISTRY METHOD 09/21/2024 10:51 PM [facility] eGFR 115 >=60 mL/min/1. 73m2 LAB CHEMISTRY METHOD 09/21/2024 10:51 PM [facility] Comment:Calculation based on the??Chronic Kidney Disease Epidemiology Collaboration (CKD-EPI) equation refit??without adjustment for race. BUN/Creatinine Ratio 12.7 LAB CHEMISTRY METHOD 09/21/2024 10:51 PM [facility] Calcium 9.7 8.5 - 10.5 mg/dL LAB CHEMISTRY METHOD 09/21/2024 10:51 PM [facility] AST (SGOT) 21 10 - 42 unit/L LAB CHEMISTRY METHOD 09/21/2024 10:51 PM [facility] ALT (SGPT) 47 10 - 60 unit/L LAB CHEMISTRY METHOD 09/21/2024 10:51 PM [facility] Alkaline Phosphatase 46 42 - 121 unit/L LAB CHEMISTRY METHOD 09/21/2024 10:51 PM EDT [facility] Total Protein 7.2 6.0 - 8.0 g/dL LAB CHEMISTRY METHOD 09/21/2024 10:51 PM EDT [facility] Albumin 3.5 3.2 - 5.0 g/dL LAB CHEMISTRY METHOD 09/21/2024 10:51 PM EDT [facility] Total Bilirubin 0.4 0.0 - 1.4 mg/dL LAB CHEMISTRY METHOD 09/21/2024 10:51 PM EDT [facility] Blood Venous blood specimen / Unknown Venipuncture / Unknown 09/21/2024 9:52 PM EDT 09/21/2024 10:23 PM EDT us Sarah Iverson DO LAB BLOOD ORDERABLES Mayda l Result [facility] [address] [place] [address], [place] [phone] * US OB Less 14 Wks Single [...] urine manually resulted (09/01/2024 7:32 PM EDT) HCG, Ur POC Positive(A ) Negative POC hCG Int QC Pass? Yes Yes EXPIRATION DATE POC 11/16/2025 LOT NUMBER POC [id number] Urine Urine specimen obtained by clean catch procedure / Unknown 09/01/2024 7:32 PM EDT us Sarah Iverson DO POINT OF CARE TEST ENTER/ EDIT ORDERABLES Final Result * (ABNORMAL) Urinalysis with reflex microscopic and culture (09/01/2024 7:28 PM EDT) Specific [place] Urine 1.015 1.003 - 1.030 LAB URINALYSIS - AUTOMATED METHOD 09/01/2024 8:04 PM [facility] pH, Urine 7.5 5.0 - 8.0 pH LAB URINALYSIS - AUTOMATED METHOD 09/01/2024 8:04 PM [facility] Leukocytes, Urine Trace(A) Negative LAB URINALYSIS - AUTOMATED METHOD 09/01/2024 8:04 PM [facility] Nitrite, Urine Negative Negative LAB URINALYSIS - AUTOMATED METHOD 09/01/2024 8:04 PM [facility] Protein, Urine Negative <=Trace mg/dL LAB URINALYSIS - AUTOMATED METHOD 09/01/2024 8:04 PM [facility] Glucose, Urine Negative Negative mg/dL LAB URINALYSIS - AUTOMATED METHOD 09/01/2024 8:04 PM [facility] Ketones, Urine Negative Negative mg/dL LAB URINALYSIS - AUTOMATED METHOD 09/01/2024 8:04 PM [facility] Urobilinogen , Urine 0.2 0.2 - 1.0 mg/dL LAB URINALYSIS - AUTOMATED METHOD 09/01/2024 8:04 PM [facility] Bilirubin, Urine Negative Negative LAB URINALYSIS - AUTOMATED METHOD 09/01/2024 8:04 PM [facility] Blood, Urine Negative Negative LAB URINALYSIS - AUTOMATED METHOD 09/01/2024 8:04 PM [facility] RBC, Urine 3.1 0 - 4 /HPF LAB URINALYSIS - AUTOMATED METHOD 09/01/2024 8:04 PM [facility] WBC, Urine 3.3 0 - 4 /HPF LAB URINALYSIS - AUTOMATED METHOD 09/01/2024 8:04 PM EDT [facility] Squamous Epithelial, Urine >100(H) 0 - 60 /LPF LAB URINALYSIS - AUTOMATED METHOD 09/01/2024 8:04 PM EDT [facility] Bacteria, Urine Moderate(A) Negative /HPF LAB URINALYSIS - AUTOMATED METHOD 09/01/2024 8:04 PM EDT [facility] Hyaline Casts, Urine 0.0 0 - 3 /LPF LAB URINALYSIS - AUTOMATED METHOD 09/01/2024 8:04 PM EDT [facility] Urine Urine specimen obtained by clean catch procedure / Unknown Non-blood Collection / Unknown 09/01/2024 7:28 PM EDT 09/01/2024 7:50 PM EDT [facility] Cedric Johnson Iverson LAB URINE ORDERABLES Mayda l Result Performing Organization Address City/[facility]/ZIP Co de Phone Number [facility] [address] [place] [address], [place] [phone] * Ford urine culture tube (09/01/2024 7:28 PM EDT) [facility] Extra Tube Hold for add-ons. 09/01/2024 9:01 PM EDT [facility] Comment:Auto resulted. Urine Urine specimen obtained by clean catch procedure / Unknown Non-blood Collection / Unknown 09/01/2024 7:28 PM EDT 09/01/2024 7:50 PM EDT Sarah Johnson Friendfer LAB URINE ORDERABLES Mayda l Result [facility] [address] [place] [address], [place] [phone] * Culture urine (09/01/2024 7:28 PM EDT) Pathologist [facility] Culture, Urine 10,000-49,000 CFU/mL Mixed bacterial morphotypes present suggestive of possible contamination during collection. Suggest appropriate recollection if clinically indicated. 09/02/2024 2:43 PM EDT [facility] Urine Urine specimen obtained by clean catch procedure / Unknown Non-blood Collection / Unknown 09/01/2024 7:28 PM EDT 09/01/2024 8:04 PM EDT [facility] LAB MICROBIOLOGY - GENERA L ORDERABLES Final Result Performing Organization Address City/[facility]/ZIP Co de Phone Number [facility] [address] [place] [address], [place] [phone] * Type and screen (09/01/2024 7:25 PM EDT) [facility] ABO Group O 09/01/2024 8:32 PM EDT [facility] Rh Type Positive 09/01/2024 8:32 PM EDT [facility] Antibody Screen Negative 09/01/2024 8:32 PM EDT [facility] Blood Venous blood specimen / Unknown Venipuncture / Unknown 09/01/2024 7:25 PM EDT 09/01/2024 7:50 PM EDT [facility] Alex Iverson LAB BLOOD BANK TEST ORDER JOY Final Result [facility] [address] [place] [address], [place] [phone] * Hepatitis C antibody (08/24/2024 3:00 PM EST) [facility] Hepatitis C Antibody Negative Negative LAB CHEMISTRY METHOD 08/24/2024 7:15 PM EST [facility] Blood Venous blood specimen / Unknown Venipuncture / Unknown 08/24/2024 3:00 PM EST 08/24/2024 3:00 PM EST us Eli CHIN LAB BLOOD ORDERABLES Final R esult [facility] [address] [place] [address], [place] [phone] * HIV 1,2 antibody, p24 antigen with reflex to differentiation (08/24/2024 3:00 PM EST) HIV Combo AB/AG Negative Negative LAB CHEMISTRY METHOD 08/24/2024 7:16 PM EST [facility] Blood Venous blood specimen / Unknown Venipuncture / Unknown 08/24/2024 3:00 PM EST 08/24/2024 3:00 PM EST Narrative [facility] - 08/24/2024 7:16 PM EST [...] ORDERABLES Final R esult Performing Organization Address [facility] Co de Phone Number [facility] [address] [place] [address], [place] [phone] * Treponema pallidum antibody with reflex to RPR and particle agglutination (08/24/2024 3:00 PM EST) T. Pallidum Antibodies Negative Negative LAB CHEMISTRY METHOD 08/24/2024 6:47 PM EST [facility] Blood Venous blood specimen / Unknown Venipuncture / Unknown 08/24/2024 3:00 PM EST 08/24/2024 3:00 PM EST us Eli CHIN LAB BLOOD ORDERABLES Final R esult Performing Organization Address City/[facility]/ZIP Co de Phone Number [facility] [address] [place] [address], [place] [phone] * Trichomonas vaginalis antigen (08/24/2024 2:51 PM EST) [facility] Trichomonas vaginalis Negative Negative 08/24/2024 7:31 PM EST [facility] Swab Vaginal structure / Unknown Non-blood Collection / Unknown 08/24/2024 2:51 PM EST 08/24/2024 2:51 PM EST us Eli CHIN LAB MICROBIOLOGY - GENERAL O RDERABLES Final Result Performing Organization Address [facility] Co de Phone Number [facility] [address] [place] [address], [place] [phone] * Chlamydia trachomatis and Neisseria gonorrhoeae molecular study (08/24/2024 2:51 PM EST) [facility] Neisseria gonorrhoeae PCR Negative Negative LAB MOLECULAR DIAGNOSTICS METHOD 08/24/2024 9:18 PM EST [facility] Chlamydia trachomatis PCR Negative Negative LAB MOLECULAR DIAGNOSTICS METHOD 08/24/2024 9:18 PM EST [facility] Swab Vaginal structure / Unknown Non-blood Collection / Unknown 08/24/2024 2:51 PM EST 08/24/2024 2:51 PM EST us Eli CHIN LAB MICROBIOLOGY - GENERAL O RDERABLES Final Result Performing Organization Address City/[facility]/ZIP Co de Phone Number [facility] [address] [place] [address], [place] [phone] * XR Elbow 3+ Views Left (08/11/2024 [...] fracture, if present, should become evident. Code 55661 -------- FINAL REPORT -------- Dictated By: Duran Tomlinson Dictated Date: 08/11/2024 11:24 ET Assigned Physician: Duran Tomlinson Reviewed and Electronically Signed By: Duran Tomlinson Signed Date: 08/11/2024 11:29 ET Workstation ID: [id number] Transcribed By: Self Edit Transcribed Date: 08/11/2024 [...] a fracture, ifpresent, should become evident. Code 79657 -------- FINAL REPORT -------- Dictated By: Duran Tomlinson Dictated Date: 08/11/2024 11:24 ET Assigned Physician: Duran Tomlinson Reviewed and Electronically Signed By: Duran Tomlinson Signed Date: 08/11/2024 11:29 ET Workstation ID: [id number] Transcribed By: Self Edit Transcribed Date: 08/11/2024 [...] mg/dL Blood Venous blood specimen / Unknown Result [facility] Historical Provider LAB BLOOD ORDERABLES Mayda l Result from Last 3 Months or Most Recently Relevant to Health Maintenance Insurance [employer] [facility] [employer] Advance Directives Documents on File Type Date Recorded Patient Special Order Jeweler Expl anation Health Care Decision (hx) 06/23/2021 [...] (hx) 06/18/2021 AD WHEELER DIRECTIVE Care Teams Occupational Safety And Health Manager Relationship Specialty Start Date End Date Alexis Kingsley MD [address] [place] [id number] PCP - General Internal Medicine 08/28/24
== END 2024-10-06 15:24 | disposition home or self-care (01) ==
LOC: HO.HOSX 15:23
PROVIDERS: Visit Provider Physician Assistant
DX: M25.522 Pain in left elbow (principal)
CPT/HCPCS: 73080

== ENCOUNTER 2024-10-10 14:19 | Emergency (ER) | payer OTHER, SELFPAY ==
[2024-10-10 14:34] VITALS: BP 150/87; PULSE 73; RESP 18; TEMP 36.6; O2SAT 98; BMI 46.7
--- NOTE | 2024-10-10 14:42 | ED.GENADULT ---
HPI - General Adult General Chief complaint: Upper Respiratory Symptoms Stated complaint: SOB, wheezing Time Seen by Provider: 10/10/24 14:47 Source: patient Mode of arrival: ambulatory Limitations: no limitations History of Present Illness ED Provider: Caio Sauceda HPI narrative: 34 yold healthy female 10 weeks presents to the ED for coughing, sore throat, chilles, and fever since satruday. Patient states she was exposed to Covid positive patient's at her job. patient denies any abdominal pain, nausea, vomitting, vaginal bleeding, or vaginal discharge. Related Data Previous Rx's ?Medication ?Instructions ?Recorded cyclobenzaprine 10 mg tablet 10 mg PO TID PRN muscle spasm #10 09/25/22 tabs meloxicam 15 mg tablet 15 mg PO DAILY PRN pain #14 tabs 09/25/22 acetaminophen 500 mg tablet 500 mg PO Q6H PRN fever or pain 03/08/24 (Tylenol Extra Strength) #14 tabs cyclobenzaprine 5 mg tablet 5 mg PO Q8H PRN pain (scale score 03/08/24 7-10) 5 days #14 tabs lidocaine 5 % topical patch 1 patch topical DAILY PRN pain #30 03/08/24 (Lidoderm) ea naproxen 500 mg tablet 500 mg PO BID PRN pain 10 days #20 03/08/24 tabs ondansetron 4 mg disintegrating 4 mg PO TID PRN nausea and 07/14/24 tablet vomiting 5 days #10 tabs Allergies Allergy/AdvReac Type Severity Reaction Status Date / Time oxycodone [From Percocet] Allergy unkn Verified 10/10/24 14:36 Penicillins Allergy Gastrointestinal Verified 10/10/24 14:36 Upset Review of Systems Review of Systems: coughing, sore throat, fever, or chills. 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 Physical Exam ED Vital Signs: Vital Signs - 24 hr 10/10/24 14:34 Temperature 98 F Pulse Rate 73 Respiratory Rate 18 Blood Pressure 150/87 H Pulse Oximetry 98 Oxygen Delivery Method Room Air BMI result Body Mass Index 46.7 Const General: cooperative, healthy appearing, comfortable, no acute distress, well developed, alert and awake Orientation/consciousness: patient oriented x3 HENMT Head: Yes normal to inspection, Yes No palpable skull fracture present, Yes normocephalic and Yes atraumatic Ears: hearing grossly normal bilaterally, external ears normal, TM's normal bilaterally, TM normal on the right, TM normal on the left, EAC's normal, mastoids normal and no periauricular adenopathy Throat: Yes posterior oropharynx normal, Yes tonsils normal and Yes uvula midline Eyes General: appearance normal, both eyes and all related structures Neck Neck: Yes normal visual inspection, Yes full ROM, Yes no lymphadenopathy, Yes no meningeal signs, Yes trachea midline, Yes supple, No anterior neck swelling and No tender Chest Chest palpation & inspection: normal inspection of the chest and normal palpation of entire chest wall Resp Effort & Inspection: normal respiratory effort and able to speak in complete sentences Auscultation: clear to auscultation bilaterally Cardio Jugular venous distension: no JVD Heart sounds: S1 normal heart sound present and S2 normal heart sound present GI Inspection: Yes normal to inspection Palpation (GI): Soft to palpation, not firm, nontender, no guarding and not rigid General: Yes no CVA tenderness Back/Spine/Pelvis Back: no CVA tenderness and No back tenderness Skin General skin exam: no rashes or lesions noted, elasticity normal and turgor normal Neuro General: patient oriented x3, gait normal, tone normal, moves all extremities, Normal light touch and pain sensation, no meningeal signs, no focal motor deficits, CN's II-XI intact bilaterally and normal sensation to monofilament Extrem General: Yes normal to inspection, Yes full ROM and Yes capillary refill normal Psych Appearance: grossly normal, well kempt and not disheveled Course Course Course Narrative: RME: 34 yold female 10 weeks presents to the ED for coughing, bodyaches, chills, and night sweats since wednesday. patient was exposaed to covid positive patient's at her job. patient states some wheezing. patient denies any leg swelling, calf pain, pitting edema, recent long travel, or recent surgery. positive for slight wheezing in lungs. Labs, CHest xray ordered. Medical Decision Making Medical Decision Making MDM Narrative: 34 yold female 10 weeks presents to the ED for URI SYmpyoms. Patient was exposed to COVID patients at her job. Patient denies any abdominal pain, vaginal bleeding, vaginal discharge, flank pain, nausea or vomiting. Patient denies any leg swelling or calf pain. Patient positive for COVID. Patient is stable. Patient explained worrisome signs and informed to return to the ED immediately. Patient refused xray due to . Differential Diagnosis Differential Diagnoses: The differential diagnosis associated with the presentation includes (COVID, influenza, RSV) Admission/Observation Consideration of admission/observation: Escalation of care including admission/observation considered Lab Data [facility] Lab Attestation statement: I reviewed the patient's lab results. Labs: Lab Results 10/10/24 Range/Units 14:55 Influenza Type A (PCR) NEGATIVE (Negative) Influenza Type B (PCR) NEGATIVE (Negative) RSV RNA Qual (PCR) NEGATIVE (Negative) SARS-CoV-2 RNA (RT-PCR) POSITIVE A (Negative) S. pyogenes GrpA TODD Negative (Negative) Independent Historian Clinical information obtained from an independent historian. History obtained from or confirmed by: Other (patient) Prescription Management I considered prescription management with: Other (albuterol) Discharge Plan Discharge Clinical Impression: COVID-19 Patient Disposition: Home, Self-Care Instructions: COVID-19 (Coronavirus Disease 2019) (ED) Additional Instructions: You tested positive for COVID. Recommend follow-up with PCP. Return to the ED immediately for any chest pain, shortness of breath, coughing up blood, weakness, dizziness, leg swelling, calf pain, chest pain on inspiration, or any other concerning symptoms. Also recommend follow up with OBGYN Prescriptions: No Action meloxicam 15 mg tablet 15 mg PO DAILY PRN (Reason: pain) Qty: 14 0RF cyclobenzaprine 10 mg tablet 10 mg PO TID PRN (Reason: muscle spasm) Qty: 10 0RF ondansetron 4 mg tablet,disintegrating 4 mg PO TID PRN (Reason: nausea and vomiting) 5 Days Qty: 10 0RF acetaminophen [Tylenol Extra Strength] 500 mg tablet 500 mg PO Q6H PRN (Reason: fever or pain) Qty: 14 0RF lidocaine [Lidoderm] 5 % adhesive patch,medicated 1 patch topical DAILY MDD remove after 12 hours PRN (Reason: pain) Qty: 30 0RF Rx Instructions: leave on most painful area for up to 12 hrs naproxen 500 mg tablet 500 mg PO BID PRN (Reason: pain) 10 Days Qty: 20 0RF cyclobenzaprine 5 mg tablet 5 mg PO Q8H PRN (Reason: pain (scale score 7-10)) 5 Days Qty: 14 0RF Stand Alone Forms: Work/School Release Interventions: ED Discharge Assessment Last Done: 10/10/24 17:52 Discharge Date/Time: 10/10/24 17:53 Print Language: Urdu
[2024-10-10 15:43] LABS: IDNOW Serial# 58CA691E; Strep A Nucleic Acid Negative (Negative)
[2024-10-10 16:05] LABS: Influenza A PCR NEGATIVE (Negative); Influenza B PCR NEGATIVE (Negative); Resp Syncy Virus RNA Qual PCR NEGATIVE (Negative); SARS COV2 PCR INHOUSE POSITIVE (Negative)
[2024-10-10 17:52] VITALS: BP 150/87; PULSE 73; RESP 18; TEMP 36.6; O2SAT 98
--- OUTSIDE RECORDS SUMMARY | 2024-10-10 19:06 | XMS_ITS | Clinical Summary ---
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 [facility] site: [facility]: [address] [place] [address] ([phone]) 2. Delivery site: [facility] 3. Mobile Mommas: No 4. Dating [...] BMI of 50 by 28wks transfer to [facility] [place] [place] DVT prophylaxis- Lovenox if CS and BMI >35 Morbid obesity with BMI of 4 5.0-49.9, adult (CMS/[facility] V24, [facility] V28) 04/02/2024 DDD (degenerative disc disease), lumbar 06/21/19 20 Seasonal allergic conjunctivitis 10/06/2017 Recurrent sinusitis 08/26/2017 Mixed hyperlipidemia 10/23/2015 Cyst of left kidney 08/30/2015 Overview (04/02/2024): MRI scan 2015. 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 Fatty liver 08/12/2015 Overview (04/02/2024): Incidental finding on CT scan at [facility] dated 08/11/2015. LFTs normal. IBS (irritable bowel syndrome) 07/08/2015 PCOS (polycystic ovarian syndrome) 09/24/2014 Estimated Date of Delivery Comme nts Yes 05/03/2025 Date entered miguelito or to episode creation Encounters Date Type Department Care Team Description 10/09/2024 10:00 AM EDT Clinical Support Obstetrics and Gynecology [address] [phone] care, subsequent in first trimester (Primary Dx); H/O gastric sleeve; History of appendectomy; History of cholecystectomy; Obesity complicating childbirth 09/21/2024 7:56 PM EDT - 09/21/2024 10:37 PM EDT [facility] [address] [place] [phone] Discharge Disposition: Home or Self Care 09/19/2024 Telephone Obstetrics and Gynecology - [address] [phone] Sallie Patino RN 09/18/2024 11:15 AM EDT Office Visit Obstetrics and Gynecology - [address] [phone] Brunilda Pettit CNM test positive (Primary Dx); Nausea and vomiting in prior to 22 weeks gestation 09/18/2024 Telephone Obstetrics and Gynecology - [address] [phone] Sandra Gomez CNM Vomiting During 09/01/2024 8:27 PM EDT - 09/01/2024 11:11 PM EDT [facility] [address] [place] [address] [phone] Abdominal pain during in first trimester (Primary Dx) Discharge Disposition: Left Against Medical Advice 08/24/2024 2:20 PM EST Office Visit Obstetrics and Gynecology - [address] [phone] Eli Ford PA Screen for STD (sexually transmitted disease) (Primary Dx) 08/11/2024 9:30 AM EST - 08/11/2024 12:28 PM EST [facility] [address] [place] [address] [phone] Clive Rodriguez MD Cervical strain, acute, initial [...] COMMENT: low back FLEXIBLE SIGMOIDOSCOPY 05/21/2014 PROCEDURE: CA SIGMOIDOSCOPY FLX DX W/COLLJ SPEC BR/WA IF [...] Estimated Date of Delivery 10/09/2024 - Present (10/10/2024) 05/03/2025 (based on Alternate NISHANT Entry) Dating Summary Based On NISHANT GA Diff Last Menstrual Period on 07/27/2024 05/03/2025 Same Ultrasound on 09/21/2024 05/04/2025 -1d [id number] Alternate NISHANT Entry 05/03/2025 Working Comment:Date entered prior t o episode creation Vitals Pregravid Weight Height TWG (As of 10/10/2024) Pregrav id BMI 119 kg (262 lb) [...] Pt aware of transfer of care to [facility] [place] [place] if BMI>50 in .Pt will have 1Hr [...] to the above questions, is this for sikhism reasons? N/A Do you know what your [...] of estimated date of delivery No Thalassemia (Albanian, Afghan, Mediterranean, or background): MCV less than 80 No Neural tube defect (Meningomyelocele, Spina bifida, or Anencephaly) No Congenital heart defect No Down syndrome No Chon-Sachs (Ashkenazi Zoroastrianism, Cajun, Nepali Cymro) No Yola disease (Ashkenazi Zoroastrianism) No Familial dysautonomia (Ashkenazi Zoroastrianism) No Sickle cell disease or trait () No Hemophilia or other blood disorders No Muscular dystrophy No Cystic fibrosis No Mchenry's chorea No Intellectual disability and/or autism No [...] Spear has also been informed of the nitroglycerin neutralizer provider recommendation for first trimester nuchal lucency [...] Genetic Testing has been reviewed and the [employer] information sheet has been provided to the [...] For Horizon Carrier Screening, if patient has Aleth, [facility] or [employer] insurances: Not Applicable Electronically signed by: Sallie [...] AM EDT Ancillary Procedure Maternal Medicine - [address] [phone] 10/19/2024 10:15 AM EDT Initial Obstetrics and Gynecology - [address] [phone] Lucy Rich MD [address], [place] Health Maintenance Due Date Last Done [...] Completed 08/08/2007, 01/2007, 01/25/2007 HIV Screening Completed 10/09/2024, 08/24/2024 Hepatitis C Screening Completed 10/09/2024 , 08/24/2024, 06/30/2023 Hepatitis A Vaccines Aged Out No long [...] Procedure Name Priority Date/Time Associated Diagnosis Comments GTT GESTATIONAL 1 HOUR Routine 5 12:34 PM EDT care, subsequent in first trimester GLUCOSE TOLERANCE TEST, 1H GESTATION Routine 10/09/2024 12:34 PM EDT care, subsequent in first trimester CBC WITH AUTO DIFFERENTIAL Routine 10/09/2024 12:34 PM EDT care, subsequent in first trimester VARICELLA ZOSTER ANTIBODY IGG Routine 10/09/2024 12:34 PM EDT care, subsequent in first trimester HEPATITIS B SURFACE ANTIGEN WITH CONFIRMATION Routine 10/09/2024 12:34 PM EDT care, subsequent in first trimester CBC AND DIFFERENTIAL Routine 10/09/2024 12:34 PM EDT care, subsequent in first trimester DRUG ABUSE SCREEN EXPANDED WITH REFLEX CONFIRMATION, URINE Routine 10/09/2024 12:34 PM EDT care, subsequent in first trimester HEPATITIS C ANTIBODY Routine 10/09/2024 12:34 PM EDT care, subsequent in first trimester HIV 1, 2 ANTIBODY, P24 ANTIGEN WITH REFLEX TO DIFFERENTIATION Routine 10/09/2024 12:34 PM EDT care, subsequent in first trimester RUBELLA ANTIBODY IGG Routine 10/09/2024 12:34 PM EDT care, subsequent in first trimester TREPONEMA PALLIDUM ANTIBODY WITH REFLEX TO RPR AND PARTICLE AGGLUTINATION Routine 10/09/2024 12:34 PM EDT care, subsequent in first trimester TYPE AND SCREEN Routine 10/09/2024 12:34 PM EDT care, subsequent in first trimester ALANINE AMINOTRANSFERASE Routine 025 12:34 PM EDT care, subsequent in first trimester ASPARTATE AMINOTRANSFERASE Routine 10/09/2024 12:34 PM EDT care, subsequent in first trimester CREATININE, SERUM Routine 10/09/2024 12: 34 PM EDT care, subsequent in first trimester PROTEIN AND CREATININE WITH RATIO, URINE Routine 10/09/2024 12:34 PM EDT care, subsequent in first trimester HEMOGLOBIN A1C Routine 10/09/2024 12:34 PM EDT care, subsequent in first trimester VENIPUNCTURE CHARGE Routine 10/09/2024 1 2:34 PM EDT care, subsequent in first trimester CULTURE URINE Routine 10/09/2024 12:34 PM EDT care, subsequent [...] Health Maintenance Results * Hepatitis C antibody (10/09/2024 12:34 PM EDT) Only the most recent of2 resultswithin the time period is included. Hepatitis C Antibody Negative Negative LAB CHEMISTRY METHOD 10/09/2024 8:[address] [facility] Blood Venous blood specimen / Unknown Venipuncture / Unknown 10/09/2024 12:34 PM EDT 10/09/2024 12:34 PM EDT us Lucy Rich MD LAB BLOOD ORDERABLES Final Result Performing Organization Address City/[facility]/ZIP Co de Phone Number [facility] [address] [place] [address], [place] [phone] * HIV 1,2 antibody, p24 antigen with reflex to differentiation (10/09/2024 12:34 PM EDT) Only the most recent of2 resultswithin the time period is included. Pathologist [facility] HIV Combo AB/AG Negative Negative LAB CHEMISTRY METHOD 10/09/2024 8:[address] [facility] Blood Venous blood specimen / Unknown Venipuncture / Unknown 10/09/2024 12:34 PM EDT 10/09/2024 12:[address] [facility] - 10/09/2024 8:43 PM EDT This assay is a 4th generation assay allowing for earlier detection of HIV infection by detecting the presence of the HIV-1 p24 antigen as well as the traditional antibodies to HIV type 1 (including group O) and type 2. ??Use of a 4th generation assay is the current CDC recommendation for HIV screening. us Lucy Rich MD LAB BLOOD ORDERABLES Final Result Performing Organization Address City/[facility]/ZIP Co de Phone Number [facility] [address] [place] [address], [place] [phone] * Hepatitis B surface antigen with reflex to confirmation (10/09/2024 12:34 PM EDT) [facility] Hepatitis B Surface Ag Negative Negative LAB CHEMISTRY METHOD 10/09/2024 8:[address] [facility] Blood Venous blood specimen / Unknown Venipuncture / Unknown 10/09/2024 12:34 PM EDT 10/09/2024 12:[address] [facility] - 10/09/2024 8:14 PM EDT Over the counter supplements containing high doses of biotin may interfere with this assay. ??If interference is suspected, patients shoud be retested after refraining from biotin supplements for 72 hours. us Lucy Rich MD LAB BLOOD ORDERABLES Final Result Performing Organization Address City/[facility]/ZIP Co de Phone Number [facility] [address] [place] [address], [place] [phone] * Treponema pallidum antibody with reflex to RPR and particle agglutination (10/09/2024 12:34 PM EDT) Only the most recent of2 resultswithin the time period is included. [facility] T. Pallidum Antibodies Negative Negative LAB CHEMISTRY METHOD 10/09/2024 8:[address] [facility] Blood Venous blood specimen / Unknown Venipuncture / Unknown 10/09/2024 12:34 PM EDT 10/09/2024 12:34 PM EDT us Lucy Rich MD LAB BLOOD ORDERABLES Final Result Performing Organization Address [facility]/ZIP Co de Phone Number [facility] [address] [place] [address], [place] [phone] * Venipuncture charge (10/09/2024 12:34 PM EDT) Extra Tube Hold for add-ons. 10/09/2024 2:[address] [facility] Comment:Auto resulted. Blood Venous blood specimen / Unknown Venipuncture / Unknown 10/09/2024 12:34 PM EDT 10/09/2024 12:34 PM EDT Lucy Rich MD LAB BLOOD ORDERABLES Final Result [facility] OR, * GTT gestational 1 hour (10/09/2024 12:34 PM EDT) Glucose, 1 HR Gestational 91 See Comment mg/dL LAB CHEMISTRY METHOD 10/09/2024 5:[address] [facility] Blood Venous blood specimen / Unknown Venipuncture / Unknown 10/09/2024 12:34 PM EDT 10/09/2024 12:[address] [facility] - 10/09/2024 5:13 PM EDT Gestational Diabetes Challenge Reference Range: 1 hour Glucose <140 mg/dL Lucy Rich MD LAB BLOOD ORDERABLES Final Result Performing Organization Address City/[facility]/ZIP Co de Phone Number [facility] [address] [place] [address], * Drug abuse screen expanded with reflex confirmation, urine (10/09/2024 12:34 PM EDT) Amphetamine Screen, Ur Negative Negative LAB CHEMISTRY METHOD 10/09/2024 5:[address] [facility] Comment:Certain OTC medicati ons containing ephedrine, phenylephrine, pseudoephedrine and phenylpropanolamine can cause false positive results. Barbiturate Screen, Ur Negative Negative LAB CHEMISTRY METHOD 10/09/2024 5:[address] [facility] Benzodiazepine Screen, Ur Negative Negative LAB CHEMISTRY METHOD 10/09/2024 5:[address] [facility] Cocaine Screen, Ur Negative Negative LAB CHEMISTRY METHOD 10/09/2024 5:[address] [facility] Opiate Screen, Ur Negative Negative LAB CHEMISTRY METHOD 10/09/2024 5:[address] [facility] Cannabinoid (THC) Screen, Ur Negative Negative LAB CHEMISTRY METHOD 10/09/2024 5:[address] [facility] Comment:Specimens from patie nts taking pantoprazole sodium (Protonix) have been shown to produce false positive results. Fentanyl, Ur Negative Negative LAB CHEMISTRY METHOD 10/09/2024 5:[address] [facility] Oxycodone Screen, Ur Negative Negative LAB CHEMISTRY METHOD 10/09/2024 5:[address] [facility] Urine Urine specimen obtained by clean catch procedure / Unknown Non-blood Collection / Unknown 10/09/2024 12:34 PM EDT 10/09/2024 12:[address] [facility] - 10/09/2024 5:19 PM EDT Assay cutoffs: Amphetamines ? 1000 ng/mL Barbiturates ?200 ng/mL Benzodiazepines ?? 200 ng/mL Cocaine ? 300 ng/mL Fentanyl ?1 ng/mL Opiates ? 300 ng/mL Oxycodone ? 100 ng/mL THC ?50 ng/mL Semi-quantitative assay for screening purposes only. Unconfirmed screening result should not be used for non-medical purposes. *POSITIVE RESULTS ARE AUTOMATICALLY SENT FOR ALTERNATE METHOD CONFIRMATION* us Lucy Rich MD LAB URINE ORDERABLES Final Result [facility]) [facility] [address] [place] [address], * (ABNORMAL) CBC auto differential (10/09/2024 12:34 PM EDT) Only the most recent of3 resultswithin the time period is included. [facility] Signature WBC 5.8 4.8 - 10.8 K/mcL LAB HEMETOLOGY [facility] RBC 4.00 3.80 - 4.80 M/mcL LAB HEMETOLOGY METHOD 10/09/2024 3:[address] [facility] Hemoglobin 12.2 11.5 - 16.0 g/dL LAB HEMETOLOGY METHOD 10/09/2024 3:08 PM [facility] Hematocrit 38.2 35.0 - 47.0 % LAB HEMETOLOGY METHOD 10/09/2024 3:[facility] MCV 94.8 79.0 - 98.0 FL LAB HEMETOLOGY METHOD 10/09/2024 3:[facility] MCH 30.3 27.0 - 32.0 pcg LAB HEMETOLOGY METHOD 10/09/2024 3:08 PM [facility] MCHC 31.9(L) 32.0 - 37.0 g/dL LAB HEMETOLOGY METHOD 10/09/2024 3:08 PM [facility] RDW 14.2 11.0 - 15.0 % LAB HEMETOLOGY METHOD 10/09/2024 3:[facility] Platelets 228 130 - 400 K/mcL LAB HEMETOLOGY METHOD 10/09/2024 3:[facility] MPV 10.8 7.0 - 11.0 FL LAB HEMETOLOGY METHOD 10/09/2024 3:[facility] NRBC 0.0 <1.0 % LAB HEMETOLOGY METHOD 10/09/2024 3:08 PM [facility] NRBC Absolute 0.00 <0.10 K/mcL LAB HEMETOLOGY METHOD 10/09/2024 3:08 PM [facility] Neutrophils Relative 62.8 % LAB HEMETOLOGY METHOD 10/09/2024 3:08 PM [facility] Lymphocytes Relative 27.8 % LAB HEMETOLOGY METHOD 10/09/2024 3:08 PM [facility] Monocytes Relative 6.9 % LAB HEMETOLOGY METHOD 10/09/2024 3:08 PM [facility] Eosinophils Relative 1.5 % LAB HEMETOLOGY METHOD 10/09/2024 3:08 PM [facility] Basophils Relative 0.5 % LAB HEMETOLOGY METHOD 10/09/2024 3:08 PM [facility] Immature Granulocytes Relative 0.5 % LAB HEMETOLOGY METHOD 10/09/2024 3:08 PM [facility] Neutrophils Absolute 3.65 1.50 - 7.00 K/mcL LAB HEMETOLOGY METHOD 10/09/2024 3:08 PM [facility] Lymphocytes Absolute 1.62 1.00 - 5.00 K/mcL LAB HEMETOLOGY METHOD 10/09/2024 3:08 PM [facility] Monocytes Absolute 0.40 0.20 - 1.00 K/mcL LAB HEMETOLOGY METHOD 10/09/2024 3:08 PM [facility] Eosinophils Absolute 0.09 0.00 - 0.50 K/mcL LAB HEMETOLOGY METHOD 10/09/2024 3:08 PM [facility] Basophils Absolute 0.03 0.00 - 0.20 K/mcL LAB HEMETOLOGY METHOD 10/09/2024 3:08 PM [facility] Immature Granulocytes Absolute 0.03 0.00 - 0.03 K/mcL LAB HEMETOLOGY METHOD 10/09/2024 3:[address] [facility] Blood Venous blood specimen / Unknown Venipuncture / Unknown 10/09/2024 12:34 PM EDT 10/09/2024 12:34 PM EDT us Lucy Rich MD LAB BLOOD ORDERABLES Final Result [facility] [address] [place] [address], [place] [phone] * Protein and creatinine with ratio, urine (10/09/2024 12:34 PM EDT) Protein, Urine 22 mg/dL LAB CHEMISTRY METHOD 10/09/2024 5:[address] [facility] Prot/Creat, Ur 0.10 <=0.20 mg/mg creat LAB CHEMISTRY METHOD 10/09/2024 5:[address] [facility] Creatinine, Urine 224.0 mg/dL LAB CHEMISTRY METHOD 10/09/2024 5:[address] [facility] Urine Urine specimen obtained by clean catch procedure / Unknown Non-blood Collection / Unknown 10/09/2024 12:34 PM EDT 10/09/2024 12:34 PM EDT us Lucy Rich MD LAB URINE ORDERABLES Final Result [facility] [address] [place] [address], [place] [phone] * Creatinine (10/09/2024 12:34 PM EDT) Creatinine 0.63 0.50 - 1.10 mg/dL LAB CHEMISTRY METHOD 10/09/2024 7:[address] [facility] eGFR 120 >=60 mL/min/1. 73m2 LAB CHEMISTRY METHOD 10/09/2024 7:[address] [facility] Comment:Calculation based on the??Chronic Kidney Disease Epidemiology Collaboration (CKD-EPI) equation refit??without adjustment for race. Blood Venous blood specimen / Unknown Venipuncture / Unknown 10/09/2024 12:34 PM EDT 10/09/2024 12:34 PM EDT us Lucy Rich MD LAB BLOOD ORDERABLES Final Result Performing Organization Address [facility] de Phone Number [facility] [address] [place] [address], [place] [phone] * (ABNORMAL) Rubella antibody IgG (10/09/2024 12:34 PM EDT) [facility] Rubella IgG Quant 9.6(L) >=10.0 I Unit/mL LAB CHEMISTRY METHOD 10/09/2024 9:[address] [facility] Rubella IgG Antibody Interp Equivocal (A) Positive LAB CHEMISTRY METHOD 10/09/2024 9:[address] [facility] Comment:Results verified by repeat testing Blood Venous blood specimen / Unknown Venipuncture / Unknown 10/09/2024 12:34 PM EDT 10/09/2024 12:34 PM EDT us Lucy Rich MD LAB BLOOD ORDERABLES Final Result Performing Organization Address [facility] Co de Phone Number [facility] [address] [place] [address], [place] [phone] * Type and screen (10/09/2024 12:34 PM EDT) Only the most recent of2 resultswithin the time period is included. Pathologist [facility] ABO Group O 10/09/2024 4:[address] [facility] Rh Type Positive 10/09/2024 4:[address] [facility] Antibody Screen Negative 10/09/2024 4:[address] [facility] Blood Venous blood specimen / Unknown Venipuncture / Unknown 10/09/2024 12:34 PM EDT 10/09/2024 12:34 PM EDT us Lucy Rich MD LAB BLOOD BANK TEST ORDERAB LES Final Result Performing Organization Address [facility]/ZIP Co de Phone Number [facility] [address] [place] [address], [place] [phone] * Culture urine (10/09/2024 12:34 PM EDT) Only the most recent of2 resultswithin the time period is included. Pathologist [facility] Culture, Urine <10,000 cfu/mL Mixed bacterial reinier 10/10/2024 10:[address] [facility] Urine Urine specimen obtained by clean catch procedure / Unknown Non-blood Collection / Unknown 10/09/2024 12:34 PM EDT 10/09/2024 12:34 PM EDT us Lucy Rich MD LAB MICROBIOLOGY - GENERAL ORDERABLES Final Result Performing Organization Address [facility] de Phone Number [facility] [address] [place] [address], [place] [phone] * Varicella zoster antibody IgG (10/09/2024 12:34 PM EDT) Varicella IgG Positive Positive LAB CHEMISTRY METHOD 10/10/2024 9:[address] [facility] Varicella Zoster IgG 1.26 >=1.00 S/CO LAB CHEMISTRY METHOD 10/10/2024 9:[address] [facility] Blood Venous blood specimen / Unknown Venipuncture / Unknown 10/09/2024 12:34 PM EDT 10/09/2024 12:[address] [facility] - 10/10/2024 9:23 AM EDT Interpretation >= 1.00 S/CO is considered to be consistent with Immunity us Lucy Rich MD LAB BLOOD ORDERABLES Final Result Performing Organization Address [facility] de Phone Number [facility] [address] [place] [address], [place] [phone] * Alanine aminotransferase (10/09/2024 12:34 PM EDT) [facility] ALT (SGPT) 29 10 - 60 unit/L LAB CHEMISTRY METHOD 10/09/2024 7:[address] [facility] Blood Venous blood specimen / Unknown Venipuncture / Unknown 10/09/2024 12:34 PM EDT 10/09/2024 12:34 PM EDT us Lucy Rich MD LAB BLOOD ORDERABLES Final Result Performing Organization Address [facility] de Phone Number [facility] [address] [place] [address], [place] [phone] * Aspartate aminotransferase (10/09/2024 12:34 PM EDT) [facility] AST (SGOT) 10 10 - 42 unit/L LAB CHEMISTRY METHOD 10/09/2024 7:[address] [facility] Blood Venous blood specimen / Unknown Venipuncture / Unknown 10/09/2024 12:34 PM EDT 10/09/2024 12:34 PM EDT us Lucy Rich MD LAB BLOOD ORDERABLES Final Result Performing Organization Address [facility] de Phone Number [facility] [address] [place] [address], [place] [phone] * Hemoglobin A1c (10/09/2024 12:34 PM EDT) [facility] Hemoglobin A1C 5.3 <6.5 % LAB CHEMISTRY METHOD 10/09/2024 9:[address] [facility] Mean Bld Glu Estim. 105 mg/dL LAB CHEMISTRY METHOD 10/09/2024 9:[address] [facility] Blood Venous blood specimen / Unknown Venipuncture / Unknown 10/09/2024 12:34 PM EDT 10/09/2024 12:34 PM EDT Lucy Rich MD LAB BLOOD ORDERABLES Final Result [facility] [address] [place] [address], * ABO Rh (09/21/2024 9:52 PM EDT) [facility] ABO Group O 09/22/2024 7:[address] [facility] Rh Type Positive 09/22/2024 7:[address] [facility] Blood Venous blood specimen / Unknown Venipuncture / Unknown 09/21/2024 9:52 PM EDT 09/21/2024 10:23 PM EDT Sarah Iverson DO LAB BLOOD BANK TEST ORDER JOY Final Result Performing Organization Address City/[facility]/ZIP Co de Phone Number [facility] [address] [place] [address], [place] [phone] * HCG, quantitative (09/21/2024 9:52 PM EDT) Only the most recent of3 resultswithin the time period is included. [facility] hCG Quant 42,090 mIU/mL LAB CHEMISTRY METHOD 09/21/2024 11:[address] [facility] Blood Venous blood specimen / Unknown Venipuncture / Unknown 09/21/2024 9:52 PM EDT 09/21/2024 10:23 PM EDT Narrative [facility] - 09/21/2024 11:06 PM EDT [...] DO LAB BLOOD ORDERABLES Mayda l [facility] [address] [place] [address], * Comprehensive metabolic panel (09/21/2024 9:52 PM EDT) Only the most recent of2 resultswithin the time period is included. Pathologist [facility] Sodium 140 133 - 145 mmol/L LAB CHEMISTRY METHOD 09/21/2024 10:51 PM [facility] Potassium 3.9 3.5 - 5.5 mmol/L LAB CHEMISTRY METHOD 09/21/2024 10:51 PM [facility] Chloride 106 96 - 110 mmol/L LAB CHEMISTRY METHOD 09/21/2024 10:51 PM [facility] CO2 26 21 - 32 mmol/L LAB CHEMISTRY METHOD 09/21/2024 10:51 PM [facility] Anion Gap 8 3 - 11 LAB CHEMISTRY METHOD 09/21/2024 10:51 PM [facility] Glucose 79 70 - 100 mg/dL LAB CHEMISTRY METHOD 09/21/2024 10:51 PM [facility] BUN 9 5 - 25 mg/dL LAB CHEMISTRY METHOD 09/21/2024 10:51 PM [facility] Creatinine 0.71 0.50 - 1.10 mg/dL LAB CHEMISTRY METHOD 09/21/2024 10:51 PM [facility] eGFR 115 >=60 mL/min/1. 73m2 LAB CHEMISTRY METHOD 09/21/2024 10:51 PM [facility] Comment:Calculation based on the??Chronic Kidney Disease Epidemiology Collaboration (CKD-EPI) equation refit??without adjustment for race. BUN/Creatinine Ratio 12.7 LAB CHEMISTRY METHOD 09/21/2024 10:51 PM [facility] Calcium 9.7 8.5 - 10.5 mg/dL LAB CHEMISTRY METHOD 09/21/2024 10:51 PM [facility] AST (SGOT) 21 10 - 42 unit/L LAB CHEMISTRY METHOD 09/21/2024 10:51 PM [facility] ALT (SGPT) 47 10 - 60 unit/L LAB CHEMISTRY METHOD 09/21/2024 10:51 PM [facility] Alkaline Phosphatase 46 42 - 121 unit/L LAB CHEMISTRY METHOD 09/21/2024 10:[address] [facility] Total Protein 7.2 6.0 - 8.0 g/dL LAB CHEMISTRY METHOD 09/21/2024 10:[address] [facility] Albumin 3.5 3.2 - 5.0 g/dL LAB CHEMISTRY METHOD 09/21/2024 10:[address] [facility] Total Bilirubin 0.4 0.0 - 1.4 mg/dL LAB CHEMISTRY METHOD 09/21/2024 10:[address] [facility] Blood Venous blood specimen / Unknown Venipuncture / Unknown 09/21/2024 9:52 PM EDT 09/21/2024 10:23 PM EDT us Sarah Louisny Kishor DO LAB BLOOD ORDERABLES Mayda l Result [facility] [address] [place] [address], [place] [phone] * US OB Less 14 Wks Single [...] EXPIRATION DATE POC 11/16/2025 LOT NUMBER POC 450573 Urine Urine specimen obtained by clean catch procedure / Unknown 09/01/2024 7:32 PM EDT us Sarah Iverson DO POINT OF CARE TEST ENTER/ EDIT ORDERABLES Final Result * (ABNORMAL) Urinalysis with reflex microscopic and culture (09/01/2024 7:28 PM EDT) Specific [place] Urine 1.015 1.003 - 1.030 LAB URINALYSIS - AUTOMATED METHOD 09/01/2024 8:04 PM [facility] pH, Urine 7.5 5.0 - 8.0 pH LAB URINALYSIS - AUTOMATED METHOD 09/01/2024 8:04 PM [facility] Leukocytes, Urine Trace(A) Negative LAB URINALYSIS - AUTOMATED METHOD 09/01/2024 8:04 PM [facility] Nitrite, Urine Negative Negative LAB URINALYSIS - AUTOMATED METHOD 09/01/2024 8:04 PM [facility] Protein, Urine Negative <=Trace mg/dL LAB URINALYSIS - AUTOMATED METHOD 09/01/2024 8:04 PM [facility] Glucose, Urine Negative Negative mg/dL LAB URINALYSIS - AUTOMATED METHOD 09/01/2024 8:04 PM [facility] Ketones, Urine Negative Negative mg/dL LAB URINALYSIS - AUTOMATED METHOD 09/01/2024 8:04 PM [facility] Urobilinogen , Urine 0.2 0.2 - 1.0 mg/dL LAB URINALYSIS - AUTOMATED METHOD 09/01/2024 8:04 PM [facility] Bilirubin, Urine Negative Negative LAB URINALYSIS - AUTOMATED METHOD 09/01/2024 8:04 PM [facility] Blood, Urine Negative Negative LAB URINALYSIS - AUTOMATED METHOD 09/01/2024 8:04 PM [facility] RBC, Urine 3.1 0 - 4 /HPF LAB URINALYSIS - AUTOMATED METHOD 09/01/2024 8:04 PM [facility] WBC, Urine 3.3 0 - 4 /HPF LAB URINALYSIS - AUTOMATED METHOD 09/01/2024 8:[address] [facility] Squamous Epithelial, Urine >100(H) 0 - 60 /LPF LAB URINALYSIS - AUTOMATED METHOD 09/01/2024 8:[address] [facility] Bacteria, Urine Moderate(A) Negative /HPF LAB URINALYSIS - AUTOMATED METHOD 09/01/2024 8:[address] [facility] Hyaline Casts, Urine 0.0 0 - 3 /LPF LAB URINALYSIS - AUTOMATED METHOD 09/01/2024 8:[address] [facility] Urine Urine specimen obtained by clean catch procedure / Unknown Non-blood Collection / Unknown 09/01/2024 7:28 PM EDT 09/01/2024 7:50 PM EDT [facility] [employer] LAB URINE ORDERABLES Mayda l Result Performing Organization Address City/[facility]/ZIP Co de Phone Number [facility] [address] [place] [address], [place] [phone] * Ford urine culture tube (09/01/2024 7:28 PM EDT) Pathologist [facility] Extra Tube Hold for add-ons. 09/01/2024 9:[address] [facility] Comment:Auto resulted. Urine Urine specimen obtained by clean catch procedure / Unknown Non-blood Collection / Unknown 09/01/2024 7:28 PM EDT 09/01/2024 7:50 PM EDT [facility] [employer] LAB URINE ORDERABLES Mayda l Result [facility] [address] [place] [address], [place] [phone] * Trichomonas vaginalis antigen (08/24/2024 2:51 PM EST) Trichomonas vaginalis Negative Negative 08/24/2024 7:[address] [facility] Swab Vaginal structure / Unknown Non-blood Collection / Unknown 08/24/2024 2:51 PM EST 08/24/2024 2:51 PM EST us Eli CHIN LAB MICROBIOLOGY - GENERAL O RDERABLES Final Result Performing Organization Address [facility]/ZIP Co de Phone Number [facility] [address] [place] [address], [place] [phone] * Chlamydia trachomatis and Neisseria gonorrhoeae molecular study (08/24/2024 2:51 PM EST) Neisseria gonorrhoeae PCR Negative Negative LAB MOLECULAR DIAGNOSTICS METHOD 08/24/2024 9:[address] [facility] Chlamydia trachomatis PCR Negative Negative LAB MOLECULAR DIAGNOSTICS METHOD 08/24/2024 9:[address] [facility] Swab Vaginal structure / Unknown Non-blood Collection / Unknown 08/24/2024 2:51 PM EST 08/24/2024 2:51 PM EST us Eli CHIN LAB MICROBIOLOGY - GENERAL O RDERABLES Final Result Performing Organization Address [facility] de Phone Number [facility] [address] [place] [address], [place] [phone] * XR Elbow 3+ Views Left (08/11/2024 [...] fracture, if present, should become evident. Code 41837 -------- FINAL REPORT -------- Dictated By: Duran Tomlinson Dictated Date: 08/11/2024 11:24 ET Assigned Physician: Duran Tomlinson Reviewed and Electronically Signed By: Duran Tomlinson Signed Date: 08/11/2024 11:29 ET Workstation ID: [id number] Transcribed By: Self Edit Transcribed Date: 08/11/2024 [...] a fracture, ifpresent, should become evident. Code 66057 -------- FINAL REPORT -------- Dictated By: Duran Tomlinson Dictated Date: 08/11/2024 11:24 ET Assigned Physician: Duran Tomlinson Reviewed and Electronically Signed By: Duran Tomlinson Signed Date: 08/11/2024 11:29 ET Workstation ID: [id number] Transcribed By: Self Edit Transcribed Date: 08/11/2024 11:24 ET Clive Rodrgiuez MD IMG XR PROCEDURES Final Result * Pap Smear (04/20/2023) HM Pap smear NEGATIVE, ABSTRACTED Historical Provider HEALTH [...] Most Recently Relevant to Health Maintenance [facility] Advance Directives Documents on File Type Date Recorded Patient Ctrs Expl anation Health Care Decision (hx) 06/23/2021 [...] (hx) 06/18/2021 AD 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
--- OUTSIDE RECORDS SUMMARY | 2024-10-10 19:06 | XMS_ITS | Encounter Summary ---
Author Organization [place] [address] Care Team Providers Care Forest And Conservation Worker Name Role Phone Alexis Kingsley MD Primary Care Provider [phone] Reason for Referral * Imaging (Routine) - Pending Review Specialty Diagnoses / Procedures Referred By Rahel barba Referred To Contact Radiology Diagnoses care, subsequent in first trimester Procedures US OB Less 14 Wks Nuchal Measurement Lucy Rich MD [address] [place] [address] Phone: tel: fax: [address] Phone: tel: Referral ID Status Reason Start Date Expiration Date V isits Requested Visits Authorized [id number] Pending Review 10/09/2024 10/09/2025 1 1 Reason for Visit * Reason Comments nurse Encounter Details Date Type Department Care Team (Latest Contact Info) Description 10/09/2024 10:00 AM EDT Clinical Support Obstetrics and Gynecology [address] [phone] care, subsequent in first trimester (Primary Dx); [...] X Mylicon Pha GERD/Heartburn/Indigestion: Maalox Mylanta Tums Bianca Dover Tagamet Pepcid Zantac Headache: Acetaminophen (Tylenol) Excedrin [...] Pt aware of transfer of care to [facility] if BMI>50 in .Pt will have 1Hr GTT Glucose on 10/19/24 Patient's last menstrual period was 07/27/2024. (exact date)., which would make her currently [id number] an Estimated Date of Delivery: 05/03/25. She [...] to the above questions, is this for hinduism reasons? N/A Do you know what your [...] of estimated date of delivery No Thalassemia (Armenian, French, Mediterranean, or background): MCV less than 80 No Neural tube defect (Meningomyelocele, Spina bifida, or Anencephaly) No Congenital heart defect No Down syndrome No Chon-Sachs (Ashkenazi Hindu, Cajun, Taiwanese [place]) No Yola disease (Ashkenazi Hindu) No Familial dysautonomia (Ashkenazi Hindu) No Sickle cell disease or trait () No Hemophilia or other blood disorders No Muscular dystrophy No Cystic fibrosis No [place]'s chorea No Intellectual disability and/or autism No [...] Spear has also been informed of the armature rewinder provider recommendation for first trimester nuchal lucency [...] Genetic Testing has been reviewed and the Lit [employer] information sheet has been provided to the [...] For Horizon Carrier Screening, if patient has [place], PlaceFull or PBC Lasers insurances:Not Applicable Electronically signed by: Sallie Patino RN 10/09/24 10:29 AM EDT documented in this encounter Plan of Treatment Upcoming Encounters Date Type Department Care Team (Late st Contact Info) Description 10/19/2024 9:00 AM EDT Ancillary Procedure Maternal Medicine - [address] [phone] 10/19/2024 10:15 AM EDT Initial Obstetrics and Gynecology - [address] [phone] Lucy Rich MD [address] [place] [address] Scheduled Orders Name Type Priority Associated Diagnoses Orde r Schedule US OB Less 14 Wks Nuchal Measurement Imaging Routine care, subsequent in first trimester Expected: 10/18/2024, Expires: 11/01/2024 documented as of this encounter Results * Hemoglobin A1c (10/09/2024 12:34 PM EDT) Hemoglobin A1C 5.3 <6.5 % LAB CHEMISTRY METHOD 10/09/2024 9:58 PM EDT [facility] Mean Bld Glu Estim. 105 mg/dL LAB CHEMISTRY METHOD 10/09/2024 9:58 PM EDT [facility] Blood Venous blood specimen / Unknown Venipuncture / Unknown 10/09/2024 12:34 PM EDT 10/09/2024 12:34 PM EDT us Lucy Rich MD LAB BLOOD ORDERABLES Final Result [facility] [address] [place] [address], [place] [phone] * Protein and creatinine with ratio, urine (10/09/2024 12:34 PM EDT) Protein, Urine 22 mg/dL LAB CHEMISTRY METHOD 10/09/2024 5:18 PM EDT [facility] Prot/Creat, Ur 0.10 <=0.20 mg/mg creat LAB CHEMISTRY METHOD 10/09/2024 5:18 PM EDT [facility] Creatinine, Urine 224.0 mg/dL LAB CHEMISTRY METHOD 10/09/2024 5:18 PM EDT [facility] Urine Urine specimen obtained by clean catch procedure / Unknown Non-blood Collection / Unknown 10/09/2024 12:34 PM EDT 10/09/2024 12:34 PM EDT us Lucy Rich MD LAB URINE ORDERABLES Final Result [facility] [address] [place] [address], [place] [phone] * Creatinine (10/09/2024 12:34 PM EDT) Creatinine 0.63 0.50 - 1.10 mg/dL LAB CHEMISTRY METHOD 10/09/2024 7:06 PM EDT [facility] eGFR 120 >=60 mL/min/1. 73m2 LAB CHEMISTRY METHOD 10/09/2024 7:06 PM EDT [facility] Comment:Calculation based on the??Chronic Kidney Disease Epidemiology Collaboration (CKD-EPI) equation refit??without adjustment for race. Blood Venous blood specimen / Unknown Venipuncture / Unknown 10/09/2024 12:34 PM EDT 10/09/2024 12:34 PM EDT us Lucy Rich MD LAB BLOOD ORDERABLES Final Result Performing Organization Address [facility] Co de Phone Number [facility] [address] [place] [address], [place] [phone] * Aspartate aminotransferase (10/09/2024 12:34 PM EDT) AST (SGOT) 10 10 - 42 unit/L LAB CHEMISTRY METHOD 10/09/2024 7:06 PM EDT [facility] Blood Venous blood specimen / Unknown Venipuncture / Unknown 10/09/2024 12:34 PM EDT 10/09/2024 12:34 PM EDT us Lucy Rich MD LAB BLOOD ORDERABLES Final Result Performing Organization Address [facility] Co de Phone Number [facility] [address] [place] [address], [place] [phone] * Alanine aminotransferase (10/09/2024 12:34 PM EDT) ALT (SGPT) 29 10 - 60 unit/L LAB CHEMISTRY METHOD 10/09/2024 7:06 PM EDT [facility] Blood Venous blood specimen / Unknown Venipuncture / Unknown 10/09/2024 12:34 PM EDT 10/09/2024 12:34 PM EDT us Lucy Rich MD LAB BLOOD ORDERABLES Final Result Performing Organization Address [facility]/ZIP Co de Phone Number [facility] [address] [place] [address], [place] [phone] * Type and screen (10/09/2024 12:34 PM EDT) [facility] O 10/09/2024 4:24 PM EDT [facility] Rh Type Positive 10/09/2024 4:24 PM EDT [facility] Antibody Screen Negative 10/09/2024 4:24 PM EDT [facility] Blood Venous blood specimen / Unknown Venipuncture / Unknown 10/09/2024 12:34 PM EDT 10/09/2024 12:34 PM EDT us Lucy Rich MD LAB BLOOD BANK TEST ORDERAB LES Final Result Performing Organization Address [facility]/ZIP Co de Phone Number [facility] [address] [place] [address], [place] [phone] * Treponema pallidum antibody with reflex to RPR and particle agglutination (10/09/2024 12:34 PM EDT) [facility] T. Pallidum Antibodies Negative Negative LAB CHEMISTRY METHOD 10/09/2024 8:41 PM EDT [facility] Blood Venous blood specimen / Unknown Venipuncture / Unknown 10/09/2024 12:34 PM EDT 10/09/2024 12:34 PM EDT us Lucy Rich MD LAB BLOOD ORDERABLES Final Result [facility] [address] [place] [address], [place] [phone] * (ABNORMAL) Rubella antibody IgG (10/09/2024 12:34 PM EDT) [facility] Rubella IgG Quant 9.6(L) >=10.0 I Unit/mL LAB CHEMISTRY METHOD 10/09/2024 9:40 PM EDT [facility] Rubella IgG Antibody Interp Equivocal (A) Positive LAB CHEMISTRY METHOD 10/09/2024 9:40 PM EDT [facility] Comment:Results verified by repeat testing Blood Venous blood specimen / Unknown Venipuncture / Unknown 10/09/2024 12:34 PM EDT 10/09/2024 12:34 PM EDT us Lucy Rich MD LAB BLOOD ORDERABLES Final Result Performing Organization Address [facility]/ZIP Co de Phone Number [facility] [address] [place] [address], [place] [phone] * HIV 1,2 antibody, p24 antigen with reflex to differentiation (10/09/2024 12:34 PM EDT) [facility] HIV Combo AB/AG Negative Negative LAB CHEMISTRY METHOD 10/09/2024 8:43 PM EDT [facility] Blood Venous blood specimen / Unknown Venipuncture / Unknown 10/09/2024 12:34 PM EDT 10/09/2024 12:34 PM EDT Narrative [facility] - 10/09/2024 8:43 PM EDT This [...] BLOOD ORDERABLES Final Result Performing Organization Address [facility]/ZIP Co de Phone Number [facility] [address] [place] [address], [place] [phone] * Hepatitis C antibody (10/09/2024 12:34 PM EDT) Pathologist [facility] Hepatitis C Antibody Negative Negative LAB CHEMISTRY METHOD 10/09/2024 8:43 PM EDT [facility] Blood Venous blood specimen / Unknown Venipuncture / Unknown 10/09/2024 12:34 PM EDT 10/09/2024 12:34 PM EDT Lucy Rich MD LAB BLOOD ORDERABLES Final Result [facility] [address] [place] [address], * Drug abuse screen expanded with reflex confirmation, urine (10/09/2024 12:34 PM EDT) Amphetamine Screen, Ur Negative Negative LAB CHEMISTRY METHOD 10/09/2024 5:19 PM EDT [facility] Comment:Certain OTC medicati ons containing ephedrine, phenylephrine, pseudoephedrine and phenylpropanolamine can cause false positive results. Barbiturate Screen, Ur Negative Negative LAB CHEMISTRY METHOD 10/09/2024 5:19 PM EDT [facility] Benzodiazepine Screen, Ur Negative Negative LAB CHEMISTRY METHOD 10/09/2024 5:19 PM EDT [facility] Cocaine Screen, Ur Negative Negative LAB CHEMISTRY METHOD 10/09/2024 5:19 PM EDT [facility] Opiate Screen, Ur Negative Negative LAB CHEMISTRY METHOD 10/09/2024 5:19 PM EDT [facility] Cannabinoid (THC) Screen, Ur Negative Negative LAB CHEMISTRY METHOD 10/09/2024 5:19 PM EDT [facility] Comment:Specimens from patie nts taking pantoprazole sodium (Protonix) have been shown to produce false positive results. Fentanyl, Ur Negative Negative LAB CHEMISTRY METHOD 10/09/2024 5:19 PM EDT [facility] Oxycodone Screen, Ur Negative Negative LAB CHEMISTRY METHOD 10/09/2024 5:19 PM EDT [facility] Urine Urine specimen obtained by clean catch procedure / Unknown Non-blood Collection / Unknown 10/09/2024 12:34 PM EDT 10/09/2024 12:34 PM EDT Narrative [facility] - 10/09/2024 5:19 PM EDT Assay cutoffs: Amphetamines ? 1000 ng/mL Barbiturates ?200 ng/mL Benzodiazepines ?? 200 ng/mL Cocaine ? 300 ng/mL Fentanyl ?1 ng/mL Opiates ? 300 ng/mL Oxycodone ? 100 ng/mL THC ?50 ng/mL Semi-quantitative assay for screening purposes only. Unconfirmed screening result should not be used for non-medical purposes. *POSITIVE RESULTS ARE AUTOMATICALLY SENT FOR ALTERNATE METHOD CONFIRMATION* Lucy Rich MD LAB URINE ORDERABLES Final Result Performing Organization Address [facility] Co de Phone Number [facility] [address] [place] [address], [place] [phone] * Culture urine (10/09/2024 12:34 PM EDT) Culture, Urine <10,000 cfu/mL Mixed bacterial reinier 10/10/2024 10:14 AM EDT [facility] Urine Urine specimen obtained by clean catch procedure / Unknown Non-blood Collection / Unknown 10/09/2024 12:34 PM EDT 10/09/2024 12:34 PM EDT us Lucy Rich MD LAB MICROBIOLOGY - GENERAL ORDERABLES Final Result Performing Organization Address [facility] Co de Phone Number [facility] [address] [place] [address], [place] [phone] * Hepatitis B surface antigen with reflex to confirmation (10/09/2024 12:34 PM EDT) Pathologist [facility] Hepatitis B Surface Ag Negative Negative LAB CHEMISTRY METHOD 10/09/2024 8:14 PM EDT [facility] Blood Venous blood specimen / Unknown Venipuncture / Unknown 10/09/2024 12:34 PM EDT 10/09/2024 12:34 PM EDT [facility] - 10/09/2024 8:14 PM EDT Over the counter supplements containing high doses of biotin may interfere with this assay. ??If interference is suspected, patients shoud be retested after refraining from biotin supplements for 72 hours. Lucy Rich MD LAB BLOOD ORDERABLES Final Result Performing Organization Address [facility] Co de Phone Number [facility] [address] [place] [address], [place] [phone] * Varicella zoster antibody IgG (10/09/2024 12:34 PM EDT) [facility] Varicella IgG Positive Positive LAB CHEMISTRY METHOD 10/10/2024 9:23 AM EDT [facility] Varicella Zoster IgG 1.26 >=1.00 S/CO LAB CHEMISTRY METHOD 10/10/2024 9:23 AM EDT [facility] Blood Venous blood specimen / Unknown Venipuncture / Unknown 10/09/2024 12:34 PM EDT 10/09/2024 12:34 PM EDT [facility] - 10/10/2024 9:23 AM EDT Interpretation >= 1.00 S/CO is considered to be consistent with Immunity Lucy Rich MD LAB BLOOD ORDERABLES Final Result Performing Organization Address [facility]/ZIP Co de Phone Number [facility] [address] [place] [address], [place] [phone] documented in this encounter Visit Diagnoses Diagnosis care, subsequent in first trimester- Primary H/O gastric sleeve History of appendectomy Other postprocedural status History of cholecystectomy Other acquired absence of organ Obesity complicating childbirth documented in this encounter Care Teams 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
== END 2024-10-10 17:53 | disposition home or self-care (01) ==
LOC: HO.ED 17:38
PROVIDERS: Physician Assistant; Emergency Provider Emergency Medicine; PCP Dentist General Practice
DX: U07.1 COVID-19 (principal); R06.02 Shortness of breath; R05.9 Cough, unspecified; J02.9 Acute pharyngitis, unspecified
CPT/HCPCS: 0241U; 87651; 99282; 99283

== ENCOUNTER 2024-10-19 13:31 | Outpatient (RCR) | payer OTHER, SELFPAY ==
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
--- NOTE | 2024-12-12 14:43 | MHC.OT.DC ---
[address] [phone] F: [phone] Occupational Therapy Discharge Note Patient Name: Dakota Spear Provider: Marley Diaz Diagnosis: (L) proximal end of ulna fx Date of Surgery: Date of Evaluation: 09/05/24 Date of Discharge: Treatments to Date: 6 Cancellations to Date: No Shows to Date: Discharge Status: Visit Non-compliance Discharge Summary: Patient was participating in skilled OT for strengthening and functional use of (L)UE, unfortunately she did not return to therapy. Electronically Signed By: Monik Curiel OTR/Binta, CLT Reviewed/agree with student documentation: Therapist: Please Sign and return to therapist, thank you for your referral.
== END 2024-12-12 14:43 | disposition home or self-care (01) ==
LOC: HO.OT 13:31
PROVIDERS: Visit Provider Physician Assistant
DX: S52.002D Unspecified fracture of upper end of left ulna, subsequent encounter for closed fracture with routine healing (principal)
CPT/HCPCS: 97110; 97140; 97165

== ENCOUNTER 2024-11-03 11:47 | Outpatient (AMB) | payer OTHER, SELFPAY ==
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
--- OUTSIDE RECORDS SUMMARY | 2024-11-03 11:55 | XMS_ITS | Clinical Summary ---
Author Organization [facility] Address [address] [place] [phone] Phone Care Team Providers Care Rotating Equipment Engineer Name Role Phone Alexis Kingsley MD Primary Care Provider Allergies Active Allergy Reactions Criticality Noted Date Comments Oxycodone-Acetaminophen 03/17/2021 Itching Penicillins 03/17/2021 GI upset Medications pyridoxine (VITAMIN B-6) 25 mg tabletIndications: Nausea and vomiting in prior to 22 weeks gestation Take 1 tablet (25 mg total) by mouth every 8 (eight) hours. 90 tablet 1 09/19/19 25 025 Active doxylamine (UNISOM) 25 mg tabletIndications: Nausea and vomiting in prior to 22 weeks gestation Take 0.5 tablets (12.5 mg total) by mouth every 8 (eight) hours. 45 tablet 1 09/19/19 25 025 Active docusate sodium (COLACE) 100 mg capsuleIndications :Constipation during in first trimester Take 1 capsule (100 mg total) by mouth 2 (two) times a day if needed for constipatio n. 30 capsule 5 09/30/19 25 Active ondansetron ODT (ZOFRAN-ODT) 8 mg disintegrating tabletIndications: Nausea and vomiting in prior to 22 weeks gestation Dissolve 1 tablet (8 mg total) on top of the tongue every 8 (eight) hours if needed for nausea or vomiting. 42 tablet 3 04/11/20 25 Active Vitamin 27 mg iron- 0.8 mg per tabletIndications: Nausea and vomiting in prior to 22 weeks gestation TAKE 1 TABLET BY MOUTH 1 TIME EACH DAY. 90 tablet 1 10/12/19 25 Active desogestreL-ethiny l estradioL (Apri) 0.15-0.03 mg per tablet Take by mouth. 07/11/19 14 Active norgestimate-ethin yl estradioL (Ortho Tri-Cyclen, 28,) 0.18/0.215/0.25 mg-0.035mg (28) per tablet Take by mouth. 03/23/20 13 Active vitamin iron fum-folic acid 27-0.8 mg per tabletIndications: Nausea and vomiting in prior to 22 weeks gestation Take 1 tablet by mouth 1 (one) time each day. 30 each 09/19/19 25 025 Discontinued ondansetron (ZOFRAN) 8 mg tabletIndications: Nausea and vomiting in prior to 22 weeks gestation Take 1 tablet (8 mg total) by mouth every 8 (eight) hours if needed for nausea. 20 tablet 5 09/19/19 25 025 Active Problems Problem Noted Date Diagnosed Date COVID-19 affecting in first trimester 10/30/2024 Overview (10/30/2024): Growth scan at 4-6 weeks after COVID or 32 weeks, whichever is later. No other surveillance. H/O gastric sleeve 10/09/2024 Overview (10/09/2024): 2020 care, subsequent in first tri mester 10/09/2024 Overview (10/30/2024): [facility]. [facility] [address] [place] [phone] ([phone]) 2. Delivery site: [facility] 3. Mobile Mommas: No 4. Dating criteria: early ultrasound 5. Blood type: O-Positive 6. Genetic screening: Date: Result: Panorama: low-risk Horizon: neg Nuchal: Scheduled10/19/24 @9am Survey: MSAFP: 6. GBS: [...] (10/09/2024): 2023 Obesity complicating childbirth 10/09/2024 Overview (10/30/2024): BMI 47 HgbA1C and 1 hour GTT at initial labs 5.3/91 ASA 162mg at 12 weeks until delivery Detailed anatomy ultrasound Repeat GTT 24-28 weeks if early is normal Pre-preg BMI 35-39.9: NST weekly at 37 weeks Pre-preg BMI >40: NST weekly at 34 weeks Pre-preg BMI >45: NST weekly at 32 weeks Growth US at 32 and 36 weeks for BMI >40 BMI of 50 by 28wks transfer to [facility] DVT prophylaxis- Lovenox if CS and BMI >35 Morbid obesity with BMI of 4 5.0-49.9, adult ([facility] V24, [facility] V28) 04/02/2024 DDD (degenerative disc disease), lumbar 06/21/19 20 Seasonal allergic conjunctivitis 10/06/2017 Recurrent sinusitis 08/26/2017 Mixed hyperlipidemia 10/23/2015 Cyst of left kidney 08/30/2015 Overview (04/02/2024): MRI scan 2015. 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 Fatty liver 08/12/2015 Overview (04/02/2024): Incidental finding on CT scan at [facility] dated 08/11/2015. LFTs normal. IBS (irritable bowel syndrome) 07/08/2015 PCOS (polycystic ovarian syndrome) 09/24/2014 Estimated Date of Delivery Comme nts Yes 05/03/2025 Date entered miguelito or to episode creation Encounters Date Type Department Care Team Description 11/03/2024 Telephone Obstetrics and Gynecology - [address] [phone] Heatehr Guadarrama CNM Lab Results 11/02/2024 Telephone Obstetrics and Gynecology - [address] [phone] Heather Guadarrama CNM Results 10/30/2024 10:00 AM EDT Initial Obstetrics and Gynecology - [address] [phone] Jessica Handley CNM GA: 13w4d 10/19/2024 9:00 AM EDT Ancillary Procedure Maternal Medicine - [address] [phone] care, subsequent in first trimester; Other obesity due to excess calories affecting in first trimester; Obesity affecting in first trimester; Bariatric surgery status complicating , first trimester; Encounter for nuchal translucency testing; Encounter for screening for malformations 10/18/2024 Telephone Obstetrics and Gynecology - [address] [phone] Stephany Shelton MA Appointment 10/14/2024 1:07 PM EDT - 10/14/2024 4:19 PM EDT Emergency [facility] [address] [place] [phone] Sarah Iverson DO Nonintractable headache, unspecified chronicity pattern, unspecified headache type (Primary Dx) Discharge Disposition: Home or Self Care 10/11/2024 Telephone Obstetrics and Gynecology - [address] [phone] Sandra Gomez CNM Covid-19 10/09/2024 10:00 AM EDT Clinical Support Obstetrics and Gynecology - [address] [phone] care, subsequent in first trimester (Primary Dx); H/O gastric sleeve; History of appendectomy; History of cholecystectomy; Obesity complicating childbirth 09/21/2024 7:56 PM EDT - 09/21/2024 10:37 PM EDT [facility] Emergency [address] [place] [phone] Discharge Disposition: Home or Self Care 09/19/2024 Telephone Obstetrics and Gynecology - [address] [phone] Sallie Patino RN 09/18/2024 11:15 AM EDT Office Visit Obstetrics and Gynecology - [address] [phone] Brunilda Pettit CNM test positive (Primary Dx); Nausea and vomiting in prior to 22 weeks gestation 09/18/2024 Telephone Obstetrics and Gynecology - [address] [phone] Sandra Gomez CNM Vomiting During 09/01/2024 8:27 PM EDT - 09/01/2024 11:11 PM EDT [facility] Emergency [address] [place] [phone] Abdominal pain during in first trimester (Primary Dx) Discharge Disposition: Left Against Medical Advice 08/24/2024 2:20 PM EST Office Visit Obstetrics and Gynecology - [address] [phone] Eli Ford PA Screen for STD (sexually transmitted disease) (Primary Dx) 08/11/2024 9:30 AM EST - 08/11/2024 12:28 PM EST [facility] Emergency [address] [place] [phone] Clive Rodriguez MD Cervical strain, acute, initial [...] COMMENT: low back FLEXIBLE SIGMOIDOSCOPY 05/21/2014 PROCEDURE: IA SIGMOIDOSCOPY FLX DX W/COLLJ SPEC BR/WA IF [...] h BMI of 50.0-59.9, adult ([facility]) Migraine DX:Migraine Family History Medical History Relation [...] Estimated Date of Delivery 10/09/2024 - Present (11/03/2024) 05/03/2025 (based on Alternate NISHANT Entry) Dating Summary Based On NISHANT GA Diff Last Menstrual Period on 07/27/2024 05/03/2025 Same Ultrasound on 09/21/2024 05/04/2025 -1d GA:7w6d Alternate NISHANT Entry 05/03/2025 Working Comment:Date entered prior t o episode creation Vitals Pregravid Weight Height TWG (As of 11/03/2024) Pregrav id BMI 126 kg (277 lb) 1.626 m (64 ) -0.907 kg (-2 lb) 47.52 Date GA Fund Present FHR Mvmt BP Weight Edema Alb Glu Ket Dil/ Eff/Sta 10/30/2024 13w4d 111/72 0 /0/ Notes Progress Notes - Initial Pre - 10/30/2024 - GA:13w4d 10/30/2024 - 13w4d - Priscila rzivi, Jessica Zepeda, IRIS OB 12 week appt IP: S: Dakota is a 34 y.o. year old here for IP visit with her partner. Her is unplanned. She and the father of the baby are happy. Patient's last menstrual period was 07/27/2024. She is uncertain of her LMP with irregular cycles. is currently dated by 1st trimester ultrasound only. She complains of nausea which is improving. She denies vaginal bleeding or cramping. Flu vaccine: not indicated at today's visit O: Blood pressure 111/72, last menstrual period 07/27/2024. See OB physical and labs. Vitals BP: 111/72 Assessment Heart Rate: 150 Fundal Height (cm): 13 cm Dilation/Effacement/Station Dilation: Closed Effacement (%): 0 No results found for: ABORH Lab Results Component Value Date RH Positive 10/09/2024 A: at 13w4d weeks gestation. 1. care, subsequent in first trimester 2. Obesity complicating childbirth P: Pap obtained today. Genprobe obtained today. Oriented to THoNE MG and anticipated course. Discussed collaborative practice and [facility] delivery. Reviewed healthy eating and normal weight gain in . Encouraged patient to push PO fluids. Counseled about warning signs of the first trimester and how to contact educational therapist provider. Discussed the benefits of breast feeding and strongly encouraged to consider this. RTO 4 weeks. The patient does not require anesthesia consult. This patient's VTE risk status is low. [place] Depression Scale: In the Past 7 Days I have been able to laugh and see the funny side of things.: As much as I always could I have looked forward with enjoyment to things.: As much as I ever did I have blamed myself unnecessarily when things went wrong.: Not very often I have been anxious or worried for no good reason.: No, not at all I have felt scared or panicky for no good reason.: No, not much Things have been getting on top of me.: Yes, sometimes I haven't been coping as well as usual I have been so unhappy that I have had difficulty sleeping.: Not at all I have felt sad or miserable.: No, not at all I have been so unhappy that I have been crying.: No, never The thought of harming myself has occurred to me.: Never [place] Depression Scale Total: 4 Jessica Handley CNM on 10/30/2024 at 3:27 PM EDT Progress Notes - Clinical Caro pport - 10/09/2024 - GA:10w4d 10/09/2024 - 10w4d - Sallie Patino RN Dakota Spear is a 34 y.o. old female at 10w4d. This is Unplanned. The patient feels happy about the . The FOB is not involved. Pt aware of transfer of care to [facility] if BMI>50 in .Pt will have 1Hr [...] to the above questions, is this for scientology reasons? N/A Do you know what your [...] any other surgical procedures? Gastric sleeve 2019, , APPY 08/2023 Have you ever been [...] of estimated date of delivery No Thalassemia (Portuguese, Belgian, Mediterranean, or background): MCV less than 80 No Neural tube defect (Meningomyelocele, Spina bifida, or Anencephaly) No Congenital heart defect No Down syndrome No Chon-Sachs (Ashkenazi Voodoo, Cajun, Yoruba Kimball) No Yola disease (Ashkenazi Voodoo) No Familial dysautonomia (Ashkenazi Voodoo) No Sickle cell disease or trait () No Hemophilia or other blood disorders No Muscular dystrophy No Cystic fibrosis No Bobby's chorea No Intellectual disability and/or autism No [...] Spear has also been informed of the lump inspector provider recommendation for first trimester nuchal lucency testing to be performed during her . Dakota pSear has also been made aware of the time sensitive nature for this testing to be completed. . The patient now has a gestational age of 10w4d. The patient would be due for this testing prior to 14 weeks gestation which would be on 11/01/24 Ethnicity Based Genetic Testing has been reviewed and the [employer] information sheet has been provided to the [...] For Horizon Carrier Screening, if patient has [place], [facility] or [employer] insurances: Not Applicable Electronically signed by: Sallie Patino RN 10/09/24 10:29 AM EDT Last Filed Vital Signs Vital Sign Reading Time Taken Comments Blood Pressure 111/72 10/30/2024 10:03 AM EDT Pulse 81 10/14/2024 12:11 PM EDT Temperature 36.8 ??C (98.3 ??F) 10/14/2024 12:11 PM E DT Respiratory Rate 17 10/14/2024 12:11 PM EDT Oxygen Saturation 100% 10/14/2024 12:11 PM EDT Inhaled Oxygen Concentration - - Weight 124 kg (274 lb) 10/14/2024 12:11 PM EDT Height 162.6 cm (5' 4 ) 10/14/2024 12:11 PM EDT Body Mass Index 47.03 10/14/2024 12:11 PM EDT Plan of Treatment Upcoming Encounters Date Type Department Care Team (Late st Contact Info) Description 11/28/2024 10:00 AM EDT Routine Obstetrics and Gynecology - [place] [address] [place] [phone] Jessica Handley, [facility] [address] [place] [address] 12/21/2024 10:00 AM EDT Ancillary Procedure Maternal Medicine - [place] [address] [place] [phone] Health Maintenance Due Date Last Done Comments [...] 03/18/2018 Cholesterol Screening (Lipid Panel) 02/11/2026 02/11/2021 DTaP,Tdap,and Td Vaccines (10 - Td or Tdap) 11/27/2026 11/27/2016, 07/24/2013, 06/19/2010, Additional history exists Cervical Cancer Screening: HPV 10/30/2029 10/30/2024 HIB Vaccines Completed 01/29/1993, 01/1992, 01/16/1992, Additional [...] Procedure Name Priority Date/Time Associated Diagnosis Comments CHLAMYDIA TRACHOMATIS AND NEISSERIA GONORRHOEAE BY TMA, THINPREP Routine 10/30/2024 10:39 AM EDT care, subsequent in first trimester PAP SMEAR Routine 10/30/2024 10:39 AM EDT care, subsequent in first trimester HPV WITH REFLEX GENOTYPE Routine 10/30/2024 10:39 AM EDT care, subsequent in first trimester HORIZON 14, SANDIP Routine 10/19/2024 3: 41 PM EDT US OB LESS 14 WKS SINGLE OR FIRST GESTATION Routine 10/19/2024 9:40 AM EDT care, subsequent in first trimester Other obesity due to excess calories affecting in first trimester Obesity affecting in first trimester Bariatric surgery status complicating , first trimester Encounter for nuchal translucency testing Encounter for screening for malformations US OB LESS 14 WKS NUCHAL MEASUREMENT Routine 10/19/2024 9:40 AM EDT care, subsequent in first trimester PANORAMA TEST Routine 2:50 PM EDT US OB LESS 14 WKS SINGLE OR FIRST GESTATION Routine 10/14/2024 3:00 PM EDT CBC WITH AUTO DIFFERENTIAL STAT 10/14/2024 12:20 PM EDT HCG, QUANTITATIVE STAT 10/14/2024 12: 20 PM EDT MAGNESIUM STAT 10/14/2024 12:20 PM EDT BASIC METABOLIC PANEL STAT 10/14/2024 12:20 PM EDT CBC AND DIFFERENTIAL STAT 10/14/2024 12:20 PM EDT GTT GESTATIONAL 1 HOUR Routine 12:34 PM EDT care, subsequent in first [...] subsequent in first trimester ALANINE AMINOTRANSFERASE Routine 10/09/2024 12:34 PM EDT care, [...] 3+ VIEWS LEFT STAT 11:21 AM EST LIPID PANEL Routine 02/11/2021 from Last 3 Months or Most Recently Relevant to Health Maintenance Results * Chlamydia trachomatis and neisseria gonorrhoeae by tma, thinprep (10/30/2024 10:39 AM EDT) N. gonorrhoeae, RNA Probe Negative Negative LAB MICROBIOLOGY METHOD 11/01/2024 12:52 PM EDT [facility] Chlamydia, RNA Probe Negative Negative LAB MICROBIOLOGY METHOD 11/01/2024 12:52 PM EDT [facility] Broom Cervix uteri structure / Unknown 10/30/2024 10:39 AM EDT 10/31/2024 6:50 AM EDT us Jessica LEÓN LAB CYTOLOGY ORDERABLES Fin al Result [facility] [address] [place] [address], * (ABNORMAL) HPV with reflex genotype (10/30/2024 10:39 AM EDT) HPV Positive( A) Negative LAB MICROBIOLOGY METHOD 11/02/2024 10:48 AM EDT [facility] Broom Cervix uteri structure / Unknown 10/30/2024 10:39 AM EDT 10/31/2024 6:50 AM EDT us Jessica Handley [facility] MOLECULAR DIAGNOSTICS O RDERABLES Final Result Performing Organization Address City/[facility] Co de Phone Number [facility] [address] [place] [address], * (ABNORMAL) Pap smear (10/30/2024 10:39 AM EDT) Interpretation Low grade squamous intraepithelial lesion(A) 11/02/2024 3:28 PM EDT [facility] General Categorization Epithelial cell abnormality, see interpretation 11/02/2024 3:28 PM EDT [facility] LMP 07/27/2024 11/02/2024 3:28 PM EDT [facility] Specimen Adequacy Satisfactory for evaluation, endocervical/stauffer sformation zone component absent 11/02/2024 3:28 PM EDT [facility] Pap Methodology Liquid Based Pap Test 11/02/2024 3:28 PM EDT [facility] Disclaimer The Pap test is a screening test which carries an inherent false negative rate. These test results should be correlated with the patient's clinical findings and history. This Pap test was processed using an automated screening system. Technical cytopathology services provided by [facility], at [address] [place] [address] (CLIA # [id number]/Kelly Dang MD, Gyroscope Repairer.) 11/02/2024 3:28 PM EDT [facility] Console Pap Interpretation Reported 11/02/2024 3:28 PM EDT [facility] Broom Cervix uteri structure / Unknown 10/30/2024 10:39 AM EDT 10/30/2024 10:39 AM EDT us Jessica Handley [facility] CYTOLOGY ORDERABLES Fin al Result [facility] [address] [place] [address], [place] [phone] * Horizon 14 (10/19/2024 3:41 PM EDT) Blood Venous blood specimen / Unknown us Lucy Rich MD LAB BLOOD ORDERABLES Final Result * US OB Less 14 Wks Nuchal Measurement (10/19/2024 9:40 AM EDT) Anatomical Region Laterality Modality Body Ultrasound 10/19/2024 9:09 AM EDT Narrative 10/19/2024 12:19 PM EDT OBSTETRICS REPORT ?(Signed Final 10/19/2024 12:19 pm) PATIENT INFO: ID #: ? [id number] ? : ??[birth year] (34 yrs)(F) Name: ? DAKOTA SPEAR ?Visit Date: 10/19/2024 09:09 am PERFORMED BY: Attending: ?Juli Iqbal MD Performed By: ? Ricco Adams RDMS Referred By: ?Lucy Rich MD Ref. Address: ? [address] [facility] ? [place] ??[id number] Location: ? [place] [facility] ([facility]) SERVICE(S) PROVIDED: US Nuchal Translucency ?65267 US < 14 weeks Abdominal Ultrasound ?[address]908 INDICATIONS: Obesity complicating , 1st ?O99.211 trimester Morbid obesity ? E66.01 Bariatric surgery status complicating ?O99.841 , first trimester Encounter for screening for ?Z36.3 malformations Encounter for screening for nuchal ?? Z36.82 translucency 12 weeks gestation of ?Z3A.12 TECHNIQUE/SCAN QUALITY: Technique: ?? Transabdominal Scan ? Satisfactory Quality: OB HISTORY: : ?2 ? Term: ?? 1 Living: ? 1 VITAL SIGNS: Weight (lb) ?? Height ?BMI 274 ? 5'4 ?47.03 EVALUATION: Number Of Fetuses: ? 1 Heart Rate(bpm): ?? 158 Cardiac Activity: ?Observed Presentation: ?Variable Placenta Location: ?Posterior Appearance: ?Grade 0 Cord Insertion: ?Visualized BIOMETRY: GESTATIONAL AGE: LMP: ? 12w 0d ?Date: ??07/27/24 ? NISHANT: ?? 05/03/25 Best: ?12w 0d ?? Det. By: ??LMP ??(07/27/24) ?NISHANT: ?? 05/03/25 1ST TRIMESTER GENETIC SONOGRAM SCREENING: CRL: ? 56.01 ??mm ? G.Age: ?? 12w 1d ? NISHANT: ?? 05/02/25 Nuc Trans: ? 1.6 ??mm STANDARD ANATOMY: Cranium: ?Normal appearance Choroid Plexus: ? Normal appearance Stomach: ?Normal appearance Abdominal Wall: ? Normal appearance Cord Vessels: ? Normal 3-Vessel Cord Bladder: ?Normal appearance Upper Extremities: ?Seen Lower Extremities: ?Seen CERVIX UTERUS ADNEXA: Uterus Size(cm) ? 9.66 ?? x ?? 9.17 ?? x ??7.12 Uterus Vol(ml): ?330.24 Anteverted, anteflexed. Myometrium homogeneous, no lesions identified. Right Ovary Size(cm) ? 2.41 ?? x ?? 1.96 ?? x ??2.1 ? Vol(ml): 5.19 Normal in size and appearance. It is found between the uterus and the pelvic sidewall. Left Ovary Size(cm) ? 3.38 ?? x ?? 2.84 ?? x ??1.41 ?Vol(ml): 7.09 Normal in size and appearance. It is found between the uterus and the pelvic sidewall. COMMENTS: Ms. Spear is being seen for first trimester screening for aneuploidy. - Her medical history is significant for class III obesity, polycystic ovarian syndrome. She has had gastric sleeve surgery. - Her obstetrical history is significant for one term vaginal delivery. - She had cell free DNA screening. ??The results are pending. - Ultrasound findings: The nuchal translucency measurement is < 95th% for the gestational age. - biometry is consistent with dates. ??Assessment of the anatomy is appropriate for the gestational age. There are no ultrasound findings to suggest aneuploidy. - Plan: 1. A detailed ultrasound for BMI of 47 and cervical length screening for risk of have been scheduled. - 2. The patient should be offered second trimester MSAFP only, to assess for risk of an open neural tube defect. Juli Iqbal MD Electronically Signed Final Report ?? 10/19/2024 12:19 pm Procedure Juli Barlow MD - 10/19/2024 OBSTETRICS REPORT (Signed Final 10/19/2024 12:19 pm) PATIENT INFO: ID #: [id number] : [birth year] (34 yrs)(F) Name: DAKOTA SPEAR Visit Date: 10/19/2024 09:09 am PERFORMED BY: Attending: Juli Iqbal MD Performed By: Ricco dAams RDMS Referred By: Lucy Rich MD Ref. Address: [address] [place] [address] Location: [place] [facility] ([facility]) SERVICE(S) PROVIDED: US Nuchal Translucency 84443 US < 14 weeks Abdominal Ultrasound 41447 INDICATIONS: Obesity complicating , 1st O99.211 trimester Morbid obesity E66.01 Bariatric surgery status complicating O99.841 , first trimester Encounter for screening for Z36.3 malformations Encounter for screening for nuchal Z36.82 translucency 12 weeks gestation of Z3A.12 TECHNIQUE/SCAN QUALITY: Technique: Transabdominal Scan Satisfactory Quality: OB HISTORY: : 2 Term: 1 Livin VITAL SIGNS: Weight (lb) Height BMI 274 5'4 47.03 EVALUATION: Number Of Fetuses: 1 Heart Rate(bpm): 158 Cardiac Activity: Observed Presentation: Variable Placenta Location: Posterior Appearance: Grade 0 Cord Insertion: Visualized BIOMETRY: GESTATIONAL AGE: LMP: 12w 0d Date: 07/27/24 NISHANT: 05/03/25 Best: 12w 0d Det. By: LMP (07/27/24) NISHANT: 05/03/25 1ST TRIMESTER GENETIC SONOGRAM SCREENING: CRL: 56.01 mm G.Age: 12w 1d NISHANT: 05/02/25 Nuc Trans: 1.6 mm STANDARD ANATOMY: Cranium: Normal appearance Choroid Plexus: Normal appearance Stomach: Normal appearance Abdominal Wall: Normal appearance Cord Vessels: Normal 3-Vessel Cord Bladder: Normal appearance Upper Extremities: Seen Lower Extremities: Seen CERVIX UTERUS ADNEXA: Uterus Size(cm) 9.66 x 9.17 x 7.12 Uterus Vol(ml): 330.24 Anteverted, anteflexed. Myometrium homogeneous, no lesions identified. Right Ovary Size(cm) 2.41 x 1.96 x 2.1 Vol(ml): 5.19 Normal in size and appearance. It is found between the uterus and the pelvic sidewall. Left Ovary Size(cm) 3.38 x 2.84 x 1.41 Vol(ml): 7.09 Normal in size and appearance. It is found between the uterus and the pelvic sidewall. COMMENTS: Ms. Spear is being seen for first trimester screening for aneuploidy. - Her medical history is significant for class III obesity, polycystic ovarian syndrome. She has had gastric sleeve surgery. - Her obstetrical history is significant for one term vaginal delivery. - She had cell free DNA screening. The results are pending. - Ultrasound findings: The nuchal translucency measurement is < 95th% for the gestational age. - biometry is consistent with dates. Assessment of the anatomy is appropriate for the gestational age. There are no ultrasound findings to suggest aneuploidy. - Plan: 1. A detailed ultrasound for BMI of 47 and cervical length screening for risk of have been scheduled. - 2. The patient should be offered second trimester MSAFP only, to assess for risk of an open neural tube defect. Juli Iqbal MD Electronically Signed Final Report 10/19/2024 12:19 pm us Lucy Rich MD IMG OB US PROCEDURES Final Result * US OB Less 14 Wks Single or First Gestation (10/19/2024 9:40 AM EDT) Only the most recent of4 resultswithin the time period is included. Anatomical Region Laterality Modality Body Ultrasound 10/19/2024 9:09 AM EDT Narrative 10/19/2024 12:19 PM EDT OBSTETRICS REPORT ?(Signed Final 10/19/2024 12:19 pm) PATIENT INFO: ID #: ? [id number] ? : ??[birth year] (34 yrs)(F) Name: ? DAKOTA SPEAR ?Visit Date: 10/19/2024 09:09 am PERFORMED BY: Attending: ?Juli Iqbal MD Performed By: ? Ricco Adams RDMS Referred By: ?Lucy Rich MD Ref. Address: ? [address] [place] [address] ? [place] ??[id number] Location: ? [place] [facility] ([facility]) SERVICE(S) PROVIDED: US Nuchal Translucency ?37127 US < 14 weeks Abdominal Ultrasound ?24086 INDICATIONS: Obesity complicating , 1st ?O99.211 trimester Morbid obesity ? E66.01 Bariatric surgery status complicating ?O99.841 , first trimester Encounter for screening for ?Z36.3 malformations Encounter for screening for nuchal ?? Z36.82 translucency 12 weeks gestation of ?Z3A.12 TECHNIQUE/SCAN QUALITY: Technique: ?? Transabdominal Scan ? Satisfactory Quality: OB HISTORY: : ?2 ? Term: ?? 1 Living: ? 1 VITAL SIGNS: Weight (lb) ?? Height ?BMI 274 ? 5'4 ?47.03 EVALUATION: Number Of Fetuses: ? 1 Heart Rate(bpm): ?? 158 Cardiac Activity: ?Observed Presentation: ?Variable Placenta Location: ?Posterior Appearance: ?Grade 0 Cord Insertion: ?Visualized BIOMETRY: GESTATIONAL AGE: LMP: ? 12w 0d ?Date: ??07/27/24 ? NISHANT: ?? 05/03/25 Best: ?12w 0d ?? Det. By: ??LMP ??(07/27/24) ?NISHANT: ?? 05/03/25 1ST TRIMESTER GENETIC SONOGRAM SCREENING: CRL: ? 56.01 ??mm ? G.Age: ?? 12w 1d ? NISHANT: ?? 05/02/25 Nuc Trans: ? 1.6 ??mm STANDARD ANATOMY: Cranium: ?Normal appearance Choroid Plexus: ? Normal appearance Stomach: ?Normal appearance Abdominal Wall: ? Normal appearance Cord Vessels: ? Normal 3-Vessel Cord Bladder: ?Normal appearance Upper Extremities: ?Seen Lower Extremities: ?Seen CERVIX UTERUS ADNEXA: Uterus Size(cm) ? 9.66 ?? x ?? 9.17 ?? x ??7.12 Uterus Vol(ml): ?330.24 Anteverted, anteflexed. Myometrium homogeneous, no lesions identified. Right Ovary Size(cm) ? 2.41 ?? x ?? 1.96 ?? x ??2.1 ? Vol(ml): 5.19 Normal in size and appearance. It is found between the uterus and the pelvic sidewall. Left Ovary Size(cm) ? 3.38 ?? x ?? 2.84 ?? x ??1.41 ?Vol(ml): 7.09 Normal in size and appearance. It is found between the uterus and the pelvic sidewall. COMMENTS: Ms. Spear is being seen for first trimester screening for aneuploidy. - Her medical history is significant for class III obesity, polycystic ovarian syndrome. She has had gastric sleeve surgery. - Her obstetrical history is significant for one term vaginal delivery. - She had cell free DNA screening. ??The results are pending. - Ultrasound findings: The nuchal translucency measurement is < 95th% for the gestational age. - biometry is consistent with dates. ??Assessment of the anatomy is appropriate for the gestational age. There are no ultrasound findings to suggest aneuploidy. - Plan: 1. A detailed ultrasound for BMI of 47 and cervical length screening for risk of have been scheduled. - 2. The patient should be offered second trimester MSAFP only, to assess for risk of an open neural tube defect. Juli Iqbal MD Electronically Signed Final Report ?? 10/19/2024 12:19 pm Procedure Note Juli Iqbal MD - 10/19/2024 OBSTETRICS REPORT (Signed Final 10/19/2024 12:19 pm) PATIENT INFO: ID #: [id number] : [birth year] (34 yrs)(F) Name: DAKOTA SPEAR Visit Date: 10/19/2024 09:09 am PERFORMED BY: Attending: Juli Iqbal MD Performed By: Ricco Adams RDMS Referred By: Lucy Rich MD Ref. Address: [address] [place] [address] Location: [facility] ([facility]) SERVICE(S) PROVIDED: US Nuchal Translucency 05116 US < 14 weeks Abdominal Ultrasound 12458 INDICATIONS: Obesity complicating , 1st O99.211 trimester Morbid obesity E66.01 Bariatric surgery status complicating O99.841 , first trimester Encounter for screening for Z36.3 malformations Encounter for screening for nuchal Z36.82 translucency 12 weeks gestation of Z3A.12 TECHNIQUE/SCAN QUALITY: Technique: Transabdominal Scan Satisfactory Quality: OB HISTORY: : 2 Term: 1 Livin VITAL SIGNS: Weight (lb) Height BMI 274 5'4 47.03 EVALUATION: Number Of Fetuses: 1 Heart Rate(bpm): 158 Cardiac Activity: Observed Presentation: Variable Placenta Location: Posterior Appearance: Grade 0 Cord Insertion: Visualized BIOMETRY: GESTATIONAL AGE: LMP: 12w 0d Date: 07/27/24 NISHANT: 05/03/25 Best: 12w 0d Det. By: LMP (07/27/24) NISHANT: 05/03/25 1ST TRIMESTER GENETIC SONOGRAM SCREENING: CRL: 56.01 mm G.Age: 12w 1d NISHANT: 05/02/25 Nuc Trans: 1.6 mm STANDARD ANATOMY: Cranium: Normal appearance Choroid Plexus: Normal appearance Stomach: Normal appearance Abdominal Wall: Normal appearance Cord Vessels: Normal 3-Vessel Cord Bladder: Normal appearance Upper Extremities: Seen Lower Extremities: Seen CERVIX UTERUS ADNEXA: Uterus Size(cm) 9.66 x 9.17 x 7.12 Uterus Vol(ml): 330.24 Anteverted, anteflexed. Myometrium homogeneous, no lesions identified. Right Ovary Size(cm) 2.41 x 1.96 x 2.1 Vol(ml): 5.19 Normal in size and appearance. It is found between the uterus and the pelvic sidewall. Left Ovary Size(cm) 3.38 x 2.84 x 1.41 Vol(ml): 7.09 Normal in size and appearance. It is found between the uterus and the pelvic sidewall. COMMENTS: Ms. Spear is being seen for first trimester screening for aneuploidy. - Her medical history is significant for class III obesity, polycystic ovarian syndrome. She has had gastric sleeve surgery. - Her obstetrical history is significant for one term vaginal delivery. - She had cell free DNA screening. The results are pending. - Ultrasound findings: The nuchal translucency measurement is < 95th% for the gestational age. - biometry is consistent with dates. Assessment of the anatomy is appropriate for the gestational age. There are no ultrasound findings to suggest aneuploidy. - Plan: 1. A detailed ultrasound for BMI of 47 and cervical length screening for risk of have been scheduled. - 2. The patient should be offered second trimester MSAFP only, to assess for risk of an open neural tube defect. Juli Iqbal MD Electronically Signed Final Report 10/19/2024 12:19 pm Lucy Rich MD IMG OB US PROCEDURES Final Result * Panorama test (10/15/2024 2:50 PM EDT) Blood Venous blood specimen / Unknown Lucy Rich MD LAB BLOOD ORDERABLES Final Result * (ABNORMAL) CBC auto differential (10/14/2024 12:20 PM EDT) Only the most recent of4 resultswithin the time period is included. WBC 8.1 4.8 - 10.8 /[facility] LAB HEMETOLOGY METHOD 10/14/2024 1:43 PM T [facility] RBC 4.00 3.80 - 4.80 M/mcL LAB HEMETOLOGY METHOD 10/14/2024 1:43 PM [facility] Hemoglobin 12.1 11.5 - 16.0 g/dL LAB HEMETOLOGY METHOD 10/14/2024 1:43 PM [facility] Hematocrit 37.2 35.0 - 47.0 % LAB HEMETOLOGY METHOD 10/14/2024 1:43 PM [facility] MCV 92.8 79.0 - 98.0 FL LAB HEMETOLOGY METHOD 10/14/2024 1:43 PM [facility] MCH 30.2 27.0 - 32.0 pcg LAB HEMETOLOGY METHOD 10/14/2024 1:43 PM [facility] MCHC 32.5 32.0 - 37.0 g/dL LAB HEMETOLOGY METHOD 10/14/2024 1:43 PM [facility] RDW 13.6 11.0 - 15.0 % LAB HEMETOLOGY METHOD 10/14/2024 1:43 PM [facility] Platelets 10/14/2024 1:43 PM [facility] Comment:Not measured. Platel ets appear adequate but clumped MPV 10.3 7.0 - 11.0 FL LAB HEMETOLOGY METHOD 10/14/2024 1:43 PM [facility] NRBC 0.0 <1.0 % LAB [facility]OLOGY [facility]24 [facility] NRBC Absolute 0.00 <0.10 K/mcL LAB HEMETOLOGY METHOD 10/14/2024 1:43 PM [facility] Neutrophils Relative 67.6 % LAB HEMETOLOGY METHOD 10/14/2024 1:43 PM [facility] Lymphocytes Relative 26.9 % LAB HEMETOLOGY METHOD 10/14/2024 1:43 PM [facility] Monocytes Relative 3.7 % LAB HEMETOLOGY METHOD 10/14/2024 1:43 PM [facility] Eosinophils Relative 0.7 % LAB HEMETOLOGY METHOD 10/14/2024 1:43 PM [facility] Basophils Relative 0.5 % LAB HEMETOLOGY METHOD 10/14/2024 1:43 PM [facility] Immature Granulocytes Relative 0.6 % LAB HEMETOLOGY METHOD 10/14/2024 1:43 PM [facility] Neutrophils Absolute 5.45 1.50 - 7.00 K/mcL LAB HEMETOLOGY METHOD 10/14/2024 1:43 PM [facility] Lymphocytes Absolute 2.17 1.00 - 5.00 K/mcL LAB HEMETOLOGY METHOD 10/14/2024 1:43 PM [facility] Monocytes Absolute 0.30 0.20 - 1.00 K/mcL LAB HEMETOLOGY METHOD 10/14/2024 1:43 PM [facility] Eosinophils Absolute 0.06 0.00 - 0.50 K/mcL LAB HEMETOLOGY METHOD 10/14/2024 1:43 PM [facility] Basophils Absolute 0.04 0.00 - 0.20 K/mcL LAB HEMETOLOGY METHOD 10/14/2024 1:43 PM [facility] Immature Granulocytes Absolute 0.05(H) 0.00 - 0.03 K/mcL LAB HEMETOLOGY METHOD 10/14/2024 1:43 PM [facility] Blood Venous blood specimen / Unknown Venipuncture / Unknown 10/14/2024 12:20 PM EDT 10/14/2024 12:40 PM EDT us Erik Fields MD LAB BLOOD ORDERABLES Final Result [facility]) [facility] [address] [place] [address], [place] [phone] * HCG, quantitative (10/14/2024 12:20 PM EDT) Only the most recent of4 resultswithin the time period is included. hCG Quant 31,127 mIU/mL LAB CHEMISTRY METHOD 10/14/2024 2:15 PM EDT [facility] ([facility] Blood Venous blood specimen / Unknown Venipuncture / Unknown 10/14/2024 12:20 PM EDT 10/14/2024 12:40 PM EDT Narrative [facility] - 10/14/2024 2:15 PM EDT Quantitative HCG Reference Ranges Time after Conception ? MIU/ML 0.2-1 Week ? 5-50 1-2 ?? Weeks ? 50-500 2-3 ?? Weeks ?100-5,000 3-4 ?? Weeks ?500-10,000 4-5 ?? Weeks ?1,000-50,000 5-6 ?? Weeks ? 10,000-100,000 6-8 ?? Weeks ? 15,000-200,000 2-3 ?? Months ?10,000-100,000 2nd Trimester ?1,000-94,000 3rd Trimester ?2,500-90,000 Non- Females ?1-3 Erik Fields MD LAB BLOOD ORDERABLES Final Result Performing Organization Address [facility]/ZIP Co de Phone Number [facility] [address] [place] [address], [place] [phone] * (ABNORMAL) Magnesium (10/14/2024 12:20 PM EDT) Pathologist [facility] Magnesium 1.8(L) 1.9 - 2.6 mg/dL LAB CHEMISTRY METHOD 10/14/2024 1:14 PM EDT [facility] Blood Venous blood specimen / Unknown Venipuncture / Unknown 10/14/2024 12:20 PM EDT 10/14/2024 12:40 PM EDT Erik Fields MD LAB BLOOD ORDERABLES Final Result Performing Organization Address [facility]/ZIP Co de Phone Number [facility] [address] [place] [address], * (ABNORMAL) Basic metabolic panel (10/14/2024 12:20 PM EDT) Sodium 140 133 - 145 mmol/L LAB CHEMISTRY METHOD 10/14/2024 1:14 PM EDT [facility] Potassium 3.4(L) 3.5 - 5.5 mmol/L LAB CHEMISTRY METHOD 10/14/2024 1:14 PM EDT [facility] Chloride 107 96 - 110 mmol/L LAB CHEMISTRY METHOD 10/14/2024 1:14 PM EDT [facility] CO2 25 21 - 32 mmol/L LAB CHEMISTRY METHOD 10/14/2024 1:14 PM EDT [facility] Anion Gap 8 3 - 11 LAB CHEMISTRY METHOD 10/14/2024 1:14 PM EDT [facility] Glucose 114(H) 70 - 100 mg/dL LAB CHEMISTRY METHOD 10/14/2024 1:14 PM EDT [facility] BUN 9 5 - 25 mg/dL LAB CHEMISTRY METHOD 10/14/2024 1:14 PM EDT [facility] Creatinine 0.62 0.50 - 1.10 mg/dL LAB CHEMISTRY METHOD 10/14/2024 1:14 PM EDT [facility] eGFR 121 >=60 mL/min/1. 73m2 LAB CHEMISTRY METHOD 10/14/2024 1:14 PM EDT [facility] Comment:Calculation based on the??Chronic Kidney Disease Epidemiology Collaboration (CKD-EPI) equation refit??without adjustment for race. BUN/Creatinine Ratio 14.5 LAB CHEMISTRY METHOD 10/14/2024 1:14 PM EDT [facility] Calcium 9.1 8.5 - 10.5 mg/dL LAB CHEMISTRY METHOD 10/14/2024 1:14 PM EDT [facility] Blood Venous blood specimen / Unknown Venipuncture / Unknown 10/14/2024 12:20 PM EDT 10/14/2024 12:40 PM EDT us Erik Fields MD LAB BLOOD ORDERABLES Final Result [facility] [address] [place] [address], * Hepatitis C antibody (10/09/2024 12:34 PM EDT) Only the most recent of2 resultswithin the time period is included. Hepatitis C Antibody Negative Negative LAB CHEMISTRY METHOD 10/09/2024 8:43 PM EDT [facility] Blood Venous blood specimen / Unknown Venipuncture / Unknown 10/09/2024 12:34 PM EDT 10/09/2024 12:34 PM EDT us Lucy Rich MD LAB BLOOD ORDERABLES Final Result Performing Organization Address [facility]/ZIP Co de Phone Number [facility] [address] [place] [address], [place] [phone] * HIV 1,2 antibody, p24 antigen with reflex to differentiation (10/09/2024 12:34 PM EDT) Only the most recent of2 resultswithin the time period is included. HIV Combo AB/AG Negative Negative LAB CHEMISTRY METHOD 10/09/2024 8:43 PM EDT [facility] Blood Venous blood specimen / Unknown Venipuncture / Unknown 10/09/2024 12:34 PM EDT 10/09/2024 12:34 PM EDT Narrative [facility] - 10/09/2024 8:43 PM EDT [...] BLOOD ORDERABLES Final Result Performing Organization Address [facility] Co de Phone Number [facility] [address] [place] [address], [place] [phone] * Hepatitis B surface antigen with reflex to confirmation (10/09/2024 12:34 PM EDT) Hepatitis B Surface Ag Negative Negative LAB CHEMISTRY METHOD 10/09/2024 8:14 PM EDT [facility] Blood Venous blood specimen / Unknown Venipuncture / Unknown 10/09/2024 12:34 PM EDT 10/09/2024 12:34 PM EDT Narrative [facility] - 10/09/2024 8:14 PM EDT Over the counter supplements containing high doses of biotin may interfere with this assay. ??If interference is suspected, patients shoud be retested after refraining from biotin supplements for 72 hours. us Lucy Rich MD LAB BLOOD ORDERABLES Final Result Performing Organization Address [facility] Co de Phone Number [facility] [address] [place] [address], [place] [phone] * Treponema pallidum antibody with reflex to RPR and particle agglutination (10/09/2024 12:34 PM EDT) Only the most recent of2 resultswithin the time period is included. [facility] T. Pallidum Antibodies Negative Negative LAB CHEMISTRY METHOD 10/09/2024 8:41 PM EDT [facility] Blood Venous blood specimen / Unknown Venipuncture / Unknown 10/09/2024 12:34 PM EDT 10/09/2024 12:34 PM EDT us Lucy Rich MD LAB BLOOD ORDERABLES Final Result Performing Organization Address [facility] de Phone Number [facility] [address] [place] [address], [place] [phone] * Venipuncture charge (10/09/2024 12:34 PM EDT) [facility] Extra Tube Hold for add-ons. 10/09/2024 2:02 PM EDT [facility] Comment:Auto resulted. Blood Venous blood specimen / Unknown Venipuncture / Unknown 10/09/2024 12:34 PM EDT 10/09/2024 12:34 PM EDT us Lucy Rich MD LAB BLOOD ORDERABLES Final Result Performing Organization Address [facility]/ZIP Co de Phone Number [facility] JO[place]) NE, * GTT gestational 1 hour (10/09/2024 12:34 PM EDT) Glucose, 1 HR Gestational 91 See Comment mg/dL LAB CHEMISTRY METHOD 10/09/2024 5:13 PM EDT [facility] Blood Venous blood specimen / Unknown Venipuncture / Unknown 10/09/2024 12:34 PM EDT 10/09/2024 12:34 PM EDT Narrative [facility] - 10/09/2024 5:13 PM EDT Gestational Diabetes Challenge Reference Range: 1 hour Glucose <140 mg/dL us Lucy Rich MD LAB BLOOD ORDERABLES Final Result [facility] [address] [place] [address], [place] [phone] * Drug abuse screen expanded with reflex confirmation, urine (10/09/2024 12:34 PM EDT) [facility] Amphetamine Screen, Ur Negative Negative LAB CHEMISTRY METHOD 10/09/2024 5:19 PM EDT [facility] Comment:Certain OTC medicati ons containing ephedrine, phenylephrine, pseudoephedrine and phenylpropanolamine can cause false positive results. Barbiturate Screen, Ur Negative Negative LAB CHEMISTRY METHOD 10/09/2024 5:19 PM EDT [facility] Benzodiazepine Screen, Ur Negative Negative LAB CHEMISTRY METHOD 10/09/2024 5:19 PM EDT [facility] Cocaine Screen, Ur Negative Negative LAB CHEMISTRY METHOD 10/09/2024 5:19 PM EDT [facility] Opiate Screen, Ur Negative Negative LAB CHEMISTRY METHOD 10/09/2024 5:19 PM EDT [facility] Cannabinoid (THC) Screen, Ur Negative Negative LAB CHEMISTRY METHOD 10/09/2024 5:19 PM EDT [facility] Comment:Specimens from patie nts taking pantoprazole sodium (Protonix) have been shown to produce false positive results. Fentanyl, Ur Negative Negative LAB CHEMISTRY METHOD 10/09/2024 5:19 PM EDT [facility] Oxycodone Screen, Ur Negative Negative LAB CHEMISTRY METHOD 10/09/2024 5:19 PM EDT [facility] Urine Urine specimen obtained by clean catch procedure / Unknown Non-blood Collection / Unknown 10/09/2024 12:34 PM EDT 10/09/2024 12:34 PM EDT Narrative [facility] - 10/09/2024 5:19 PM EDT [...] Rich MD LAB URINE ORDERABLES Final Result [facility] [address] [place] [address], * Protein and creatinine with ratio, urine (10/09/2024 12:34 PM EDT) Protein, Urine 22 mg/dL LAB CHEMISTRY METHOD 10/09/2024 5:18 PM EDT [facility] Prot/Creat, Ur 0.10 <=0.20 mg/mg creat LAB CHEMISTRY METHOD 10/09/2024 5:18 PM EDT [facility] Creatinine, Urine 224.0 mg/dL LAB CHEMISTRY METHOD 10/09/2024 5:18 PM EDT [facility] Urine Urine specimen obtained by clean catch procedure / Unknown Non-blood Collection / Unknown 10/09/2024 12:34 PM EDT 10/09/2024 12:34 PM EDT us Lucy Rich MD LAB URINE ORDERABLES Final Result Performing Organization Address [facility] de Phone Number [facility] [address] [place] [address], [place] [phone] * Creatinine (10/09/2024 12:34 PM EDT) Creatinine 0.63 0.50 - 1.10 mg/dL LAB CHEMISTRY METHOD 10/09/2024 7:06 PM EDT [facility] eGFR 120 >=60 mL/min/1. 73m2 LAB CHEMISTRY METHOD 10/09/2024 7:06 PM EDT [facility] Comment:Calculation based on the??Chronic Kidney Disease Epidemiology Collaboration (CKD-EPI) equation refit??without adjustment for race. Blood Venous blood specimen / Unknown Venipuncture / Unknown 10/09/2024 12:34 PM EDT 10/09/2024 12:34 PM EDT us Lucy Rich MD LAB BLOOD ORDERABLES Final Result Performing Organization Address [facility] de Phone Number [facility] [address] [place] [address], [place] [phone] * (ABNORMAL) Rubella antibody IgG (10/09/2024 12:34 PM EDT) Rubella IgG Quant 9.6(L) >=10.0 I Unit/mL LAB CHEMISTRY METHOD 10/09/2024 9:40 PM EDT [facility] Rubella IgG Antibody Interp Equivocal (A) Positive LAB CHEMISTRY METHOD 10/09/2024 9:40 PM EDT [facility] Comment:Results verified by repeat testing Blood Venous blood specimen / Unknown Venipuncture / Unknown 10/09/2024 12:34 PM EDT 10/09/2024 12:34 PM EDT us Lucy Rich MD LAB BLOOD ORDERABLES Final Result Performing Organization Address City/[facility]/ZIP Co de Phone Number [facility] [address] [place] [address], [place] [phone] * Type and screen (10/09/2024 12:34 PM EDT) Only the most recent of2 resultswithin the time period is included. ABO Group O 10/09/2024 4:24 PM EDT [facility] Rh Type Positive 10/09/2024 4:24 PM EDT [facility] Antibody Screen Negative 10/09/2024 4:24 PM EDT [facility] Blood Venous blood specimen / Unknown Venipuncture / Unknown 10/09/2024 12:34 PM EDT 10/09/2024 12:34 PM EDT us Lucy Rich MD LAB BLOOD BANK TEST ORDERAB LES Final Result Performing Organization Address [facility]/ZIP Co de Phone Number [facility] [address] [place] [address], [place] [phone] * Culture urine (10/09/2024 12:34 PM EDT) Only the most recent of2 resultswithin the time period is included. Culture, Urine <10,000 cfu/mL Mixed bacterial reinier 10/10/2024 10:14 AM EDT [facility] Urine Urine specimen obtained by clean catch procedure / Unknown Non-blood Collection / Unknown 10/09/2024 12:34 PM EDT 10/09/2024 12:34 PM EDT us Lucy Rich MD LAB MICROBIOLOGY - GENERAL ORDERABLES Final Result Performing Organization Address [facility]/ZIP Co de Phone Number [facility] [address] [place] [address], [place] [phone] * Varicella zoster antibody IgG (10/09/2024 12:34 PM EDT) Varicella IgG Positive Positive LAB CHEMISTRY METHOD 10/10/2024 9:23 AM EDT [facility] Varicella Zoster IgG 1.26 >=1.00 S/CO LAB CHEMISTRY METHOD 10/10/2024 9:23 AM EDT [facility] Blood Venous blood specimen / Unknown Venipuncture / Unknown 10/09/2024 12:34 PM EDT 10/09/2024 12:34 PM EDT Narrative [facility] - 10/10/2024 9:23 AM EDT Interpretation >= 1.00 S/CO is considered to be consistent with Immunity us Lucy Rich MD LAB BLOOD ORDERABLES Final Result Performing Organization Address [facility] de Phone Number [facility] [address] [place] [address], [place] [phone] * Alanine aminotransferase (10/09/2024 12:34 PM EDT) ALT (SGPT) 29 10 - 60 unit/L LAB CHEMISTRY METHOD 10/09/2024 7:06 PM EDT [facility] Blood Venous blood specimen / Unknown Venipuncture / Unknown 10/09/2024 12:34 PM EDT 10/09/2024 12:34 PM EDT us Lucy Rich MD LAB BLOOD ORDERABLES Final Result Performing Organization Address City/[facility]/ZIP Co de Phone Number [facility] [address] [place] [address], [place] [phone] * Aspartate aminotransferase (10/09/2024 12:34 PM EDT) AST (SGOT) 10 10 - 42 unit/L LAB CHEMISTRY METHOD 10/09/2024 7:06 PM EDT [facility] Blood Venous blood specimen / Unknown Venipuncture / Unknown 10/09/2024 12:34 PM EDT 10/09/2024 12:34 PM EDT us Lucy Rich MD LAB BLOOD ORDERABLES Final Result [facility] [address] [place] [address], * Hemoglobin A1c (10/09/2024 12:34 PM EDT) [facility] Hemoglobin A1C 5.3 <6.5 % LAB CHEMISTRY METHOD 10/09/2024 9:58 PM EDT [facility] Mean Bld Glu Estim. 105 mg/dL LAB CHEMISTRY METHOD 10/09/2024 9:58 PM EDT [facility] Blood Venous blood specimen / Unknown Venipuncture / Unknown 10/09/2024 12:34 PM EDT 10/09/2024 12:34 PM EDT us Lucy Rich MD LAB BLOOD ORDERABLES Final Result [facility] [address] [place] [address], [place] [phone] * ABO Rh (09/21/2024 9:52 PM EDT) Pathologist [facility] ABO Group O 09/22/2024 7:05 AM EDT [facility] Rh Type Positive 09/22/2024 7:05 AM EDT [facility] Blood Venous blood specimen / Unknown Venipuncture / Unknown 09/21/2024 9:52 PM EDT 09/21/2024 10:23 PM EDT Sarah Johnson Iverson DO LAB BLOOD BANK TEST ORDER JOY Final Result [facility] [address] [place] [address], [place] [phone] * Comprehensive metabolic panel (09/21/2024 9:52 PM [...] LAB CHEMISTRY METHOD 09/21/2024 10:51 PM EDT [facility] Calcium 9.7 8.5 - 10.5 mg/dL LAB CHEMISTRY METHOD 09/21/2024 10:51 PM [facility] AST (SGOT) 21 10 - 42 unit/L LAB CHEMISTRY METHOD 09/21/2024 10:51 PM T [facility] ALT (SGPT) 47 10 - 60 unit/L LAB CHEMISTRY METHOD 09/21/2024 10:51 PM [facility] Alkaline Phosphatase 46 42 - 121 unit/L LAB CHEMISTRY METHOD [facility]/21[facility]2024 10:[facility] Total Protein 7.2 6.0 - 8.0 g/dL LAB CHEMISTRY METHOD 09/21/2024 10:51 PM [facility] Albumin 3.5 3.2 - 5.0 g/dL LAB CHEMISTRY METHOD 09/21/2024 10:51 PM [facility] Total Bilirubin 0.4 0.0 - 1.4 mg/dL LAB CHEMISTRY METHOD 09/21/2024 10:51 PM [facility] Blood Venous blood specimen / Unknown Venipuncture / Unknown 09/21/2024 9:52 PM EDT 09/21/2024 10:23 PM EDT us Sarah Iverson DO LAB BLOOD ORDERABLES Mayda l Result [facility] [address] [place] [address], * (ABNORMAL) POC , urine manually resulted (09/01/2024 7:32 PM EDT) HCG, Ur POC Positive(A ) Negative POC hCG Int QC Pass? Yes Yes EXPIRATION DATE POC 11/16/2025 LOT NUMBER POC [id number] Urine Urine specimen obtained by clean catch procedure / Unknown 09/01/2024 7:32 PM EDT Sarah Iverson DO POINT OF CARE TEST ENTER/ EDIT ORDERABLES Final Result * (ABNORMAL) Urinalysis with reflex microscopic and culture (09/01/2024 7:28 PM EDT) Specific Line [place] Urine 1.015 1.003 - 1.030 LAB URINALYSIS [...] - AUTOMATED METHOD 09/01/2024 8:04 PM EDT [facility] WBC, Urine 3.3 0 - 4 /HPF LAB URINALYSIS - AUTOMATED METHOD 09/01/2024 8:04 PM EDT [facility] Squamous Epithelial, Urine >100(H) 0 - 60 /LPF LAB URINALYSIS - AUTOMATED METHOD 09/01/2024 8:04 PM EDT [facility] Bacteria, Urine Moderate(A) Negative /HPF LAB URINALYSIS - AUTOMATED METHOD 09/01/2024 8:04 PM EDT [facility] Hyaline Casts, Urine 0.0 0 - 3 /LPF LAB URINALYSIS - AUTOMATED METHOD 09/01/2024 8:04 PM EDT [facility] Urine Urine specimen obtained by clean catch procedure / Unknown Non-blood Collection / Unknown 09/01/2024 7:28 PM EDT 09/01/2024 7:50 PM EDT [facility] [employer] LAB URINE ORDERABLES Mayda l Result Performing Organization Address [facility]/ZIP Co de Phone Number [facility] [address] [place] [address], [place] [phone] * Ford urine culture tube (09/01/2024 7:28 PM EDT) Extra Tube Hold for add-ons. 09/01/2024 9:01 PM EDT [facility] Comment:Auto resulted. Urine Urine specimen obtained by clean catch procedure / Unknown Non-blood Collection / Unknown 09/01/2024 7:28 PM EDT 09/01/2024 7:50 PM EDT [facility] [employer] LAB URINE ORDERABLES Mayda l Result Performing Organization Address [facility]/ZIP Co de Phone Number [facility] [address] [place] [address], [place] [phone] * Trichomonas vaginalis antigen (08/24/2024 2:51 PM EST) Trichomonas vaginalis Negative Negative 08/24/2024 7:31 PM EST [facility] Swab Vaginal structure / Unknown Non-blood Collection / Unknown 08/24/2024 2:51 PM EST 08/24/2024 2:51 PM EST Eli [facility]IN LAB MICROBIOLOGY - GENERAL O RDERABLES Final Result [facility] [address] [place] [address], [place] [phone] * Chlamydia trachomatis and Neisseria gonorrhoeae molecular study (08/24/2024 2:51 PM EST) [facility] Neisseria gonorrhoeae PCR Negative Negative LAB MOLECULAR DIAGNOSTICS METHOD 08/24/2024 9:18 PM EST [facility] Chlamydia trachomatis PCR Negative Negative LAB MOLECULAR DIAGNOSTICS METHOD 08/24/2024 9:18 PM EST [facility] Swab Vaginal structure / Unknown Non-blood Collection / Unknown 08/24/2024 2:51 PM EST 08/24/2024 2:51 PM EST us Eli [facility]IN LAB MICROBIOLOGY - GENERAL O RDERABLES Final Result [facility] [address] [place] [address], [place] [phone] * XR Elbow 3+ Views Left (08/11/2024 [...] fracture, if present, should become evident. Code 85385 -------- FINAL REPORT -------- Dictated By: Duran Tomlinson Dictated Date: 08/11/2024 11:24 ET Assigned Physician: Duran Tomlinson Reviewed and Electronically Signed By: Duran Tomlinson Signed Date: 08/11/2024 11:29 ET Workstation ID: [id number] Transcribed By: Self Edit Transcribed Date: 08/11/2024 [...] a fracture, ifpresent, should become evident. Code 70610 -------- FINAL REPORT -------- Dictated By: Duran Tomlinson Dictated Date: 08/11/2024 11:24 ET Assigned Physician: Duran Tomlinson Reviewed and Electronically Signed By: Duran Tomlinson Signed Date: 08/11/2024 11:29 ET Workstation ID: [id number] Transcribed By: Self Edit Transcribed Date: 08/11/2024 11:24 ET Clive Rodriguez MD IMG XR PROCEDURES Final Result * (ABNORMAL) Lipid panel (02/11/2021) LDL/HDL Ratio 5(A) 0 - 4 Triglycerides 125 0 - 150 mg/dL Cholesterol 192 0 - 200 mg/dL HDL 38(A) >=40 mg/dL LDL Cholesterol 129(A) 0 - 100 mg/dL Blood Venous blood specimen / Unknown Historical Provider LAB BLOOD ORDERABLES Mayda l Result from Last 3 Months or Most Recently Relevant to Health Maintenance Insurance [facility] [employer] Advance Directives Documents on File Type Date Recorded 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
--- OUTSIDE RECORDS SUMMARY | 2024-11-03 11:55 | XMS_ITS | Encounter Summary ---
Author Organization [employer] Address [address] [place] [address] Care Team Providers Care District Representative Name Role Phone Alexis Kingsley MD Primary Care Provider [phone]- [phone] Reason for Visit * Reason Comments Initial Visit Encounter Details Date Type Department Care Team (Late st Contact Info) Description 10/30/2024 10:00 AM EDT Initial Obstetrics and Gynecology - [address] [address] Jessica Handley, [address] [address] [place]: [id number] Social History Tobacco Use Types Packs/Day Years [...] Pressure 111/72 10/30/2024 10:03 AM EDT Pulse - - Temperature - - Respiratory Rate - - Oxygen Saturation - - Inhaled Oxygen Concentration - - Weight - - Height - - Body Mass Index - - documented in this encounter Functional Status * [...] AM Balderas RN documented in this encounter Patient Instructions * Attachments The following attachments cannot be sent through Care Everywhere. * : Weeks 14 to 18 (Italian) documented in this encounter Progress Notes * Jessica Handley CNM - 10/30/2024 10:00 AM EDT OB 12 week appt IP: S: [place] [...] the first trimester and how to contact general contractor provider. Discussed the benefits of breast feeding and strongly encouraged to consider this. RTO 4 weeks. The patient does not require anesthesia consult. This patient's VTE risk status is low. [place] Depression Scale: In the Past 7 Days [...] harming myself has occurred to me.: Never [place] Depression Scale Total: 4 Jessica Handley CNM on 10/30/2024 at 3:27 PM EDT documented in this encounter Plan of Treatment Upcoming Encounters Date Type Department Care Team (Late st Contact Info) Description 11/28/2024 10:00 AM EDT Routine Obstetrics and Gynecology - [place] [address] [place] [address] Jessica Handley, [address] [place] [address] 12/21/2024 10:00 AM EDT Ancillary Procedure Maternal Medicine - [address] [phone] Pending Results Name Type Priority Associated Diagnoses Date /Time HPV genotype Lab Routine care, subsequent in first trimester 10/30/2024 10:39 AM EDT documented as of this encounter Procedures Procedure Name Priority Date/Time Associated Diagnosis Comments CHLAMYDIA TRACHOMATIS AND NEISSERIA GONORRHOEAE BY TMA, THINPREP Routine 10/30/2024 10:39 AM EDT care, subsequent in first trimester HPV WITH REFLEX GENOTYPE Routine 10/30/2024 10:39 AM EDT care, subsequent in first trimester PAP SMEAR Routine 10/30/2024 10:39 AM EDT care, subsequent in first trimester documented in this encounter Results * (ABNORMAL) HPV with reflex genotype (10/30/2024 10:39 AM EDT) HPV Positive( A) Negative LAB MICROBIOLOGY METHOD 11/02/2024 10:48 AM EDT [facility] Broom Cervix uteri structure / Unknown 10/30/2024 10:39 AM EDT 10/31/2024 6:50 AM EDT Jessica Handley CNM LAB MOLECULAR DIAGNOSTICS O RDERABLES Final Result [facility] [address] [place] [address], [place] [phone] * Chlamydia trachomatis and neisseria gonorrhoeae by tma, thinprep (10/30/2024 10:39 AM EDT) N. gonorrhoeae, RNA Probe Negative Negative LAB MICROBIOLOGY METHOD 11/01/2024 12:52 PM EDT [facility] Chlamydia, RNA Probe Negative Negative LAB MICROBIOLOGY METHOD 11/01/2024 12:52 PM EDT [facility] Broom Cervix uteri structure / Unknown 10/30/2024 10:39 AM EDT 10/31/2024 6:50 AM EDT Jessica Handley [facility] CYTOLOGY ORDERABLES Fin al Result [facility] [address] [place] [address], * (ABNORMAL) Pap smear (10/30/2024 10:39 AM EDT) Interpretation Low grade squamous intraepithelial lesion(A) 11/02/2024 3:28 PM EDT [facility] General Categorization Epithelial cell abnormality, see interpretation 11/02/2024 3:28 PM EDT [facility] LMP 07/27/2024 11/02/2024 3:28 PM EDT [facility] Specimen Adequacy Satisfactory for evaluation, endocervical/stauffer sformation zone component absent 11/02/2024 3:28 PM EDT [facility] Pap Methodology Liquid Based Pap Test 11/02/2024 3:28 PM EDT [facility] Disclaimer The Pap test is a screening test which carries an inherent false negative rate. These test results should be correlated with the patient's clinical findings and history. This Pap test was processed using an automated screening system. Technical cytopathology services provided by [facility], at [address] [place] [address] (CLIA # [id number]/Kelly Dang MD, Head Refrigerating Engineer.) 11/02/2024 3:28 PM EDT [facility] Console Pap Interpretation Reported 11/02/2024 3:28 PM EDT [facility] Broom Cervix uteri structure / Unknown 10/30/2024 10:39 AM EDT 10/30/2024 10:39 AM EDT us Jessica LEÓN LAB CYTOLOGY ORDERABLES Fin al Result [facility] [address] [place] [address], documented in this encounter Visit Diagnoses Diagnosis care, subsequent in first trimester- Primary Obesity complicating childbirth documented in this encounter Historical Medications * This list may reflect changes made after this encounter. norgestimate-ethin yl estradioL (Ortho Tri-Cyclen, 28,) 0.18/0.215/0.25 mg-0.035mg (28) per tablet Take by mouth. 03/23/2013 desogestreL-ethiny l estradioL (Apri) 0.15-0.03 mg per tablet Take by mouth. 07/11/2013 added in this encounter Care Teams District Representative Relationship Specialty Start Date End Date Alexis Kingsley MD [address] [place] [address] PCP - General Internal Medicine 08/28/24 documented as of this encounter
--- OUTSIDE RECORDS SUMMARY | 2024-11-03 11:55 | XMS_ITS | Encounter Summary ---
Author Organization [employer] [place] [address] Care Team Providers Care Advertising Solicitor Name Role Phone Alexis Kingsley MD Primary Care Provider [phone]- [phone] Reason for Visit * Reason Onset Date Comments Results 11/02/2024 Encounter Details Date Type Department Care Team ([facility] st Contact Info) Description 11/02/2024 Telephone Obstetrics and Gynecology - [place] [address] [place] [address] Heather Guadarrama, [facility] [address] [place] [address] Results Social History Tobacco Use Types Packs/Day Years [...] on file documented as of this encounter Functional Status * Are you [...] documented in this encounter Progress Notes * Noemy Rg RN - 11/02/2024 11:03 AM EDT Spoke with pt- discussed HPV results. Advised that we are still waiting on PAP and other results atthis time. All questions answered. Pt agrees. * Teresa Aguilar - 11/02/2024 10:54 AM EDT Pt called is asking for a call back regarding her pap result - please call documented in this encounter Plan of Treatment Upcoming Encounters Date Type Department Care Team (Late st Contact Info) Description 11/28/2024 10:00 AM EDT Routine Obstetrics and Gynecology - [address] [address] Jessica Handley, [address] [id number] 12/21/2024 10:00 AM EDT Ancillary Procedure Maternal Medicine - [address] [address] documented as of this encounter Visit Diagnoses Not on filedocumented in this encounter Care Teams Advertising Solicitor Relationship Specialty Start Date End Date Alexis Kingsley MD [address] [place] [address] PCP - General Internal Medicine 08/28/24 documented as of this encounter
--- OUTSIDE RECORDS SUMMARY | 2024-11-03 11:55 | XMS_ITS | Encounter Summary ---
Author Organization [employer] [place] [address] Care Team Providers Care Mainframe Consultant Name Role Phone Alexis Kingsley MD Primary Care Provider [phone]- [phone] Reason for Visit * Reason Onset Date Comments Lab Results 11/03/2024 Encounter Details Date Type Department Care Team ([facility] st Contact Info) Description 11/03/2024 Telephone Obstetrics and Gynecology - [place] [address] [place] [address] Heather Guadarrama, [facility] [address] [place] [address] Lab Results Social History Tobacco Use Types Packs/Day [...] documented in this encounter Progress Notes * Jillian Clarke RN - 11/03/2024 10:33 AM EDT I spoke with pt. She is calling regarding pap smear and [facility] Advised her that we are still waiting for HPV genotype to result. Once this results, will advise next step. Pt is upset and concerned as she has never had abnormal pap or HPV in past. Last pap in 03/2023 was negative and HPV was negative. We briefly discussed HPV and that some strains can effect the cervix but also that our own immune system can clear the infection on it's own or virus will go dormant. Discussed that testing does not identify who, when she got this, it only tells us if it is present and if effecting her cervical cells. She was advised that once provider receives all results, will make recommendations as to next step - most likely colposcopy if HR HPV positive (16/18/45). As she is , will only visualize cervix, no biopsies are usually done. All questions at this time addressed, She will await call from office with provider recommendationsonce remaining test results received. * Asha Pottsjasmin - 11/03/2024 9:19 AM EDT Pt calling, states she just missed an call from office and believes it might have to do with lab results. Pls advise documented in this encounter Plan of Treatment Upcoming Encounters Date Type Department Care Team (Late st Contact Info) Description 11/28/2024 10:00 AM EDT Routine Obstetrics and Gynecology - [address] [address] Jessica Handley, [address] [address] 12/21/2024 10:00 AM EDT Ancillary Procedure Maternal Medicine - [address] [address] documented as of this encounter Visit Diagnoses Not on filedocumented in this encounter Care Teams Mainframe Consultant Relationship Specialty Start Date End Date Alexis Kingsley MD [address] [place] [address] PCP - General Internal Medicine 08/28/24 documented as of this encounter
== END 2024-11-03 12:01 | disposition home or self-care (01) ==
LOC: HO.HOS 11:47
PROVIDERS: Visit Provider Physician Assistant
DX: S52.002A Unspecified fracture of upper end of left ulna, initial encounter for closed fracture (principal)
CPT/HCPCS: 99213

== ENCOUNTER 2024-11-03 12:28 | Outpatient (REF) | payer OTHER, SELFPAY ==
--- OUTSIDE RECORDS SUMMARY | 2024-11-06 12:49 | XMS_ITS | Encounter Summary ---
Author Organization [email or web address] [place] [address] Care Team Providers Care Appeals Assistant Name Role Phone Alexis Kingsley MD Primary Care Provider +1- [phone] Reason for Visit * Reason Onset Date Comments Results 11/02/2024 Encounter Details Date Type Department Care Team ([facility] st Contact Info) Description 11/02/2024 Telephone Obstetrics and Gynecology - [place] [address] [place] [address] Heather Guadarrama, [facility] [address] [place] [address] Results Social History Tobacco Use Types Packs/Day [...] AM EDT Routine Obstetrics and Gynecology - [address] [address] Jessica Handley, [address] [phone] 12/21/2024 10:00 AM EDT Ancillary Procedure Maternal Medicine - [address] [address] documented as of this encounter Visit Diagnoses Not on filedocumented in this encounter Care Teams Appeals Assistant Relationship Specialty Start Date End Date Alexis Kingsley MD [address] [place] [address] PCP - General Internal Medicine 08/28/24 documented as of this encounter
--- OUTSIDE RECORDS SUMMARY | 2024-11-06 12:49 | XMS_ITS | Encounter Summary ---
Author Organization [employer] [place] [address] Care Team Providers Care Gas Combustion Engineer Name Role Phone Alexis Kingsley MD Primary Care Provider [phone]- [phone] Reason for Visit * Reason Onset Date Comments Lab Results 11/03/2024 Encounter Details Date Type Department Care Team ([facility] st Contact Info) Description 11/03/2024 Telephone Obstetrics and Gynecology - [place] [address] [place] [address] Heather Guadarrama, [facility] [address] [place] [address] Lab Results Social History Tobacco Use Types [...] and [facility]. Advised her that we are still waiting [...] AM EDT Routine Obstetrics and Gynecology - [address] [address] Jessica Handley, [address] [address] 12/21/2024 10:00 AM EDT Ancillary Procedure Maternal Medicine - [address] [phone] documented as of this encounter Visit Diagnoses Not on filedocumented in this encounter Care Teams Gas Combustion Engineer Relationship Specialty Start Date End Date Alexis Kingsley MD [address] [place] [address] PCP - General Internal Medicine 08/28/24 documented as of this encounter
--- OUTSIDE RECORDS SUMMARY | 2024-11-06 12:49 | XMS_ITS | Clinical Summary ---
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 No other surveillance. H/O gastric sleeve 10/09/2024 Overview (10/09/2024): 2020 care, subsequent in first tri mester 10/09/2024 Overview (10/30/2024): [facility] [place] [facility]: [address] [place] [phone] ([phone]) 2. Delivery site: [facility] 3. Mobile Mommas: No 4. Dating [...] obesity with BMI of 4 5.0-49.9, adult (CMS/HCC V24, [facility] V28) 04/02/2024 DDD (degenerative disc disease), lumbar 06/21/19 20 Seasonal allergic conjunctivitis 10/06/2017 Recurrent sinusitis 08/26/2017 Mixed hyperlipidemia 10/23/2015 Cyst of left kidney 08/30/2015 Overview (04/02/2024): MRI scan 2015. Horseshoe kidney 08/30/2015 Overview (04/02/2024): MRI scan 2015. Fatty liver 08/12/2015 Overview (04/02/2024): Incidental finding on CT scan at [facility] dated 08/11/2015. LFTs normal. IBS (irritable bowel syndrome) 07/08/2015 PCOS (polycystic ovarian syndrome) 09/24/2014 Estimated Date of Delivery Comme nts Yes 05/03/2025 Date entered miguelito or to episode creation Encounters Date Type Department Care Team Description 11/03/2024 Telephone Obstetrics and Gynecology - [address] [phone] Heather Guadarrama CNM Lab Results 11/02/2024 Telephone Obstetrics and Gynecology - [address] [phone] Heather Guadarrama CNM Results 10/30/2024 10:00 AM EDT Initial Obstetrics and Gynecology - [address] [phone] Jessica Handley CNM GA: 13w4d 10/19/2024 9:00 AM EDT Ancillary Procedure Maternal Medicine - [address] [phone] care, subsequent in first trimester; Other obesity due to excess calories affecting in first trimester; Obesity affecting in first trimester; Bariatric surgery status complicating , first trimester; Encounter for nuchal translucency testing; Encounter for screening for malformations 10/18/2024 Telephone Obstetrics and Gynecology - [address] [phone] Stephany Shelton MA Appointment 10/14/2024 1:07 PM EDT - 10/14/2024 4:19 PM EDT Emergency [facility] Emergency [address] [place] [phone] Sarah Iverson DO Nonintractable headache, unspecified chronicity pattern, unspecified headache type (Primary Dx) Discharge Disposition: Home or Self Care 10/11/2024 Telephone Obstetrics and Gynecology - [address] [phone] Sandra Gomez CNM Covid-19 10/09/2024 10:00 AM EDT Clinical Support Obstetrics and Gynecology - [address] [phone] care, subsequent in first trimester (Primary Dx); H/O gastric sleeve; History of appendectomy; History of cholecystectomy; Obesity complicating childbirth 09/21/2024 7:56 PM EDT - 09/21/2024 10:37 PM EDT [facility] Emergency [address] [place] [phone] Discharge Disposition: Home or Self Care 09/19/2024 Telephone Obstetrics and Gynecology - [address] [phone] Sallie Patino RN 09/18/2024 11:15 AM EDT Office Visit Obstetrics and Gynecology - [address] [phone] Brunilda Pettit CNM test positive (Primary Dx); Nausea and vomiting in prior to 22 weeks gestation 09/18/2024 Telephone Obstetrics and Gynecology - [address] [phone] Sandra Gomez CNM Vomiting During 09/01/2024 8:27 PM EDT - 09/01/2024 11:11 PM EDT [address] [phone] Abdominal pain during in first trimester (Primary Dx) Discharge Disposition: Left Against Medical Advice 08/24/2024 2:20 PM EST Office Visit Obstetrics and Gynecology - [address] [phone] Eli Ford PA Screen for STD (sexually transmitted disease) (Primary Dx) 08/11/2024 9:30 AM EST - 08/11/2024 12:28 PM EST [facility] Emergency [address] [place] [phone] Clive Rodriguez MD Cervical strain, acute, initial [...] COMMENT: low back FLEXIBLE SIGMOIDOSCOPY 05/21/2014 PROCEDURE: WA SIGMOIDOSCOPY FLX DX W/COLLJ SPEC BR/WA IF [...] Estimated Date of Delivery 10/09/2024 - Present (11/06/2024) 05/03/2025 (based on Alternate NISHANT Entry) Dating Summary Based On NISHANT GA Diff Last Menstrual Period on 07/27/2024 05/03/2025 Same Ultrasound on 09/21/2024 05/04/2025 -1d GA:7w6d Alternate NISHANT Entry 05/03/2025 Working Comment:Date entered prior t o episode creation Vitals Pregravid Weight Height TWG (As of 11/06/2024) Pregrav id BMI 126 kg (277 lb) 1.626 m (64 ) -0.907 kg (-2 lb) 47.52 Date GA Fund Present FHR Mvmt BP Weight Edema Alb Glu Ket Dil/ Eff/Sta 10/30/2024 13w4d 111/72 0 /0/ Notes Progress Notes - Initial Pre mallory - 10/30/2024 - GA:13w4d 10/30/2024 - 13w4d - Jessica Corley CNM OB 12 week appt IP: S: Dakota [...] the first trimester and how to contact command and control specialist provider. Discussed the benefits of breast feeding and strongly encouraged to consider this. RTO 4 weeks. The patient does not require anesthesia consult. This patient's VTE risk status is low. [place] Depression Scale: In the Past 7 Days [...] harming myself has occurred to me.: Never [place] Depression Scale Total: 4 Jessica Handley CNM on 10/30/2024 at 3:27 PM EDT Progress Notes - Clinical Caro pport - 10/09/2024 - GA:10w4d 10/09/2024 - 10w4d - Sallie Patino RN Dakota Spear is a 34 y.o. old female at 10w4d. This is Unplanned. The patient feels happy about the . The FOB is not involved. Pt aware of transfer of care to [facility] if BMI>50 in .Pt will have 1Hr [...] to the above questions, is this for orthodoxy reasons? N/A Do you know what your [...] of estimated date of delivery No Thalassemia (Kazakh, Faroese, Mediterranean, or background): MCV less than 80 No Neural tube defect (Meningomyelocele, Spina bifida, or Anencephaly) No Congenital heart defect No Down syndrome No Chon-Sachs (Ashkenazi Amish, Cajun, Romansh Baxter) No Yola disease (Ashkenazi Amish) No Familial dysautonomia (Ashkenazi Amish) No Sickle cell disease or trait () [...] Spear has also been informed of the radio time buyer provider recommendation for first trimester nuchal lucency [...] Genetic Testing has been reviewed and the [email or web address] information sheet has been provided to the [...] For Horizon Carrier Screening, if patient has [employer], [facility] insurances: Not Applicable Electronically signed by: Sallie [...] AM EDT Routine Obstetrics and Gynecology - [place] [address] [place] [phone] Jessica Handley, [address] [address] 12/21/2024 10:00 AM EDT Ancillary Procedure Maternal Medicine - [place] [address] [place] [phone] Health Maintenance Due Date Last Done Comments [...] history exists Cervical Cancer Screening: HPV 10/30/2029 10/30/2024, 10/30/2024 HIB Vaccines Completed 01/29/1993, 01/1992, 01/16/1992, [...] EDT care, subsequent in first trimester HPV GENOTYPE Routine 10/30/2024 10:39 AM EDT care, [...] Recently Relevant to Health Maintenance Results * HPV genotype (10/30/2024 10:39 AM EDT) HPV Type 16 Negative Negative LAB MICROBIOLOGY METHOD 11/06/2024 9:54 AM EDT [facility] HPV Type 18/45 Negative Negative LAB MICROBIOLOGY METHOD 11/06/2024 9:54 AM EDT [facility] HPV Type 16,18, and others Valid LAB MICROBIOLOGY METHOD 11/06/2024 9:54 AM EDT [facility] Broom Cervix uteri structure / Unknown 10/30/2024 10:39 AM EDT 10/31/2024 6:50 AM EDT Jessica Handley CNM LAB MOLECULAR DIAGNOSTICS O RDERABLES Final Result [facility] [address] [place] [address], * Chlamydia trachomatis and neisseria gonorrhoeae by tma, thinprep (10/30/2024 10:39 AM EDT) N. gonorrhoeae, RNA Probe Negative Negative LAB MICROBIOLOGY METHOD 11/01/2024 12:52 PM EDT [facility] Chlamydia, RNA Probe Negative Negative LAB MICROBIOLOGY METHOD 11/01/2024 12:52 PM EDT [facility] Broom Cervix uteri structure / Unknown 10/30/2024 10:39 AM EDT 10/31/2024 6:50 AM EDT [facility] CYT[facility]Y ORDERABLES Fin al Result [facility] [address] [place] [address], [place] [phone] * (ABNORMAL) HPV with reflex genotype (10/30/2024 10:39 AM EDT) HPV Positive( A) Negative LAB MICROBIOLOGY METHOD 11/02/2024 10:48 AM EDT [facility] Broom Cervix uteri structure / Unknown 10/30/2024 10:39 AM EDT 10/31/2024 6:50 AM EDT us Jessica LEÓN LAB MOLECULAR DIAGNOSTICS O RDERABLES Final Result [facility] [address] [place] [address], [place] [phone] * (ABNORMAL) Pap smear (10/30/2024 10:39 AM EDT) Interpretation Low grade squamous intraepithelial lesion(A) 11/02/2024 3:28 PM EDT [facility] General Categorization Epithelial cell abnormality, see interpretation 11/02/2024 3:28 PM EDT [facility] LMP 07/27/2024 11/02/2024 3:28 PM EDT [facility] Specimen Adequacy Satisfactory for evaluation, endocervical/stauffer sformation zone component absent 11/02/2024 3:28 PM EDT [facility] Pap Methodology Liquid Based Pap Test 11/02/2024 3:28 PM EDT [facility] Disclaimer The Pap test is a screening test which carries an inherent false negative rate. These test results should be correlated with the patient's clinical findings and history. This Pap test was processed using an automated screening system. Technical cytopathology services provided by [facility], at [address] [place] [address] (CLIA # [id number]/Kelly Dang MD, [place].) 11/02/2024 3:28 PM EDT [facility] Console Pap Interpretation Reported 11/02/2024 3:28 PM EDT [facility] Broom Cervix uteri structure / Unknown 10/30/2024 10:39 AM EDT 10/30/2024 10:39 AM EDT Jessica Handley [facility] LAB CYTOLOGY ORDERABLES Fin al Result [facility] [address] [place] [address], [place] [phone] * Horizon 14 (10/19/2024 3:41 PM EDT) Blood Venous blood specimen / Unknown Lucy Rich MD LAB BLOOD ORDERABLES Final Result * US OB Less 14 Wks Nuchal Measurement (10/19/2024 9:40 AM EDT) Anatomical Region Laterality Modality Body Ultrasound 10/19/2024 9:09 AM EDT Narrative 10/19/2024 12:19 PM EDT OBSTETRICS REPORT ?(Signed Final 10/19/2024 12:19 pm) PATIENT INFO: ID #: ? [id number] ? : ??[birth year] (34 yrs)(F) Name: ? DAKOTA SPEAR ?Visit Date: 10/19/2024 09:09 am PERFORMED BY: Attending: ?Juli Iqbal MD Performed By: ? Ricco Adams RDMS Referred By: ?Lucy Rich MD Ref. Address: ? [address] [facility] ? [place] ??[address] Location: ? [facility] SERVICE(S) PROVIDED: US Nuchal Translucency ?01532 US < 14 weeks Abdominal Ultrasound ?83432 INDICATIONS: Obesity complicating , 1st ?O99.211 trimester [...] 10/19/2024 12:19 pm) PATIENT INFO: ID #: [id number] : [birth year] (34 yrs)(F) Name: DAKOTA SPEAR Visit Date: 10/19/2024 09:09 am PERFORMED BY: Attending: Juli Iqbal MD Performed By: Ricco Adams RDDE Referred By: Lucy Rich MD Ref. Address: [address] [place] [address] Location: [facility] SERVICE(S) PROVIDED: US Nuchal Translucency 85540 US < 14 weeks Abdominal Ultrasound 16122 INDICATIONS: Obesity complicating , 1st O99.211 trimester [...] 12:19 pm) PATIENT INFO: ID #: ? [id number] ? : ??[birth year] (34 yrs)(F) Name: ? DAKOTA SPEAR ?Visit Date: 10/19/2024 09:09 am PERFORMED BY: Attending: ?Juli Iqbal MD Performed By: ? Ricco Adams RDMS Referred By: ?Lucy Rich MD Ref. Address: ? [address] [facility] ? [place] ??[address] Location: ? [facility] SERVICE(S) PROVIDED: US Nuchal Translucency ?87345 US < 14 weeks Abdominal Ultrasound ?96528 INDICATIONS: Obesity complicating , 1st ?O99.211 trimester [...] 10/19/2024 12:19 pm) PATIENT INFO: ID #: [id number] : [birth year] (34 yrs)(F) Name: PEDROEmily SPEAR Visit Date: 10/19/2024 09:09 am PERFORMED BY: Attending: Juli Iqbal MD Performed By: Ricco Adams RDDE Referred By: Lucy Rich MD Ref. Address: [address] [place] [address] Location: [facility] SERVICE(S) PROVIDED: US Nuchal Translucency 81575 US < 14 weeks Abdominal Ultrasound 57763 INDICATIONS: Obesity complicating , 1st O99.211 trimester [...] is included. WBC 8.1 4.8 - 10.8 K/[facility] HEMETOLOGY METHOD 10/14/2024 1:43 PM EDT [facility] RBC 4.00 3.80 - 4.80 M/[facility] LAB HEMETOLOGY METHOD 10/14/2024 1:43 PM EDT [facility] Hemoglobin 12.1 11.5 - 16.0 g/dL LAB [facility]OLOGY [facility]24 [facility] Hematocrit 37.2 35.0 - 47.0 % LAB [facility]OLOGY METHOD [facility]24 [facility] MCV 92.8 79.0 - 98.0 FL LAB [facility]OLOGY METHOD [facility]2024 [facility] MCH 30.2 27.0 - 32.0 pcg LAB HEMETOLOGY METHOD 10/14/2024 1:43 PM [facility] MCHC 32.5 32.0 - 37.0 g/dL LAB HEMETOLOGY METHOD 10/14/2024 1:43 PM [facility] RDW 13.6 11.0 - 15.0 % LAB HEMETOLOGY METHOD 10/14/2024 1:43 PM [facility] Platelets 10/14/2024 1:43 PM [facility] Comment:Not measured. Platel ets appear adequate but clumped MPV 10.3 7.0 - 11.0 FL LAB HEMETOLOGY METHOD 10/14/2024 1:43 PM [facility] NRBC 0.0 <1.0 % LAB HEMETOLOGY METHOD 10/14/2024 1:43 PM [facility] NRBC Absolute 0.00 <0.10 K/mcL LAB HEMETOLOGY METHOD 10/14/2024 1:43 PM [facility] Neutrophils Relative 67.6 % LAB HEMETOLOGY METHOD 10/14/2024 1:43 PM [facility] Lymphocytes Relative 26.9 % LAB HEMETOLOGY METHOD 10/14/2024 1:43 PM [facility] Monocytes Relative 3.7 % LAB HEMETOLOGY METHOD 10/14/2024 1:43 PM [facility] Eosinophils Relative 0.7 % LAB HEMETOLOGY METHOD 10/14/2024 1:43 PM [facility] Basophils Relative 0.5 % LAB HEMETOLOGY METHOD 10/14/2024 1:43 PM [facility] Immature Granulocytes Relative 0.6 % LAB HEMETOLOGY METHOD 10/14/2024 1:43 PM EDT [facility] Neutrophils Absolute 5.45 1.50 - 7.00 K/mcL LAB HEMETOLOGY METHOD 10/14/2024 1:43 PM EDT [facility] Lymphocytes Absolute 2.17 1.00 - 5.00 K/mcL LAB HEMETOLOGY METHOD 10/14/2024 1:43 PM EDT [facility] Monocytes Absolute 0.30 0.20 - 1.00 K/mcL LAB HEMETOLOGY METHOD 10/14/2024 1:43 PM EDT [facility] Eosinophils Absolute 0.06 0.00 - 0.50 K/[facility] LAB HEMETOLOGY METHOD 10/14/2024 1:43 PM EDT [facility] Basophils Absolute 0.04 0.00 - 0.20 K/mcL LAB HEMETOLOGY METHOD 10/14/2024 1:43 PM EDT [facility] Immature Granulocytes Absolute 0.05(H) 0.00 - 0.03 K/mcL LAB HEMETOLOGY METHOD 10/14/2024 1:43 PM EDT [facility] Blood Venous blood specimen / Unknown Venipuncture / Unknown 10/14/2024 12:20 PM EDT 10/14/2024 12:40 PM EDT Erik Fields MD LAB BLOOD ORDERABLES Final Result [facility] [address] [place] [address], * HCG, quantitative (10/14/2024 12:20 PM EDT) Only the most recent of4 resultswithin the time period is included. hCG Quant 31,127 mIU/mL LAB CHEMISTRY METHOD 10/14/2024 2:15 PM EDT [facility] Blood Venous blood specimen / Unknown Venipuncture / Unknown 10/14/2024 12:20 PM EDT 10/14/2024 12:40 PM EDT Narrative [place]O ALEJANDRE [place] ([facility]) [facility] - 10/14/2024 2:15 PM EDT Quantitative HCG Reference Ranges Time after Conception ? MIU/ML 0.2-1 Week ? 5-50 1-2 ?? Weeks ? 50-500 2-3 ?? Weeks ?100-5,000 3-4 ?? Weeks ?500-10,000 4-5 ?? Weeks ?1,000-50,000 5-6 ?? Weeks ? 10,000-100,000 6-8 ?? Weeks ? 15,000-200,000 2-3 ?? Months ?10,000-100,000 2nd Trimester ?1,000-94,000 3rd Trimester ?2,500-90,000 Non- Females ?1-3 us Erik Fields MD LAB BLOOD ORDERABLES Final Result [facility]ACHO ALEJANDRE [place] ([facility]) [facility] [address] [place] [address], * (ABNORMAL) Magnesium (10/14/2024 12:20 PM EDT) Magnesium 1.8(L) 1.9 - 2.6 mg/dL LAB CHEMISTRY METHOD 10/14/2024 1:14 PM [facility] Blood Venous blood specimen / Unknown Venipuncture / Unknown 10/14/2024 12:20 PM EDT 10/14/2024 12:40 PM EDT us Erik Fields MD LAB BLOOD ORDERABLES Final Result [facility] [address] [place] [address], [place] [phone] * (ABNORMAL) Basic metabolic panel (10/14/2024 12:20 PM EDT) Sodium 140 133 - 145 mmol/L LAB CHEMISTRY METHOD 10/14/2024 1:14 PM [facility] Potassium 3.4(L) 3.5 - 5.5 mmol/L LAB CHEMISTRY METHOD 10/14/2024 1:14 PM [facility] Chloride 107 96 - 110 mmol/L LAB CHEMISTRY METHOD 10/14/2024 1:14 PM [facility] CO2 25 21 - 32 mmol/L LAB CHEMISTRY METHOD 10/14/2024 1:14 PM [facility] Anion Gap 8 3 - 11 LAB CHEMISTRY METHOD 10/14/2024 1:14 PM [facility] Glucose 114(H) 70 - 100 mg/dL LAB CHEMISTRY METHOD 10/14/2024 1:14 PM [facility] BUN 9 5 - 25 mg/dL LAB CHEMISTRY METHOD 10/14/2024 1:14 PM [facility] Creatinine 0.62 0.50 - 1.10 mg/dL LAB CHEMISTRY METHOD 10/14/2024 1:14 PM [facility] eGFR 121 >=60 mL/min/1. 73m2 LAB CHEMISTRY METHOD 10/14/2024 1:14 PM [facility] Comment:Calculation based on the??Chronic Kidney Disease Epidemiology Collaboration (CKD-EPI) equation refit??without adjustment for race. BUN/Creatinine Ratio 14.5 LAB CHEMISTRY METHOD 10/14/2024 1:14 PM EDT [facility] Calcium 9.1 8.5 - 10.5 mg/dL LAB CHEMISTRY METHOD 10/14/2024 1:14 PM EDT [facility] Blood Venous blood specimen / Unknown Venipuncture / Unknown 10/14/2024 12:20 PM EDT 10/14/2024 12:40 PM EDT Erik Fields MD LAB BLOOD ORDERABLES Final Result Performing Organization Address [facility]/ZIP Co de Phone Number [facility] [address] [place] [address], [place] [phone] * Hepatitis C antibody (10/09/2024 12:34 PM EDT) Only the most recent of2 resultswithin the time period is included. Hepatitis C Antibody Negative Negative LAB CHEMISTRY METHOD 10/09/2024 8:43 PM EDT [facility] Blood Venous blood specimen / Unknown Venipuncture / Unknown 10/09/2024 12:34 PM EDT 10/09/2024 12:34 PM EDT Lucy Rich MD LAB BLOOD ORDERABLES Final Result [facility] [address] [place] [address], [place] [phone] * HIV 1,2 antibody, p24 antigen with reflex to differentiation (10/09/2024 12:34 PM EDT) Only the most recent of2 resultswithin the time period is included. HIV Combo AB/AG Negative Negative LAB CHEMISTRY METHOD 10/09/2024 8:43 PM EDT [facility] Blood Venous blood specimen / Unknown Venipuncture / Unknown 10/09/2024 12:34 PM EDT 10/09/2024 12:34 PM EDT [facility] - 10/09/2024 8:43 PM EDT This [...] BLOOD ORDERABLES Final Result Performing Organization Address [facility] Co de Phone Number [facility] [address] [place] [address], [place] [phone] * Hepatitis B surface antigen with reflex to confirmation (10/09/2024 12:34 PM EDT) [facility] Hepatitis B Surface Ag Negative Negative LAB CHEMISTRY METHOD 10/09/2024 8:14 PM EDT [facility] Blood Venous blood specimen [...] BLOOD ORDERABLES Final Result Performing Organization Address [facility]/ZIP Co de Phone Number [facility] [address] [place] [address], [place] [phone] * Treponema pallidum antibody with reflex to RPR and particle agglutination (10/09/2024 12:34 PM EDT) Only the most recent of2 resultswithin the time period is included. [facility] T. Pallidum Antibodies Negative Negative LAB CHEMISTRY METHOD 10/09/2024 8:41 PM EDT [facility] Blood Venous blood specimen / Unknown Venipuncture / Unknown 10/09/2024 12:34 PM EDT 10/09/2024 12:34 PM EDT Lucy Rich MD LAB BLOOD ORDERABLES Final Result [facility] [address] [place] [address], [place] [phone] * Venipuncture charge (10/09/2024 12:34 PM EDT) [facility] Extra Tube Hold for add-ons. 10/09/2024 2:02 PM EDT [facility] Comment:Auto resulted. Blood Venous blood specimen / Unknown Venipuncture / Unknown 10/09/2024 12:34 PM EDT 10/09/2024 12:34 PM EDT us Lucy Rich MD LAB BLOOD ORDERABLES Final Result Performing Organization Address City/[facility]/ZIP Co de Phone Number [facility] [place], * GTT gestational 1 hour (10/09/2024 12:34 PM EDT) [facility] Glucose, 1 HR Gestational 91 See Comment mg/dL LAB CHEMISTRY METHOD 10/09/2024 5:13 PM EDT [facility] Blood Venous blood specimen / Unknown Venipuncture / Unknown 10/09/2024 12:34 PM EDT 10/09/2024 12:34 PM EDT Narrative [facility] - 10/09/2024 5:13 PM EDT Gestational Diabetes Challenge Reference Range: 1 hour Glucose <140 mg/dL us Lucy Rich MD LAB BLOOD ORDERABLES Final Result [facility] [address] [place] [address], [place] [phone] * Drug abuse screen expanded with reflex confirmation, urine (10/09/2024 12:34 PM EDT) Amphetamine Screen, Ur Negative Negative LAB CHEMISTRY METHOD 10/09/2024 5:19 PM EDT [facility] Comment:Certain OTC medicati ons containing ephedrine, phenylephrine, pseudoephedrine and phenylpropanolamine can cause false positive results. Barbiturate Screen, Ur Negative Negative LAB CHEMISTRY METHOD 10/09/2024 5:19 PM EDT [facility] Benzodiazepine Screen, Ur Negative Negative LAB CHEMISTRY METHOD 10/09/2024 5:19 PM EDT [facility] Cocaine Screen, Ur Negative Negative LAB CHEMISTRY METHOD 10/09/2024 5:19 PM EDT [facility] Opiate Screen, Ur Negative Negative LAB CHEMISTRY METHOD 10/09/2024 5:19 PM EDT [facility] Cannabinoid (THC) Screen, Ur Negative Negative LAB CHEMISTRY METHOD 10/09/2024 5:19 PM EDT [facility] Comment:Specimens from patie nts taking pantoprazole sodium (Protonix) have been shown to produce false positive results. Fentanyl, Ur Negative Negative LAB CHEMISTRY METHOD 10/09/2024 5:19 PM EDT [facility] Oxycodone Screen, Ur Negative Negative LAB CHEMISTRY METHOD 10/09/2024 5:19 PM EDT [facility] Urine Urine specimen obtained by clean catch procedure / Unknown Non-blood Collection / Unknown 10/09/2024 12:34 PM EDT 10/09/2024 12:34 PM EDT Narrative [facility] - 10/09/2024 5:19 PM [...] URINE ORDERABLES Final Result Performing Organization Address [facility] Co de Phone Number [facility] [address] [place] [address], [place] [phone] * Protein and creatinine with ratio, urine (10/09/2024 12:34 PM EDT) Protein, Urine 22 mg/dL LAB CHEMISTRY METHOD 10/09/2024 5:18 PM EDT [facility] Prot/Creat, Ur 0.10 <=0.20 mg/mg creat LAB CHEMISTRY METHOD 10/09/2024 5:18 PM EDT [facility] Creatinine, Urine 224.0 mg/dL LAB CHEMISTRY METHOD 10/09/2024 5:18 PM EDT [facility] Urine Urine specimen obtained by clean catch procedure / Unknown Non-blood Collection / Unknown 10/09/2024 12:34 PM EDT 10/09/2024 12:34 PM EDT Lucy Rich MD LAB URINE ORDERABLES Final Result Performing Organization Address [facility] Co de Phone Number [facility] [address] [place] [address], [place] [phone] * Creatinine (10/09/2024 12:34 PM EDT) Creatinine 0.63 0.50 - 1.10 mg/dL LAB CHEMISTRY METHOD 10/09/2024 7:06 PM EDT [facility] eGFR 120 >=60 mL/min/1. 73m2 LAB CHEMISTRY METHOD 10/09/2024 7:06 PM EDT [facility] Comment:Calculation based on the??Chronic Kidney Disease Epidemiology Collaboration (CKD-EPI) equation refit??without adjustment for race. Blood Venous blood specimen / Unknown Venipuncture / Unknown 10/09/2024 12:34 PM EDT 10/09/2024 12:34 PM EDT us Lucy Rich MD LAB BLOOD ORDERABLES Final Result Performing Organization Address [facility] Co de Phone Number [facility] [address] [place] [address], [place] [phone] * (ABNORMAL) Rubella antibody IgG (10/09/2024 12:34 PM EDT) [facility] Rubella IgG Quant 9.6(L) >=10.0 I Unit/mL LAB CHEMISTRY METHOD 10/09/2024 9:40 PM EDT [facility] Rubella IgG Antibody Interp Equivocal (A) Positive LAB CHEMISTRY METHOD 10/09/2024 9:40 PM EDT [facility] Comment:Results verified by repeat testing Blood Venous blood specimen / Unknown Venipuncture / Unknown 10/09/2024 12:34 PM EDT 10/09/2024 12:34 PM EDT us Lucy Rich MD LAB BLOOD ORDERABLES Final Result Performing Organization Address [facility]/ZIP Co de Phone Number [facility] [address] [place] [address], [place] [phone] * Type and screen (10/09/2024 12:34 PM EDT) Only the most recent of2 resultswithin the time period is included. ABO Group O 10/09/2024 4:24 PM EDT [facility] Rh Type Positive 10/09/2024 4:24 PM EDT [facility] Antibody Screen Negative 10/09/2024 4:24 PM EDT [facility] Blood Venous blood specimen / Unknown Venipuncture / Unknown 10/09/2024 12:34 PM EDT 10/09/2024 12:34 PM EDT us Lucy Rich MD LAB BLOOD BANK TEST ORDERAB LES Final Result Performing Organization Address City/[facility]/ZIP Co de Phone Number [facility] [address] [place] [address], [place] [phone] * Culture urine (10/09/2024 12:34 PM EDT) Only the most recent of2 resultswithin the time period is included. Culture, Urine <10,000 cfu/mL Mixed bacterial reinier 10/10/2024 10:14 AM EDT [facility] Urine Urine specimen obtained by clean catch procedure / Unknown Non-blood Collection / Unknown 10/09/2024 12:34 PM EDT 10/09/2024 12:34 PM EDT us Lucy Rich MD LAB MICROBIOLOGY - GENERAL ORDERABLES Final Result [facility] [address] [place] [address], [place] [phone] * Varicella zoster antibody IgG (10/09/2024 12:34 PM EDT) Varicella IgG Positive Positive LAB CHEMISTRY METHOD 10/10/2024 9:23 AM EDT [facility] Varicella Zoster IgG 1.26 >=1.00 S/CO LAB CHEMISTRY METHOD 10/10/2024 9:23 AM EDT [facility] Blood Venous blood specimen / Unknown Venipuncture / Unknown 10/09/2024 12:34 PM EDT 10/09/2024 12:34 PM EDT Narrative [facility] - 10/10/2024 9:23 AM EDT Interpretation >= 1.00 S/CO is considered to be consistent with Immunity us Lucy Rich MD LAB BLOOD ORDERABLES Final Result Performing Organization Address [facility] de Phone Number [facility] [address] [place] [address], [place] [phone] * Alanine aminotransferase (10/09/2024 12:34 PM EDT) ALT (SGPT) 29 10 - 60 unit/L LAB CHEMISTRY METHOD 10/09/2024 7:06 PM EDT [facility] Blood Venous blood specimen / Unknown Venipuncture / Unknown 10/09/2024 12:34 PM EDT 10/09/2024 12:34 PM EDT us Lucy Rich MD LAB BLOOD ORDERABLES Final Result Performing Organization Address [facility] de Phone Number [facility] [address] [place] [address], [place] [phone] * Aspartate aminotransferase (10/09/2024 12:34 PM EDT) AST (SGOT) 10 10 - 42 unit/L LAB CHEMISTRY METHOD 10/09/2024 7:06 PM EDT [facility] Blood Venous blood specimen / Unknown Venipuncture / Unknown 10/09/2024 12:34 PM EDT 10/09/2024 12:34 PM EDT us Lucy Rich MD LAB BLOOD ORDERABLES Final Result Performing Organization Address [facility] de Phone Number [facility] [address] [place] [address], * Hemoglobin A1c (10/09/2024 12:34 PM EDT) [facility] Hemoglobin A1C 5.3 <6.5 % LAB CHEMISTRY METHOD 10/09/2024 9:58 PM EDT [facility] Mean Bld Glu Estim. 105 mg/dL LAB CHEMISTRY METHOD 10/09/2024 9:58 PM EDT [facility] Blood Venous blood specimen / Unknown Venipuncture / Unknown 10/09/2024 12:34 PM EDT 10/09/2024 12:34 PM EDT Lucy Rich MD LAB BLOOD ORDERABLES Final Result Performing Organization Address [facility]/ZIP Co de Phone Number [facility] [address] [place] [address], * ABO Rh (09/21/2024 9:52 PM EDT) [facility] ABO Group O 09/22/2024 7:05 AM EDT [facility] Rh Type Positive 09/22/2024 7:05 AM EDT [facility] Blood Venous blood specimen / Unknown Venipuncture / Unknown 09/21/2024 9:52 PM EDT 09/21/2024 10:23 PM EDT Sarah Iverson DO LAB BLOOD BANK TEST ORDER JOY Final Result [facility] [address] [place] [address], * Comprehensive metabolic panel (09/21/2024 9:52 PM EDT) Only the most recent of2 resultswithin the time period is included. [facility] Sodium 140 133 - 145 mmol/L LAB CHEMISTRY METHOD 09/21/2024 10:51 PM [facility] Potassium 3.9 3.5 - 5.5 mmol/L LAB CHEMISTRY METHOD 09/21/2024 10:51 PM [facility] Chloride 106 96 - 110 mmol/L LAB CHEMISTRY METHOD 09/21/2024 10:51 PM [facility] CO2 26 21 - 32 mmol/L LAB CHEMISTRY METHOD 09/21/2024 10:51 PM [facility] Anion Gap 8 3 - 11 LAB CHEMISTRY METHOD 09/21/2024 10:51 PM [facility] Glucose 79 70 - 100 mg/dL LAB CHEMISTRY METHOD 09/21/2024 10:51 PM [facility] BUN 9 5 - 25 mg/dL LAB CHEMISTRY METHOD 09/21/2024 10:51 PM [facility] Creatinine 0.71 0.50 - 1.10 mg/dL LAB CHEMISTRY METHOD 09/21/2024 10:51 PM [facility] eGFR 115 >=60 mL/min/1. 73m2 LAB CHEMISTRY METHOD 09/21/2024 10:51 PM [facility] Comment:Calculation based on the??Chronic Kidney Disease Epidemiology Collaboration (CKD-EPI) equation refit??without adjustment for race. BUN/Creatinine Ratio 12.7 LAB CHEMISTRY METHOD 09/21/2024 10:51 PM [facility] Calcium 9.7 8.5 - 10.5 mg/dL LAB CHEMISTRY METHOD 09/21/2024 10:51 PM [facility] AST (SGOT) 21 10 - 42 unit/L LAB CHEMISTRY METHOD 09/21/2024 10:51 PM [facility] ALT (SGPT) 47 10 - 60 unit/L LAB CHEMISTRY METHOD 09/21/2024 10:51 PM [facility] Alkaline Phosphatase 46 42 - 121 unit/L LAB CHEMISTRY METHOD 09/21/2024 10:51 PM EDT [facility] Total Protein 7.2 6.0 - 8.0 g/dL LAB CHEMISTRY METHOD 09/21/2024 10:51 PM EDT [facility] Albumin 3.5 3.2 - 5.0 g/dL LAB CHEMISTRY METHOD 09/21/2024 10:51 PM EDT [facility] Total Bilirubin 0.4 0.0 - 1.4 mg/dL LAB CHEMISTRY METHOD 09/21/2024 10:51 PM EDT [facility] Blood Venous blood specimen / Unknown Venipuncture / Unknown 09/21/2024 9:52 PM EDT 09/21/2024 10:23 PM EDT us Sarah Iverson DO LAB BLOOD ORDERABLES Mayda l Result [facility] [address] [place] [address], * (ABNORMAL) POC , urine manually resulted (09/01/2024 7:32 PM EDT) Pathologist [facility] HCG, Ur POC Positive(A ) Negative POC hCG Int QC Pass? Yes Yes EXPIRATION DATE POC 11/16/2025 LOT NUMBER POC [id number] Urine Urine specimen obtained by clean catch procedure / Unknown 09/01/2024 7:32 PM EDT us Sarah Iverson DO POINT OF CARE TEST ENTER/ EDIT ORDERABLES Final Result * (ABNORMAL) Urinalysis with reflex microscopic and culture (09/01/2024 7:28 PM EDT) [facility] Specific [place] Urine 1.015 1.003 - 1.030 LAB URINALYSIS - AUTOMATED METHOD 09/01/2024 8:04 PM EDT [facility] pH, Urine 7.5 5.0 - 8.0 pH LAB URINALYSIS - AUTOMATED METHOD 09/01/2024 8:04 PM [facility] Leukocytes, Urine Trace(A) Negative LAB URINALYSIS - AUTOMATED METHOD 09/01/2024 8:04 PM [facility] Nitrite, Urine Negative Negative LAB URINALYSIS - AUTOMATED METHOD 09/01/2024 8:04 PM [facility] Protein, Urine Negative <=Trace mg/dL LAB URINALYSIS - AUTOMATED METHOD 09/01/2024 8:04 PM [facility] Glucose, Urine Negative Negative mg/dL LAB URINALYSIS - AUTOMATED METHOD 09/01/2024 8:04 PM [facility] Ketones, Urine Negative Negative mg/dL LAB URINALYSIS - AUTOMATED METHOD 09/01/2024 8:04 PM [facility] Urobilinogen , Urine 0.2 0.2 - 1.0 mg/dL LAB URINALYSIS - AUTOMATED METHOD 09/01/2024 8:04 PM [facility] Bilirubin, Urine Negative Negative LAB URINALYSIS - AUTOMATED METHOD 09/01/2024 8:04 PM [facility] Blood, Urine Negative Negative LAB URINALYSIS - AUTOMATED METHOD 09/01/2024 8:04 PM [facility] RBC, Urine 3.1 0 - 4 /HPF LAB URINALYSIS - AUTOMATED METHOD 09/01/2024 8:04 PM [facility] WBC, Urine 3.3 0 - 4 /HPF LAB URINALYSIS - AUTOMATED METHOD 09/01/2024 8:04 PM [facility] Squamous Epithelial, Urine >100(H) 0 - 60 /LPF LAB URINALYSIS - AUTOMATED METHOD 09/01/2024 8:04 PM [facility] Bacteria, Urine Moderate(A) Negative /HPF LAB URINALYSIS - AUTOMATED METHOD 09/01/2024 8:04 PM [facility] Hyaline Casts, Urine 0.0 0 - 3 /LPF LAB URINALYSIS - AUTOMATED METHOD 09/01/2024 8:04 PM EDT [facility] Urine Urine specimen obtained by clean catch procedure / Unknown Non-blood Collection / Unknown 09/01/2024 7:28 PM EDT 09/01/2024 7:50 PM EDT us Sarah Iverson DO LAB URINE ORDERABLES Mayda l Result Performing Organization Address City/[facility] Co de Phone Number [facility] [address] [place] [address], [place] [phone] * Ford urine culture tube (09/01/2024 7:28 PM EDT) Pathologist [facility] Extra Tube Hold for add-ons. 09/01/2024 9:01 PM EDT [facility] Comment:Auto resulted. Urine Urine specimen obtained by clean catch procedure / Unknown Non-blood Collection / Unknown 09/01/2024 7:28 PM EDT 09/01/2024 7:50 PM EDT Sarah Iverson LAB URINE ORDERABLES Mayda l Result Performing Organization Address [facility] Co de Phone Number [facility] [address] [place] [address], [place] [phone] * Trichomonas vaginalis antigen (08/24/2024 2:51 PM EST) Trichomonas vaginalis Negative Negative 08/24/2024 7:31 PM EST [facility] Swab Vaginal structure / Unknown Non-blood Collection / Unknown 08/24/2024 2:51 PM EST 08/24/2024 2:51 PM EST us Eli CHIN LAB MICROBIOLOGY - GENERAL O RDERABLES Final Result Performing Organization Address City/[facility]/ZIP Co de Phone Number [facility] [address] [place] [address], [place] [phone] * Chlamydia trachomatis and Neisseria gonorrhoeae molecular study (08/24/2024 2:51 PM EST) Neisseria gonorrhoeae PCR Negative Negative LAB MOLECULAR DIAGNOSTICS METHOD 08/24/2024 9:18 PM EST [facility] Chlamydia trachomatis PCR Negative Negative LAB MOLECULAR DIAGNOSTICS METHOD 08/24/2024 9:18 PM EST [facility] Swab Vaginal structure / Unknown Non-blood Collection / Unknown 08/24/2024 2:51 PM EST 08/24/2024 2:51 PM EST Eli CHIN LAB MICROBIOLOGY - GENERAL O RDERABLES Final Result [facility] [address] [place] [address], * XR Elbow 3+ Views Left (08/11/2024 [...] fracture, if present, should become evident. Code 91379 -------- FINAL REPORT -------- Dictated By: Duran Tomlinson Dictated Date: 08/11/2024 11:24 ET Assigned Physician: Duran Tomlinson Reviewed and Electronically Signed By: Duran Tomlinson Signed Date: 08/11/2024 11:29 ET Workstation ID: [id number] Transcribed By: Self Edit Transcribed Date: 08/11/2024 [...] a fracture, ifpresent, should become evident. Code 00722 -------- FINAL REPORT -------- Dictated By: Duran Tomlinson Dictated Date: 08/11/2024 11:24 ET Assigned Physician: Duran Tomlinson Reviewed and Electronically Signed By: Duran Tomlinson Signed Date: 08/11/2024 11:29 ET Workstation ID: [id number] Transcribed By: Self Edit Transcribed Date: 08/11/2024 11:24 ET Clive Rodriguez MD IMG XR PROCEDURES Final Result * (ABNORMAL) Lipid panel (02/11/2021) LDL/HDL Ratio 5(A) 0 - 4 Triglycerides 125 0 - 150 mg/dL Cholesterol 192 0 - 200 mg/dL HDL 38(A) >=40 mg/dL LDL Cholesterol 129(A) 0 - 100 mg/dL Blood Venous blood specimen / Unknown us Historical Provider LAB BLOOD ORDERABLES Mayda linton Result from Last 3 Months or Most Recently Relevant to Health Maintenance Insurance [employer] [facility] PLAN [employer]IC Advance Directives Documents on File Type Date Recorded 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
== END 2024-11-03 12:29 | disposition home or self-care (01) ==
LOC: HO.HOSX 12:28
PROVIDERS: Visit Provider Physician Assistant
DX: Z13.89 Encounter for screening for other disorder (principal)